=== PATIENT | male | born 1950 | race Caucasian/White ===

== ENCOUNTER → 2016-06-29 | Outpatient (CLI) | payer MEDICARE ==
--- NOTE | 2016-06-29 12:02 | CT ---
EXAMINATION TYPE: CT abdomen pelvis wo con DATE OF EXAM: 06/29/2016 11:11 AM COMPARISON: NONE HISTORY: increased frequency urination, pain and buring with urination and hematuria CT DLP: 370.6 mGycm FINDINGS: LUNG BASES: No evidence for nodule. No evidence for infiltrate. LIVER/GB: The gallbladder is unremarkable. No space-occupying hepatic lesion. PANCREAS: No pancreatic mass identified. No inflammatory process seen. SPLEEN: No evidence for splenomegaly. No intrasplenic lesions seen. ADRENALS: No adrenal nodules identified. No evidence for thickening. KIDNEYS: Parenchymal thinning right kidney. Large calculus upper pole right kidney measures approxima tely 1.3 cm in greatest dimension. Additional smaller calculi within the upper pole of the left kidne y. 2 calculi are seen within the distal right ureter just proximal to the right UVJ. The largest calc ulus measures 7 mm in transverse dimension while the smaller calculus measures approximately 4 mm. No rhonda hydronephrosis identified bilaterally. 4 mm nonobstructing calculi seen within the lower poles of both kidneys. Hypoattenuating lesions right kidney measuring up to 2 cm may reflect cysts. No dis tinct lesion is seen of the left kidney. BOWEL: Appendix has a normal appearance. No evidence of bowel obstruction. No inflammatory process. Lymph nodes: No evidence for adenopathy greater than 1 cm. Abdominal aorta: Atheromatous changes seen. Abdominal aortic aneurysm with aortic stent graft in plac e. No evidence for complicating factor on this noncontrast study. Genital organs: No significant abnormality. Other: Bilateral fat-containing inguinal hernias. IMPRESSION: 1. 2 DISTAL RIGHT URETERAL CALCULI DISCUSSED ABOVE WITHOUT SIGNIFICANT HYDRONEPHROSIS. ADDITIONAL RIGHT-SIDED RENAL CALCULI WITH RENAL PARENCHYMAL THINNING AND PROBABLE RIGHT RENAL CYSTS. 2. ABDOMINAL AORTIC ANEURYSM WITH STENT GRAFT.
== END | disposition home or self-care (01) ==
LOC: RADCTMAIN 10:52
PROVIDERS: ATTEND Family Medicine
DX: N20.2 Calculus of kidney with calculus of ureter (principal); I71.4 Abdominal aortic aneurysm, without rupture; Z95.828 Presence of other vascular implants and grafts
CPT/HCPCS: 74176

== ENCOUNTER → 2016-07-10 | Outpatient (CLI) | payer MEDICARE ==
[2016-07-10 11:58] LABS: Basophils % (A) 0 %; CH 30.5; CHCM 31.8; Eosinophils # (A) 0.1 k/uL (0-0.7); Eosinophils % (A) 2 %; HCT 47.7 % (39.0-53.0); HDW 2.55; HGB 15.1 gm/dL (13.0-17.5); Luc # (Auto) 0.23; Luc % (Auto) 3; Lymphocytes # (A) 1.3 k/uL (1.0-4.8); Lymphocytes % (A) 20 %; MCH 30.6 pg (25.0-35.0); MCHC 31.7 g/dL (31.0-37.0); MCV 96.5 fL (80.0-100.0); Mean Platelet Volume 7.2; Monocytes # (A) 0.4 k/uL (0-1.0); Monocytes % (A) 6 %; Neutrophils # (A) 4.7 k/uL (1.3-7.7); Neutrophils % (A) 69 %; RBC 4.94 m/uL (4.30-5.90); RDW 13.8 % (11.5-15.5); WBC 6.8 k/uL (3.8-10.6); WBC (Perox) 7.82
[2016-07-10 12:12] LABS: Anion Gap 12 mmol/L; Blood Urea Nitrogen 15 mg/dL (9-20); Calcium 8.9 mg/dL (8.4-10.2); Carbon Dioxide 28 mmol/L (22-30); Chloride 103 mmol/L (98-107); Glucose 128 mg/dL (74-99); Non-African American GFR(MDRD) >60 (>60 ml/min/1.73 sqM); Potassium 4.7 mmol/L (3.5-5.1); Sodium 143 mmol/L (137-145)
== END | disposition home or self-care (01) ==
LOC: LABPAT 11:37
PROVIDERS: ATTEND Urology
DX: Z01.812 Encounter for preprocedural laboratory examination (principal); Z01.810 Encounter for preprocedural cardiovascular examination; E78.00 Pure hypercholesterolemia, unspecified; I10 Essential (primary) hypertension; N20.1 Calculus of ureter
CPT/HCPCS: 80048; 85025

== ENCOUNTER → 2016-07-14 | Outpatient (CLI) | payer MEDICARE | END | disposition home or self-care (01) | LOC: LABPAT 14:28 | PROVIDERS: ATTEND Urology | DX: Z01.810 Encounter for preprocedural cardiovascular examination (principal); I10 Essential (primary) hypertension; N20.1 Calculus of ureter | CPT/HCPCS: 93005 ==

== ENCOUNTER 2016-07-15 08:29 | Day surgery (SDC) | payer MEDICARE ==
[2016-07-13 10:26] VITALS: BMI 25.8
[~2016-07-15 08:29] MED LIST: DEXAMETHASONE SOD PHOSPHATE 10 MG/ML 1 ML VIAL IV ONE; HYDROmorphone 1 MG/ML 1 ML SYRINGE IVP PRN; LACTATED RINGERS 1,000 ML IV SCH; LIDOCAINE 1% 20 ML VIAL (10MG/ML) FOR IV START INTRADERMA PRN; ONDANSETRON 4 MG/2 ML VIAL IVP ONE; SCOPOLAMINE 1.5MG/72HR PATCH TRANSDERM ONE; ceFAZolin 2 GM in SODIUM CHLORIDE 0.9% 100 ML IVPB ONE
--- NOTE | 2016-07-15 08:37 | XR ---
EXAMINATION TYPE: XR KUB DATE OF EXAM: 07/15/2016 8:24 AM CLINICAL HISTORY: Preoperative kidney stones. TECHNIQUE: Single supine KUB image of the abdomen is obtained. COMPARISON: CT abdomen and pelvis June 29, 2016. FINDINGS: Common and 13 millimeter calculus upper pole level right kidney redemonstrated. There are a dditional 2-3 calculi measuring under 5 mm scattered throughout the right kidney redemonstrated. Ther e is 5 mm calculus lower pole level left kidney redemonstrated. There are 2 calculi in the distal rig ht ureter right before UVJ redemonstrated, , largest measures 11 mm on long axis. There is rim calcified abdominal aortic aneurysm with metallic aortobiiliac stent graft redemonstrate d. There is overall nonobstructive bowel gas pattern. There is multilevel spurring in the spine. Ther e is moderate joint space loss in both hips. IMPRESSION: Stable bilateral nephrolithiasis including more importantly 2 distal obstructing right ureter calculi .
[2016-07-15] MEDS ORDERED: MIDAZOLAM 2 MG/2 ML VIAL ONE (09:35)
[2016-07-15] MEDS ORDERED: ePHEDrine 50 MG/ML 1 ML AMP ONE (09:35)
[2016-07-15] MEDS ORDERED: SUCCINYLCHOLINE CHLORIDE 100 MG/5 ML SYR IV ONE (09:35)
[2016-07-15] MEDS ORDERED: LIDOCAINE 1% INJ 10MG/ML (20 ML MDV) ONE (09:35)
[2016-07-15] MEDS ORDERED: PROPOFOL 10 MG/ML 20 ML VIAL IV ONE (09:35)
[2016-07-15] MEDS ORDERED: fentaNYL (PF) 50 MCG/ML 2 ML AMP ONE (09:35)
[2016-07-15] MEDS ORDERED: LACTATED RINGERS 1,000 ML IV ONE (10:03)
--- NOTE | 2016-07-15 10:34 | P.OP ---
Date of Procedure: 07/15/16 Preoperative Diagnosis: Right ureteral calculi Postoperative Diagnosis: Same Procedure(s) Performed: Cystoscopy, right ureteroscopy, right laser lithotripsy to large ureteral stones , placement of 626 double-J cath Anesthesia: MO Surgeon: Lopez Rae Estimated Blood Loss (ml): 10 Pathology: other (Stones) Condition: stable Disposition: PACU Indications for Procedure: The patient is a 65-year-old gentleman with 2 large distal right ureteral stones that he is unable to pass a causing obstruction he comes for laser lithotripsy Description of Procedure: Patient brought to the operating suite and given a successful general endotracheal anesthesia. He's placed lithotomy position with a sterile prep and drape. Cystoscopy Foroblique lens and 22-Nepalese sheath identifies normal urethra. The prostate is only partially obstructing. Upon entering the bladder the left ureteral orifice is normal the right is quite edematous. The bladder mucosa is unremarkable. I removed the cystoscope and passed a 7-Nepalese mini ureteroscope into the ureteral orifice and identify large stone in the intramural tunnel. With a 3 and 65 laser probe and 4 W of energy the stone was broken into tiny pieces. I flushes out of the ureter and then there is another stone proximal this. This requires 5 W of energy to fracture. Then of the procedure there is no significant fragments remaining in the ureter. There is a lot of edema however thus an 035 wires passed through the ureteroscope up in the kidney. I removed the ureteroscope and backloaded the cystoscope onto the wire. I then pass over the wire a 6 x 26 double-J catheter that coils in the renal pelvis and the bladder the bladder is drained stone fragments are sent to pathology the patient awake and returned recovery room good condition. He'll be discharged home upon recovery and found the office in one week for stent removal. Blood loss is minimal
[2016-07-15 10:39] VITALS: TEMP 97.4
[2016-07-15 10:47] VITALS: RESP 18
--- NOTE | 2016-07-15 10:56 | FL ---
EXAMINATION TYPE: FL guidance operating room DATE OF EXAM: 07/15/2016 10:44 AM CLINICAL HISTORY: Right ureter calculi. TECHNIQUE: Fluoroscopy. COMPARISON: X-ray from earlier today. FINDINGS: Fluoroscopic guidance was provided during stone retrieval procedure performed by Dr. Rae . A total of 15 seconds of fluoroscopic time was utilized during the procedure and one spot image is acquired. Single image acquired shows partial visualization of right ureter guidewire. IMPRESSION: As Above.
[2016-07-15 11:35] VITALS: BP 125/67; PULSE 68
== END 2016-07-15 12:18 | disposition home or self-care (01) ==
LOC: OR 08:29
PROVIDERS: ATTEND Urology
DX: N20.1 Calculus of ureter (principal); I10 Essential (primary) hypertension; E78.5 Hyperlipidemia, unspecified; I25.119 Atherosclerotic heart disease of native coronary artery with unspecified angina pectoris; F17.200 Nicotine dependence, unspecified, uncomplicated; E78.00 Pure hypercholesterolemia, unspecified; I25.2 Old myocardial infarction; Z87.442 Personal history of urinary calculi; Z79.02 Long term (current) use of antithrombotics/antiplatelets; Z79.891 Long term (current) use of opiate analgesic; Z79.899 Other long term (current) drug therapy; Z79.82 Long term (current) use of aspirin
CPT/HCPCS: 52356; 74000; C2625; C1769; J2250; J1100; J0690; J2405; J2001; J3010; J0330; J2704; 82365

== ENCOUNTER → 2017-09-14 | Outpatient (CLI) | payer MEDICARE ==
[2017-09-14 18:04] LABS: Blood Urea Nitrogen 16 mg/dL (9-20)
--- NOTE | 2017-09-15 03:13 | CT ---
EXAMINATION TYPE: CT chest w con DATE OF EXAM: 09/14/2017 COMPARISON: NONE HISTORY: 56-year-old male Abnormal chest xray. Pneumonia x 3 months. TECHNIQUE: Contiguous axial scanning of the chest after the administration of 100 mL of Isovue 300. Coronal/sagittal reconstructions performed. CT DLP: 567mGycm. Automatic exposure control utilized for a dose reduction. FINDINGS: Median sternotomy wires are present with post-CABG changes. Heart normal size without pericardial effusion. Ascending aorta is ectatic at 3.6 cm. Conventional arch vessel branching anatomy with mild atheroscle rotic calcification. Ectatic upper descending thoracic aorta 3.1 cm. The distal descending thoracic a veronica just above the diaphragmatic hiatus is aneurysmal at 3.9 cm with eccentric mural-based plaque. The upper abdominal aorta at the level of the celiac axis is aneurysmal at 4.1 cm. A stent graft begi ns just below the SMA takeoff and is incompletely visualized. Scattered nonenlarged mediastinal lymph nodes are present. There is mild centrilobular emphysema and mild diffuse bronchial wall thickening. Prominent epicardia l fat pads both on the right and left. There is an indeterminate ovoid pulmonary nodule left mid lung measuring 1.4 x 1.0 cm. There seems to be some internal fat density. No consolidation or pleural effusion. Atrophic right kidney with a calculi measuring up to 1.1 cm an underlying cysts. Bones: Bridging anterior endplate spondylosis mid to lower thoracic spine suggest DISH. IMPRESSION: 1. COPD with mild emphysema. 2. Indeterminate oval 1.4 x 1.0 cm pulmonary nodule left mid lung. There seems to be some internal fa t density raising possibility of a benign pulmonary hamartoma. Malignant lesions can sometimes includ e fat as well. 3, 9, and 24 month follow up exams can be performed. 3. Ectatic aorta, with mild aneurysm distal descending thoracic aorta (3.9 cm) and aneurysm upper abd ominal aorta (4.1 cm). 4. Right-sided nephrolithiasis with atrophic kidney and underlying cysts.
== END | disposition home or self-care (01) ==
LOC: RADCTMAIN 17:21
PROVIDERS: ATTEND Family Medicine
DX: J43.9 Emphysema, unspecified (principal); R91.1 Solitary pulmonary nodule; I71.2 Thoracic aortic aneurysm, without rupture
CPT/HCPCS: 82565; 84520; 71260; 36415; Q9967

== ENCOUNTER 2018-04-21 13:38 | Inpatient (IN) | payer MEDICARE ==
[2018-04-21] MEDS ORDERED: IPRATROPIUM-ALBUTEROL 3 ML NEB INHALATION STA (14:10)
[2018-04-21] MEDS ORDERED: SODIUM CHLORIDE 0.9% 1,000 ML IV STA (14:10)
--- NOTE | 2018-04-21 14:22 | ED ---
General Adult HPI - General Chief complaint: Upper Respiratory Infection Stated complaint: PINA Time Seen by Provider: 04/21/18 13:50 Source: patient, RN notes reviewed Mode of arrival: ambulatory Limitations: no limitations - History of Present Illness Initial comments: 67-year-old male with the past medical history of coronary artery disease, hyperlipidemia, hypertension, MD, abdominal aneurysm presents to the emergency department for a chief complaint of cough 4 days. He states he has had a productive cough consisting of greenish brown sputum. Patient states he has been short of breath and feels like he cannot take a full breath. Patient admits to COPD history. He is a current smoker and states he has smoked a pack per day for the past 50 years. Patient denies a history of heart failure. Denies fevers or chills. Patient denies any chest pain whatsoever. Patient denies history of blood clots or current pain or swelling in the legs. Currently on Plavix. Patient has no other complaints at this time including chest pain, abdominal pain, nausea or vomiting, headache, or visual changes. - Related Data Home Medications Medication Instructions Recorded Confirmed Aspirin EC [Ecotrin Low Dose] 81 mg PO DAILY 03/23/14 04/21/18 Clopidogrel [Plavix] 75 mg PO DAILY 03/23/14 04/21/18 Isosorbide Mononitrate [Imdur] 30 mg PO DAILY 03/23/14 04/21/18 Metoprolol Tartrate [Lopressor] 50 mg PO BID 03/23/14 04/21/18 Simvastatin [Zocor] 40 mg PO DAILY 03/23/14 04/21/18 Allergies Allergy/AdvReac Type Severity Reaction Status Date / Time No Known Allergies Allergy Verified 04/21/18 14:05 Review of Systems ROS Statement: Those systems with pertinent positive or pertinent negative responses have been documented in the HPI. ROS Other: All systems not noted in ROS Statement are negative. Past Medical History Past Medical History: Coronary Artery Disease (CAD), Chest Pain / Angina, Hyperlipidemia, Hypertension, Myocardial Infarction (MD), Vascular Disorder Additional Past Medical History / Comment(s): KIDNEY STONES. STENT PLACED FOR ABD ANEURYSM. Last Myocardial Infarction Date:: 2005? History of Any Multi-Drug Resistant Organisms: None Reported Past Surgical History: Coronary Bypass/CABG, Heart Catheterization, Heart Catheterization With Stent, Orthopedic Surgery Additional Past Surgical History / Comment(s): RT ROTATOR CUFF REPAIR. CABG ( 2005 & 2007) BYPASS X2. STENTS X2 IN PAST, ABD ANEURYSM REPAIR WITH STENT, LT CAROTID ENDARTERECTOMY. lithotripsy. STATES STENT TO LEFT LEG Past Anesthesia/Blood Transfusion Reactions: No Reported Reaction Date of Last Stent Placement:: 10/14/12 Past Psychological History: No Psychological Hx Reported Smoking Status: Current every day smoker Past Alcohol Use History: Rare Past Drug Use History: None Reported - Past Family History Father Family Medical History: Deep Vein Thrombosis (DVT) General Exam Limitations: no limitations General appearance: alert, in no apparent distress Head exam: Present: atraumatic, normocephalic, normal inspection Eye exam: Present: normal appearance, PERRL, EOMI. Absent: scleral icterus, conjunctival injection, periorbital swelling ENT exam: Present: normal exam, mucous membranes moist Neck exam: Present: normal inspection, full ROM. Absent: tenderness, meningismus, lymphadenopathy Respiratory exam: Present: normal lung sounds bilaterally, decreased breath sounds (Diminished breath sounds bilaterally). Absent: respiratory distress, wheezes, rales, rhonchi, stridor Cardiovascular Exam: Present: regular rate, normal rhythm, normal heart sounds. Absent: systolic murmur, diastolic murmur, rubs, gallop, clicks GI/Abdominal exam: Present: soft, normal bowel sounds. Absent: distended, tenderness, guarding, rebound, rigid Neurological exam: Present: alert, oriented X3, CN II-XII intact Psychiatric exam: Present: normal affect, normal mood Course Vital Signs 04/21/18 04/21/18 04/21/18 13:39 14:30 14:40 Temperature 97.7 F Pulse Rate 108 H 81 85 Respiratory 22 16 Rate Blood Pressure 147/85 O2 Sat by Pulse 96 Oximetry EKG Findings - EKG Comments: EKG Findings:: EKG shows a sinus rhythm, ventricular rate 79, [place] interval 142, QR samaritan 88, QTc 451 Medical Decision Making - Medical Decision Making 67-year-old male with the past medical history of coronary artery disease, hyperlipidemia, hypertension, MD, abdominal aneurysm presents to the emergency department for a chief complaint of cough 4 days. He can admits to shortness of breath and difficulty getting a deep breath. Patient has a 91-[id number] smoking history. Currently on Plavix. On exam patient is diminished lung sounds bilaterally. EKG shows a sinus rhythm with PACs, ventricular rate 79. No evidence of ST elevation or depression. CBC and CMP are unremarkable. Troponin 0.046, patient was given aspirin and Heparin. Chest x-ray shows suspected CHF exacerbation as there is persistent cardiomegaly with new tiny left greater than right bilat pleural effusions. D-dimer 3.50, CT of the chest shows no evidence for acute pulmonary embolism however suspect CHF exacerbation as there is cardiomegaly with new small to moderate-sized bilateral pleural effusions. Patient will be admitted for new onset CHF as well as serial troponins and IV heparin. - Lab Data Result diagrams: 04/21/18 14:20 04/21/18 14:20 Lab Results 04/21/18 04/21/18 04/21/18 Range/Units 14:20 14:20 14:20 WBC 8.3 (3.8-10.6) k/uL RBC 4.27 L (4.30-5.90) m/uL Hgb 12.6 L (13.0-17.5) gm/dL Hct 39.4 (39.0-53.0) % MCV 92.4 (80.0-100.0) fL MCH 29.5 (25.0-35.0) pg MCHC 31.9 (31.0-37.0) g/dL RDW 14.4 (11.5-15.5) % Plt Count 151 (150-450) k/uL Neutrophils % 79 % Lymphocytes % 13 % Monocytes % 5 % Eosinophils % 2 % Basophils % 0 % Neutrophils # 6.6 (1.3-7.7) k/uL Lymphocytes # 1.0 (1.0-4.8) k/uL Monocytes # 0.4 (0-1.0) k/uL Eosinophils # 0.1 (0-0.7) k/uL Basophils # 0.0 (0-0.2) k/uL Hypochromasia Slight PT 10.6 (9.0-12.0) sec INR 1.1 (<1.2) APTT 24.2 (22.0-30.0) sec D-Dimer 3.50 H (<0.60) mg/L FEU Sodium 140 (137-145) mmol/L Potassium 4.7 (3.5-5.1) mmol/L Chloride 105 (98-107) mmol/L Carbon Dioxide 26 (22-30) mmol/L Anion Gap 9 mmol/L BUN 15 (9-20) mg/dL Creatinine 0.60 L (0.66-1.25) mg/dL Est GFR (CKD-EPI)AfAm >90 (>60 ml/min/1.73 sqM) Est GFR (CKD-EPI)NonAf >90 (>60 ml/min/1.73 sqM) Glucose 155 H (74-99) mg/dL Plasma Lactic Acid Eduin (0.7-2.0) mmol/L Calcium 8.9 (8.4-10.2) mg/dL Magnesium 1.9 (1.6-2.3) mg/dL Total Bilirubin 0.5 (0.2-1.3) mg/dL AST 17 (17-59) U/L ALT 32 (21-72) U/L Alkaline Phosphatase 84 (38-126) U/L Troponin I (0.000-0.034) ng/mL NT-Pro-B Natriuret Pep pg/mL Total Protein 5.9 L (6.3-8.2) g/dL Albumin 3.5 (3.5-5.0) g/dL 04/21/18 04/21/18 04/21/18 Range/Units 14:20 14:20 14:20 WBC (3.8-10.6) k/uL RBC (4.30-5.90) m/uL Hgb (13.0-17.5) gm/dL Hct (39.0-53.0) % MCV (80.0-100.0) fL MCH (25.0-35.0) pg MCHC (31.0-37.0) g/dL RDW (11.5-15.5) % Plt Count (150-450) k/uL Neutrophils % % Lymphocytes % % Monocytes % % Eosinophils % % Basophils % % Neutrophils # (1.3-7.7) k/uL Lymphocytes # (1.0-4.8) k/uL Monocytes # (0-1.0) k/uL Eosinophils # (0-0.7) k/uL Basophils # (0-0.2) k/uL Hypochromasia PT (9.0-12.0) sec INR (<1.2) APTT (22.0-30.0) sec D-Dimer (<0.60) mg/L FEU Sodium (137-145) mmol/L Potassium (3.5-5.1) mmol/L Chloride (98-107) mmol/L Carbon Dioxide (22-30) mmol/L Anion Gap mmol/L BUN (9-20) mg/dL Creatinine (0.66-1.25) mg/dL Est GFR (CKD-EPI)AfAm (>60 ml/min/1.73 sqM) Est GFR (CKD-EPI)NonAf (>60 ml/min/1.73 sqM) Glucose (74-99) mg/dL Plasma Lactic Acid Eduin 1.7 (0.7-2.0) mmol/L Calcium (8.4-10.2) mg/dL Magnesium (1.6-2.3) mg/dL Total Bilirubin (0.2-1.3) mg/dL AST (17-59) U/L ALT (21-72) U/L Alkaline Phosphatase (38-126) U/L Troponin I 0.046 H* (0.000-0.034) ng/mL NT-Pro-B Natriuret Pep 2150 pg/mL Total Protein (6.3-8.2) g/dL Albumin (3.5-5.0) g/dL Disposition Clinical Impression: New onset of congestive heart failure, Bilateral pleural effusion, Elevated troponin Disposition: ADMITTED IP TO THIS [facility] Condition: Good Is patient prescribed a controlled substance at d/c from ED?: No Referrals: Antonio Diaz Jr, [Primary Care Provider] - 1-2 days Time of Disposition: 17:18
--- NOTE | 2018-04-21 14:53 | XR ---
EXAMINATION TYPE: XR chest 2V DATE OF EXAM: 04/21/2018 COMPARISON: CT chest September 14, 2017 HISTORY: Shortness of breath TECHNIQUE: Frontal and lateral views of the chest are obtained. FINDINGS: There is mild chronic parenchymal changes with slightly more prominent interstitial promin ence and new tiny left greater than right bilateral pleural effusions. Post-CABG changes with mediast inal clips and sternal wires is redemonstrated The cardiac silhouette size is stable and mildly enla rged. The osseous structures are intact. Surgical changes epigastric region are present favored aor tic stent graft new from CT. IMPRESSION: Suspected CHF exacerbation as there is persistent cardiomegaly with new tiny left greate r right pleural effusions and mild interstitial edema background chronic parenchymal change. Correlat e clinically.
[2018-04-21 14:59] LABS: Basophils % (A) 0 %; Eosinophils # (A) 0.1 k/uL (0-0.7); Eosinophils % (A) 2 %; HCT 39.4 % (39.0-53.0); HGB 12.6 gm/dL (13.0-17.5); Hypochromasia Slight; Lymphocytes % (A) 13 %; MCH 29.5 pg (25.0-35.0); MCHC 31.9 g/dL (31.0-37.0); MCV 92.4 fL (80.0-100.0); Mean Platelet Volume 8.6; Monocytes # (A) 0.4 k/uL (0-1.0); Monocytes % (A) 5 %; Neutrophils # (A) 6.6 k/uL (1.3-7.7); Neutrophils % (A) 79 %; Platelet Count 151 k/uL (150-450); RBC 4.27 m/uL (4.30-5.90); RDW 14.4 % (11.5-15.5); WBC 8.3 k/uL (3.8-10.6)
[2018-04-21 15:04] LABS: ALT 32 U/L (21-72); AST 17 U/L (17-59); Albumin 3.5 g/dL (3.5-5.0); Alkaline Phosphatase 84 U/L (38-126); Anion Gap 9 mmol/L; Blood Urea Nitrogen 15 mg/dL (9-20); Calcium 8.9 mg/dL (8.4-10.2); Carbon Dioxide 26 mmol/L (22-30); Chloride 105 mmol/L (98-107); Glucose 155 mg/dL (74-99); Magnesium 1.9 mg/dL (1.6-2.3); Potassium 4.7 mmol/L (3.5-5.1); Sodium 140 mmol/L (137-145); Total Bilirubin 0.5 mg/dL (0.2-1.3); Total Protein 5.9 g/dL (6.3-8.2)
[2018-04-21 15:07] LABS: INR 1.1 (<1.2); Partial Thromboplastin Time 24.2 sec (22.0-30.0); Prothrombin Time 10.6 sec (9.0-12.0)
[2018-04-21 15:13] LABS: D-Dimer 3.5 mg/L FEU (<0.60)
--- NOTE | 2018-04-21 16:09 | CT ---
EXAMINATION TYPE: CT chest angio for PE DATE OF EXAM: 04/21/2018 COMPARISON: CT chest September 14, 2017. HISTORY: cough, SOB CT DLP: 346.7 mGycm. Automated Exposure Control for Dose Reduction was Utilized. CONTRAST: CTA scan of the thorax is performed with IV Contrast, patient injected with 70 mL of Isovue 370, pulm onary embolism protocol. MIP Images are created on CT scanner and reviewed. FINDINGS: LUNGS: Evaluation of lungs suboptimal due to significant respiratory motion artifact degradation. The re are new small to moderate sized bilateral pleural effusions with associated compressive atelectasi s in both bases. There is new 3 to 4 mm subpleural nodule right upper lobe axial image 31. There is s table 9 mm fat density nodule posterior left upper lobe axial image 44. There is no nodule or nodular consolidation measuring 10 x 8 mm superior left lower lobe axial image 45 favoring focal atelectasis adjacent to effusion. Mild biapical pleural/parenchymal scarring remains present. Mild bibasilar jay ear scarring and/or atelectasis just above the diaphragm is redemonstrated. MEDIASTINUM: There is satisfactory enhancement of the pulmonary artery and its branches, there is no CT evidence for pulmonary embolism. There are new prominent but subcentimeter lymph nodes throughou t the mediastinum and bilateral hilar regions. No significant pericardial effusion is seen. Post-CA BG changes with mediastinal clips and sternal wires is redemonstrated. Epicardial pacer wires are red emonstrated. OTHER: There is persistent atrophy and cortical thinning upper pole of the right kidney with scattere d right renal calculi and partial visualization of low dense lesions probable cyst lower pole of the right kidney. There is partial visualization of new aortobiiliac stent graft through abdominal aortic aneurysm. [id number]-os-wlbdix multilevel spurring in the thoracic spine is present. Suspect DISH. Und erlying dextroconvex scoliosis is again seen. IMPRESSION: 1. No CT evidence for acute pulmonary embolism. 2. Suspect CHF exacerbation as there is cardiomegaly with new small to moderate-sized bilateral pleur al effusions, correlate clinically.
[2018-04-21] MEDS ORDERED: NITROGLYCERIN SL TABS 0.4 MG TAB SUBLINGUAL PRN (17:00)
[2018-04-21] MEDS ORDERED: HEPARIN SODIUM,PORCINE 5,000 UNIT/ML 1 ML VIAL IV ONE (17:00)
[2018-04-21] MEDS ORDERED: FUROSEMIDE 10 MG/ML 4 ML VIAL IV STA ×2 (17:17→23:53)
[2018-04-21] MEDS ORDERED: ASPIRIN 325 MG TAB PO STA (19:26)
[2018-04-21] MEDS: METOPROLOL TARTRATE 50 MG TAB PO SCH (21:50)
[2018-04-22] MEDS: ALPRAZolam 0.25 MG TAB PO PRN (02:16)
[2018-04-22 04:25] LABS: Cholesterol 154 mg/dL (<200); HDL Cholesterol 33 mg/dL (40-60); LDL Cholesterol,Calculated 80 mg/dL (0-99); Triglycerides 206 mg/dL (<150)
[2018-04-22] MEDS: ISOSORBIDE MONONITRATE ER 30 MG TAB.ER.24H PO SCH (08:45)
[2018-04-22] MEDS: CLOPIDOGREL 75 MG TAB PO SCH (08:45)
[2018-04-22] MEDS: METOPROLOL TARTRATE 50 MG TAB PO SCH ×2 (08:45→20:03)
[2018-04-22] MEDS ORDERED: ASPIRIN 325 MG TAB PO SCH (09:00)
[2018-04-22] MEDS ORDERED: NON-FORMULARY DRUG (Aspirin Ec 81 MG) PO SCH (09:00)
[2018-04-22] MEDS ORDERED: ATORVASTATIN 20 MG TAB PO SCH (09:00)
[2018-04-22] MEDS: FUROSEMIDE 40 MG TAB PO SCH ×3 (12:32→16:00)
--- NOTE | 2018-04-22 12:44 | P.HPIM ---
History of Present Illness H&P Date: 04/22/18 Chief Complaint: Shortness of breath This is a 67-year-old white male it comes to the emergency room complaining of three-week history of shortness of breath. He indicates that he's been having minimal cough. He denies any chest pains, pressures, nausea or vomiting. He indicates he does have somewhat of a productive cough of brown mucus. He is here today for further evaluation. He denies any other significant abnormalities. He has a history of coronary disease with artery bypass grafting 2, multiple stent placement history, carotid endarterectomy history. His web coordinator is Dr. Ni. He is not seen his web coordinator in quite some time. He smokes approximately a pack a day and has for 30+ years. Review of Systems All systems: negative Past Medical History Past Medical History: Coronary Artery Disease (CAD), Chest Pain / Angina, Hyperlipidemia, Hypertension, Myocardial Infarction ([place]), Vascular Disorder Additional Past Medical History / Comment(s): KIDNEY STONES. STENT PLACED FOR ABD ANEURYSM. Last Myocardial Infarction Date:: 2005? History of Any Multi-Drug Resistant Organisms: None Reported Past Surgical History: Coronary Bypass/CABG, Heart Catheterization, Heart Catheterization With Stent, Orthopedic Surgery Additional Past Surgical History / Comment(s): RT ROTATOR CUFF REPAIR. CABG ( 2005 & 2007) BYPASS X2. STENTS X2 IN PAST, ABD ANEURYSM REPAIR WITH STENT, LT CAROTID ENDARTERECTOMY. lithotripsy. STATES STENT TO LEFT LEG Past Anesthesia/Blood Transfusion Reactions: No Reported Reaction Date of Last Stent Placement:: 10/14/12 Past Psychological History: No Psychological Hx Reported Smoking Status: Current every day smoker Past Alcohol Use History: Rare Additional Past Alcohol Use History / Comment(s): SMOKED SINCE AGE 15, 1PPD Past Drug Use History: None Reported - Past Family History Father Family Medical History: Deep Vein Thrombosis (DVT) Medications and Allergies Home Medications Medication Instructions Recorded Confirmed Type Aspirin EC [Ecotrin Low Dose] 81 mg PO DAILY 03/23/14 04/21/18 History Clopidogrel [Plavix] 75 mg PO DAILY 03/23/14 04/21/18 History Isosorbide Mononitrate [Imdur] 30 mg PO DAILY 03/23/14 04/21/18 History Metoprolol Tartrate [Lopressor] 50 mg PO BID 03/23/14 04/21/18 History Simvastatin [Zocor] 40 mg PO DAILY 03/23/14 04/21/18 History Allergies Allergy/AdvReac Type Severity Reaction Status Date / Time No Known Allergies Allergy Verified 04/21/18 14:05 Physical Exam Vitals: Vital Signs Temp Pulse Pulse Resp BP BP Pulse Ox 04/22/18 08:00 98.2 F 73 20 111/71 94 L 04/22/18 04:00 97.8 F 70 20 103/58 94 L 04/22/18 00:00 97.9 F 73 20 103/56 97 04/21/18 21:52 98.9 F 82 20 104/67 95 04/21/18 18:00 98.0 F 93 18 107/69 95 04/21/18 17:00 107/69 88 L 04/21/18 16:00 107/69 92 L 04/21/18 15:00 85 20 107/69 95 04/21/18 14:40 85 04/21/18 14:35 96 04/21/18 14:30 81 16 04/21/18 13:39 97.7 F 108 H 22 147/85 96 Intake and Output 04/21/18 04/22/18 04/22/18 22:59 06:59 14:59 Other: Voiding Method Toilet Toilet # Voids 4 1 Weight 72.575 kg 72 kg GENERAL: Well-appearing, well-nourished and in no acute distress. HEAD: Atraumatic, normocephalic. EYES: Pupils equal round and reactive to light, extraocular movements intact, sclera anicteric, conjunctiva are normal. ENT:nares patent, oropharynx clear without exudates. Moist mucous membranes. NECK: Normal range of motion, supple without lymphadenopathy or JVD, no thyromegaly LUNGS: Breath sounds coarse to auscultation bilaterally and equal. No wheezes rales or rhonchi. HEART: Regular rate and rhythm without murmurs, rubs or gallops.S1S2 Normal ABDOMEN: Soft, nontender, normoactive bowel sounds. No guarding, no rebound. No masses appreciated. Minimally Distended. EXTREMITIES: Normal range of motion, no pitting or edema. No clubbing or cyanosis. NEUROLOGICAL: Cranial nerves II through XII grossly intact. Normal speech, normal gait. PSYCH: Normal mood, normal affect. SKIN: Warm, Dry, normal turgor, no rashes or lesions noted. Results CBC & Chem 7: 04/21/18 14:20 04/21/18 14:20 Labs: Abnormal Lab Results - Last 24 Hours (Table) 04/21/18 04/21/18 04/21/18 Range/Units 14:20 14:20 14:20 RBC 4.27 L (4.30-5.90) m/uL Hgb 12.6 L (13.0-17.5) gm/dL D-Dimer 3.50 H (<0.60) mg/L FEU Creatinine 0.60 L (0.66-1.25) mg/dL Glucose 155 H (74-99) mg/dL Troponin I (0.000-0.034) ng/mL Total Protein 5.9 L (6.3-8.2) g/dL Triglycerides (<150) mg/dL HDL Cholesterol (40-60) mg/dL 04/21/18 04/21/18 04/22/18 Range/Units 14:20 20:27 03:47 RBC (4.30-5.90) m/uL Hgb (13.0-17.5) gm/dL D-Dimer (<0.60) mg/L FEU Creatinine (0.66-1.25) mg/dL Glucose (74-99) mg/dL Troponin I 0.046 H* 0.063 H* 0.067 H* (0.000-0.034) ng/mL Total Protein (6.3-8.2) g/dL Triglycerides (<150) mg/dL HDL Cholesterol (40-60) mg/dL 04/22/18 Range/Units 03:47 RBC (4.30-5.90) m/uL Hgb (13.0-17.5) gm/dL D-Dimer (<0.60) mg/L FEU Creatinine (0.66-1.25) mg/dL Glucose (74-99) mg/dL Troponin I (0.000-0.034) ng/mL Total Protein (6.3-8.2) g/dL Triglycerides 206 H (<150) mg/dL HDL Cholesterol 33 L (40-60) mg/dL Chest x-ray: report reviewed (Suspected CHF exacerbation tiny pleural effusions) CT scan - chest: report reviewed (No CT evidence of acute pulmonary embolism, suspect CHF exacerbation as there is cardiomegaly with small new to moderate sized bilateral pleural effusions.) Thrombosis Risk Factor Assmnt - DVT/VTE Prophylaxis DVT/VTE Prophylaxis: Pharmacologic Prophylaxis ordered - Choose All That Apply Any of the Below Risk Factors Present?: No Each Factor Represents 1 point: Heart failure (<1month) Other Risk Factors: Yes Each Risk Factor Represents 2 Points: Age 61-74 years Other congenital or acquired thrombophilia - If yes, enter type in comment: No Thrombosis Risk Factor Assessment Total Risk Factor Score: 3 Thrombosis Risk Factor Assessment Level: Moderate Risk Assessment and Plan (1) Coronary heart disease Current Visit: Yes Status: Acute Code(s): I25.10 - ATHSCL HEART DISEASE OF [place] CORONARY ARTERY W/O ANG PCTRS SNOMED Code(s): 56020695 (2) Old myocardial infarction Current Visit: Yes Status: Acute Code(s): I25.2 - OLD MYOCARDIAL INFARCTION SNOMED Code(s): 1047555 (3) H/O two vessel coronary artery bypass graft Current Visit: Yes Status: Acute Code(s): Z95.1 - PRESENCE OF AORTOCORONARY BYPASS GRAFT SNOMED Code(s): 318770894 (4) COPD exacerbation Current Visit: Yes Status: Acute Code(s): J44.1 - CHRONIC OBSTRUCTIVE PULMONARY DISEASE W (ACUTE) EXACERBATION SNOMED Code(s): 745710124 (5) Hypertension Current Visit: Yes Status: Acute Code(s): I10 - ESSENTIAL (PRIMARY) HYPERTENSION SNOMED Code(s): 07753949 (6) Hyperlipemia Current Visit: Yes Status: Acute Code(s): E78.5 - HYPERLIPIDEMIA, UNSPECIFIED SNOMED Code(s): 27118996 (7) Bilateral pleural effusion Current Visit: Yes Status: Acute Code(s): J90 - PLEURAL EFFUSION, NOT ELSEWHERE CLASSIFIED SNOMED Code(s): 845132879 (8) Elevated troponin Current Visit: Yes Status: Acute Code(s): R74.8 - ABNORMAL LEVELS OF OTHER SERUM ENZYMES SNOMED Code(s): 876577099 (9) New onset of congestive heart failure Current Visit: Yes Status: Acute Code(s): I50.9 - HEART FAILURE, UNSPECIFIED SNOMED Code(s): 19622059 (10) Normocytic anemia Current Visit: Yes Status: Acute Code(s): D64.9 - ANEMIA, UNSPECIFIED SNOMED Code(s): 020894980 Plan: We'll consult cardiology. He'll be placed on heparin 5000 units subcutaneous every 8 hours. We'll start him on Solu-Medrol every 6 hours [id number] and updrafts. Will start him on Symbicort 160 twice a day. I'll reevaluate next 24 hours. We'll repeat labs in a.m.
[2018-04-22] MEDS ORDERED: IPRATROPIUM-ALBUTEROL 3 ML NEB INHALATION PRN (12:47)
--- NOTE | 2018-04-22 13:22 | CONS ---
CONSULTATION Mr. Nicholson is a 67-year-old male with a known history of severe peripheral vascular disease, severe coronary artery disease, who presented with symptoms of progressive dyspnea, cough productive of brownish sputum. He has no peripheral edema. No clear PND nor orthopnea. He has occasional chest discomfort but without any increase in the frequency nor intensity. He denies any dizziness, palpitation, or syncope. His cardiac history is remarkable for the fact that he had stenting of the LAD in 1998, coronary artery bypass grafting in 2005. His left ventricular systolic function most recently in 2013 was normal and he had severe peripheral vascular disease with intervention on his lower extremities done by Dr. Malcolm. He was last seen by Dr. Malcolm in 2017. He has a history of abdominal aortic aneurysm repair in the past. Unfortunately the patient continued to smoke on a regular basis. He also has a history of hypertension and hyperlipidemia. He is a nondiabetic. MEDICATION: His medications at home included simvastatin 40 mg daily, metoprolol 50 mg twice a day, isosorbide mononitrate 30 mg daily, Plavix 75 mg daily and aspirin once a day. REVIEW OF SYSTEMS: RESPIRATORY SYSTEM: He has dyspnea on exertion with cough and history of obstructive lung disease. GI SYSTEM: No recent GI bleed. No peptic ulcer disease. SYSTEM: No dysuria or hematuria. NERVOUS SYSTEM: No history of stroke or seizure. PHYSICAL EXAMINATION: This is a 67-year-old male, alert, oriented, mildly dyspneic, appears older than stated age. Blood pressure 103/58 with the heart rate in the 70s. HEAD: Normocephalic. EYES: Sclerae anicteric. NECK: With bruit noted, more on the right side. LUNGS: With decreased air exchange and scattered wheezes. HEART: Regular rate and rhythm, S1, S2. No S3 with systolic ejection murmur 2/6 heard at the base. No diastolic murmur. No rub. ABDOMEN: Soft, nontender. Positive bowel sounds. No organomegaly. EXTREMITIES: No edema with decreased distal pulses. LAB DATA: Lab data revealed cholesterol 154, LDL of 80. BUN and creatinine 15 and 0.6. Troponin 0.046, 0.063 and 0.067. Hemoglobin of 12.6. D-dimer of 3.5. A CT angiogram of the chest showed no evidence of pulmonary embolism with evidence of small to moderate-sized bilateral pleural effusion and CHF. EKG shows a sinus mechanism with normal axis, intervals, and T-wave inversion in lead V5 and V6. His chest x-ray is consistent with CHF. IMPRESSION: 1. Symptoms of progressive dyspnea probably multifactorial with evidence of congestive heart failure with prior preserved systolic function and evidence of exacerbation of chronic obstructive pulmonary disease. 2. History of coronary artery disease with past coronary artery bypass grafting. 3. Mild elevation of troponin, most likely representing a type 2 myocardial infarction. 4. History of severe peripheral vascular disease. 5. History of hypertension. 6. Hyperlipidemia. 7. Chronic tobacco use. RECOMMENDATION: From the cardiac standpoint, I will initiate diuretics orally. I will obtain an echocardiogram with Doppler. We will continue on the present medical regimen. Unfortunately, the patient has been continued to smoke and I believe that he has significant obstructive lung disease. Thank you for this consult. We will follow with you. ELIZABETH / IJN: [id number] /
[2018-04-22] MEDS: methylPREDNISolone SOD SUCCI 125 MG/2 ML VIAL IV SCH ×3 (15:52→23:08)
[2018-04-22] MEDS: HEPARIN SODIUM,PORCINE 5,000 UNIT/ML 1 ML VIAL SQ SCH ×2 (15:52→23:08)
[2018-04-22] MEDS: FAMOTIDINE 20 MG TAB PO SCH (15:52)
[2018-04-22 16:26] VITALS: BMI 24.8
--- NOTE | 2018-04-22 16:41 | ECHOF ---
Referral Reason:chf MEASUREMENTS -------- HEIGHT: 170.2 cm WEIGHT: 71.7 kg BP: 103/58 RVIDd: 3.5 cm (< 3.3) IVSd: 1.2 cm (0.6 - 1.1) LVIDd: 5.8 cm (3.9 - 5.3) LVPWd: 1.3 cm (0.6 - 1.1) IVSs: 1.6 cm LVIDs: 4.8 cm LVPWs: 1.3 cm LA Diam: 5.0 cm (2.7 - 3.8) LAESV Index (A-L): 42.71 ml/m Ao Diam: 3.0 cm (2.0 - 3.7) AV Cusp: 0.7 cm (1.5 - 2.6) LA Diam: 5.3 cm (2.7 - 3.8) MV EXCURSION: 17.332 mm (> 18.000) MV EF SLOPE: 106 mm/s (70 - 150) EPSS: 0.7 cm MV E Kalyan: 0.94 m/s MV DecT: 137 ms MV A Kalyan: 0.46 m/s MV E/A Ratio: 2.06 AV maxP.75 mmHg AV meanP.54 mmHg RAP: 5.00 mmHg RVSP: 52.98 mmHg FINDINGS -------- Sinus rhythm. This was a technically adequate study. The left ventricular size is normal. There is mild concentric left ventricular hypertrophy. Overa ll left ventricular systolic function is mild-moderately impaired with, an EF between 40 - 45 %. Ba benjamin inferior LV wall motion is hypokinetic. Mid inferior LV wall motion is hypokinetic. The right ventricle is mildly enlarged. LA is severely dilated >40 ml/m2 The right atrial size is normal. There is moderate aortic valve sclerosis. There is moderate aortic stenosis present. Peak/mean gr adient across the Aortic Valve is 33.75mmHg / 17.54mmHg. Mild mitral annular calcification present. Mild mitral regurgitation is present. Mild tricuspid regurgitation present. There is moderate pulmonary hypertension. The right ventric ular systolic pressure, as measured by Doppler, is 52.98mmHg. Trace/mild (physiologic) pulmonic regurgitation. The aortic root size is normal. There is no pericardial effusion. CONCLUSIONS -------- 1. Sinus rhythm. 2. This was a technically adequate study. 3. The left ventricular size is normal. 4. There is mild concentric left ventricular hypertrophy. 5. Overall left ventricular systolic function is mild-moderately impaired with, an EF between 40 - 45 %. 6. Basal inferior LV wall motion is hypokinetic. 7. Mid inferior LV wall motion is hypokinetic. 8. The right ventricle is mildly enlarged. 9. LA is severely dilated >40 ml/m2 10. There is moderate aortic valve sclerosis. 11. There is moderate aortic stenosis present. 12. Peak/mean gradient across the Aortic Valve is 33.75mmHg / 17.54mmHg. 13. Mild mitral annular calcification present. 14. Mild mitral regurgitation is present. 15. Mild tricuspid regurgitation present. 16. There is moderate pulmonary hypertension. 17. Trace/mild (physiologic) pulmonic regurgitation. 18. The aortic root size is normal. 19. There is no pericardial effusion. COCOA ROASTER: Eva Wray RDCS
[2018-04-22 21:55] LABS: Glucose,Whole Blood 321 mg/dL (75-99)
[2018-04-22] MEDS: INSULIN ASPART 100 UNIT/ML 1 ML 10 ML VIAL SQ SCH (22:01)
[2018-04-23 02:44] LABS: Hemoglobin A1C 7.6 % (4.0-6.0)
[2018-04-23] MEDS: methylPREDNISolone SOD SUCCI 125 MG/2 ML VIAL IV SCH ×2 (05:47→12:20)
[2018-04-23 06:06] LABS: Basophils % (A) 0 %; Eosinophils % (A) 0 %; HCT 49.7 % (39.0-53.0); HGB 15.2 gm/dL (13.0-17.5); Hypochromasia Slight; Lymphocytes % (A) 12 %; MCH 28.3 pg (25.0-35.0); MCHC 30.6 g/dL (31.0-37.0); MCV 92.6 fL (80.0-100.0); Mean Platelet Volume 7.7; Monocytes # (A) 0.1 k/uL (0-1.0); Monocytes % (A) 1 %; Neutrophils # (A) 6.8 k/uL (1.3-7.7); Neutrophils % (A) 85 %; Platelet Count 207 k/uL (150-450); RBC 5.36 m/uL (4.30-5.90); RDW 14.4 % (11.5-15.5); WBC 7.9 k/uL (3.8-10.6)
[2018-04-23 06:18] LABS: Glucose,Whole Blood 287 mg/dL (75-99)
[2018-04-23 06:20] LABS: Anion Gap 9 mmol/L; Blood Urea Nitrogen 18 mg/dL (9-20); Calcium 9.3 mg/dL (8.4-10.2); Carbon Dioxide 30 mmol/L (22-30); Chloride 99 mmol/L (98-107); Glucose 277 mg/dL (74-99); Magnesium 2.1 mg/dL (1.6-2.3); Sodium 138 mmol/L (137-145)
[2018-04-23] MEDS: INSULIN ASPART 100 UNIT/ML 1 ML 10 ML VIAL SQ SCH ×4 (06:23→20:20)
[2018-04-23] MEDS: FAMOTIDINE 20 MG TAB PO SCH (08:47)
[2018-04-23] MEDS: ATORVASTATIN 40 MG TAB PO SCH (08:47)
[2018-04-23] MEDS: METOPROLOL TARTRATE 50 MG TAB PO SCH ×2 (08:47→20:20)
[2018-04-23] MEDS: ISOSORBIDE MONONITRATE ER 30 MG TAB.ER.24H PO SCH (08:47)
[2018-04-23] MEDS: FUROSEMIDE 40 MG TAB PO SCH ×2 (08:47→16:11)
[2018-04-23] MEDS: HEPARIN SODIUM,PORCINE 5,000 UNIT/ML 1 ML VIAL SQ SCH ×3 (08:47→23:38)
[2018-04-23] MEDS: ASPIRIN 81 MG PO SCH (08:47)
[2018-04-23] MEDS: CLOPIDOGREL 75 MG TAB PO SCH (08:47)
[2018-04-23 11:33] LABS: Glucose,Whole Blood 379 mg/dL (75-99)
--- NOTE | 2018-04-23 11:33 | P.PN ---
Subjective This is a 67-year-old white male it comes to the emergency room complaining of three-week history of shortness of breath. He indicates that he's been having minimal cough. He denies any chest pains, pressures, nausea or vomiting. He indicates he does have somewhat of a productive cough of brown mucus. He is here today for further evaluation. He denies any other significant abnormalities. He has a history of coronary disease with artery bypass grafting 2, multiple stent placement history, carotid endarterectomy history. His quality assurance specialist is Dr. Ni. He is not seen his quality assurance specialist in quite some time. He smokes approximately a pack a day and has for 30+ years. 04/23/2018: Patient was seen by cardiology, Dr. Landry. He was started on oral Lasix. He also felt this is accommodation COPD and CHF. I'd started him on IV soluMedrol yesterday. T he remains on 60 mg IVp every 6 hours. And Lasix 40 mg by mouth twice a day, the patient feels much better. He denies any chest pains, pressures, nausea or vomiting. He reports tolerating his diet. 2-D echo done yesterday showed mild to moderately impaired EF 40-45%. There is evidence of hypokinesis. There is moderate aortic valve sclerosis. Objective - Vital Signs Vital signs: Vital Signs Temp 96.5 F L 04/23/18 08:00 Pulse 79 04/23/18 08:00 Resp 18 04/23/18 08:00 BP 118/61 04/23/18 08:00 Pulse Ox 91 L 04/23/18 08:00 Intake & Output 04/22/18 04/23/18 04/23/18 18:59 06:59 18:59 Intake Total 360 300 240 Balance 360 300 240 Weight 72 kg 67 kg Intake: Oral 360 300 240 Other: Voiding Method Toilet Toilet Toilet # Voids 1 1 - Exam GENERAL: Well-appearing, well-nourished and in no acute distress. NECK: Normal range of motion, supple without lymphadenopathy or JVD, no thyromegaly LUNGS: Breath sounds coarse to auscultation bilaterally and equal. No wheezes rales or rhonchi. Breath sounds are improved from 1 day ago. HEART: Regular rate and rhythm without murmurs, rubs or gallops.S1S2 Normal ABDOMEN: Soft, nontender, normoactive bowel sounds. No guarding, no rebound. No masses appreciated. Minimally Distended. EXTREMITIES: Normal range of motion, no pitting or edema. No clubbing or cyanosis. NEUROLOGICAL: Cranial nerves II through XII grossly intact. Normal speech, normal gait. PSYCH: Normal mood, normal affect. SKIN: Warm, Dry, normal turgor, no rashes or lesions noted. - Labs CBC & Chem 7: 04/23/18 05:39 04/23/18 05:39 Labs: Abnormal Lab Results - Last 24 Hours (Table) 04/22/18 04/22/18 04/23/18 Range/Units 03:47 21:51 05:39 MCHC (31.0-37.0) g/dL Creatinine 0.61 L (0.66-1.25) mg/dL Glucose 277 H (74-99) mg/dL POC Glucose (mg/dL) 321 H (75-99) mg/dL Hemoglobin A1c 7.6 H (4.0-6.0) % 04/23/18 04/23/18 Range/Units 05:39 06:16 MCHC 30.6 L (31.0-37.0) g/dL Creatinine (0.66-1.25) mg/dL Glucose (74-99) mg/dL POC Glucose (mg/dL) 287 H (75-99) mg/dL Hemoglobin A1c (4.0-6.0) % Microbiology - Last 24 Hours (Table) 04/21/18 14:20 Blood Culture - Preliminary Blood No Growth after 24 hours Assessment and Plan (1) Coronary heart disease Current Visit: Yes Status: Acute Code(s): I25.10 - ATHSCL HEART DISEASE OF [place] CORONARY ARTERY W/O ANG PCTRS SNOMED Code(s): 53594632 (2) Old myocardial infarction Current Visit: Yes Status: Acute Code(s): I25.2 - OLD MYOCARDIAL INFARCTION SNOMED Code(s): 9294785 (3) H/O two vessel coronary artery bypass graft Current Visit: Yes Status: Acute Code(s): Z95.1 - PRESENCE OF AORTOCORONARY BYPASS GRAFT SNOMED Code(s): 805402393 (4) COPD exacerbation Current Visit: Yes Status: Acute Code(s): J44.1 - CHRONIC OBSTRUCTIVE PULMONARY DISEASE W (ACUTE) EXACERBATION SNOMED Code(s): 028995593 (5) Hypertension Current Visit: Yes Status: Acute Code(s): I10 - ESSENTIAL (PRIMARY) HYPERTENSION SNOMED Code(s): 54167046 (6) Hyperlipemia Current Visit: Yes Status: Acute Code(s): E78.5 - HYPERLIPIDEMIA, UNSPECIFIED SNOMED Code(s): 32079068 (7) Bilateral pleural effusion Current Visit: Yes Status: Acute Code(s): J90 - PLEURAL EFFUSION, NOT ELSEWHERE CLASSIFIED SNOMED Code(s): 056066634 (8) Elevated troponin Current Visit: Yes Status: Acute Code(s): R74.8 - ABNORMAL LEVELS OF OTHER SERUM ENZYMES SNOMED Code(s): 272627377 (9) New onset of congestive heart failure Current Visit: Yes Status: Acute Code(s): I50.9 - HEART FAILURE, UNSPECIFIED SNOMED Code(s): 63322259 (10) Normocytic anemia Current Visit: Yes Status: Acute Code(s): D64.9 - ANEMIA, UNSPECIFIED SNOMED Code(s): 105837876 (11) Acute systolic (congestive) heart failure Current Visit: Yes Status: Acute Code(s): I50.21 - ACUTE SYSTOLIC ( CONGESTIVE) HEART FAILURE SNOMED Code(s): 226342744 Plan: I reduce his IV Solu-Medrol. We'll start him on Chantix. Will start him on Symbicort 160 twice a day. I'll reevaluate next 24 hours. We'll repeat labs in a.m.
[2018-04-23] MEDS ORDERED: INSULIN ASPART 100 UNIT/ML 1 ML 10 ML VIAL SQ STA (12:03)
[2018-04-23] MEDS: VARENICLINE 0.5 MG TAB PO SCH (12:26)
--- NOTE | 2018-04-23 13:35 | P.PN ---
Subjective Progress Note Date: 04/23/18 This is a 67-year-old gentleman with known history of severe peripheral vascular disease, severe coronary artery disease who presented with progressive dyspnea and cough of productive of brownish sputum. Coronary artery disease history is significant for the fact that he had LAD stenting and 99 and coronary artery bypass grafting surgery in 2005, he also has documented severe peripheral vascular disease in his undergone peripheral procedures. History of abdominal aortic aneurysm repair in the past, hyperlipidemia, hypertension. Patient is being treated for congestive heart failure, he diuresed well through the night last night, his weight today is down 5 kg. Blood cell count 7.9, hemoglobin 15, platelet count 207. Sodium 138, potassium 5.0, BUN 18, creatinine 0.6. Mag 2.1. Echocardiogram with Doppler study was performed which revealed an ejection fraction of 40-45%. Moderate aortic stenosis. Objective - Vital Signs Vital signs: Vital Signs Temp 96.5 F L 04/23/18 08:00 Pulse 79 04/23/18 08:00 Resp 18 04/23/18 08:00 BP 118/61 04/23/18 08:00 Pulse Ox 91 L 04/23/18 08:00 Intake & Output 04/22/18 04/23/18 04/23/18 18:59 06:59 18:59 Intake Total 360 300 240 Balance 360 300 240 Weight 72 kg 67 kg Intake: Oral 360 300 240 Other: Voiding Method Toilet Toilet Toilet # Voids 1 1 - Exam PHYSICAL EXAMINATION: GENERAL: 67-year-old gentleman in no acute distress at the time of my examination HEENT: Head is atraumatic, normocephalic. Pupils equal, round. Sclera anicteric. Conjunctiva are clear. Mucous membranes of the mouth are moist. Neck is supple. There is no elevated jugular venous pressure. No carotid bruit is heard. HEART EXAMINATION: Heart S1 and S2 systolic ejection murmur is heard. CHEST EXAMINATION: Lungs are clear to auscultation and precussion. No chest wall tenderness is noted on palpation or with deep breathing. ABDOMEN: Soft, nontender. Bowel sounds are heard. No organomegaly noted. EXTREMITIES: 2+ peripheral pulses with no evidence of peripheral edema and no calf tenderness noted. NEUROLOGIC patient is awake, alert and oriented 3 . . - Labs CBC & Chem 7: 04/23/18 05:39 04/23/18 05:39 Labs: Abnormal Lab Results - Last 24 Hours (Table) 04/22/18 04/22/18 04/23/18 Range/Units 03:47 21:51 05:39 MCHC (31.0-37.0) g/dL Creatinine 0.61 L (0.66-1.25) mg/dL Glucose 277 H (74-99) mg/dL POC Glucose (mg/dL) 321 H (75-99) mg/dL Hemoglobin A1c 7.6 H (4.0-6.0) % 04/23/18 04/23/18 04/23/18 Range/Units 05:39 06:16 11:13 MCHC 30.6 L (31.0-37.0) g/dL Creatinine (0.66-1.25) mg/dL Glucose (74-99) mg/dL POC Glucose (mg/dL) 287 H 379 H (75-99) mg/dL Hemoglobin A1c (4.0-6.0) % Microbiology - Last 24 Hours (Table) 04/21/18 14:20 Blood Culture - Preliminary Blood No Growth after 24 hours Assessment and Plan Plan: Assessment and plan #1 diastolic congestive heart failure acute on chronic #2 known history of coronary artery disease with prior PCI and CABG #3 mild elevation of troponin, likely representing a type II [place] #4 history of severe peripheral vascular disease #5 hypertension #6 hyperlipidemia #7 chronic tobacco use Plan Echocardiogram with Doppler study was performed which revealed an ejection fraction of 40-45%, moderate aortic stenosis. Patient diuresed well through the night last night. IV Lasix has been discontinued and patient has been started on by mouth Lasix today. Full aspirin has been discontinued and patient has been changed over to a baby aspirin. We will repeat a chest x-ray tomorrow morning, continue to monitor intake and output along with daily weight for another 24 hours. DNP note has been reviewed, I agree with a documented findings and plan of care. Patient was seen and examined.
[2018-04-23 16:06] LABS: Glucose,Whole Blood 233 mg/dL (75-99)
[2018-04-23] MEDS: methylPREDNISolone SOD SUCCI 40 MG/ML 1 ML VIAL IV SCH ×2 (16:11→23:38)
[2018-04-23 20:18] LABS: Glucose,Whole Blood 335 mg/dL (75-99)
[2018-04-23] MEDS: SYMBICORT 160-4.5 MCG INHALER INHALATION SCH (20:25)
[2018-04-24 06:09] LABS: Basophils % (A) 0 %; Eosinophils % (A) 0 %; HCT 47.7 % (39.0-53.0); HGB 14.6 gm/dL (13.0-17.5); Hypochromasia Slight; Lymphocytes # (A) 1.2 k/uL (1.0-4.8); Lymphocytes % (A) 7 %; MCH 28.2 pg (25.0-35.0); MCHC 30.6 g/dL (31.0-37.0); MCV 92.1 fL (80.0-100.0); Mean Platelet Volume 7.7; Monocytes # (A) 0.5 k/uL (0-1.0); Monocytes % (A) 3 %; Neutrophils # (A) 15.8 k/uL (1.3-7.7); Neutrophils % (A) 89 %; Platelet Count 234 k/uL (150-450); RBC 5.17 m/uL (4.30-5.90); RDW 14.4 % (11.5-15.5); WBC 17.7 k/uL (3.8-10.6)
[2018-04-24 06:10] LABS: Glucose,Whole Blood 248 mg/dL (75-99)
[2018-04-24] MEDS: INSULIN ASPART 100 UNIT/ML 1 ML 10 ML VIAL SQ SCH ×4 (06:14→20:03)
[2018-04-24 06:30] LABS: Anion Gap 9 mmol/L; Blood Urea Nitrogen 27 mg/dL (9-20); Calcium 9.2 mg/dL (8.4-10.2); Carbon Dioxide 31 mmol/L (22-30); Chloride 99 mmol/L (98-107); Glucose 258 mg/dL (74-99); Potassium 4.3 mmol/L (3.5-5.1); Sodium 139 mmol/L (137-145)
[2018-04-24] MEDS: SYMBICORT 160-4.5 MCG INHALER INHALATION SCH ×2 (07:32→19:35)
--- NOTE | 2018-04-24 07:39 | XR ---
EXAMINATION TYPE: XR chest 2V DATE OF EXAM: 04/24/2018 COMPARISON: 04/21/2018 HISTORY: Shortness of breath TECHNIQUE: Frontal and lateral views of the chest are obtained. FINDINGS: Scattered senescent parenchymal changes noted. Hyperinflation compatible with COPD. No evidence for infiltrate. No evidence for atelectasis. Heart size is stable. Mediastinal structures are stable and grossly unremarkable. No evidence for hilar prominence. Degenerative changes dorsal spine. IMPRESSION: 1. No evidence for acute pulmonary disease.
[2018-04-24] MEDS: ATORVASTATIN 40 MG TAB PO SCH (09:34)
[2018-04-24] MEDS: HEPARIN SODIUM,PORCINE 5,000 UNIT/ML 1 ML VIAL SQ SCH ×3 (09:34→20:50)
[2018-04-24] MEDS: ISOSORBIDE MONONITRATE ER 30 MG TAB.ER.24H PO SCH (09:34)
[2018-04-24] MEDS: ASPIRIN 81 MG PO SCH (09:35)
[2018-04-24] MEDS: METOPROLOL TARTRATE 50 MG TAB PO SCH ×2 (09:35→20:50)
[2018-04-24] MEDS: FAMOTIDINE 20 MG TAB PO SCH (09:35)
[2018-04-24] MEDS: FUROSEMIDE 40 MG TAB PO SCH ×2 (09:35→16:31)
[2018-04-24] MEDS: methylPREDNISolone SOD SUCCI 40 MG/ML 1 ML VIAL IV SCH ×4 (09:35→23:30)
[2018-04-24] MEDS: CLOPIDOGREL 75 MG TAB PO SCH (09:36)
--- NOTE | 2018-04-24 11:14 | P.PN ---
Subjective This is a 67-year-old white male it comes to the emergency room complaining of three-week history of shortness of breath. He indicates that he's been having minimal cough. He denies any chest pains, pressures, nausea or vomiting. He indicates he does have somewhat of a productive cough of brown mucus. He is here today for further evaluation. He denies any other significant abnormalities. He has a history of coronary disease with artery bypass grafting 2, multiple stent placement history, carotid endarterectomy history. 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 Ni. He is not seen his tapper balance wheel screw hole in quite some time. He smokes approximately a pack a day and has for 30+ years. 04/23/2018: Patient was seen by cardiology, Dr. Landry. He was started on oral Lasix. He also felt this is accommodation COPD and CHF. I'd started him on IV soluMedrol yesterday. T he remains on 60 mg IVp every 6 hours. And Lasix 40 mg by mouth twice a day, the patient feels much better. He denies any chest pains, pressures, nausea or vomiting. He reports tolerating his diet. 2-D echo done yesterday showed mild to moderately impaired EF 40-45%. There is evidence of hypokinesis. There is moderate aortic valve sclerosis. 04/24/2018: Patient continues to feel better. He indicates he had a little trouble sleeping last night. He remains on Lasix 40 mg orally twice a day and IV Solu-Medrol 40 mg every 8 hours. He denies any chest pains, pressures, or shortness of breath this time. Objective - Vital Signs Vital signs: Vital Signs Temp 97.5 F L 04/24/18 04:00 Pulse 74 04/24/18 04:00 Resp 16 04/24/18 04:00 BP 114/67 04/24/18 04:00 Pulse Ox 96 04/24/18 04:00 Intake & Output 04/23/18 04/24/18 04/24/18 18:59 06:59 18:59 Intake Total 720 420 240 Output Total 600 Balance 120 420 240 Weight 68 kg Intake: Oral 720 420 240 Output: Urine 600 Other: Voiding Method Toilet Toilet # Voids 0 3 1 - Exam GENERAL: Well-appearing, well-nourished and in no acute distress. NECK: Normal range of motion, supple without lymphadenopathy or JVD, no thyromegaly LUNGS: Breath sounds coarse to auscultation bilaterally and equal. No wheezes rales or rhonchi. Breath sounds remain improved. HEART: Regular rate and rhythm without murmurs, rubs or gallops.S1S2 Normal ABDOMEN: Soft, nontender, normoactive bowel sounds. No guarding, no rebound. No masses appreciated. Minimally Distended. EXTREMITIES: Normal range of motion, no pitting or edema. No clubbing or cyanosis. NEUROLOGICAL: Cranial nerves II through XII grossly intact. Normal speech, normal gait. PSYCH: Normal mood, normal affect. SKIN: Warm, Dry, normal turgor, no rashes or lesions noted. - Labs CBC & Chem 7: 04/24/18 05:31 04/24/18 05:31 Labs: Abnormal Lab Results - Last 24 Hours (Table) 04/23/18 04/23/18 04/23/18 Range/Units 11:13 16:04 20:16 WBC (3.8-10.6) k/uL MCHC (31.0-37.0) g/dL Neutrophils # (1.3-7.7) k/uL Carbon Dioxide (22-30) mmol/L BUN (9-20) mg/dL Creatinine (0.66-1.25) mg/dL Glucose (74-99) mg/dL POC Glucose (mg/dL) 379 H 233 H 335 H (75-99) mg/dL 04/24/18 04/24/18 04/24/18 Range/Units 05:31 05:31 06:08 WBC 17.7 H (3.8-10.6) k/uL MCHC 30.6 L (31.0-37.0) g/dL Neutrophils # 15.8 H (1.3-7.7) k/uL Carbon Dioxide 31 H (22-30) mmol/L BUN 27 H (9-20) mg/dL Creatinine 0.62 L (0.66-1.25) mg/dL Glucose 258 H (74-99) mg/dL POC Glucose (mg/dL) 248 H (75-99) mg/dL Microbiology - Last 24 Hours (Table) 04/21/18 14:20 Blood Culture - Preliminary Blood No Growth after 48 hours Assessment and Plan (1) Coronary heart disease Current Visit: Yes Status: Acute Code(s): I25.10 - ATHSCL HEART DISEASE OF [place] CORONARY ARTERY W/O ANG PCTRS SNOMED Code(s): 41640952 (2) Old myocardial infarction Current Visit: Yes Status: Acute Code(s): I25.2 - OLD MYOCARDIAL INFARCTION SNOMED Code(s): 1529459 (3) H/O two vessel coronary artery bypass graft Current Visit: Yes Status: Acute Code(s): Z95.1 - PRESENCE OF AORTOCORONARY BYPASS GRAFT SNOMED Code(s): 034765148 (4) COPD exacerbation Current Visit: Yes Status: Acute Code(s): J44.1 - CHRONIC OBSTRUCTIVE PULMONARY DISEASE W (ACUTE) EXACERBATION SNOMED Code(s): 564440825 (5) Hypertension Current Visit: Yes Status: Acute Code(s): I10 - ESSENTIAL (PRIMARY) HYPERTENSION SNOMED Code(s): 79428523 (6) Hyperlipemia Current Visit: Yes Status: Acute Code(s): E78.5 - HYPERLIPIDEMIA, UNSPECIFIED SNOMED Code(s): 06120331 (7) Bilateral pleural effusion Current Visit: Yes Status: Acute Code(s): J90 - PLEURAL EFFUSION, NOT ELSEWHERE CLASSIFIED SNOMED Code(s): 728899657 (8) Elevated troponin Current Visit: Yes Status: Acute Code(s): R74.8 - ABNORMAL LEVELS OF OTHER SERUM ENZYMES SNOMED Code(s): 053334470 (9) New onset of congestive heart failure Current Visit: Yes Status: Acute Code(s): I50.9 - HEART FAILURE, UNSPECIFIED SNOMED Code(s): 59169461 (10) Normocytic anemia Current Visit: Yes Status: Acute Code(s): D64.9 - ANEMIA, UNSPECIFIED SNOMED Code(s): 052643556 (11) Acute systolic (congestive) heart failure Current Visit: Yes Status: Acute Code(s): I50.21 - ACUTE SYSTOLIC ( CONGESTIVE) HEART FAILURE SNOMED Code(s): 919386122 (12) Type 2 myocardial infarction Current Visit: Yes Status: Acute Code(s): I21.A1 - MYOCARDIAL INFARCTION TYPE 2 SNOMED Code(s): 62709479 Plan: I will reduce his IV Solu-Medrol. We'll continue his current medications on that. Wait for further recommends cardiology. I'll reevaluate next 24 hours. We'll repeat labs in a.m. expecting to discharge him in 24 hours.
[2018-04-24 11:38] LABS: Glucose,Whole Blood 218 mg/dL (75-99)
--- NOTE | 2018-04-24 11:42 | PN ---
PROGRESS NOTE Mr. Nicholson is a 67-year-old male with a history of severe peripheral vascular disease, history of coronary artery disease status post coronary artery bypass grafting who presented with symptoms progressive dyspnea. He is feeling much better today. His breathing is stable. He is lying supine without any difficulty. He denies any chest pain. He denies any dizziness or palpitation. He denies any nausea. He continued to be in sinus mechanism. He continues to be on aspirin 81 mg daily, Lipitor 40 mg daily, Plavix 75 mg daily, furosemide 40 mg orally twice a day, isosorbide mononitrate 30 mg daily, methylprednisolone, metoprolol tartrate 50 mg twice a day. PHYSICAL EXAMINATION: Blood pressure 114/60 with a heart in the 70s. Lungs with decreased air exchange. No wheezes or rales. HEART: Regular rhythm S1, S2. No S3 with systolic murmur ejection type heard at the base. No diastolic murmur. ABDOMEN: Soft, nontender. EXTREMITIES: No edema. LAB DATA: Revealed BUN and creatinine 27 and 0.62, potassium 4.3, hemoglobin 14.6. IMPRESSION: 1. Symptoms of congestive heart failure with mildly impaired left ventricular systolic function and moderate aortic stenosis. 2. Severe peripheral vascular disease. 3. Coronary artery disease. 4. Chronic obstructive lung disease and chronic tobacco use. RECOMMENDATION: We will continue present therapy. Follow his renal function. I would expect if he remains stable, he may be able to be discharged home tomorrow. He will follow up as an outpatient with Dr. Malcolm. The importance of smoking cessation was discussed with the patient. MMODL / IJN: [id number] /
[2018-04-24] MEDS: VARENICLINE 0.5 MG TAB PO SCH (12:50)
[2018-04-24 16:55] LABS: Glucose,Whole Blood 576 mg/dL (75-99)
[2018-04-24 16:55] LABS: Glucose,Whole Blood 552 mg/dL (75-99)
[2018-04-24] MEDS ORDERED: INSULIN REGULAR BOLUS (FROM DRIP BAG) IV ONE (16:59)
[2018-04-24] MEDS ORDERED: INSULIN REGULAR 100 UNIT in SODIUM CHLORIDE 0.9% 100 ML IV SCH (17:15)
[2018-04-24 18:27] LABS: Glucose,Whole Blood 507 mg/dL (75-99)
[2018-04-24 19:32] LABS: Glucose,Whole Blood 333 mg/dL (75-99)
[2018-04-24 20:01] LABS: Glucose,Whole Blood 281 mg/dL (75-99)
[2018-04-24 20:36] LABS: Glucose,Whole Blood 170 mg/dL (75-99)
[2018-04-24] MEDS: ALPRAZolam 0.25 MG TAB PO PRN (21:40)
[2018-04-24 22:29] LABS: Glucose,Whole Blood 150 mg/dL (75-99)
[2018-04-25 00:19] LABS: Glucose,Whole Blood 250 mg/dL (75-99)
[2018-04-25 02:17] LABS: Glucose,Whole Blood 232 mg/dL (75-99)
[2018-04-25 04:34] LABS: Glucose,Whole Blood 223 mg/dL (75-99)
[2018-04-25] MEDS: INSULIN ASPART 100 UNIT/ML 1 ML 10 ML VIAL SQ SCH ×3 (05:45→12:32)
[2018-04-25 05:58] LABS: Glucose,Whole Blood 180 mg/dL (75-99)
[2018-04-25 06:40] LABS: Anion Gap 8 mmol/L; Blood Urea Nitrogen 29 mg/dL (9-20); Carbon Dioxide 33 mmol/L (22-30); Chloride 98 mmol/L (98-107); Glucose 207 mg/dL (74-99); Potassium 4.1 mmol/L (3.5-5.1); Sodium 139 mmol/L (137-145)
[2018-04-25 08:32] VITALS: RESP 16
[2018-04-25] MEDS: SYMBICORT 160-4.5 MCG INHALER INHALATION SCH (08:32)
[2018-04-25] MEDS: HEPARIN SODIUM,PORCINE 5,000 UNIT/ML 1 ML VIAL SQ SCH (09:31)
[2018-04-25] MEDS: methylPREDNISolone SOD SUCCI 40 MG/ML 1 ML VIAL IV SCH ×2 (09:32→09:33)
[2018-04-25] MEDS: VARENICLINE 0.5 MG TAB PO SCH (09:33)
[2018-04-25] MEDS: FAMOTIDINE 20 MG TAB PO SCH (09:33)
[2018-04-25] MEDS: ASPIRIN 81 MG PO SCH (09:33)
[2018-04-25] MEDS: ATORVASTATIN 40 MG TAB PO SCH (09:33)
[2018-04-25] MEDS: CLOPIDOGREL 75 MG TAB PO SCH (09:33)
[2018-04-25] MEDS: ISOSORBIDE MONONITRATE ER 30 MG TAB.ER.24H PO SCH (09:33)
[2018-04-25] MEDS: METOPROLOL TARTRATE 50 MG TAB PO SCH (09:33)
[2018-04-25] MEDS: FUROSEMIDE 40 MG TAB PO SCH (09:33)
[2018-04-25] MEDS ORDERED: predniSONE 10 MG TAB PO SCH (09:45)
--- NOTE | 2018-04-25 10:14 | P.PN ---
Subjective Progress Note Date: 04/25/18 This is a 67-year-old gentleman with known history of severe peripheral vascular disease, severe coronary artery disease who presented with progressive dyspnea and cough of productive of brownish sputum. Coronary artery disease history is significant for the fact that he had LAD stenting and 99 and coronary artery bypass grafting surgery in 2005, he also has documented severe peripheral vascular disease in his undergone peripheral procedures. History of abdominal aortic aneurysm repair in the past, hyperlipidemia, hypertension. Patient is being treated for congestive heart failure, he diuresed well through the night last night, his weight today is down 5 kg. Blood cell count 7.9, hemoglobin 15, platelet count 207. Sodium 138, potassium 5.0, BUN 18, creatinine 0.6. Mag 2.1. Echocardiogram with Doppler study was performed which revealed an ejection fraction of 40-45%. Moderate aortic stenosis. 04/25/2018 Patient was seen and examined this morning, breathing is overall stable. Blood pressure 116/58 with a heart rate in the 70s, 98% on room air. Sodium 139, potassium 4.1, BUN 27, creatinine 0.7. Objective - Vital Signs Vital signs: Vital Signs Temp 97.0 F L 04/25/18 08:00 Pulse 74 04/25/18 08:00 Resp 16 04/25/18 08:00 BP 117/58 04/25/18 08:00 Pulse Ox 98 04/25/18 08:00 Intake & Output 04/24/18 04/25/18 04/25/18 18:59 06:59 18:59 Intake Total 720 64.275 240 Output Total 1150 Balance 720 -1085.725 240 Intake: Intake, IV Titration 64.275 Amount Insulin Regular 100 unit 64.275 In Sodium Chloride 0.9% 100 ml @ Titrate IV .Q0M MELONIE Rx#:[id number] Oral 720 240 Output: Urine 1150 Other: Voiding Method Toilet Toilet # Voids 1 - Exam PHYSICAL EXAMINATION: GENERAL: 67-year-old gentleman in no acute distress at the time of my examination HEENT: Head is atraumatic, normocephalic. Pupils equal, round. Sclera anicteric. Conjunctiva are clear. Mucous membranes of the mouth are moist. Neck is supple. There is no elevated jugular venous pressure. No carotid bruit is heard. HEART EXAMINATION: Heart S1 and S2 systolic ejection murmur is heard. CHEST EXAMINATION: Lungs are clear to auscultation and precussion. No chest wall tenderness is noted on palpation or with deep breathing. ABDOMEN: Soft, nontender. Bowel sounds are heard. No organomegaly noted. EXTREMITIES: 2+ peripheral pulses with no evidence of peripheral edema and no calf tenderness noted. NEUROLOGIC patient is awake, alert and oriented 3 . . - Labs CBC & Chem 7: 04/24/18 05:31 04/25/18 05:44 Labs: Abnormal Lab Results - Last 24 Hours (Table) 04/24/18 04/24/18 04/24/18 Range/Units 11:34 16:40 16:42 Carbon Dioxide (22-30) mmol/L BUN (9-20) mg/dL Glucose (74-99) mg/dL POC Glucose (mg/dL) 218 H 552 H 576 H (75-99) mg/dL 04/24/18 04/24/18 04/24/18 Range/Units 18:26 19:30 19:59 Carbon Dioxide (22-30) mmol/L BUN (9-20) mg/dL Glucose (74-99) mg/dL POC Glucose (mg/dL) 507 H 333 H 281 H (75-99) mg/dL 04/24/18 04/24/18 04/25/18 Range/Units 20:31 22:27 00:17 Carbon Dioxide (22-30) mmol/L BUN (9-20) mg/dL Glucose (74-99) mg/dL POC Glucose (mg/dL) 170 H 150 H 250 H (75-99) mg/dL 04/25/18 04/25/18 04/25/18 Range/Units 02:15 04:32 05:44 Carbon Dioxide 33 H (22-30) mmol/L BUN 29 H (9-20) mg/dL Glucose 207 H (74-99) mg/dL POC Glucose (mg/dL) 232 H 223 H (75-99) mg/dL 04/25/18 Range/Units 05:57 Carbon Dioxide (22-30) mmol/L BUN (9-20) mg/dL Glucose (74-99) mg/dL POC Glucose (mg/dL) 180 H (75-99) mg/dL Microbiology - Last 24 Hours (Table) 04/21/18 14:20 Blood Culture - Preliminary Blood No Growth after 72 hours Assessment and Plan Plan: Assessment and plan #1 diastolic congestive heart failure acute on chronic #2 known history of coronary artery disease with prior PCI and CABG #3 mild elevation of troponin, likely representing a type II [place] #4 history of severe peripheral vascular disease #5 hypertension #6 hyperlipidemia #7 chronic tobacco use Plan Echocardiogram with Doppler study was performed which revealed an ejection fraction of 40-45%, moderate aortic stenosis. From cardiology's perspective, patient may be able to be discharged home once cleared by primary. We'll make him a follow-up appointment to see Dr. Ni in the office post discharge. DNP note has been reviewed, I agree with a documented findings and plan of care. Patient was seen and examined.
[2018-04-25] MEDS ORDERED: metFORMIN 500 MG TAB PO SCH (11:00)
--- NOTE | 2018-04-25 11:31 | P.DS ---
Providers Date of admission: 04/22/18 20:06 Expected date of discharge: 04/25/18 Attending physician: Antonio Diaz Consults: 04/21/18 17:08 Consult Physician Urgent Consulting Provider: Mor Malcolm Consult Reason/Comments: New-onset CHF, bilateral pleural effusions, elevated troponin Do you want consulting provider notified?: Yes Primary care physician: [facility] Course: This is a 67-year-old white male it comes to the emergency room complaining of three-week history of shortness of breath. He indicates that he's been having minimal cough. He denies any chest pains, pressures, nausea or vomiting. He indicates he does have somewhat of a productive cough of brown mucus. He is here today for further evaluation. He denies any other significant abnormalities. He has a history of coronary disease with artery bypass grafting 2, multiple stent placement history, carotid endarterectomy history. 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 He is not seen his airport sales agent in quite some time. He smokes approximately a pack a day and has for 30+ years. 04/23/2018: Patient was seen by cardiology, Dr. Landry. He was started on oral Lasix. He also felt this is accommodation COPD and CHF. I'd started him on IV soluMedrol yesterday. T he remains on 60 mg IVp every 6 hours. And Lasix 40 mg by mouth twice a day, the patient feels much better. He denies any chest pains, pressures, nausea or vomiting. He reports tolerating his diet. 2-D echo done yesterday showed mild to moderately impaired EF 40-45%. There is evidence of hypokinesis. There is moderate aortic valve sclerosis. 04/24/2018: Patient continues to feel better. He indicates he had a little trouble sleeping last night. He remains on Lasix 40 mg orally twice a day and IV Solu-Medrol 40 mg every 8 hours. He denies any chest pains, pressures, or shortness of breath this time. 04/25/2018: Patient was placed on insulin drip last night due to elevated BS. Blood sugar have since improved. Hemoglobin A1C is 7.6%. Patient will be started on metformin 500mg PO BID. Patient will meet with tobacco prevention health educator before discharge. He remains on PO lasix. IV steroids have been transitioned to oral. He is stable for discharge home today. DISCHARGE DIAGNOSIS: (1) Coronary heart disease Current Visit: Yes Status: Acute Code(s): I25.10 - ATHSCL HEART DISEASE OF [place] CORONARY ARTERY W/O ANG PCTRS SNOMED Code(s): 21444103 (2) Old myocardial infarction Current Visit: Yes Status: Acute Code(s): I25.2 - OLD MYOCARDIAL INFARCTION SNOMED Code(s): 3135183 (3) H/O two vessel coronary artery bypass graft Current Visit: Yes Status: Acute Code(s): Z95.1 - PRESENCE OF AORTOCORONARY BYPASS GRAFT SNOMED Code(s): 809292127 (4) COPD exacerbation Current Visit: Yes Status: Acute Code(s): J44.1 - CHRONIC OBSTRUCTIVE PULMONARY DISEASE W (ACUTE) EXACERBATION SNOMED Code(s): 767383351 (5) Hypertension Current Visit: Yes Status: Acute Code(s): I10 - ESSENTIAL (PRIMARY) HYPERTENSION SNOMED Code(s): 93202164 (6) Hyperlipemia Current Visit: Yes Status: Acute Code(s): E78.5 - HYPERLIPIDEMIA, UNSPECIFIED SNOMED Code(s): 17982749 (7) Bilateral pleural effusion Current Visit: Yes Status: Acute Code(s): J90 - PLEURAL EFFUSION, NOT ELSEWHERE CLASSIFIED SNOMED Code(s): 217810450 (8) Elevated troponin Current Visit: Yes Status: Acute Code(s): R74.8 - ABNORMAL LEVELS OF OTHER SERUM ENZYMES SNOMED Code(s): 724280362 (9) New onset of congestive heart failure Current Visit: Yes Status: Acute Code(s): I50.9 - HEART FAILURE, UNSPECIFIED SNOMED Code(s): 35513135 (10) Normocytic anemia Current Visit: Yes Status: Acute Code(s): D64.9 - ANEMIA, UNSPECIFIED SNOMED Code(s): 105979042 (11) Acute systolic (congestive) heart failure Current Visit: Yes Status: Acute Code(s): I50.21 - ACUTE SYSTOLIC ( CONGESTIVE) HEART FAILURE SNOMED Code(s): 814594072 (12) Type 2 myocardial infarction Current Visit: Yes Status: Acute Code(s): I21.A1 - MYOCARDIAL INFARCTION TYPE 2 SNOMED Code(s): 31335471 13. diabetes mellitus, type II, new diagnosis, hemoglobin A1C 7.6% 14. Steroid induced hyperglycemia, improving Nurse practitioner note has been reviewed by physician. Signing provider agrees with the documented findings, assessment, and plan of care. Patient Condition at Discharge: Good Plan - Discharge Summary Discharge Rx Participant: No New Discharge Prescriptions: New Budesonide-Formot 160-4.5 Mcg [Symbicort 160-4.5 Mcg Inhaler] 2 puff INHALATION RT-BID #1 inhaler Furosemide [Lasix] 40 mg PO 0900,1700 #60 tab predniSONE See Taper PO DIRECTED #18 tab Varenicline [Chantix Starter Pack] 0.5 mg PO PC-BRKFST #30 tab metFORMIN HCL 500 mg PO BID #60 tablet Continue Simvastatin [Zocor] 40 mg PO DAILY Isosorbide Mononitrate [Imdur] 30 mg PO DAILY Aspirin EC [Ecotrin Low Dose] 81 mg PO DAILY Metoprolol Tartrate [Lopressor] 50 mg PO BID Clopidogrel [Plavix] 75 mg PO DAILY Discharge Medication List Aspirin EC [Ecotrin Low Dose] 81 mg PO DAILY 03/23/14 [History] Clopidogrel [Plavix] 75 mg PO DAILY 03/23/14 [History] Isosorbide Mononitrate [Imdur] 30 mg PO DAILY 03/23/14 [History] Metoprolol Tartrate [Lopressor] 50 mg PO BID 03/23/14 [History] Simvastatin [Zocor] 40 mg PO DAILY 03/23/14 [History] Budesonide-Formot 160-4.5 Mcg [Symbicort 160-4.5 Mcg Inhaler] 2 puff INHALATION RT-BID #1 inhaler 04/25/18 [Rx] Furosemide [Lasix] 40 mg PO 0900,1700 #60 tab 04/25/18 [Rx] Varenicline [Chantix Starter Pack] 0.5 mg PO PC-BRKFST #30 tab 04/25/18 [Rx] metFORMIN HCL 500 mg PO BID #60 tablet 04/25/18 [Rx] predniSONE See Taper PO DIRECTED #18 tab 04/25/18 [Rx] Follow up Appointment(s)/Referral(s): [facility] [Provider Group] - 1 Week Antonio Diaz Jr, DO [Primary Care Provider] - 04/28/18 11:30 am () Patient Instructions/Handouts: Heart Failure (DC) Activity/Diet/Wound Care/Special Instructions: PATIENT MAY BE DISCHARGED AFTER HE MEETS WITH LIFE SCIENCES MANAGER Discharge Disposition: HOME SELF-CARE
[2018-04-25 11:45] LABS: Glucose,Whole Blood 360 mg/dL (75-99)
[2018-04-25] MEDS ORDERED: INSULIN ASPART 100 UNIT/ML 1 ML 10 ML VIAL SQ SCH (12:30)
[2018-04-25 12:54] VITALS: BP 138/73; PULSE 65; TEMP 97.1
--- NOTE | 2018-04-27 15:44 | CDI ---
Documentation Clarification Form Date: 04/27/2018 3:26:50 PM From: DEVANTE Mcdermott; Phone: If you have a question, please contact Diane Frazier, Art Glass Designer at [phone] [facility] 8[facility] 5[facility]. Admit Date: 04/22/2018 8:06:00 PM Patient Name: Pratik Nicholson Visit Number: [id number] Discharge Date: 04/25/2018 ATTENTION: The Clinical Documentation Specialists (CDI) and [facility] Coding Staff appreciate your assistance in clarifying documentation. Please respond to the clarification below the line at the bottom and electronically sign. The CDI & [facility] Coding staff will review the response and follow-up if needed. Please note: Queries are made part of the Legal Health Record. If you have any questions, please contact the author of this message via ITS. Dr. Tabares, Documentation in record states new onset congestive heart failure, along with systolic dysfunction. Progress note 04/15, states acute/on chronic diastolic heart failure. History/Risk Factors:. CAD, COPD, old VA, HTN. Clinical Indicators: Shortness of breath, cough. BNP: 2150 Echocardiogram Results: 40-45% with left ventricular systolic function mild- moderately impaired. Chest X Ray: Pleural effusion. Treatment: Lasix 40 mg bid, IV Solu-Medrol In your professional opinion, can you please clarify the acuity and type of CHF if known? Diastolic Heart Failure: Acute Chronic Acute on Chronic Systolic & Diastolic Heart Failure: Acute Chronic Acute on Chronic Systolic & Diastolic Heart Failure Unable to Determine Other, please specify Acute on Chronic Systolic Heart Failure: MTDD
== END 2018-04-25 14:12 | disposition home or self-care (01) | DRG 281 ==
LOC: EC 13:38 → 3SCARD 18:05 → OBSVTOIN 04-22 20:06
PROVIDERS: ADMIT Family Medicine; ATTEND Family Medicine
DX: I11.0 Hypertensive heart disease with heart failure (principal); I21.A1 Myocardial infarction type 2; J44.1 Chronic obstructive pulmonary disease with (acute) exacerbation; D64.9 Anemia, unspecified; E11.51 Type 2 diabetes mellitus with diabetic peripheral angiopathy without gangrene; E11.65 Type 2 diabetes mellitus with hyperglycemia; I50.23 Acute on chronic systolic (congestive) heart failure; E78.5 Hyperlipidemia, unspecified; I25.119 Atherosclerotic heart disease of native coronary artery with unspecified angina pectoris; F17.210 Nicotine dependence, cigarettes, uncomplicated; I25.2 Old myocardial infarction; I35.0 Nonrheumatic aortic (valve) stenosis; T38.0X5A Adverse effect of glucocorticoids and synthetic analogues, initial encounter; Z79.02 Long term (current) use of antithrombotics/antiplatelets; Z79.82 Long term (current) use of aspirin; Z79.84 Long term (current) use of oral hypoglycemic drugs; Z79.899 Other long term (current) drug therapy; Z86.79 Personal history of other diseases of the circulatory system; Z87.442 Personal history of urinary calculi; Z95.1 Presence of aortocoronary bypass graft; Z95.5 Presence of coronary angioplasty implant and graft; Z82.49 Family history of ischemic heart disease and other diseases of the circulatory system
CPT/HCPCS: 36415; 71046; 71275; 80048; 80053; 80061; 83036; 83605; 83735; 83880; 84443; 84484; 85025; 85379; 85610; 85730; 87040; 93005; 93306; 94640; 96361; 96374; 96375; 99285

== ENCOUNTER 2018-05-25 12:54 | Emergency (ER) | payer MEDICARE ==
[2018-05-25] MEDS ORDERED: IPRATROPIUM-ALBUTEROL 3 ML NEB INHALATION STA (15:02)
[2018-05-25] MEDS ORDERED: methylPREDNISolone SOD SUCCI 125 MG/2 ML VIAL IV STA (15:02)
[2018-05-25 15:24] LABS: Basophils % (A) 1 %; Eosinophils # (A) 0.1 k/uL (0-0.7); Eosinophils % (A) 2 %; HCT 40.6 % (39.0-53.0); HGB 12.6 gm/dL (13.0-17.5); Hypochromasia Slight; Lymphocytes # (A) 1.2 k/uL (1.0-4.8); Lymphocytes % (A) 19 %; MCH 28.4 pg (25.0-35.0); MCHC 30.9 g/dL (31.0-37.0); MCV 91.7 fL (80.0-100.0); Mean Platelet Volume 9.1; Monocytes # (A) 0.4 k/uL (0-1.0); Monocytes % (A) 6 %; Neutrophils # (A) 4.5 k/uL (1.3-7.7); Neutrophils % (A) 71 %; Platelet Count 160 k/uL (150-450); RBC 4.43 m/uL (4.30-5.90); RDW 15.2 % (11.5-15.5); WBC 6.3 k/uL (3.8-10.6)
--- NOTE | 2018-05-25 15:30 | ED ---
SOB HPI - General Chief Complaint: Shortness of Breath Stated Complaint: PINA, swollen feet Time Seen by Provider: 05/25/18 14:31 Source: patient, RN notes reviewed Mode of arrival: ambulatory Limitations: no limitations - History of Present Illness Initial Comments: 67-year-old male presents emergency Department chief complaint of shortness breath. Patient states she's noticed some shortness with the last 3-4 days. Patient states has productive cough times and he did developed some orthopnea. Patient states she was recently admitted for CHF which was new for him. Patient denies any fever or chills. He does have a history of COPD recently stop smoking. Patient denies any nausea vomiting diarrhea constipation. He did wake up with some foot swelling which he's never had before. Patient denies any headache or dizziness. - Related Data Home Medications Medication Instructions Recorded Confirmed Clopidogrel [Plavix] 75 mg PO DIRECTED 03/23/14 05/25/18 Isosorbide Mononitrate [Imdur] 30 mg PO DIRECTED 03/23/14 05/25/18 Metoprolol Succinate (ER) [Toprol 50 mg PO DIRECTED 05/25/18 05/25/18 Xl] Previous Rx's Medication Instructions Recorded predniSONE 50 mg PO DAILY #5 tab 05/25/18 Allergies Allergy/AdvReac Type Severity Reaction Status Date / Time No Known Allergies Allergy Verified 05/25/18 14:50 Review of Systems ROS Statement: Those systems with pertinent positive or pertinent negative responses have been documented in the HPI. ROS Other: All systems not noted in ROS Statement are negative. Past Medical History Past Medical History: Coronary Artery Disease (CAD), Chest Pain / Angina, Hyperlipidemia, Hypertension, Myocardial Infarction (CT), Vascular Disorder Additional Past Medical History / Comment(s): KIDNEY STONES. STENT PLACED FOR ABD ANEURYSM. Last Myocardial Infarction Date:: 2005? History of Any Multi-Drug Resistant Organisms: None Reported Past Surgical History: Coronary Bypass/CABG, Heart Catheterization, Heart Catheterization With Stent, Orthopedic Surgery Additional Past Surgical History / Comment(s): RT ROTATOR CUFF REPAIR. CABG ( 2005 & 2007) BYPASS X2. STENTS X2 IN PAST, ABD ANEURYSM REPAIR WITH STENT, LT CAROTID ENDARTERECTOMY. lithotripsy. STATES STENT TO LEFT LEG Past Anesthesia/Blood Transfusion Reactions: No Reported Reaction Date of Last Stent Placement:: 10/14/12 Past Psychological History: No Psychological Hx Reported Smoking Status: Current every day smoker Past Alcohol Use History: Rare Past Drug Use History: None Reported - Past Family History Father Family Medical History: Deep Vein Thrombosis (DVT) General Exam Limitations: no limitations General appearance: alert, in no apparent distress Head exam: Present: atraumatic, normocephalic, normal inspection Eye exam: Present: normal appearance, PERRL, EOMI. Absent: scleral icterus, conjunctival injection, periorbital swelling ENT exam: Present: normal exam, mucous membranes moist Neck exam: Present: normal inspection. Absent: tenderness, meningismus, lymphadenopathy Respiratory exam: Present: wheezes, decreased breath sounds. Absent: normal lung sounds bilaterally, respiratory distress, rales, rhonchi, stridor Cardiovascular Exam: Present: regular rate, normal rhythm, normal heart sounds. Absent: systolic murmur, diastolic murmur, rubs, gallop, clicks Skin exam: Present: warm, dry, intact, normal color. Absent: rash Course Vital Signs 05/25/18 05/25/18 05/25/18 13:34 14:46 15:30 Temperature 97.4 F L Pulse Rate 82 67 80 Respiratory 18 20 Rate Blood Pressure 102/70 101/64 O2 Sat by Pulse 97 94 L Oximetry 05/25/18 05/25/18 15:46 15:52 Temperature Pulse Rate 78 80 Respiratory 20 Rate Blood Pressure 105/59 O2 Sat by Pulse 98 Oximetry Medical Decision Making - Medical Decision Making 67-year-old male presented for shortness breath. Patient has makes CHF, COPD. Patient does have small pleural effusion there is improved after DuoNeb treatment. Patient states he has 8 some increased salt intake. Patient was given offered admission to the hospital versus outpatient. Patient chose to be discharged. Patient will be given IV Lasix, prednisone he will increase his Lasix at home and follow-up with his PCP. Discussed with Dr. Danielle - Lab Data Result diagrams: 05/25/18 14:45 05/25/18 14:45 Lab Results 05/25/18 05/25/18 05/25/18 Range/Units 14:45 14:45 14:45 WBC 6.3 (3.8-10.6) k/uL RBC 4.43 (4.30-5.90) m/uL Hgb 12.6 L (13.0-17.5) gm/dL Hct 40.6 (39.0-53.0) % MCV 91.7 (80.0-100.0) fL MCH 28.4 (25.0-35.0) pg MCHC 30.9 L (31.0-37.0) g/dL RDW 15.2 (11.5-15.5) % Plt Count 160 (150-450) k/uL Neutrophils % 71 % Lymphocytes % 19 % Monocytes % 6 % Eosinophils % 2 % Basophils % 1 % Neutrophils # 4.5 (1.3-7.7) k/uL Lymphocytes # 1.2 (1.0-4.8) k/uL Monocytes # 0.4 (0-1.0) k/uL Eosinophils # 0.1 (0-0.7) k/uL Basophils # 0.0 (0-0.2) k/uL Hypochromasia Slight PT 10.9 (9.0-12.0) sec INR 1.0 (<1.2) APTT 24.8 (22.0-30.0) sec Sodium (137-145) mmol/L Potassium (3.5-5.1) mmol/L Chloride (98-107) mmol/L Carbon Dioxide (22-30) mmol/L Anion Gap mmol/L BUN (9-20) mg/dL Creatinine (0.66-1.25) mg/dL Est GFR (CKD-EPI)AfAm (>60 ml/min/1.73 sqM) Est GFR (CKD-EPI)NonAf (>60 ml/min/1.73 sqM) Glucose (74-99) mg/dL Calcium (8.4-10.2) mg/dL Magnesium (1.6-2.3) mg/dL Total Bilirubin (0.2-1.3) mg/dL AST (17-59) U/L ALT (21-72) U/L Alkaline Phosphatase (38-126) U/L Total Creatine Kinase 29 L (55-170) U/L CK-MB (CK-2) 0.8 (0.0-2.4) ng/mL CK-MB (CK-2) Rel Index 2.8 Troponin I 0.037 H* (0.000-0.034) ng/mL NT-Pro-B Natriuret Pep pg/mL Total Protein (6.3-8.2) g/dL Albumin (3.5-5.0) g/dL 05/25/18 05/25/18 Range/Units 14:45 14:45 WBC (3.8-10.6) k/uL RBC (4.30-5.90) m/uL Hgb (13.0-17.5) gm/dL Hct (39.0-53.0) % MCV (80.0-100.0) fL MCH (25.0-35.0) pg MCHC (31.0-37.0) g/dL RDW (11.5-15.5) % Plt Count (150-450) k/uL Neutrophils % % Lymphocytes % % Monocytes % % Eosinophils % % Basophils % % Neutrophils # (1.3-7.7) k/uL Lymphocytes # (1.0-4.8) k/uL Monocytes # (0-1.0) k/uL Eosinophils # (0-0.7) k/uL Basophils # (0-0.2) k/uL Hypochromasia PT (9.0-12.0) sec INR (<1.2) APTT (22.0-30.0) sec Sodium 141 (137-145) mmol/L Potassium 4.4 (3.5-5.1) mmol/L Chloride 98 (98-107) mmol/L Carbon Dioxide 33 H (22-30) mmol/L Anion Gap 10 mmol/L BUN 11 (9-20) mg/dL Creatinine 0.55 L (0.66-1.25) mg/dL Est GFR (CKD-EPI)AfAm >90 (>60 ml/min/1.73 sqM) Est GFR (CKD-EPI)NonAf >90 (>60 ml/min/1.73 sqM) Glucose 314 H (74-99) mg/dL Calcium 8.6 (8.4-10.2) mg/dL Magnesium 1.9 (1.6-2.3) mg/dL Total Bilirubin 0.6 (0.2-1.3) mg/dL AST 19 (17-59) U/L ALT 34 (21-72) U/L Alkaline Phosphatase 129 H (38-126) U/L Total Creatine Kinase (55-170) U/L CK-MB (CK-2) (0.0-2.4) ng/mL CK-MB (CK-2) Rel Index Troponin I (0.000-0.034) ng/mL NT-Pro-B Natriuret Pep 2420 pg/mL Total Protein 5.8 L (6.3-8.2) g/dL Albumin 3.2 L (3.5-5.0) g/dL Disposition Clinical Impression: COPD exacerbation, CHF (congestive heart failure) Disposition: HOME SELF-CARE Condition: Stable Instructions: Low-Sodium Diet (ED), Heart Failure (DC) Additional Instructions: Please return to the Emergency Department if symptoms worsen or any other concerns. Prescriptions: predniSONE 50 mg PO DAILY #5 tab Is patient prescribed a controlled substance at d/c from ED?: No Referrals: Antonio Diaz Jr, [Primary Care Provider] - 1-2 days Time of Disposition: 16:51
--- NOTE | 2018-05-25 15:32 | XR ---
EXAMINATION TYPE: XR chest 2V DATE OF EXAM: 05/25/2018 COMPARISON: Chest x-ray April 24, 2018. CT chest April 21, 2018. HISTORY: Difficulty in breathing. TECHNIQUE: Frontal and lateral views of the chest are obtained. FINDINGS: Post-CABG changes with mediastinal clips and sternal wires is present. Cardiomegaly is red emonstrated. There are small bilateral pleural effusions slightly more prominent in size with bluntin g of posterior lateral costophrenic angles now identified. There is associated patchy bibasilar atele ctasis and/or infiltrate. Abdominal aortic stent graft is partially imaged on this study. IMPRESSION: Cardiomegaly with small bilateral pleural effusions slightly more prominent from prior s tudies. Correlate for CHF exacerbation.
[2018-05-25 15:33] LABS: ALT 34 U/L (21-72); AST 19 U/L (17-59); Albumin 3.2 g/dL (3.5-5.0); Alkaline Phosphatase 129 U/L (38-126); Anion Gap 10 mmol/L; Blood Urea Nitrogen 11 mg/dL (9-20); Calcium 8.6 mg/dL (8.4-10.2); Carbon Dioxide 33 mmol/L (22-30); Chloride 98 mmol/L (98-107); Glucose 314 mg/dL (74-99); Magnesium 1.9 mg/dL (1.6-2.3); Potassium 4.4 mmol/L (3.5-5.1); Sodium 141 mmol/L (137-145); Total Bilirubin 0.6 mg/dL (0.2-1.3); Total Protein 5.8 g/dL (6.3-8.2)
[2018-05-25 15:38] LABS: Partial Thromboplastin Time 24.8 sec (22.0-30.0); Prothrombin Time 10.9 sec (9.0-12.0)
[2018-05-25 15:59] LABS: Creatine Kinase MB 0.8 ng/mL (0.0-2.4)
[2018-05-25 16:07] LABS: Troponin I 0.037 ng/mL (0.000-0.034)
[2018-05-25] MEDS ORDERED: FUROSEMIDE 10 MG/ML 4 ML VIAL IV STA (16:46)
[2018-05-25 17:02] VITALS: BP 107/61; PULSE 85; RESP 18; TEMP 98.4
== END 2018-05-25 17:05 | disposition home or self-care (01) ==
LOC: EC 12:54
DX: J44.1 Chronic obstructive pulmonary disease with (acute) exacerbation (principal); I50.9 Heart failure, unspecified; J90 Pleural effusion, not elsewhere classified; I11.0 Hypertensive heart disease with heart failure; I25.119 Atherosclerotic heart disease of native coronary artery with unspecified angina pectoris; I25.2 Old myocardial infarction; Z87.891 Personal history of nicotine dependence; Z79.02 Long term (current) use of antithrombotics/antiplatelets; Z79.899 Other long term (current) drug therapy; Z86.79 Personal history of other diseases of the circulatory system; Z95.1 Presence of aortocoronary bypass graft; Z95.5 Presence of coronary angioplasty implant and graft; Z87.442 Personal history of urinary calculi; Z98.890 Other specified postprocedural states
CPT/HCPCS: 36415; 94640; 93005; 83880; 80053; 82550; 82553; 83735; 84484; 85025; 85610; 85730; 87040; 71046; 99285; 96374; 96375; J1940; J2930

== ENCOUNTER 2018-06-28 07:40 | Day surgery (SDC) | payer MEDICARE ==
[~2018-06-28 07:40] MED LIST changes: +ALPRAZolam 0.25 MG TAB PO PRN; +ASPIRIN 325 MG TAB PO STA; -DEXAMETHASONE SOD PHOSPHATE 10 MG/ML 1 ML VIAL IV ONE; -HYDROmorphone 1 MG/ML 1 ML SYRINGE IVP PRN; -LACTATED RINGERS 1,000 ML IV SCH; -LIDOCAINE 1% 20 ML VIAL (10MG/ML) FOR IV START INTRADERMA PRN; -ONDANSETRON 4 MG/2 ML VIAL IVP ONE; -SCOPOLAMINE 1.5MG/72HR PATCH TRANSDERM ONE; -ceFAZolin 2 GM in SODIUM CHLORIDE 0.9% 100 ML IVPB ONE
[2018-06-28] MEDS ORDERED: SODIUM CHLORIDE 0.9% 1,000 ML IV ONE (08:07)
[2018-06-28 08:08] LABS: Glucose,Whole Blood 192 mg/dL (75-99)
[2018-06-28] MEDS ORDERED: MIDAZOLAM 2 MG/2 ML VIAL IV ONE (09:43)
[2018-06-28] MEDS ORDERED: LIDOCAINE 1% INJ 10MG/ML (20 ML MDV) SQ ONE (09:48)
[2018-06-28] MEDS ORDERED: BIVALIRUDIN BOLUS 250 MG/50 ML IV ONE (10:23)
[2018-06-28] MEDS ORDERED: BIVALIRUDIN 250 MG in SODIUM CHLORIDE 0.9% 50 ML IV ONE (10:24)
[2018-06-28] MEDS ORDERED: CLOPIDOGREL 75 MG TAB PO ONE (10:29)
[2018-06-28] MEDS: NITROGLYCERIN 1000MCG/10ML SYRINGE INTRACORON ONE ×2 (10:34→10:40)
[2018-06-28] MEDS ORDERED: ATROPINE SULFATE 0.1 MG/ML 10ML SYRINGE IV PRN (10:52)
[2018-06-28] MEDS ORDERED: RX INFO: IV CONTRAST WAS GIVEN 1 EACH MISC MISCELLANE PRN (10:52)
[2018-06-28] MEDS ORDERED: MAG HYDROX/AL HYDROX/SIMETH 30 ML CUP PO PRN (10:52)
[2018-06-28] MEDS ORDERED: NITROGLYCERIN SL TABS 0.4 MG TAB SUBLINGUAL PRN (10:52)
[2018-06-28] MEDS ORDERED: ZOLPIDEM 5 MG TAB PO PRN (10:52)
[2018-06-28] MEDS ORDERED: IOPAMIDOL-370 125ML BTL INJ ONE (10:57)
[2018-06-28] MEDS ORDERED: IOPAMIDOL-370 100ML BTL INJ ONE (10:58)
[2018-06-28] MEDS ORDERED: SODIUM CHLORIDE 0.9% 1,000 ML IV SCH (11:00)
--- NOTE | 2018-06-28 11:18 | LTR ---
June 28, 2018 Re: Pratik Nicholson Dear Dr. Diaz: Mr. Pratik Nicholson underwent successful stenting of the left circumflex with good angiographic results and without any complication. I want to thank you for allowing me to participate in his care and please do not hesitate to call if you have any question or concern. Sincerely, MD ELIZABETH Escalante / JOSEPHN: [id number] /
--- NOTE | 2018-06-28 11:30 | CC ---
CARDIAC CATHETERIZATION REPORT CARDIAC CATHETERIZATION AND PERCUTANEOUS CORONARY INTERVENTION DATE OF SERVICE: 06/28/2018 PERFORMING PHYSICIAN: Mor Malcolm MD, Business Continuity Manager. PROCEDURE PERFORMED: 1. Selective left and right coronary angiogram. 2. Left internal mammary artery angiogram. 3. SVG to RCA angiogram. 4. Aortic root angiogram. 5. Left heart catheterization. 6. Successful stenting of the first obtuse marginal branch of left circumflex using 3.25 x 18 mm Xience KEEGAN with good angiographic results and reduction of stenosis from 90% to 0%. INDICATION: This is a pleasant 67-year-old gentleman with known history of coronary artery disease and prior coronary artery bypass grafting with GARCIA to LAD as well as SVG to RCA as well as prior LAD stenting, who was experiencing symptoms of chest discomfort concerning for angina. A heart catheterization was advised. APPROACH: Right common femoral artery. COMPLICATION: None. LEVEL OF SEDATION: Moderate with sedation length of 58 minutes. 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 The right common femoral artery was cannulated using micropuncture technique, the micropuncture wire passed easily, then I placed a 6-Vietnamese sheath in the right common femoral artery. After that, I did selective right and left coronary angiogram using JL4 and JR4 catheters. I did after left internal mammary artery angiogram using the JR4 catheter. I engaged what I thought the stump to be SVG using the JR4 catheter. Then I did confirm the closure of the SVG to the RCA using an aortic root angiogram using a 6- Vietnamese pigtail catheter. Left heart catheterization was performed using 6-Vietnamese pigtail catheter. After that, I did intervene on the left circumflex. Please see a separate paragraph for that. LEFT CORONARY ANGIOGRAM: 1. The left main has mild disease only. It bifurcates into the circumflex and left anterior descending artery. 2. The left circumflex is a moderate caliber vessel. It is a nondominant vessel. The proximal left circumflex appeared to have intermediate disease only and gives rise into a large first OM branch which has severe disease in the proximal portion appeared to be in the range of 90%. The circumflex continued after that as a small- caliber vessel in the AV groove. 3. The LAD: The LAD is occluded 100% right from the left main. It seems to be in- stent occlusion. The LAD is protected by patent GARCIA. 4. The right coronary artery is 100% occluded by the ostium as well. CORONARY BYPASS ANGIOGRAM: 1. The GARCIA to LAD is patent. 2. The SVG to RCA is occluded. AORTIC ROOT ANGIOGRAM: 1. The aortic root angiogram was performed in the UKRAINIAN injection and using a power injection. The aortic root appeared to be mildly dilated. I could not opacify the SVG to RCA. 2. Left heart catheterization: The LVEDP was 20 mmHg with mild gradient across the aortic valve. 3. PCI of the left circumflex. Anticoagulation was initiated using Angiomax. Subsequently I did engage the left main using JL and JL4 guide. A run-through wire was used to wire the OM 1. After that I did PTCA ballooning using 3.0 x 12 mm balloon before I deployed 3.025 x 8 mm Xience drug-eluting stent where the stent was positioned under fluoroscopy guidance and deployed under 14 atmospheres for 20 seconds. The following angiogram showed good angiographic results and the procedure was completed without any complication. CONCLUSION: 1. Severe triple-vessel coronary artery disease. 2. Patent GARCIA to LAD. 3. Severe disease involving the first obtuse marginal branch critical disease involving the first obtuse marginal branch of left circumflex. 4. Chronic total occlusion of the RCA. 5. Successful stenting of the OM1 using 3.25 x 18 mm Xience drug-eluting stent with an excellent angiographic results. POSTPROCEDURE MANAGEMENT: 1. Dual anti-platelet therapy. 2. Risk factors modifications by smoking cessation. 3. Follow up with the patient. MMODL / IJN: [id number] /
[2018-06-28] MEDS ORDERED: HYDROmorphone 1 MG/ML 1 ML SYRINGE IVP PRN (12:41)
[2018-06-28 12:49] LABS: Glucose,Whole Blood 200 mg/dL (75-99)
[2018-06-28] MEDS: HYDROmorphone 0.5 MG/0.5 ML SYRINGE IVP PRN ×2 (12:57→14:42)
[2018-06-28] MEDS: INSULIN ASPART 100 UNIT/ML 1 ML 10 ML VIAL SQ SCH ×3 (12:59→21:19)
[2018-06-28 16:41] LABS: Glucose,Whole Blood 293 mg/dL (75-99)
[2018-06-28] MEDS: predniSONE 10 MG TAB PO SCH (17:08)
[2018-06-28] MEDS: FUROSEMIDE 40 MG TAB PO SCH (17:08)
[2018-06-28] MEDS ORDERED: INSULIN ASPART 100 UNIT/ML 1 ML 10 ML VIAL SQ SCH (17:30)
[2018-06-28 21:18] LABS: Glucose,Whole Blood 166 mg/dL (75-99)
[2018-06-29 05:45] LABS: Glucose,Whole Blood 177 mg/dL (75-99)
[2018-06-29 06:11] LABS: Anisocytosis Slight; Basophils % (A) 1 %; Eosinophils # (A) 0.1 k/uL (0-0.7); Eosinophils % (A) 2 %; HGB 13.1 gm/dL (13.0-17.5); Lymphocytes # (A) 1.6 k/uL (1.0-4.8); Lymphocytes % (A) 22 %; MCH 28.5 pg (25.0-35.0); MCHC 31.1 g/dL (31.0-37.0); MCV 91.8 fL (80.0-100.0); Monocytes # (A) 0.4 k/uL (0-1.0); Monocytes % (A) 6 %; Neutrophils # (A) 4.8 k/uL (1.3-7.7); Neutrophils % (A) 67 %; Platelet Count 139 k/uL (150-450); RBC 4.58 m/uL (4.30-5.90); WBC 7.1 k/uL (3.8-10.6)
[2018-06-29 06:32] LABS: Anion Gap 5 mmol/L; Blood Urea Nitrogen 13 mg/dL (9-20); Calcium 8.9 mg/dL (8.4-10.2); Carbon Dioxide 28 mmol/L (22-30); Chloride 105 mmol/L (98-107); Glucose 160 mg/dL (74-99); Potassium 4.4 mmol/L (3.5-5.1); Sodium 138 mmol/L (137-145)
[2018-06-29] MEDS: INSULIN ASPART 100 UNIT/ML 1 ML 10 ML VIAL SQ SCH (06:39)
[2018-06-29] MEDS: predniSONE 10 MG TAB PO SCH (08:59)
[2018-06-29] MEDS: FUROSEMIDE 40 MG TAB PO SCH (08:59)
[2018-06-29] MEDS ORDERED: BUPRENORPHINE HCL SL SCH (09:00)
[2018-06-29] MEDS ORDERED: ATORVASTATIN 20 MG TAB PO SCH (09:00)
[2018-06-29] MEDS ORDERED: CLOPIDOGREL 75 MG TAB PO SCH (09:00)
[2018-06-29] MEDS ORDERED: LISINOPRIL 2.5 MG TAB PO SCH (09:00)
[2018-06-29] MEDS ORDERED: NALOXONE HCL SL SCH (09:00)
[2018-06-29 09:26] VITALS: BP 118/65; PULSE 84; RESP 16; TEMP 98.1
[2018-06-29 09:28] VITALS: BMI 24.3
[2018-06-29] MEDS ORDERED: METOPROLOL SUCCINATE (ER) 25 MG TAB.ER.24H PO SCH (09:30)
[2018-06-29] MEDS ORDERED: ASPIRIN 81 MG PO SCH (09:30)
--- NOTE | 2018-06-29 13:59 | P.PN ---
Subjective Progress Note Date: 06/29/18 This is a 67-year-old gentleman with known history of coronary artery disease and prior bypass surgery, who was experiencing chest pain as an outpatient concerning for angina, for this reason he was advised to come to the hospital and undergo cardiac catheterization, subsequently patient underwent angioplasty and stenting of the obtuse marginal branch. Examined this morning, denied any chest pain or difficulty in breathing. Hemodynamically stable. EKG shows normal sinus rhythm with no changes from post-PCI. I pressure 118/60 with a heart rate in the 80s, 96% on room air. Blood cell count 7.1, hemoglobin 13, platelet count 139. Sodium 138, potassium 4.4, BUN 13 and creatinine 0.4. Objective - Vital Signs Vital signs: Vital Signs Temp 98.1 F 06/29/18 08:00 Pulse 84 06/29/18 08:00 Resp 16 06/29/18 08:00 BP 118/65 06/29/18 08:00 Pulse Ox 96 06/29/18 08:00 Intake & Output 06/28/18 06/29/18 06/29/18 18:59 06:59 18:59 Intake Total 655.97 Balance 655.97 Weight 68.4 kg 68.4 kg Intake: IV 175.97 Oral 480 Other: Voiding Method Urinal Toilet Urinal # Voids 1 - Exam PHYSICAL EXAMINATION: GENERAL: 67-year-old gentleman in no acute distress at the time of my examination HEENT: Head is atraumatic, normocephalic. Pupils equal, round. Sclera anicteric. Conjunctiva are clear. Mucous membranes of the mouth are moist. Neck is supple. There is no elevated jugular venous pressure. No carotid bruit is heard. HEART EXAMINATION: Heart S1, S2 normal. No murmur or gallop heard. CHEST EXAMINATION: Lungs are clear to auscultation and precussion. No chest wall tenderness is noted on palpation or with deep breathing. ABDOMEN: Soft, nontender. Bowel sounds are heard. No organomegaly noted. EXTREMITIES: 2+ peripheral pulses with no evidence of peripheral edema and no calf tenderness noted. Right groin soft, no evidence of any hematoma. NEUROLOGIC patient is awake, alert and oriented X3. . - Labs CBC & Chem 7: 06/29/18 05:46 06/29/18 05:46 Labs: Abnormal Lab Results - Last 24 Hours (Table) 06/28/18 06/28/18 06/29/18 Range/Units 16:39 21:07 05:36 RDW (11.5-15.5) % Plt Count (150-450) k/uL Creatinine (0.66-1.25) mg/dL Glucose (74-99) mg/dL POC Glucose (mg/dL) 293 H 166 H 177 H (75-99) mg/dL 06/29/18 06/29/18 Range/Units 05:46 05:46 RDW 16.0 H (11.5-15.5) % Plt Count 139 L (150-450) k/uL Creatinine 0.49 L (0.66-1.25) mg/dL Glucose 160 H (74-99) mg/dL POC Glucose (mg/dL) (75-99) mg/dL Assessment and Plan Plan: Assessment and plan #1 status post angioplasty and stenting of the obtuse marginal branch #2 known history of coronary artery disease with prior bypass surgery #3 hypertension #4 hyperlipidemia #5 nicotine dependence Plan Patient will be discharged home today. We will make him a follow-up appointment to see Dr. Ni in the office in one week. The patient will be discharged home on aspirin 81 mg daily, Lipitor 20 mg daily, Plavix 75 mg daily , Lasix 40 mg one tablet by mouth twice a day, Zestril 2-1/2 mg daily, Toprol- XL 25 mg daily, prednisone as at home, sublingual nitroglycerin as needed for chest pain. DNP note has been reviewed, I agree with a documented findings and plan of care. Patient was seen and examined.
[2018-06-29 14:36] LABS: Hemoglobin A1C 10.5 % (4.0-6.0)
== END 2018-06-29 10:04 | disposition home or self-care (01) ==
LOC: CATHCVL 07:40 → 3SCARD 11:57 → CATHCVL 06-29 10:04
PROVIDERS: ATTEND Internal Medicine Interventional Cardiology
DX: I25.110 Atherosclerotic heart disease of native coronary artery with unstable angina pectoris (principal); I25.710 Atherosclerosis of autologous vein coronary artery bypass graft(s) with unstable angina pectoris; I10 Essential (primary) hypertension; I70.213 Atherosclerosis of native arteries of extremities with intermittent claudication, bilateral legs; I42.9 Cardiomyopathy, unspecified; F17.210 Nicotine dependence, cigarettes, uncomplicated; E78.5 Hyperlipidemia, unspecified; I65.23 Occlusion and stenosis of bilateral carotid arteries; I25.82 Chronic total occlusion of coronary artery; Z95.5 Presence of coronary angioplasty implant and graft; Z95.1 Presence of aortocoronary bypass graft; Z79.82 Long term (current) use of aspirin; Z79.899 Other long term (current) drug therapy; Z79.02 Long term (current) use of antithrombotics/antiplatelets
CPT/HCPCS: 93459; 93567; 80048; 85025; 83036; C9600; C1887; C1769 ×4; C1725; C1894; C1874; J2250; J2001; J1170 ×2; J0583; J7512; Q9967 ×2

== ENCOUNTER 2018-09-02 06:19 | Inpatient (IN) | payer MEDICARE ==
[2018-09-02] MEDS ORDERED: SODIUM CHLORIDE 0.9% 1,000 ML in EMPTY BAG 1 BAG IV ONE (06:35)
[2018-09-02 07:04] LABS: Glucose,Whole Blood 297 mg/dL (75-99)
[2018-09-02] MEDS ORDERED: INSULIN ASPART (NovoLOG) 100 UNIT/ML VIAL SQ ONE (07:05)
[2018-09-02 07:10] LABS: Basophils # (A) 0.1 k/uL (0-0.2); Basophils % (A) 1 %; Eosinophils # (A) 0.2 k/uL (0-0.7); Eosinophils % (A) 2 %; HCT 44.6 % (39.0-53.0); HGB 14.4 gm/dL (13.0-17.5); Hypochromasia Slight; Lymphocytes # (A) 2.2 k/uL (1.0-4.8); Lymphocytes % (A) 28 %; MCH 29.4 pg (25.0-35.0); MCHC 32.3 g/dL (31.0-37.0); MCV 90.9 fL (80.0-100.0); Mean Platelet Volume 9.4; Monocytes # (A) 0.6 k/uL (0-1.0); Monocytes % (A) 7 %; Neutrophils # (A) 4.8 k/uL (1.3-7.7); Neutrophils % (A) 60 %; Platelet Count 203 k/uL (150-450); RBC 4.91 m/uL (4.30-5.90); RDW 15.2 % (11.5-15.5); WBC 7.9 k/uL (3.8-10.6)
[2018-09-02 07:25] LABS: Anion Gap 10 mmol/L; Blood Urea Nitrogen 19 mg/dL (9-20); Calcium 9.3 mg/dL (8.4-10.2); Carbon Dioxide 25 mmol/L (22-30); Chloride 102 mmol/L (98-107); Glucose 326 mg/dL (74-99); Potassium 4.5 mmol/L (3.5-5.1); Sodium 137 mmol/L (137-145)
[2018-09-02] MEDS ORDERED: LIDOCAINE 1% INJ 10MG/ML (20 ML MDV) SQ ONE (07:44)
[2018-09-02] MEDS ORDERED: fentaNYL (PF) 50 MCG/ML 2 ML AMP IVP ONE (07:44)
[2018-09-02] MEDS ORDERED: MIDAZOLAM 2 MG/2 ML VIAL IVP ONE (07:44)
[2018-09-02] MEDS ORDERED: IOPAMIDOL-250 100ML BTL INTRAARTER ONE (07:58)
[2018-09-02] MEDS ORDERED: IOPAMIDOL-250 50ML BTL INTRAARTER ONE (07:58)
[2018-09-02] MEDS ORDERED: SODIUM CHLORIDE 0.9% 1,000 ML IV SCH (08:15)
--- NOTE | 2018-09-02 08:27 | LTR ---
September 02, 2018 Re: Pratik Nicholson Dear Dr. Diaz: Mr. Pratik Nicholson was experiencing bilateral lower extremity intermittent claudication and I did perform an angiogram on him which revealed occluded bilateral SFA. He will be scheduled to undergo a FLOOR GRINDER of the left and right SFA. I want to thank you for allowing me to participate in his care and please do not hesitate to call if you have any question or concern. Sincerely, MD ELIZABETH Escalante / ZBIGNIEW: [id number] /
--- NOTE | 2018-09-02 08:28 | IR ---
Fluoroscopy HISTORY: Pain in leg, peripheral vascular occlusive disease 1.3 minutes fluoroscopy time supplied to the referring clinician. 152 intraoperative C-arm images do cument the procedure. See dictated report from cardiology.
[2018-09-02 08:35] LABS: Glucose,Whole Blood 198 mg/dL (75-99)
--- NOTE | 2018-09-02 08:40 | AN ---
ANGIOGRAPHY REPORT DATE OF SERVICE: September 02, 2018 PERFORMING PHYSICIAN: Mor Malcolm MD, senior lead project manager. PROCEDURE PERFORMED: 1. Abdominal aortogram. 2. Bilateral lower extremities runoff. INDICATION: This is a 67-year-old gentleman with history of coronary artery disease and prior coronary artery bypass grafting as well as coronary artery stenting as well as history of peripheral arterial disease and known severe femoral-popliteal disease where he underwent angioplasty in the past as well as history of and status post stent graft was experiencing severe bilateral lower extremity intermittent claudication. He was advised to undergo an abdominal aortogram and bilateral lower extremities runoff. APPROACH: Right common femoral artery. COMPLICATION: None. LEVEL OF SEDATION: Moderate with sedation length of 16 minutes. PROCEDURE DESCRIPTION: After obtaining an informed consent, the patient was brought to the cardiac laborer fryer farm. The right common femoral artery was cannulated using micropuncture technique. Under ultrasound guidance, the micropuncture wire passed easily then I placed a 5-[place] sheath in the right common femoral artery. After that, I did an abdominal aortogram and bilateral lower extremities runoff using 5- [place] pigtail catheter which was initially placed at the level of the renal arteries then it was pulled into above the bifurcation of the aorta to right and left common iliac arteries. The procedure was completed without any complication. SELECTIVE PERIPHERAL ANGIOGRAM: 1. The abdominal aorta appeared to have mild disease only and it does have stent graft below the renal artery. 2. Common iliac arteries: The right and left common iliac arteries apparently stented with the of the stent graft and they appeared to be patent. 3. Internal iliac arteries: The right and left internal iliac arteries are patent. 4. External iliac arteries: The right and left external iliac arteries appear to have mild disease only. 5. Common femoral arteries: The right and left common femoral arteries appear to have mild disease only. 6. Profunda: Both profunda are patent. 7. SFA: Both SFA are occluded on the long segment extending from the mid SFA. The right SFA reconstitutes by the anterior tibial and the left SFA reconstitutes by the mid popliteal. 8. Below the knee: There is one vessel runoff below the knee with anterior tibial only. CONCLUSION: Occluded bilateral SFA. POSTPROCEDURE MANAGEMENT: The patient will be scheduled to undergo a DIRT BIKE RACER of the left then right SFA to be performed in ipsilateral antegrade technique in view of the history of stent graft in the aorta, where we cannot go up and over. MMODL / IJN: [id number] /
[2018-09-02] MEDS ORDERED: ONDANSETRON 4 MG/2 ML VIAL IVP PRN (09:00)
[2018-09-02] MEDS ORDERED: RX INFO: IV CONTRAST WAS GIVEN 1 EACH MISC MISCELLANE PRN (14:32)
[2018-09-02] MEDS ORDERED: NITROGLYCERIN SL TABS 0.4 MG TAB SUBLINGUAL PRN (14:35)
--- NOTE | 2018-09-02 14:39 | CT ---
EXAMINATION TYPE: CT abdomen pelvis wo con DATE OF EXAM: 09/02/2018 COMPARISON: 06/29/2016 INDICATION: Abd pain DLP: 682 mGycm, Automated exposure control for dose reduction was used. CONTRAST: 0 mL of Isovue 300. Patient hours status post aortic runoff and contrast remains on board from the prior study. Study performed without Oral Contrast TECHNIQUE: Axial images were obtained from above the diaphragm to the pubic rami in the axial plane a t 5 mm thick sections. Reconstructed images are reviewed on the computer in the coronal plane. FINDINGS: Limited CT sections are obtained the lung bases. The lung bases are clear. CT ABDOMEN: Liver: Biliary air is present. This is unclear whether this is iatrogenic or possibly venous air. Cor relate with the patient's symptoms. Spleen: Normal Pancreas: Atrophic Adrenal glands: The adrenal glands are normal. Gallbladder: Secondary excretion of contrast into the biliary system is evident. Kidneys: No masses are evident. No hydronephrosis is present. No cysts are present. There is a hyp odensity within the posterior lateral right kidney representing cyst measuring 1.4 cm. Cyst at the in ferior medial pole right kidney would measure 1.6 cm. Peripelvic cysts or prominent renal sinus fat i s present. No hydronephrosis is evident. Aorta: Vascular calcification is within the aorta. Aortic stent is present. There is a abdominal aor tic aneurysm measuring 5.5 cm. No extravasation and concentration of contrast suggest endovascular le ak is evident. Inferior vena cava: Normal. CT PELVIS: Loops of bowel within the abdomen and pelvis are normal. There are loops of bowel which are incom pletely distended or lack oral contrast limiting their evaluation. Appendix: Normal as visualized. The appendix is air-filled Urinary bladder: Urinary bladder is contrast-filled Genitourinary structures: Prostate is prominent and contains calcification. Osseous structures: No suspicious lytic or sclerotic lesions. Report was called case discussed with the referring public area attendant. 09/02/2018 1420 hours. No venous deirdre pheral vascular procedures were performed. Loops of bowel appear unremarkable the patient. Close insp ection there does appear to be air within the mesenteric veins. Example image series 3 image 28. Some additional venous gas is suspected in the mesenteric veins adjacent to the ascending colon, series 3 image 49. Minimal free air, while considered less likely, is not excluded. Follow-up call was made, surgery is been consulted. IMPRESSIONS: 1. Mesenteric venous air with extensive air through the portal venous system. This has a high associ ation with bowel ischemia. Clinical workup and evaluation is recommended. 2. Stable aortic stent and abdominal aortic aneurysm. 3. Renal cysts A Red level critical message alert has been initiated for Mor Malcolm MD via the [employer] on 09/02/2018 2:14 PM. This message alert has been sent to Mor Malcolm MD via [employer] preferences provided by the clinician for the receipt of Radiology Critical Findings. Message ID [id number].
[2018-09-02] MEDS ORDERED: predniSONE 10 MG TAB PO SCH (14:45)
[2018-09-02] MEDS: ONDANSETRON 4 MG/2 ML VIAL IVP PRN ×2 (15:17→19:51)
[2018-09-02] MEDS: INSULIN ASPART (NovoLOG) 100 UNIT/ML VIAL SQ SCH ×4 (15:35→20:41)
[2018-09-02] MEDS: SODIUM CHLORIDE 0.9% 1,000 ML IV SCH (15:37)
[2018-09-02 15:59] VITALS: BMI 25.0
--- NOTE | 2018-09-02 16:02 | P.GSCN ---
History of Present Illness Consult date: 09/02/18 Reason for Consult: Air in the abdomen Requesting physician: Mor Malcolm History of present illness: CHIEF COMPLAINT: Abdominal pain HISTORY OF PRESENT ILLNESS: 67-year-old male who underwent abdominal aortogram today with Dr. Ni. Postoperatively the patient began having abdominal pain. CAT scan abdomen and pelvis was ordered and general surgery was consulted for further evaluation. Patient was examined in the extended stay [facility] with Dr. Christine. Patient currently complains of abdominal bloating. He reports minimal abdominal tenderness. Denies nausea or vomiting. PAST MEDICAL HISTORY: See list. PAST SURGICAL HISTORY: See list. SOCIAL HISTORY: No illicit drug use. REVIEW OF SYSTEMS: CONSTITUTIONAL: Denies fever or chills. HEENT: Denies blurred vision, vision changes, or eye pain. Denies hemoptysis CARDIOVASCULAR: Denies chest pain or pressure. RESPIRATORY: No shortness of breath. GASTROINTESTINAL: Refer to HPI for pertinent findings HEMATOLOGIC: Denies bleeding disorders. GENITOURINARY: Denies any blood in urine. SKIN: Denies pruitis. Denies rash. PHYSICAL EXAM: VITAL SIGNS: Reviewed. GENERAL: Well-developed in no acute distress. HEENT: No sclera icterus. Extraocular movements grossly intact. Moist buccal mucosa. Head is atraumatic, normocephalic. ABDOMEN: Soft. Mildly distended. Bloated. NEUROLOGIC: Alert and oriented. Cranial nerves II through XII grossly intact. IMAGING: CT abdomen and pelvis: Mesenteric venous air with extensive air through portal venous system. This has a high association with bowel ischemia. Stable aortic stent and abdominal aortic aneurysm. ASSESSMENT: 1. Abdominal pain 2. Mesenteric venous air, may be secondary to bowel ischemia PLAN: Patient examined in [facility] by Dr. Christine. We will continue to monitor patient. No immediate surgical intervention. IV dilaudid. Clear liquid diet. Zofran PRN. Repeat labs in AM. Further recommendations pending patient course. Nurse practitioner note has been reviewed by physician. Signing provider agrees with the documented findings, assessment, and plan of care. Past Medical History Past Medical History: Coronary Artery Disease (CAD), Chest Pain / Angina, COPD, Diabetes Mellitus, Hyperlipidemia, Hypertension, Myocardial Infarction (CT), Osteoarthritis (OA), Vascular Disorder Additional Past Medical History / Comment(s): KIDNEY STONES. STENT PLACED FOR ABD ANEURYSM. Last Myocardial Infarction Date:: 2005? History of Any Multi-Drug Resistant Organisms: None Reported Past Surgical History: Coronary Bypass/CABG, Heart Catheterization, Heart Catheterization With Stent, Orthopedic Surgery Additional Past Surgical History / Comment(s): RT ROTATOR CUFF REPAIR. CABG (2005 & 2007) BYPASS X2. STENTS X2 IN PAST, ABD ANEURYSM REPAIR WITH STENT, LT CAROTID ENDARTERECTOMY. lithotripsy. STATES STENT TO LEFT LEG, Cardiac cath 2018. Past Anesthesia/Blood Transfusion Reactions: No Reported Reaction Date of Last Stent Placement:: 10/14/12 Smoking Status: Current every day smoker - Past Family History Father Family Medical History: Deep Vein Thrombosis (DVT), Myocardial Infarction (CT) Medications and Allergies Home Medications Medication Instructions Recorded Confirmed Type Furosemide [Lasix] 40 mg PO BID 06/27/18 08/29/18 History Lisinopril [Zestril] 2.5 mg PO DAILY 06/27/18 09/02/18 History Simvastatin 40 mg PO DAILY 06/27/18 09/02/18 History predniSONE 10 mg PO DIRECTED 06/27/18 08/29/18 History Aspirin 81 mg PO DAILY #30 chew 06/29/18 09/02/18 Rx Clopidogrel [Plavix] 75 mg PO DAILY #30 tab 06/29/18 09/02/18 Rx Metoprolol Succinate (ER) [Toprol 25 mg PO DAILY #30 tab.er.24h 06/29/18 09/02/18 Rx XL] Nitroglycerin Sl Tabs [Nitrostat] 0.4 mg SUBLINGUAL Q5M PRN #25 tab 06/29/18 08/29/18 Rx Allergies Allergy/AdvReac Type Severity Reaction Status Date / Time No Known Allergies Allergy Verified 08/29/18 09:20 Surgical - Exam Vital Signs Temp Pulse Resp BP Pulse Ox 98.2 F 93 16 113/66 97 09/02/18 07:16 09/02/18 07:16 09/02/18 07:16 09/02/18 07:16 09/02/18 07:16 Results - Labs 09/02/18 06:53 09/02/18 06:53 Abnormal Lab Results - Last 24 Hours (Table) 09/02/18 09/02/18 09/02/18 Range/Units 06:53 07:01 08:30 Creatinine 0.50 L (0.66-1.25) mg/dL Glucose 326 H (74-99) mg/dL POC Glucose (mg/dL) 297 H 198 H (75-99) mg/dL Diabetes panel 09/02/18 Range/Units 06:53 Sodium 137 (137-145) mmol/L Potassium 4.5 (3.5-5.1) mmol/L Chloride 102 (98-107) mmol/L Carbon Dioxide 25 (22-30) mmol/L BUN 19 (9-20) mg/dL Creatinine 0.50 L (0.66-1.25) mg/dL Glucose 326 H (74-99) mg/dL Calcium 9.3 (8.4-10.2) mg/dL Calcium panel 09/02/18 Range/Units 06:53 Calcium 9.3 (8.4-10.2) mg/dL Pituitary panel 09/02/18 Range/Units 06:53 Sodium 137 (137-145) mmol/L Potassium 4.5 (3.5-5.1) mmol/L Chloride 102 (98-107) mmol/L Carbon Dioxide 25 (22-30) mmol/L BUN 19 (9-20) mg/dL Creatinine 0.50 L (0.66-1.25) mg/dL Glucose 326 H (74-99) mg/dL Calcium 9.3 (8.4-10.2) mg/dL Adrenal panel 09/02/18 Range/Units 06:53 Sodium 137 (137-145) mmol/L Potassium 4.5 (3.5-5.1) mmol/L Chloride 102 (98-107) mmol/L Carbon Dioxide 25 (22-30) mmol/L BUN 19 (9-20) mg/dL Creatinine 0.50 L (0.66-1.25) mg/dL Glucose 326 H (74-99) mg/dL Calcium 9.3 (8.4-10.2) mg/dL
[2018-09-02] MEDS: FUROSEMIDE 40 MG TAB PO SCH (16:04)
[2018-09-02] MEDS: HYDROmorphone 0.5 MG/0.5 ML SYRINGE IVP PRN ×2 (16:04→19:43)
[2018-09-02 16:34] LABS: Glucose,Whole Blood 323 mg/dL (75-99)
[2018-09-02] MEDS: DEXTROSE 5%-LACTATED RINGERS 1,000 ML IV SCH (18:20)
--- NOTE | 2018-09-02 18:39 | P.CONS ---
History of Present Illness - Reason for Consult Consult date: 09/02/18 Medical management - Chief Complaint Peripheral vascular disease, abdominal discomfort - History of Present Illness This patient is a 67-year-old male well-known to my practice who underwent abdominal aortic exam today with Dr. Malcolm. Postoperatively patient began developing abdominal pain and computed tomography scan abdomen and pelvis was ordered Computed tomography scan results suggested mesenteric venous air with extensive air throughout the portal venous system highly associated with ischemic bowel stable aortic stent with and abdominal aortic aneurysm Anticipation with general surgery Dr. Sourav Doss consulted patient being held overnight. Patient being reevaluated in the morning by surgery with repeat labs recommendations will be made at that time Review of Systems Constitutional: Reports as per HPI Ears, nose, mouth and throat: Reports as per HPI Cardiovascular: Reports as per HPI Respiratory: Reports as per HPI Gastrointestinal: Reports abdominal pain Genitourinary: Reports as per HPI, Reports decreased libido Musculoskeletal: Reports as per HPI, Reports leg numbness/tingling (Claudication bilateral lower extremes) Integumentary: Reports as per HPI Hematologic/Lymphatic: Reports as per HPI Past Medical History Past Medical History: Coronary Artery Disease (CAD), Chest Pain / Angina, COPD, Diabetes Mellitus, Hyperlipidemia, Hypertension, Myocardial Infarction (PR), Osteoarthritis (OA), Vascular Disorder Additional Past Medical History / Comment(s): KIDNEY STONES. STENT PLACED FOR ABD ANEURYSM. Last Myocardial Infarction Date:: 2005? History of Any Multi-Drug Resistant Organisms: None Reported Past Surgical History: Coronary Bypass/CABG, Heart Catheterization, Heart C atheterization With Stent, Orthopedic Surgery Additional Past Surgical History / Comment(s): RT ROTATOR CUFF REPAIR. CABG (2005 & 2007) BYPASS X2. STENTS X2 IN PAST, ABD ANEURYSM REPAIR WITH STENT, LT CAROTID ENDARTERECTOMY. lithotripsy. STATES STENT TO LEFT LEG, Cardiac cath 2018. Past Anesthesia/Blood Transfusion Reactions: No Reported Reaction Date of Last Stent Placement:: 10/14/12 Smoking Status: Current every day smoker - Past Family History Father Family Medical History: Deep Vein Thrombosis (DVT), Myocardial Infarction (PR) Medications and Allergies Home Medications Medication Instructions Recorded Confirmed Type Furosemide [Lasix] 40 mg PO BID 06/27/18 08/29/18 History Lisinopril [Zestril] 2.5 mg PO DAILY 06/27/18 09/02/18 History Simvastatin 40 mg PO DAILY 06/27/18 09/02/18 History predniSONE 10 mg PO DIRECTED 06/27/18 08/29/18 History Aspirin 81 mg PO DAILY #30 chew 06/29/18 09/02/18 Rx Clopidogrel [Plavix] 75 mg PO DAILY #30 tab 06/29/18 09/02/18 Rx Metoprolol Succinate (ER) [Toprol 25 mg PO DAILY #30 tab.er.24h 06/29/18 09/02/18 Rx XL] Nitroglycerin Sl Tabs [Nitrostat] 0.4 mg SUBLINGUAL Q5M PRN #25 tab 06/29/18 08/29/18 Rx Allergies Allergy/AdvReac Type Severity Reaction Status Date / Time No Known Allergies Allergy Verified 08/29/18 09:20 Physical Exam Osteopathic Statement: *. No significant issues noted on an osteopathic structural exam other than those noted in the History and Physical/Consult. Vitals: Vital Signs Temp Pulse Pulse Resp BP BP Pulse Ox 09/02/18 16:00 67 62 18 09/02/18 15:34 97.8 F 67 18 154/89 98 09/02/18 14:47 62 16 123/62 93 L 09/02/18 12:45 63 16 129/54 92 L 09/02/18 09:54 56 L 16 130/65 94 L 09/02/18 09:24 60 16 142/73 95 09/02/18 08:54 56 L 16 150/87 95 09/02/18 08:35 71 16 145/74 94 L 09/02/18 08:20 70 16 122/68 93 L 09/02/18 08:10 72 16 127/65 94 L 09/02/18 07:16 98.2 F 93 16 113/66 97 Intake and Output 09/02/18 09/02/18 09/02/18 06:59 14:59 22:59 Intake Total 50 800 472 Balance 50 800 472 Intake: IV 50 800 Sodium Chloride 0.9% 1, 600 000 ml @ 100 mls/hr IV . Q10H [facility] Rx#:[id number] Oral 472 Other: Voiding Method Toilet # Bowel Movements 1 General: [Patient awake, alert and oriented times 3. Patient in no acute distress.] HEENT: [PERRL. EOMI. No pharyngeal erythema or exudate.] Neck: [No adenopathy.] Cardiac: [Heart regular in rate and rhythm. No S3. No S4. No clicks, rubs. No murmur.] Lungs: [Clear to auscultation bilaterally.] Abdomen: [No mass. No organomegaly. Bowel sounds presnt and normoactive in all 4 quadrants.] Extremes: [No edema no cyanosis no claudication normal pulses] : [] Musculoskeletal: [No joint erythema, edema or tenderness.] Skin: [No rash.] Neurologic: [No lateralizing deficits. CN II - XII grossly intact.] Lymphatic: [No adenopathy.] Results CBC & Chem 7: 09/02/18 06:53 09/02/18 06:53 Labs: Abnormal Lab Results - Last 24 Hours (Table) 09/02/18 09/02/18 09/02/18 Range/Units 06:53 07:01 08:30 Creatinine 0.50 L (0.66-1.25) mg/dL Glucose 326 H (74-99) mg/dL POC Glucose (mg/dL) 297 H 198 H (75-99) mg/dL 09/02/18 Range/Units 16:32 Creatinine (0.66-1.25) mg/dL Glucose (74-99) mg/dL POC Glucose (mg/dL) 323 H (75-99) mg/dL Assessment and Plan (1) Ischemic bowel disease Current Visit: Yes Status: Acute Code(s): K55.9 - VASCULAR DISORDER OF INTESTINE, UNSPECIFIED SNOMED Code(s): 47234315 (2) Acute systolic (congestive) heart failure Current Visit: No Status: Acute Code(s): I50.21 - ACUTE SYSTOLIC (CONGESTIVE) HEART FAILURE SNOMED Code(s): 600749929 (3) Bilateral pleural effusion Current Visit: No Status: Acute Code(s): J90 - PLEURAL EFFUSION, NOT ELSEWHERE CLASSIFIED SNOMED Code(s): 096827536 (4) H/O two vessel coronary artery bypass graft Current Visit: No Status: Acute Code(s): Z95.1 - PRESENCE OF AORTOCORONARY BYPASS GRAFT SNOMED Code(s): 827488412 Plan: #1 status post aortogram #[address] abdomen and pelvis suggesting ischemic bowel disease #3 mesenteric venous air may be secondary to ischemic bowel #4 repeat labs in the morning,'s history of peripheral vascular disease with stable aortic stent and abdominal aortic aneurysm Time with Patient: Greater than 30
[2018-09-02 20:03] LABS: Glucose,Whole Blood 296 mg/dL (75-99)
[2018-09-03] MEDS: DEXTROSE 5%-LACTATED RINGERS 1,000 ML IV SCH ×3 (04:26→21:56)
[2018-09-03] MEDS: SODIUM CHLORIDE 0.9% 1,000 ML IV SCH ×2 (04:27→19:40)
[2018-09-03] MEDS: HYDROmorphone 0.5 MG/0.5 ML SYRINGE IVP PRN ×4 (05:20→19:43)
[2018-09-03 06:18] LABS: Anisocytosis Slight; Basophils % (A) 0 %; Eosinophils # (A) 0.1 k/uL (0-0.7); Eosinophils % (A) 0 %; HCT 43.5 % (39.0-53.0); HGB 14.4 gm/dL (13.0-17.5); Lymphocytes # (A) 1.4 k/uL (1.0-4.8); Lymphocytes % (A) 8 %; MCH 29.4 pg (25.0-35.0); MCHC 33.2 g/dL (31.0-37.0); MCV 88.6 fL (80.0-100.0); Mean Platelet Volume 10.2; Monocytes # (A) 0.9 k/uL (0-1.0); Monocytes % (A) 5 %; Neutrophils # (A) 13.8 k/uL (1.3-7.7); Neutrophils % (A) 85 %; Platelet Count 197 k/uL (150-450); RBC 4.91 m/uL (4.30-5.90); RDW 16.1 % (11.5-15.5); WBC 16.3 k/uL (3.8-10.6)
[2018-09-03 06:29] LABS: Anion Gap 8 mmol/L; Blood Urea Nitrogen 10 mg/dL (9-20); Calcium 8.7 mg/dL (8.4-10.2); Carbon Dioxide 30 mmol/L (22-30); Chloride 99 mmol/L (98-107); Glucose 195 mg/dL (74-99); Potassium 3.8 mmol/L (3.5-5.1); Sodium 137 mmol/L (137-145)
[2018-09-03 06:48] LABS: Glucose,Whole Blood 194 mg/dL (75-99)
[2018-09-03] MEDS: INSULIN ASPART (NovoLOG) 100 UNIT/ML VIAL SQ SCH ×4 (08:38→21:58)
[2018-09-03] MEDS: ATORVASTATIN 20 MG TAB PO SCH (08:38)
[2018-09-03] MEDS: FUROSEMIDE 40 MG TAB PO SCH ×2 (08:39→15:04)
[2018-09-03] MEDS: CLOPIDOGREL 75 MG TAB PO SCH (08:39)
[2018-09-03] MEDS: ASPIRIN 81 MG PO SCH (08:39)
[2018-09-03] MEDS: METOPROLOL SUCCINATE (ER) 25 MG TAB.ER.24H PO SCH (09:24)
--- NOTE | 2018-09-03 09:24 | P.PN ---
Subjective Progress Note Date: 09/03/18 Principal diagnosis: Critical limb ischemia This is a pleasant 67-year-old gentleman who I follow in the office as an outpatient with known history of coronary artery disease and prior coronary artery bypass grafting as well as a stenting, peripheral arterial disease and prior bilateral SFA angioplasty and stenting, history of AAA and status post stent graft, hypertension, dyslipidemia, diabetes, and history of smoking, was experiencing lately bilateral lower extremities discomfort concerning for critical limb ischemia. Because of that he was scheduled to undergo an abdom inal aortogram and bilateral lower extremities runoff from right groin approach. He was admitted to the hospital yesterday and underwent an abdominal aortogram and bilateral lower extremities runoff without any complication from right groin approach. The study revealed patent stent to graft in the aorta with patent bilateral iliac limbs and severe fem-pop disease with occluded SFA bilaterally with long area of occlusion extends from the proximal portion and reconstitutes below the knee. After the procedure was the patient was transferred to the extended stay unit. He was experiencing some abdominal discomfort. On examination the abdomen was slightly tender and because of that I ordered a computed tomography scan of the abdomen which revealed evidence of air in the portal vein concerning for mesenteric ischemia. Subsequently a consulted a general surgeon who recommended keeping the patient for observation and if the abdominal discomfort did not get worse no further workup. If the abdominal discomfort gets worse he will schedule the patient to undergo a CT with contrast for the abdomen. On follow-up with him today, 09/03/2018, he stated that the abdominal discomfort is slightly better. He put it on a scale of 5-6/10. The abdomen examination is tender but not as bad as yesterday. The plan is to keep the patient for additional 24 hour for monitoring. No indication of any chest pain or chest discomfort or shortness of breath at this point. Objective - Vital Signs Vital signs: Vital Signs Temp 98.5 F 09/03/18 08:00 Pulse 83 09/03/18 08:00 Resp 16 09/03/18 08:00 BP 114/56 09/03/18 08:00 Pulse Ox 94 L 09/03/18 08:00 Intake & Output 09/02/18 09/03/18 09/03/18 18:59 06:59 18:59 Intake Total 1272 Output Total 1350 Balance 1272 -1350 Intake: IV 800 Sodium Chloride 0.9% 1, 600 000 ml @ 100 mls/hr IV . Q10H [facility] Rx#:[id number] Oral 472 Output: Urine 1350 Other: Voiding Method Toilet Toilet # Bowel Movements 1 - Constitutional General appearance: Present: no acute distress - Respiratory Respiratory: bilateral: CTA - Cardiovascular Rhythm: regular Heart sounds: normal: S1, S2 Abnormal Heart Sounds: Present: systolic murmur - Labs CBC & Chem 7: 09/03/18 05:41 09/03/18 05:41 Labs: Abnormal Lab Results - Last 24 Hours (Table) 09/02/18 09/02/18 09/03/18 Range/Units 16:32 20:01 05:41 WBC 16.3 H (3.8-10.6) k/uL RDW 16.1 H (11.5-15.5) % Neutrophils # 13.8 H (1.3-7.7) k/uL Creatinine (0.66-1.25) mg/dL Glucose (74-99) mg/dL POC Glucose (mg/dL) 323 H 296 H (75-99) mg/dL 09/03/18 09/03/18 Range/Units 05:41 06:46 WBC (3.8-10.6) k/uL RDW (11.5-15.5) % Neutrophils # (1.3-7.7) k/uL Creatinine 0.41 L (0.66-1.25) mg/dL Glucose 195 H (74-99) mg/dL POC Glucose (mg/dL) 194 H (75-99) mg/dL Assessment and Plan Assessment: Assessment #1 critical limb ischemia bilaterally #2 severe occlusive peripheral arterial disease as described above #3 possible mesenteric ischemia, iatrogenic versus non-iatrogenic #4 multiple comorbid conditions including diabetes, hypertension, and dyslipidemia #5 severe chronic artery disease and status post revascularization in the term of CABG as well as a stenting #6 significant history of smoking Plan #1 continue the current medical regimen #2 the patient has been followed by a general surgeon #3 keep the patient for additional 24 for observation #4 follow-up with the patient
[2018-09-03] MEDS: LISINOPRIL 2.5 MG TAB PO SCH (09:25)
--- NOTE | 2018-09-03 09:33 | P.PN ---
Progress Note - Text Progress Note Date: 09/03/18 The patient is resting in bed. He still has complaints of mild diffuse epigastric abdominal pain. His white count is 16,000. On exam his vital signs are stable. His abdomen is distended with mild diffuse tenderness throughout. There is no rebound or guarding. Leukocytosis. Possible ischemic bowel. Patient will continue to be observed. He will placed on IV antibiotics.
[2018-09-03] MEDS: PIPERACILLIN-TAZOBACTAM 3.375 GM in SODIUM CHLORIDE 0.9% 100 ML IVPB SCH ×2 (10:13→15:04)
[2018-09-03] MEDS: ONDANSETRON 4 MG/2 ML VIAL IVP PRN (11:42)
[2018-09-03 11:43] LABS: Glucose,Whole Blood 184 mg/dL (75-99)
[2018-09-03] MEDS ORDERED: ACETAMINOPHEN TAB 325 MG TAB PO PRN (11:52)
--- NOTE | 2018-09-03 12:35 | P.PN ---
Subjective Progress Note Date: 09/03/18 Principal diagnosis: Significant peripheral vascular disease Abdominal pain, concern for mesenteric ischemia Abdominal discomfort somewhat improved today Abdominal evaluation continues to be tender, not is prevalent as yesterday no chest pain or shortness of breath will continue to monitor for the next 24 hours Objective - Vital Signs Vital signs: Vital Signs Temp 99.1 F 09/03/18 12:00 Pulse 82 09/03/18 12:00 Resp 16 09/03/18 12:00 BP 102/54 09/03/18 12:00 Pulse Ox 96 09/03/18 12:00 Intake & Output 09/02/18 09/03/18 09/03/18 18:59 06:59 18:59 Intake Total 1272 Output Total 1350 Balance 1272 -1350 Intake: IV 800 Sodium Chloride 0.9% 1, 600 000 ml @ 100 mls/hr IV . Q10H [facility] Rx#:[id number] Oral 472 Output: Urine 1350 Other: Voiding Method Toilet Toilet Toilet # Bowel Movements 1 - Exam General: [Patient awake, alert and oriented times 3. Patient in no acute d istress.] HEENT: [PERRL. EOMI. No pharyngeal erythema or exudate.] Neck: [No adenopathy.] Cardiac: [Heart regular in rate and rhythm. No S3. No S4. No clicks, rubs. No murmur.] Lungs: [Clear to auscultation bilaterally.] Abdomen: [No mass. No organomegaly. Bowel sounds presnt and normoactive in all 4 quadrants. Diffuse mild to moderate abdominal pain Extremes: [No edema no cyanosis no claudication normal pulses] : [] Musculoskeletal: [No joint erythema, edema or tenderness.] Skin: [No rash.] Neurologic: [No lateralizing deficits. CN II - XII grossly intact.] Lymphatic: [No adenopathy.] - Labs CBC & Chem 7: 09/03/18 05:41 09/03/18 05:41 Labs: Abnormal Lab Results - Last 24 Hours (Table) 09/02/18 09/02/18 09/03/18 Range/Units 16:32 20:01 05:41 WBC 16.3 H (3.8-10.6) k/uL RDW 16.1 H (11.5-15.5) % Neutrophils # 13.8 H (1.3-7.7) k/uL Creatinine (0.66-1.25) mg/dL Glucose (74-99) mg/dL POC Glucose (mg/dL) 323 H 296 H (75-99) mg/dL 09/03/18 09/03/18 09/03/18 Range/Units 05:41 06:46 11:42 WBC (3.8-10.6) k/uL RDW (11.5-15.5) % Neutrophils # (1.3-7.7) k/uL Creatinine 0.41 L (0.66-1.25) mg/dL Glucose 195 H (74-99) mg/dL POC Glucose (mg/dL) 194 H 184 H (75-99) mg/dL Assessment and Plan (1) Ischemic bowel disease Current Visit: Yes Status: Acute Code(s): K55.9 - VASCULAR DISORDER OF INTESTINE, UNSPECIFIED SNOMED Code(s): 97499102 (2) Acute systolic (congestive) heart failure Current Visit: No Status: Acute Code(s): I50.21 - ACUTE SYSTOLIC (CONGESTIVE) HEART FAILURE SNOMED Code(s): 280205672 (3) Bilateral pleural effusion Current Visit: No Status: Acute Code(s): J90 - PLEURAL EFFUSION, NOT ELSEWHERE CLASSIFIED SNOMED Code(s): 967807084 (4) H/O two vessel coronary artery bypass graft Current Visit: No Status: Acute Code(s): Z95.1 - PRESENCE OF AORTOCORONARY BYPASS GRAFT SNOMED Code(s): 363805166 Plan: #1 status post aortogram #[address] abdomen and pelvis suggesting ischemic bowel disease #3 mesenteric venous air may be secondary to ischemic bowel #4 repeat labs in the morning,'s history of peripheral vascular disease with stable aortic stent and abdominal aortic aneurysm
[2018-09-03 16:28] LABS: Glucose,Whole Blood 200 mg/dL (75-99)
[2018-09-03 21:02] LABS: Glucose,Whole Blood 156 mg/dL (75-99)
[2018-09-04] MEDS: PIPERACILLIN-TAZOBACTAM 3.375 GM in SODIUM CHLORIDE 0.9% 100 ML IVPB SCH ×2 (00:27→08:10)
[2018-09-04] MEDS: SODIUM CHLORIDE 0.9% 1,000 ML IV SCH (06:32)
[2018-09-04 06:41] LABS: Glucose,Whole Blood 200 mg/dL (75-99)
[2018-09-04] MEDS: INSULIN ASPART (NovoLOG) 100 UNIT/ML VIAL SQ SCH ×2 (08:16→12:09)
[2018-09-04] MEDS: ATORVASTATIN 20 MG TAB PO SCH (08:25)
[2018-09-04] MEDS: CLOPIDOGREL 75 MG TAB PO SCH (08:25)
[2018-09-04] MEDS: HYDROmorphone 0.5 MG/0.5 ML SYRINGE IVP PRN (08:25)
[2018-09-04] MEDS: FUROSEMIDE 40 MG TAB PO SCH (08:25)
[2018-09-04] MEDS: LISINOPRIL 2.5 MG TAB PO SCH (10:43)
[2018-09-04] MEDS: METOPROLOL SUCCINATE (ER) 25 MG TAB.ER.24H PO SCH (10:43)
[2018-09-04] MEDS: ASPIRIN 81 MG PO SCH (10:43)
--- NOTE | 2018-09-04 10:45 | P.PN ---
Progress Note - Text Progress Note Date: 09/04/18 The patient feels better today. He states his abdominal pain is quite diminished. He's been tolerating liquid diet. On exam is lesser stable. His abdomen soft. There is a very mild epigastric tenderness. Patient's white blood cell count is still pending was morning. If it history obesity has improved he'll be discharged home.
[2018-09-04 10:49] LABS: Anisocytosis Slight; HCT 42.8 % (39.0-53.0); HGB 14.3 gm/dL (13.0-17.5); MCH 29.6 pg (25.0-35.0); MCHC 33.5 g/dL (31.0-37.0); MCV 88.2 fL (80.0-100.0); Mean Platelet Volume 10.4; Platelet Count 200 k/uL (150-450); RBC 4.85 m/uL (4.30-5.90); RDW 16.4 % (11.5-15.5); WBC 15.8 k/uL (3.8-10.6)
--- NOTE | 2018-09-04 11:10 | P.DS ---
Providers Date of admission: 09/03/18 13:31 Attending physician: Mor Malcolm Consults: 09/02/18 14:37 Consult Physician Stat Consulting Provider: Jose Christine Consult Reason/Comments: Air in the Abd Do you want consulting provider notified?: Yes 09/02/18 15:43 Consult Physician Stat Consulting Provider: Antonio Diaz Jr Consult Reason/Comments: medical management Do you want consulting provider notified?: Yes Primary care physician: [facility] Course: This is a pleasant 67-year-old gentleman with a history of coronary artery disease and prior coronary artery bypass grafting as well as coronary artery stenting, severe peripheral arterial disease and prior angioplasty and stenting as well as, history of abdominal aortic aneurysm and status post stent graft, diabetes, hypertension, dyslipidemia, and history of smoking, was admitted to the hospital 2 days ago to undergo an abdominal aortogram and bilateral lower extremities runoff. He was experiencing bilateral lower extremities intermittent claudication seems to be severe enough and interfering with his daily activities. As a matter of fact for the last several months, he has been experiencing critical limb ischemia with a resting pain. Because of that he was brought to the hospital a few days ago to undergo an abdominal aortogram and bilateral lower extremities runoff which was performed from right groin approach. The study revealed severe peripheral arterial disease with evidence off chronic total occlusion of the SFA bilaterally with a long area of occlusion extends from the groin all the way to the knees. Postprocedure, the patient was transferred to extended care unit for observation and discharge home later on. Postprocedure, at to the extended care unit, he was experiencing abdominal discomfort. On examination he did have slight tenderness in the abdomen. Because of that I did perform a computed tomography scan of the abdomen and pelvis which revealed finding consistent with possible ischemic bowel. Subsequently we consulted general surgery to see him and the plan was to monitor the patient over the next 24-48 hours. The patient felt better the following day and today he felt even more improvement in the abdominal discomfort. He did tolerate the liquid diet very well. His WBC came down very nicely. Overall he is feeling better. He is going to be discharged home after he was seen by the general surgeon and he will follow-up with him in a week. Plan - Discharge Summary Discharge Rx Participant: Yes New Discharge Prescriptions: Continue Lisinopril [Zestril] 2.5 mg PO DAILY Simvastatin 40 mg PO DAILY Furosemide [Lasix] 40 mg PO BID Clopidogrel [Plavix] 75 mg PO DAILY #30 tab Nitroglycerin Sl Tabs [Nitrostat] 0.4 mg SUBLINGUAL Q5M PRN #25 tab PRN Reason: Chest Pain Aspirin 81 mg PO DAILY #30 chew Metoprolol Succinate (ER) [Toprol XL] 25 mg PO DAILY #30 tab.er.24h Discontinued metFORMIN HCL 500 mg PO BID Discharge Medication List Furosemide [Lasix] 40 mg PO BID 06/27/18 [History] Lisinopril [Zestril] 2.5 mg PO DAILY 06/27/18 [History] Simvastatin 40 mg PO DAILY 06/27/18 [History] Aspirin 81 mg PO DAILY #30 chew 06/29/18 [Rx] Clopidogrel [Plavix] 75 mg PO DAILY #30 tab 06/29/18 [Rx] Metoprolol Succinate (ER) [Toprol XL] 25 mg PO DAILY #30 tab.er.24h 06/29/18 [Rx] Nitroglycerin Sl Tabs [Nitrostat] 0.4 mg SUBLINGUAL Q5M PRN #25 tab 06/29/18 [Rx] Follow up Appointment(s)/Referral(s): Mor Malcolm MD [STAFF PHYSICIAN] - 09/06/18 3:45 pm (follow up appointment on september 06 at 3:45PM) Jose Christine MD [STAFF PHYSICIAN] - 1 Week Patient Instructions/Handouts: Angiography (DC) Activity/Diet/Wound Care/Special Instructions: no driving for two days. no METFORMIN FOR 48 HOURS. no bathtubs, pools hottubs for three days. ok to shower tomorrow, remove any dressing prior to shower. no need to reapply signs of infection....drainage from site, fever, rash, swelling contact dr immediately. heavy bleeding from site apply pressure and call 911.
[2018-09-04 11:43] LABS: Glucose,Whole Blood 321 mg/dL (75-99)
[2018-09-04 12:05] VITALS: BP 131/80; PULSE 89; RESP 16; TEMP 98.6
--- NOTE | 2018-09-06 10:31 | CDI ---
Documentation Clarification Form Date: 09/06/17 From: Liv Hair Phone: If you have a question regarding this query, please contact Diane Frazier at [phone] between 8am and 5pm. Admit Date: 09/03/2018 1:31:00 PM Patient Name: Pratik Nicholson Visit Number: [id number] Discharge Date: 09/04/2018 1:34:00 PM ATTENTION: The Clinical Documentation Specialists (CDI) and [facility] Coding Staff appreciate your assistance in clarifying documentation. Please respond to the clarification below the line at the bottom and electronically sign. The CDI & [facility] Coding staff will review the response and follow-up if needed. Please note: Queries are made part of the Legal Health Record. If you have any questions, please contact the author of this message via ITS. Dr. Mor Malcolm The patient presented with possible critical limb ischemia and had abdominal aortogram with bilateral lower extremities runoff. After the procedure the patient was experiencing some abdominal discomfort. History/Risk Factors: Patient has a history of occlusion of bilateral SFA. There is also history of CAD, hyperlipidemia and hypertension. Clinical Indicators: Abdominal discomfort, elevated WBC. Lab findings: WBC 16.3, neutrophils 13.8 Radiology findings: CT scan of the abdomen revealed evidence of air in the portal vein concerning for mesenteric ischemia. Vital Signs: T. 99.0, P. 94, R. 16, BP 148/80 Treatment: IV Zosyn. Consults: Mesenteric venous air may be secondary to ischemic bowel. In your professional opinion, can you please clarify the acuity of the ischemic bowel? Acute Chronic Other, please specify Unable to determine MTDD
== END 2018-09-04 13:34 | disposition home or self-care (01) | DRG 395 ==
LOC: CATHCVL 06:19 → 1SOBS 15:28 → CATHCVL 09-03 13:31
PROVIDERS: ADMIT Internal Medicine Interventional Cardiology; ATTEND Internal Medicine Interventional Cardiology
PROC: B41D1ZZ Fluoroscopy of Aorta and Bilateral Lower Extremity Arteries using Low Osmolar Contrast (ICD-10-PCS; principal; 2018-09-03)
DX: K55.9 Vascular disorder of intestine, unspecified (principal); E11.51 Type 2 diabetes mellitus with diabetic peripheral angiopathy without gangrene; I70.213 Atherosclerosis of native arteries of extremities with intermittent claudication, bilateral legs; I11.0 Hypertensive heart disease with heart failure; J44.9 Chronic obstructive pulmonary disease, unspecified; D72.829 Elevated white blood cell count, unspecified; E78.5 Hyperlipidemia, unspecified; F17.210 Nicotine dependence, cigarettes, uncomplicated; I25.10 Atherosclerotic heart disease of native coronary artery without angina pectoris; I25.2 Old myocardial infarction; I99.8 Other disorder of circulatory system; M19.90 Unspecified osteoarthritis, unspecified site; I35.0 Nonrheumatic aortic (valve) stenosis; E66.3 Overweight; Z68.24 Body mass index [BMI] 24.0-24.9, adult; Z79.02 Long term (current) use of antithrombotics/antiplatelets; Z79.82 Long term (current) use of aspirin; Z79.899 Other long term (current) drug therapy; Z79.52 Long term (current) use of systemic steroids; Z87.442 Personal history of urinary calculi; Z95.1 Presence of aortocoronary bypass graft; Z95.5 Presence of coronary angioplasty implant and graft; Z82.49 Family history of ischemic heart disease and other diseases of the circulatory system
CPT/HCPCS: 36200; 74176; 75625; 75716; 76937; 80048; 85025; 85027

== ENCOUNTER → 2018-10-13 | Outpatient (CLI) | payer MEDICARE ==
[2018-10-13 14:49] LABS: HCT 45.5 % (39.0-53.0); HGB 14.1 gm/dL (13.0-17.5); Hypochromasia Slight; MCH 28.5 pg (25.0-35.0); MCV 92.1 fL (80.0-100.0); Mean Platelet Volume 7.7; Platelet Count 175 k/uL (150-450); RBC 4.94 m/uL (4.30-5.90); RDW 14.1 % (11.5-15.5); WBC 6.5 k/uL (3.8-10.6)
[2018-10-13 14:58] LABS: Anion Gap 5 mmol/L; Blood Urea Nitrogen 16 mg/dL (9-20); Carbon Dioxide 30 mmol/L (22-30); Chloride 103 mmol/L (98-107); Potassium 4.8 mmol/L (3.5-5.1); Sodium 138 mmol/L (137-145)
== END | disposition home or self-care (01) ==
LOC: LABPAT 14:09
PROVIDERS: ATTEND Internal Medicine Interventional Cardiology
DX: Z01.812 Encounter for preprocedural laboratory examination (principal)
CPT/HCPCS: 80051; 82565; 84520; 85027

== ENCOUNTER 2018-11-01 13:26 | Observation (INO) | payer MEDICARE ==
[2018-11-01] MEDS ORDERED: IPRATROPIUM-ALBUTEROL 3 ML NEB INHALATION STA (13:55)
--- NOTE | 2018-11-01 14:10 | ED ---
General Adult HPI - General Chief complaint: Shortness of Breath Stated complaint: Dyspnea Time Seen by Provider: 11/01/18 13:46 Source: patient, RN notes reviewed Mode of arrival: wheelchair Limitations: no limitations - History of Present Illness Initial comments: Patient is a pleasant [age]-year-old male presenting to the emergency department with difficulty in breathing. Onset of symptoms was around 3 days ago. Patient does have cough occasional green sputum. Patient states his legs have been somewhat swollen. No calf pain. Patient states breathing is better when sitting up in a chair rather than lying down. Patient denies any fever. P atient does have history of similar previous symptoms associated with CHF. Patient also admits to COPD history. - Related Data Home Medications Medication Instructions Recorded Confirmed Furosemide [Lasix] 40 mg PO BID 06/27/18 11/01/18 Lisinopril [Zestril] 2.5 mg PO DAILY 06/27/18 11/01/18 Simvastatin 40 mg PO DAILY 06/27/18 11/01/18 metFORMIN HCL [Glucophage] 500 mg PO QAM 10/17/18 11/01/18 Previous Rx's Medication Instructions Recorded Aspirin 81 mg PO DAILY #30 chew 06/29/18 Clopidogrel [Plavix] 75 mg PO DAILY #30 tab 06/29/18 Metoprolol Succinate (ER) [Toprol 25 mg PO DAILY #30 tab.er.24h 06/29/18 XL] Nitroglycerin Sl Tabs [Nitrostat] 0.4 mg SUBLINGUAL Q5M PRN #25 tab 06/29/18 Allergies Allergy/AdvReac Type Severity Reaction Status Date / Time No Known Allergies Allergy Verified 11/01/18 13:47 Review of Systems ROS Statement: Those systems with pertinent positive or pertinent negative responses have been documented in the HPI. ROS Other: All systems not noted in ROS Statement are negative. Constitutional: Denies: fever Eyes: Denies: eye pain ENT: Denies: ear pain Respiratory: Reports: cough, dyspnea Cardiovascular: Reports: edema. Denies: chest pain Endocrine: Reports: fatigue Gastrointestinal: Denies: abdominal pain Genitourinary: Denies: dysuria Musculoskeletal: Denies: back pain Skin: Denies: rash Neurological: Denies: weakness Past Medical History Past Medical History: Coronary Artery Disease (CAD), Chest Pain / Angina, COPD, Diabetes Mellitus, Hyperlipidemia, Hypertension, Myocardial Infarction ([place]), Osteoarthritis (OA), Vascular Disorder Additional Past Medical History / Comment(s): KIDNEY STONES. STENT PLACED FOR ABD ANEURYSM. Last Myocardial Infarction Date:: 2005? History of Any Multi-Drug Resistant Organisms: None Reported Past Surgical History: Coronary Bypass/CABG, Heart Catheterization, Heart Catheterization With Stent, Orthopedic Surgery Additional Past Surgical History / Comment(s): RT ROTATOR CUFF REPAIR. CABG (2005 & 2007) BYPASS X2. STENTS X2 IN PAST, ABD ANEURYSM REPAIR WITH STENT, LT CAROTID ENDARTERECTOMY. lithotripsy. STATES STENT TO LEFT LEG, Cardiac cath 2018. Past Anesthesia/Blood Transfusion Reactions: No Reported Reaction Date of Last Stent Placement:: 10/14/12 Past Psychological History: No Psychological Hx Reported Smoking Status: Current every day smoker Past Alcohol Use History: None Reported Past Drug Use History: None Reported - Past Family History Father Family Medical History: Deep Vein Thrombosis (DVT), Myocardial Infarction ([place]) General Exam Limitations: no limitations General appearance: alert, in no apparent distress Head exam: Present: atraumatic, normocephalic Eye exam: Present: normal appearance, PERRL ENT exam: Present: normal oropharynx Neck exam: Present: normal inspection Respiratory exam: Present: wheezes, decreased breath sounds Cardiovascular Exam: Present: regular rate, normal rhythm GI/Abdominal exam: Present: soft. Absent: tenderness Extremities exam: Present: normal inspection, other (Significant pedal edema is not appreciated.). Absent: pedal edema, calf tenderness Back exam: Present: normal inspection Neurological exam: Present: alert Psychiatric exam: Present: normal affect, normal mood Skin exam: Present: normal color Course Vital Signs 11/01/18 11/01/18 11/01/18 13:29 14:14 14:23 Temperature 98.5 F Pulse Rate 89 80 68 Respiratory 22 Rate Blood Pressure 111/67 O2 Sat by Pulse 96 Oximetry EKG Findings - EKG Comments: EKG Findings:: Normal sinus rhythm at 80. VA 134. QRS 84. QT 404. QTC 465. Normal axis. Normal QRS. No acute ST change. Medical Decision Making - Medical Decision Making Patient reevaluated and resting comfortably in bed. Only mild improvement following advise her treatment. Patient requesting IV steroids. Patient updated on results and plan. Case was discussed in detail with Dr. Tabares, covering for Dr. Andino, who will admit. - Lab Data Result diagrams: 11/01/18 14:14 11/01/18 14:14 Lab Results 11/01/18 11/01/18 11/01/18 Range/Units 14:14 14:14 14:14 WBC 7.6 (3.8-10.6) k/uL RBC 5.09 (4.30-5.90) m/uL Hgb 14.1 (13.0-17.5) gm/dL Hct 45.9 (39.0-53.0) % MCV 90.3 (80.0-100.0) fL MCH 27.6 (25.0-35.0) pg MCHC 30.6 L (31.0-37.0) g/dL RDW 14.5 (11.5-15.5) % Plt Count 264 (150-450) k/uL Neutrophils % 73 % Lymphocytes % 18 % Monocytes % 6 % Eosinophils % 2 % Basophils % 1 % Neutrophils # 5.6 (1.3-7.7) k/uL Lymphocytes # 1.4 (1.0-4.8) k/uL Monocytes # 0.4 (0-1.0) k/uL Eosinophils # 0.1 (0-0.7) k/uL Basophils # 0.0 (0-0.2) k/uL Hypochromasia Slight PT (9.0-12.0) sec INR (<1.2) APTT (22.0-30.0) sec Sodium 143 (137-145) mmol/L Potassium 4.9 (3.5-5.1) mmol/L Chloride 103 (98-107) mmol/L Carbon Dioxide 31 H (22-30) mmol/L Anion Gap 9 mmol/L BUN 12 (9-20) mg/dL Creatinine 0.57 L (0.66-1.25) mg/dL Est GFR (CKD-EPI)AfAm >90 (>60 ml/min/1.73 sqM) Est GFR (CKD-EPI)NonAf >90 (>60 ml/min/1.73 sqM) Glucose 273 H (74-99) mg/dL Calcium 9.1 (8.4-10.2) mg/dL Total Bilirubin 0.3 (0.2-1.3) mg/dL AST 13 L (17-59) U/L ALT 14 L (21-72) U/L Alkaline Phosphatase 80 (38-126) U/L Troponin I (0.000-0.034) ng/mL NT-Pro-B Natriuret Pep 1480 pg/mL Total Protein 6.4 (6.3-8.2) g/dL Albumin 3.9 (3.5-5.0) g/dL 11/01/18 11/01/18 Range/Units 14:14 14:14 WBC (3.8-10.6) k/uL RBC (4.30-5.90) m/uL Hgb (13.0-17.5) gm/dL Hct (39.0-53.0) % MCV (80.0-100.0) fL MCH (25.0-35.0) pg MCHC (31.0-37.0) g/dL RDW (11.5-15.5) % Plt Count (150-450) k/uL Neutrophils % % Lymphocytes % % Monocytes % % Eosinophils % % Basophils % % Neutrophils # (1.3-7.7) k/uL Lymphocytes # (1.0-4.8) k/uL Monocytes # (0-1.0) k/uL Eosinophils # (0-0.7) k/uL Basophils # (0-0.2) k/uL Hypochromasia PT 10.1 (9.0-12.0) sec INR 0.9 (<1.2) APTT 25.8 (22.0-30.0) sec Sodium (137-145) mmol/L Potassium (3.5-5.1) mmol/L Chloride (98-107) mmol/L Carbon Dioxide (22-30) mmol/L Anion Gap mmol/L BUN (9-20) mg/dL Creatinine (0.66-1.25) mg/dL Est GFR (CKD-EPI)AfAm (>60 ml/min/1.73 sqM) Est GFR (CKD-EPI)NonAf (>60 ml/min/1.73 sqM) Glucose (74-99) mg/dL Calcium (8.4-10.2) mg/dL Total Bilirubin (0.2-1.3) mg/dL AST (17-59) U/L ALT (21-72) U/L Alkaline Phosphatase (38-126) U/L Troponin I <0.012 (0.000-0.034) ng/mL NT-Pro-B Natriuret Pep pg/mL Total Protein (6.3-8.2) g/dL Albumin (3.5-5.0) g/dL - Radiology Data Radiology results: image reviewed (Chest x-ray shows no acute process) Disposition Clinical Impression: Acute exacerbation of chronic obstructive airways disease Disposition: ADMITTED IP TO THIS HOSP Is patient prescribed a controlled substance at d/c from ED?: No Referrals: Antonio Diaz Jr, [Primary Care Provider] - 1-2 days Decision Time: 15:50
[2018-11-01 14:31] LABS: Basophils % (A) 1 %; Eosinophils # (A) 0.1 k/uL (0-0.7); Eosinophils % (A) 2 %; HCT 45.9 % (39.0-53.0); HGB 14.1 gm/dL (13.0-17.5); Hypochromasia Slight; Lymphocytes # (A) 1.4 k/uL (1.0-4.8); Lymphocytes % (A) 18 %; MCH 27.6 pg (25.0-35.0); MCHC 30.6 g/dL (31.0-37.0); MCV 90.3 fL (80.0-100.0); Mean Platelet Volume 7.9; Monocytes # (A) 0.4 k/uL (0-1.0); Monocytes % (A) 6 %; Neutrophils # (A) 5.6 k/uL (1.3-7.7); Neutrophils % (A) 73 %; Platelet Count 264 k/uL (150-450); RBC 5.09 m/uL (4.30-5.90); RDW 14.5 % (11.5-15.5); WBC 7.6 k/uL (3.8-10.6)
[2018-11-01 14:40] LABS: INR 0.9 (<1.2); Partial Thromboplastin Time 25.8 sec (22.0-30.0); Prothrombin Time 10.1 sec (9.0-12.0)
[2018-11-01 14:45] LABS: ALT 14 U/L (21-72); AST 13 U/L (17-59); African American GFR (CKD) >90 (>60 ml/min/1.73 sqM); Albumin 3.9 g/dL (3.5-5.0); Alkaline Phosphatase 80 U/L (38-126); Anion Gap 9 mmol/L; Blood Urea Nitrogen 12 mg/dL (9-20); Calcium 9.1 mg/dL (8.4-10.2); Carbon Dioxide 31 mmol/L (22-30); Chloride 103 mmol/L (98-107); Glucose 273 mg/dL (74-99); Potassium 4.9 mmol/L (3.5-5.1); Sodium 143 mmol/L (137-145); Total Bilirubin 0.3 mg/dL (0.2-1.3); Total Protein 6.4 g/dL (6.3-8.2)
--- NOTE | 2018-11-01 14:50 | XR ---
EXAMINATION TYPE: XR chest 2V DATE OF EXAM: 11/01/2018 COMPARISON: Prior chest x-ray 05/25/2018 HISTORY: Difficulty breathing, shortness of breath TECHNIQUE: Frontal and lateral views of the chest are obtained. FINDINGS: Patient is post median sternotomy. Heart is borderline enlarged, size may be accentuated b y rotation. Stable blunting of the left costophrenic angle is noted. There is improvement in aeration at the right lung base. No evident pneumothorax. Surgical clips present in the left neck. No evident airspace disease. Prominent lung volumes are compatible with underlying COPD. Epicardial pacing lead s noted. There are coronary calcifications, possibly stent. IMPRESSION: No acute cardiopulmonary process. Suspect chronic pleural reaction on the left.
[2018-11-01] MEDS ORDERED: IPRATROPIUM-ALBUTEROL 3 ML NEB INHALATION PRN (15:57)
[2018-11-01 17:21] LABS: Glucose,Whole Blood 208 mg/dL (75-99)
[2018-11-01] MEDS: INSULIN ASPART (NovoLOG) 100 UNIT/ML VIAL SQ SCH ×2 (18:14→20:57)
[2018-11-01] MEDS: methylPREDNISolone SOD SUCCI 125 MG/2 ML VIAL IV SCH ×2 (18:15→23:30)
[2018-11-01] MEDS ORDERED: NITROGLYCERIN SL TABS 0.4 MG TAB SUBLINGUAL PRN (18:29)
[2018-11-01] MEDS: IPRATROPIUM-ALBUTEROL 3 ML NEB INHALATION SCH ×2 (19:20)
[2018-11-01 19:41] LABS: Glucose,Whole Blood 264 mg/dL (75-99)
[2018-11-01] MEDS: NICOTINE 21MG/24HR PATCH TRANSDERM SCH (20:49)
[2018-11-01] MEDS: FUROSEMIDE 40 MG TAB PO SCH (20:57)
[2018-11-01] MEDS: guaiFENesin 600 MG TABLET.ER PO SCH (20:57)
[2018-11-02] MEDS: methylPREDNISolone SOD SUCCI 125 MG/2 ML VIAL IV SCH ×4 (05:52→23:05)
[2018-11-02 07:20] LABS: Glucose,Whole Blood 384 mg/dL (75-99)
[2018-11-02] MEDS: LISINOPRIL 2.5 MG TAB PO SCH (08:06)
[2018-11-02] MEDS: ATORVASTATIN 20 MG TAB PO SCH (08:06)
[2018-11-02] MEDS: FUROSEMIDE 40 MG TAB PO SCH ×2 (08:06→17:31)
[2018-11-02] MEDS: INSULIN ASPART (NovoLOG) 100 UNIT/ML VIAL SQ SCH ×4 (08:06→21:57)
[2018-11-02] MEDS: METOPROLOL SUCCINATE (ER) 25 MG TAB.ER.24H PO SCH (08:06)
[2018-11-02] MEDS: ASPIRIN 81 MG PO SCH (08:06)
[2018-11-02] MEDS: metFORMIN 500 MG TAB PO SCH (08:06)
[2018-11-02] MEDS: guaiFENesin 600 MG TABLET.ER PO SCH ×2 (08:06→21:57)
[2018-11-02] MEDS: CLOPIDOGREL 75 MG TAB PO SCH (08:06)
[2018-11-02] MEDS: NICOTINE 21MG/24HR PATCH TRANSDERM SCH (08:06)
[2018-11-02] MEDS: IPRATROPIUM-ALBUTEROL 3 ML NEB INHALATION SCH ×4 (08:21→19:59)
[2018-11-02] MEDS ORDERED: INSULIN DETEMIR (LEVEMIR) 100 UNIT/ML SYR SQ SCH (09:00)
[2018-11-02 11:11] LABS: Glucose,Whole Blood 386 mg/dL (75-99)
--- NOTE | 2018-11-02 11:51 | CONS ---
CONSULTATION PULMONARY/CRITICAL CARE CONSULTATION DATE OF CONSULTATION: 11/02/2018 This is a 67-year-old male who presents to the emergency department with complaints of difficulty breathing. The symptoms began about 3 days prior to presentation. He does have cough and wheezing. He is producing yellow green phlegm. No fever or chills. No chest pain or chest discomfort. He also notes that his legs have been somewhat swollen. The patient is feeling better today. I asked him what he was told in the emergency room and he was told that he had fluid on the lungs. The patient apparently does have a history of chronic congestive heart failure. He also has been smoking for 52 years. He started at age of 15. He continues to smoke currently. His primary care physician is Dr. Antonio Diaz. I asked him whether or not he saw a manager mobility, but apparently he never has although he thinks maybe he did see one on prior admission. He was not sure. He could not remember the name. Again currently he is doing much better. Feeling much less short of breath. He is still coughing. Wheezing. Producing some phlegm. No fever, chills, chest pain, chest discomfort, nausea, vomiting, diarrhea, or any genitourinary complaints. HOME MEDICATIONS: His home medications include Lasix, Zestril, simvastatin, and metformin. He is also taking aspirin, Plavix, metoprolol, and sublingual nitroglycerin. He is not taking any breathing medications. ALLERGIES: Allergies are denied. PAST MEDICAL HISTORY: His past medical history is apparently positive for CAD, angina, COPD, diabetes mellitus, hyperlipidemia, hypertension, myocardial infarction, DJD, and history of abdominal aneurysm. Apparently, he has had a stent placed for that. In addition, he has a history of kidney stones. SURGICAL HISTORY: Surgical history includes bypass grafting, heart catheterization, stent placement, right rotator cuff repair, left carotid endarterectomy, lithotripsy, stents to the left leg and cardiac catheterization as recently as May 2018. SMOKING HISTORY: Smoking history is positive for ongoing tobacco use. He has been smoking for 52 years. He has no intention of stopping it appears. He denies any alcohol or illicit drug use. FAMILY HISTORY: Family history is positive for DVT and myocardial infarction. REVIEW OF SYSTEMS: CONSTITUTIONAL: Negative. NEUROLOGIC: Negative. HEENT: Negative. CARDIOVASCULAR: Negative. PULMONARY: Shortness of breath, chest tightness, wheezing, cough, chest congestion and yellow-green phlegm production. GI: Negative. : Negative. RHEUMATOLOGIC: Negative. IMMUNOLOGIC: Negative. ENDOCRINOLOGIC: Negative. DERMATOLOGIC: Negative. PHYSICAL EXAMINATION: VITAL SIGNS: Current vital signs are reviewed. Temperature 97.8, heart rate 84, respiratory rate 18, blood pressure 122/70, mean 987, room-air saturation 96%. GENERAL: He appears in no acute distress. He does not have any conversational dyspnea, audible wheezing or use of accessory muscles. HEENT: Examination is grossly unremarkable. Mucous membranes are moist. No nasal O2 noted. NECK: Supple. Full range of motion. No adenopathy, thyromegaly or neck vein distention. CARDIOVASCULAR: Examination reveals regular rhythm and rate. There is a soft systolic murmur. S1, S2 normal. No S3, S4. LUNGS: Reveal diffuse inspiratory and expiratory rhonchi and wheezes. Breath sounds are diminished. There is prolongation. The patient wheezes and coughs on forced maneuver. ABDOMEN: Soft. Bowel sounds are heard. There are no masses or tenderness. EXTREMITIES: Are intact. No cyanosis, clubbing, or edema. SKIN: Without rash. NEUROLOGIC: Examination is nonfocal. LABS: Labs are reviewed. Nothing from today as yet. From yesterday, white count was 7.6, hemoglobin 14.1, hematocrit 45.9, platelet count 264,000. PT 10.1, INR 0.9, PTT 25.8. Sodium 143, potassium 4.9, chloride 103, CO2 of 31. Creatinine 0.57, BUN 12. The N- terminal proBNP was 1480. Troponin was less than 0.012. X-RAY: Chest x-ray shows changes of COPD and a small left-sided pleural effusion. MEDICATIONS: Medications are reviewed. At this time on Augmentin 875 twice a day, Symbicort 160/4.5 two puffs twice a day, albuterol and Atrovent updrafts q.i.d. and p.r.n. and Solu- Medrol 40 mg q.6 hours. ASSESSMENT: 1. Shortness of breath, likely multifactorial, mostly related to underlying chronic obstructive pulmonary disease exacerbation, but there may be a small component of fluid overload. The lung issues certainly dominate in this situation. 2. History of coronary artery disease with previous bypass grafting and percutaneous coronary intervention. 3. History of angina pectoris. 4. Diabetes mellitus. 5. Hyperlipidemia. 6. History of hypertension. 7. Myocardial infarction by history. 8. Degenerative joint disease. 9. History of a stent placement for abdominal aortic aneurysm. 10.History of kidney stones, status post lithotripsy. 11.Multiple orthopedic procedures. PLAN: His medications have been adjusted accordingly. He does not need any additional medications. I suspect discharge by tomorrow. The patient does feel better. We did add Augmentin 875 twice a day. We also added Symbicort 160/4.5 two puffs twice a day. He will need pulmonary followup post discharge. That would be do full PFTs and assess and further stage COPD. Should be discharged home on a short course of antibiotics but also he should be discharged home on DuoNeb updrafts 4 times a day p.r.n., a combination inhaler such as Advair, Dulera, Breo or Symbicort which has a long-acting beta agonist and inhaled corticosteroid as well as a short course of corticosteroids, typically 40 mg a day for 4 days, 30 mg a day for 4 days, 20 mg a day for 4 days, 10 mg a day for 4 days then stop. Additional recommendations and suggestions forthcoming. Prognosis is guarded. He is counseled about the importance of smoking cessation. Hopefully we will be able to get him to stop smoking once and for all. MMODL / IJN: [id number] /
[2018-11-02] MEDS: AMOXIC-POT CLAV 875-125MG 1 EACH TAB PO SCH ×2 (12:25→21:57)
[2018-11-02 17:13] LABS: Glucose,Whole Blood 332 mg/dL (75-99)
[2018-11-02] MEDS ORDERED: HYDROcodone/APAP 5-325MG 1 EACH TAB PO PRN (17:21)
[2018-11-02] MEDS: HYDROcodone/APAP 5-325MG 1 EACH TAB PO PRN ×2 (17:31→23:05)
[2018-11-02] MEDS: SYMBICORT 160-4.5 MCG INHALER INHALATION SCH (19:59)
[2018-11-02 20:53] LABS: Glucose,Whole Blood 254 mg/dL (75-99)
[2018-11-03 04:39] VITALS: BP 115/70; RESP 18; TEMP 97.6
[2018-11-03 05:05] LABS: Hemoglobin A1C 9.2 % (4.0-6.0)
[2018-11-03] MEDS: HYDROcodone/APAP 5-325MG 1 EACH TAB PO PRN (05:44)
[2018-11-03] MEDS: methylPREDNISolone SOD SUCCI 125 MG/2 ML VIAL IV SCH (05:45)
[2018-11-03 07:00] LABS: Glucose,Whole Blood 314 mg/dL (75-99)
[2018-11-03] MEDS: IPRATROPIUM-ALBUTEROL 3 ML NEB INHALATION SCH ×2 (07:16→10:54)
[2018-11-03] MEDS: SYMBICORT 160-4.5 MCG INHALER INHALATION SCH (07:16)
[2018-11-03] MEDS: INSULIN ASPART (NovoLOG) 100 UNIT/ML VIAL SQ SCH ×2 (08:03→12:54)
[2018-11-03] MEDS: CLOPIDOGREL 75 MG TAB PO SCH (08:45)
[2018-11-03] MEDS: METOPROLOL SUCCINATE (ER) 25 MG TAB.ER.24H PO SCH (08:45)
[2018-11-03] MEDS: ATORVASTATIN 20 MG TAB PO SCH (08:46)
[2018-11-03] MEDS: NICOTINE 21MG/24HR PATCH TRANSDERM SCH (08:46)
[2018-11-03] MEDS: metFORMIN 500 MG TAB PO SCH (08:46)
[2018-11-03] MEDS: guaiFENesin 600 MG TABLET.ER PO SCH (08:46)
[2018-11-03] MEDS: FUROSEMIDE 40 MG TAB PO SCH (08:46)
[2018-11-03] MEDS: LISINOPRIL 2.5 MG TAB PO SCH (08:46)
[2018-11-03] MEDS: ASPIRIN 81 MG PO SCH (08:46)
[2018-11-03] MEDS: AMOXIC-POT CLAV 875-125MG 1 EACH TAB PO SCH (08:48)
--- NOTE | 2018-11-03 08:57 | P.HPIM ---
History of Present Illness H&P Date: 11/02/18 Chief Complaint: Worsening shortness of breath This is a 67-year-old gentleman with history of CAD, COPD, diabetes mellitus, hypertension, nicotine dependence and multiple other medical issues presented to the ER with worsening shortness of breath. Patient reports he has had a upper respiratory infection for a week with sinus drainage, with worsening shortness of breath. Reports productive cough with yellow sputum. Denies any fever or chills .Denies chest pain, palpitations. Blood sugars uncontrolled, hemoglobin A1c 9.2. Afebrile, normal WBC. Chest x-ray reporting none acute; COPD changes, small left pleural effusion..EKG reporting normal sinus rhythm with nonspecific ST and T wave abnormality .troponin negative times 1.maintaining O2 sats of 96% on room air , RR 22.Nebulized bronchodilators, IV steroids initiated. Pulmonary consulted. Review of Systems ROS Statement: Those systems with pertinent positive or pertinent negative responses have been documented in the HPI. ROS Other: All systems not noted in ROS Statement are negative. Past Medical History Past Medical History: Coronary Artery Disease (CAD), Chest Pain / Angina, COPD, Diabetes Mellitus, Hyperlipidemia, Hypertension, Myocardial Infarction ([place]), Osteoarthritis ([place]), Vascular Disorder Additional Past Medical History / Comment(s): KIDNEY STONES. STENT PLACED FOR ABD ANEURYSM. Last Myocardial Infarction Date:: 2005? History of Any Multi-Drug Resistant Organisms: None Reported Past Surgical History: Coronary Bypass/CABG, Heart Catheterization, Heart Catheterization With Stent, Orthopedic Surgery Additional Past Surgical History / Comment(s): RT ROTATOR CUFF REPAIR. CABG (2005 & 2007) BYPASS X2. STENTS X2 IN PAST, ABD ANEURYSM REPAIR WITH STENT, LT CAROTID ENDARTERECTOMY. lithotripsy. STATES STENT TO LEFT LEG, Cardiac cath 2018. Past Anesthesia/Blood Transfusion Reactions: No Reported Reaction Date of Last Stent Placement:: 2018 Past Psychological History: No Psychological Hx Reported Smoking Status: Current every day smoker Past Alcohol Use History: None Reported Additional Past Alcohol Use History / Comment(s): Current pack a day smoker Past Drug Use History: None Reported - Past Family History Father Family Medical History: Deep Vein Thrombosis ([place]), Myocardial Infarction ([place]) Medications and Allergies Home Medications Medication Instructions Recorded Confirmed Type Furosemide [Lasix] 40 mg PO BID 06/27/18 11/01/18 History Lisinopril [Zestril] 2.5 mg PO DAILY 06/27/18 11/01/18 History Simvastatin 40 mg PO DAILY 06/27/18 11/01/18 History Aspirin 81 mg PO DAILY #30 chew 06/29/18 11/01/18 Rx Clopidogrel [Plavix] 75 mg PO DAILY #30 tab 06/29/18 11/01/18 Rx Metoprolol Succinate (ER) [Toprol 25 mg PO DAILY #30 tab.er.24h 06/29/1809/16 Rx XL] Nitroglycerin Sl Tabs [Nitrostat] 0.4 mg SUBLINGUAL Q5M PRN #25 tab 06/29/1809/16 Rx metFORMIN HCL [Glucophage] 500 mg PO QAM 10/17/18 11/01/18 History Allergies Allergy/AdvReac Type Severity Reaction Status Date / Time No Known Allergies Allergy Verified 11/01/18 13:47 Physical Exam Vitals: Vital Signs Temp Pulse Pulse Resp BP Pulse Ox 11/02/18 16:00 86 18 11/02/18 15:44 76 11/02/18 15:33 72 11/02/18 11:33 80 11/02/18 11:20 80 11/02/18 11:10 97.7 F 88 17 106/54 93 L 11/02/18 08:32 88 11/02/18 08:21 84 11/02/18 08:00 88 18 11/02/18 03:50 97.8 F 105 H 18 122/70 96 11/01/18 23:55 78 18 11/01/18 19:41 97.9 F 78 18 118/73 94 L 11/01/18 19:27 75 11/01/18 19:20 72 11/01/18 17:36 98 F 73 20 108/70 97 Intake and Output 11/02/18 11/02/18 11/02/18 06:59 14:59 22:59 Intake Total 1200 Balance 1200 Intake: Oral 1200 Other: Voiding Method Toilet Toilet Toilet # Voids 2 5 5 # Bowel Movements 0 0 PHYSICAL EXAM: VITAL SIGNS: As above GENERAL: Sitting up in bed, no acute distress HEENT: Conjunctivae normal. eyes normal. Oral mucosa moist NECK: No JVD. No thyroid enlargement. No LNs CARDIOVASCULAR: S1, S2 regular. Systolic murmur, no rubs or gallops RESPIRATION: Breath sounds diminished in the bases. Scattered rhonchi, no crackles. Positive expiratory wheezing.No bronchial breathing. ABDOMEN: Soft, nontender . No guarding. no masses palpable. Bowel sounds heard. LEGS: No edema. no swelling PSYCHIATRY: Alert and oriented ?-3, mood and affect normal. NERVOUS SYSTEM: Cranial N 2-12 grossly normal. Moves all 4 limbs. No focal deficits. Strength and sensation grossly intact.. Skin: no lesions, no rash Joints: No active swelling. No inflammation. Lymphatic system. No LN neck axilla or groin. Results CBC & Chem 7: 11/01/18 14:14 11/01/18 14:14 Labs: Abnormal Lab Results - Last 24 Hours (Table) 11/01/18 11/01/18 11/02/18 Range/Units 17:19 19:40 07:16 POC Glucose (mg/dL) 208 H 264 H 384 H (75-99) mg/dL 11/02/18 Range/Units 11:10 POC Glucose (mg/dL) 386 H (75-99) mg/dL Thrombosis Risk Factor Assmnt - Choose All That Apply Any of the Below Risk Factors Present?: Yes Each Factor Represents 1 point: Abnormal pulmonary function (COPD), Acute [place] Each Risk Factor Represents 2 Points: Age 61-74 years Other congenital or acquired thrombophilia - If yes, enter type in comment: No Thrombosis Risk Factor Assessment Total Risk Factor Score: 4 Thrombosis Risk Factor Assessment Level: Moderate Risk Assessment and Plan Assessment: -Acute COPD exacerbation with possibly mild fluid overload -Diabetes mellitus, uncontrolled-hyperglycemia, hemoglobin A1c 9.2., In addition to steroid induced -CAD, history of [place], CABG -Hypertension -Hyperlipidemia -Degenerative joint disease -History of abdominal aortic aneurysm, stent placement -History of kidney stones -Ongoing nicotine dependence, 1 pack per day Plan: Continue current medication regime ,monitoring and symptomatic treatment. Maintain nebulized bronchodilators, IV steroids, antibiotics. Long-acting beta agonist added to med regime. Steroid tapering. Levemir added to med regime. Close monitoring of Accu-Cheks. Discussed tighter blood sugar control with kathryn ent including risks of hyperglycemia. Recommend outpatient diabetic education classes. Dietary consulted. Patient stating he needs to be discharged by tomorrow. Pulmonary consulted with recommendations pending. Home meds have been reviewed and resumed. GI and DVT prophylaxis in place. Smoking cessation addressed. Further recommendations to follow. The impression and plan of care has been dictated as directed. : I performed a history and examination of this patient, discussed the same with the dictator. I agree with the dictator's note ,documented as a scribe. Any additional findings or plans will be noted. Time taken: 35 minutes
[2018-11-03] MEDS ORDERED: INSULIN DETEMIR (LEVEMIR) 100 UNIT/ML SYR SQ SCH (09:00)
[2018-11-03] MEDS ORDERED: predniSONE 20 MG TAB PO SCH (09:00)
--- NOTE | 2018-11-03 10:53 | PN ---
PROGRESS NOTE DATE OF SERVICE: 11/03/2018 This is a 67-year-old male who typically sees Dr. Antonio Diaz. He was admitted with a diagnosis of COPD exacerbation. The patient has never seen a lung doctor. He has been smoking for 52 years. The patient is feeling much better today. We hit him with the normal things including bronchodilators, oxygen, steroids both systemically and inhaled and antibiotics. He had a restful night last night. His breathing is much improved. He still is a bit short of breath, but he is coughing without phlegm production. Again, he feels much improved. The patient will need follow up with one of us post discharge for staging of his COPD. I suspect he has pretty severe disease. In addition, we thought that some of the shortness of breath may be related to underlying mild fluid overload. Certainly, in my opinion, his pulmonary condition dominated. PHYSICAL EXAMINATION: VITAL SIGNS: Current vital signs are reviewed. His temperature is 97.6, heart rate 76, respiratory rate 18, blood pressure 115/70, mean 85, room air saturation 98%. GENERAL: He appears in no acute distress. Lying flat in bed. No conversational dyspnea, audible wheezing or use of accessory muscles. HEENT: Examination is grossly unremarkable. NECK: Supple. Full range of motion. No adenopathy, thyromegaly or neck vein distention. CARDIOVASCULAR: Examination reveals regular rhythm and rate. S1, S2 normal. A soft systolic murmur is noted. LUNGS: Reveal a few scattered rhonchi and wheezes. Breath sounds are much improved. No crackles. Breath sounds are diminished bilaterally though. There is mild prolongation on forced maneuver. ABDOMEN: Soft. Bowel sounds are heard. EXTREMITIES: Are intact. No cyanosis, clubbing, or edema. SKIN: Without rash. NEUROLOGIC: Examination is brief but nonfocal. LABS: Labs are reviewed. There is nothing back from today or ordered from today. Microbiology is negative or pending. MEDICATIONS: Medications are reviewed. As mentioned, he is on Augmentin, Symbicort, albuterol/Atrovent updrafts and oral prednisone. ASSESSMENT: 1. Chronic obstructive pulmonary disease exacerbation complicated by purulent tracheobronchitis without rhonda pneumonia. 2. Probable mild fluid overload. 3. Ongoing tobacco use with nicotine addiction, having smoked 52+ years. 4. History of coronary artery disease with previous bypass grafting and PCI. 5. History of angina pectoris. 6. Diabetes mellitus. 7. Hyperlipidemia. 8. Benign essential hypertension. 9. History of myocardial infarction. 10.Degenerative joint disease. 11.Status post abdominal aortic aneurysm stent. 12.History of kidney stones, status post lithotripsy. 13.Multiple orthopedic procedures. PLAN: From my perspective, if it is okay with the primary service, the patient could be discharged home today. I would send him home on a short course of oral antibiotics, currently he is on Augmentin. In addition, he should be sent home on Symbicort 160/4.5, two puffs twice a day and either Combivent or updrafts with albuterol and Atrovent 3 to 4 times a day. Finally, the patient should go home on a prednisone burst and taper 40 mg for 4 days, 30 mg for 4 days, 20 mg for 4 days, 10 mg for 4 days and stop. Finally, the patient should see one of us in the office for PFTs so that we can better stage his COPD. No additional recommendations are made. Prognosis is guarded. MMODL / IJN: [id number] /
--- NOTE | 2018-11-03 11:16 | P.DS ---
Providers Date of admission: 11/01/18 15:57 Expected date of discharge: 11/03/18 Attending physician: Vinny Tabares Consults: 11/01/18 15:57 Consult Physician Routine Consulting Provider: Rajiv Sepulveda Consult Reason/Comments: dyspnea Do you want consulting provider notified?: Yes Primary care physician: [facility] Course: Final Diagnoses: -Acute COPD exacerbation with possibly mild fluid overload -Diabetes mellitus, uncontrolled-hyperglycemia, hemoglobin A1c 9.2., In addition to steroid induced -CAD, history of IN, CABG -Hypertension -Hyperlipidemia -Degenerative joint disease -History of abdominal aortic aneurysm, stent placement -History of kidney stones -Ongoing nicotine dependence, 1 pack per day Hospital course:This is a 67-year-old gentleman with history of CAD, COPD, diabetes mellitus, hypertension, nicotine dependence and multiple other medical issues presented to the ER with worsening shortness of breath. Patient reports he has had a upper respiratory infection for a week with sinus drainage, with worsening shortness of breath. Reports productive cough with yellow sputum. Denies any fever or chills .Denies chest pain, palpitations. Blood sugars uncontrolled, hemoglobin A1c 9.2. Afebrile, normal WBC. Chest x-ray reporting none acute; COPD changes, small left pleural effusion..EKG reporting normal sinus rhythm with nonspecific ST and T wave abnormality .troponin negative times 1.maintaining O2 sats of 96% on room air , RR 22.Nebulized bronchodilators, IV steroids initiated. Pulmonary consulted. Maintained on nebulized bronchodilators, IV steroids, antibiotics,Symbicort. Levemir added to med regime. Discussed tighter blood sugar control with patient including risks of hyperglycemia. Recommend outpatient diabetic education classes. Smoking cessation addressed. Evaluated by pulmonary.Patient is being discharged home in a stable condition with guarded prognosis pending pulmonary clearance. EXAM: GENERAL: Alert and oriented 3, no acute distress CARDIOVASCULAR: S1, S2 regular. Systolic murmur, no rubs or gallops RESPIRATION: Breath sounds diminished in the bases. ABDOMEN: Soft, nontender . No guarding. no masses palpable. Bowel sounds heard. NERVOUS SYSTEM: No focal deficits. The impression and plan of care has been dictated as directed. : I performed a history and examination of this patient, discussed the same with the dictator. I agree with the dictator's note ,documented as a scribe. Any additional findings or plans will be noted. Time taken: 35 minutes Patient Condition at Discharge: Stable Plan - Discharge Summary Discharge Rx Participant: No New Discharge Prescriptions: New Amoxic-Pot Clav 875-125Mg [Augmentin 875-125] 1 each PO Q12HR #10 tab Nicotine 21Mg/24Hr Patch [Habitrol] 1 patch TRANSDERM DAILY #30 patch Insulin Glargine [Lantus] 20 unit SQ HS #1 vial guaiFENesin [Mucinex] 1,200 mg PO Q12HR tablet.er predniSONE 10 mg PO DIRECTED #30 tab Budesonide-Formot 160-4.5 Mcg [Symbicort 160-4.5 Mcg Inhaler] 2 puff INHALATION RT-BID #1 inh Albuterol Sulfate [Proair Hfa] 2 puff INHALATION Q6HR PRN #1 inhaler PRN Reason: Shortness Of Breath Omeprazole [PriLOSEC] 20 mg PO AC-BID #60 cap Continue Clopidogrel [Plavix] 75 mg PO DAILY #30 tab No Action Lisinopril [Zestril] 2.5 mg PO DAILY Simvastatin 40 mg PO DAILY Furosemide [Lasix] 40 mg PO BID Nitroglycerin Sl Tabs [Nitrostat] 0.4 mg SUBLINGUAL Q5M PRN #25 tab PRN Reason: Chest Pain Aspirin 81 mg PO DAILY #30 chew Metoprolol Succinate (ER) [Toprol XL] 25 mg PO DAILY #30 tab.er.24h metFORMIN HCL [Glucophage] 500 mg PO QAM Discharge Medication List Furosemide [Lasix] 40 mg PO BID 06/27/18 [History] Lisinopril [Zestril] 2.5 mg PO DAILY 06/27/18 [History] Simvastatin 40 mg PO DAILY 06/27/18 [History] Aspirin 81 mg PO DAILY #30 chew 06/29/18 [Rx] Clopidogrel [Plavix] 75 mg PO DAILY #30 tab 06/29/18 [Rx] Metoprolol Succinate (ER) [Toprol XL] 25 mg PO DAILY #30 tab.er.24h 06/29/18 [Rx] Nitroglycerin Sl Tabs [Nitrostat] 0.4 mg SUBLINGUAL Q5M PRN #25 tab 06/29/18 [Rx] metFORMIN HCL [Glucophage] 500 mg PO QAM 05/20/19 [History] Albuterol Sulfate [Proair Hfa] 2 puff INHALATION Q6HR PRN #1 inhaler 11/03/18 [Rx] Amoxic-Pot Clav 875-125Mg [Augmentin 875-125] 1 each PO Q12HR #10 tab 11/03/18 [Rx] Budesonide-Formot 160-4.5 Mcg [Symbicort 160-4.5 Mcg Inhaler] 2 puff INHALATION RT-BID #1 inh 11/03/18 [Rx] Insulin Glargine [Lantus] 20 unit SQ HS #1 vial 11/03/18 [Rx] Nicotine 21Mg/24Hr Patch [Habitrol] 1 patch TRANSDERM DAILY #30 patch 11/03/18 [Rx] Omeprazole [PriLOSEC] 20 mg PO AC-BID #60 cap 11/03/18 [Rx] guaiFENesin [Mucinex] 1,200 mg PO Q12HR tablet.er 11/03/18 [Rx] predniSONE 10 mg PO DIRECTED #30 tab 11/03/18 [Rx] Follow up Appointment(s)/Referral(s): Antonio Diaz Jr, DO [Primary Care Provider] - 3 Days Rajiv Sepulveda DO [Doctor of Osteopathic Medicine] - 2 Weeks Ambulatory/Diagnostic Orders: Complete Blood Count w/diff [LAB.AMB] Time Frame: 3 Days, Location: None Selected Activity/Diet/Wound Care/Special Instructions: Outpatient diabetic education classes Diet: Consistent carb Accu-Cheks before meals and at bedtime, maintain log intake to follow-up visit with PCP for further recommendations Case management to arrange for diabetic supplies Activity: Limited till follow-up No smoking
[2018-11-03 11:27] VITALS: PULSE 95
[2018-11-03 12:59] VITALS: BMI 23.5
== END 2018-11-03 13:05 | disposition home or self-care (01) ==
LOC: EC 13:26 → 3NMEDONC 15:57
PROVIDERS: ADMIT Family Medicine; ATTEND Family Medicine
DX: J44.1 Chronic obstructive pulmonary disease with (acute) exacerbation (principal); J44.0 Chronic obstructive pulmonary disease with (acute) lower respiratory infection; J20.9 Acute bronchitis, unspecified; E11.65 Type 2 diabetes mellitus with hyperglycemia; I25.10 Atherosclerotic heart disease of native coronary artery without angina pectoris; Z95.1 Presence of aortocoronary bypass graft; I25.2 Old myocardial infarction; I10 Essential (primary) hypertension; F17.210 Nicotine dependence, cigarettes, uncomplicated; E78.5 Hyperlipidemia, unspecified; Z71.6 Tobacco abuse counseling; Z87.442 Personal history of urinary calculi; Z82.49 Family history of ischemic heart disease and other diseases of the circulatory system; I11.0 Hypertensive heart disease with heart failure; I50.9 Heart failure, unspecified; M19.90 Unspecified osteoarthritis, unspecified site; T38.0X5A Adverse effect of glucocorticoids and synthetic analogues, initial encounter; Z79.02 Long term (current) use of antithrombotics/antiplatelets; Z79.52 Long term (current) use of systemic steroids; Z79.82 Long term (current) use of aspirin; Z79.84 Long term (current) use of oral hypoglycemic drugs; Z79.899 Other long term (current) drug therapy; Z86.79 Personal history of other diseases of the circulatory system; Z95.5 Presence of coronary angioplasty implant and graft
CPT/HCPCS: 96376 ×2; 96374; 99285; 36415; 94640 ×6; 94760 ×2; 93005; 83880; 80053; 84484; 85025; 85610; 85730; 83036; 71046; G0378 ×3; S4990 ×2; J2930 ×3; J7512

== ENCOUNTER 2018-11-30 11:52 | Day surgery (SDC) | payer MEDICARE ==
[2018-11-30] MEDS ORDERED: METOPROLOL SUCCINATE (ER) 50 MG TAB.ER.24H PO STA (12:08)
[2018-11-30] MEDS ORDERED: CLOPIDOGREL 75 MG TAB ONE (12:10)
[2018-11-30] MEDS ORDERED: ALPRAZolam 0.25 MG TAB ONE (12:12)
[2018-11-30] MEDS ORDERED: SODIUM CHLORIDE 0.9% 1,000 ML IV ONE (12:39)
[2018-11-30 12:58] LABS: Glucose,Whole Blood 146 mg/dL (75-99)
[2018-11-30] MEDS ORDERED: SODIUM CHLORIDE 0.9% 500 ML 500 ML with niCARdipine 6.25 MG, NITROGLYCERIN-D5W PMX 0.05... IV ONE ×4 (15:00)
[2018-11-30] MEDS ORDERED: fentaNYL (PF) 50 MCG/ML 2 ML AMP IV ONE (15:22)
[2018-11-30] MEDS: MIDAZOLAM (PF) 2 MG/2 ML VIAL IV ONE ×2 (15:22→15:34)
[2018-11-30] MEDS: fentaNYL (PF) 50 MCG/ML 2 ML AMP IV ONE ×2 (15:22→17:46)
[2018-11-30] MEDS ORDERED: LIDOCAINE 1% INJ 10MG/ML (20 ML MDV) SQ ONE (15:33)
[2018-11-30] MEDS ORDERED: HYDROmorphone 1 MG/ML 1 ML SYRINGE IVP ONE ×3 (15:46→18:33)
[2018-11-30] MEDS: HEPARIN SODIUM 1,000 UN/ML (10ML VL) IV ONE ×2 (15:51→16:34)
[2018-11-30] MEDS ORDERED: HEPARIN SODIUM 1,000 UN/ML (10ML VL) IV ONE (17:19)
[2018-11-30] MEDS: niCARdipine Syringe (1,000 mcg/10 mL) INTRAARTER ONE ×2 (17:56→18:26)
[2018-11-30] MEDS: NITROGLYCERIN 1000MCG/10ML SYRINGE INTRAARTER ONE ×2 (17:56→18:26)
[2018-11-30] MEDS ORDERED: IOPAMIDOL-250 100ML BTL INTRAARTER ONE ×2 (18:27)
[2018-11-30] MEDS ORDERED: NITROGLYCERIN SL TABS 0.4 MG TAB SUBLINGUAL PRN (18:42)
[2018-11-30] MEDS ORDERED: ALBUTEROL NEBULIZED 2.5 MG/3 ML INHALATION PRN (18:42)
[2018-11-30] MEDS ORDERED: SODIUM CHLORIDE 0.9% 1,000 ML IV SCH (18:45)
[2018-11-30] MEDS ORDERED: CLOPIDOGREL 75 MG TAB PO ONE (18:47)
--- NOTE | 2018-11-30 19:57 | IR ---
EXAMINATION TYPE: IR bell captain femoral popliteal DATE OF EXAM: 11/30/2018 COMPARISON: NONE HISTORY: Fluoroscopy time. Fluoroscopy was provided to the referring clinician. 67.7 minutes of fluoroscopy provided.
[2018-11-30 20:10] LABS: Anisocytosis Slight; Basophils % (A) 0 %; Eosinophils # (A) 0.1 k/uL (0-0.7); Eosinophils % (A) 1 %; HCT 43.9 % (39.0-53.0); HGB 13.3 gm/dL (13.0-17.5); Hypochromasia Slight; Lymphocytes # (A) 1.9 k/uL (1.0-4.8); Lymphocytes % (A) 18 %; MCH 27.5 pg (25.0-35.0); MCHC 30.2 g/dL (31.0-37.0); Mean Platelet Volume 8.1; Monocytes # (A) 0.4 k/uL (0-1.0); Monocytes % (A) 4 %; Neutrophils # (A) 7.6 k/uL (1.3-7.7); Neutrophils % (A) 74 %; Platelet Count 174 k/uL (150-450); RBC 4.82 m/uL (4.30-5.90); RDW 16.2 % (11.5-15.5); WBC 10.3 k/uL (3.8-10.6)
[2018-11-30 20:37] LABS: African American GFR (CKD) >90 (>60 ml/min/1.73 sqM); Anion Gap 6 mmol/L; Blood Urea Nitrogen 12 mg/dL (9-20); Calcium 8.5 mg/dL (8.4-10.2); Carbon Dioxide 30 mmol/L (22-30); Chloride 104 mmol/L (98-107); Glucose 164 mg/dL (74-99); Potassium 4.1 mmol/L (3.5-5.1); Sodium 140 mmol/L (137-145)
[2018-11-30 20:44] VITALS: BMI 23.5
[2018-11-30] MEDS: FUROSEMIDE 40 MG TAB PO SCH (20:51)
--- NOTE | 2018-11-30 21:44 | PCN ---
PROCEDURE NOTE DATE OF SERVICE: 11/30/2018 PERFORMING PHYSICIAN: Mor Malcoml MD, district supervisor. PROCEDURES PERFORMED: 1. Selective left anterior tibial, popliteal, and SFA angiogram. 2. Successful crossing chronic total occlusion of the left SFA as well as left popliteal. 3. Atherectomy of the left SFA using the orbital atherectomy device from [employer]. 4. Successful stenting of the left popliteal and left SFA using 3 Zilver PTX drug- coated stents with excellent angiographic results and reduction of stenosis from 100% to 0%. 5. Successful stenting of the proximal left anterior tibial artery using 5 x 18 mm Zilver PTX drug-coated stent with excellent angiographic results. INDICATION: This is a 68-year-old gentleman with history of coronary artery disease and prior coronary vascularization, peripheral arterial disease and peripheral revascularization, diabetes, hypertension, dyslipidemia, and significant history of smoking. He was experiencing bilateral lower extremity intermittent claudication. He underwent a peripheral angiogram recently and that revealed severe fem-pop disease bilaterally and he was brought today to undergo PALLIATIVE MEDICINE PHYSICIAN of the left SFA. APPROACH: Left common femoral artery in antegrade technique. COMPLICATIONS: None. LEVEL OF SEDATION: Moderate, with sedation length of 185 minutes. PROCEDURE DESCRIPTION: After obtaining informed consent, the patient was brought to the cardiac cath lab radiological technologist. The left groin was prepped and draped in the usual sterile fashion. Local analgesia was achieved by injecting 2% lidocaine subcutaneously. I did access the left common femoral artery in antegrade fashion and using micropuncture technique, the micropuncture wire was directed to the proximal left SFA. Then I placed a micropuncture sheath over the wire. Then I did exchange my micropuncture sheath for a 55 cm 6-Togolese Raabe sheath using an 0.035 wire. I positioned the long sheath in the proximal left SFA. After that, anticoagulation was initiated using heparin. The patient was given weight- based heparin. Subsequently I did cross the chronic total occlusion of the left SFA and left popliteal using an 0.018 gold tip wire with 0.018 CXI catheter. The catheter was advanced all the way to the left anterior tibial artery, where I did selective left anterior tibial artery angiogram to prove that I was in the true lumen. After that I did balloon angioplasty for the left SFA and left popliteal using 4 mm balloon. After that I did atherectomy of the proximal left SFA using the orbital atherectomy device from [employer]. After that I did balloon angioplasty again of the left SFA and left popliteal, this time using 5 x 200 mm balloon. The following angiogram showed extensive area of dissection involving the whole left SFA and left popliteal. At that point I decided to stent the left popliteal and left SFA. In the left popliteal, I placed a 6 x 140 mm Zilver PTX drug-coated stent, where the stent was positioned under fluoroscopic guidance and deployed under fluoroscopic guidance as well. In the mid left SFA, I placed another Zilver PTX drug-coated stent, where the stent again was positioned and deployed under fluoroscopic guidance. After that I post- dilated the 3 stents using 6 x 200 mm balloon. The final angiogram showed great angiographic results in the left popliteal and left SFA, but there was dissection involving the left anterior tibial artery. The dissection was flow-limiting. I decided to stent that segment which was flow-limiting. I did wire the left anterior tibial artery at this point using 0.[address] wire. Then I deployed a 5 x mm Zilver PTX where the stent was positioned under fluoroscopic guidance and deployed under fluoroscopic guidance. I post-dilated the stent using 4 mm . Final angiogram showed great angiographic results and the procedure was completed without any complication. After that I did exchange my 55 cm 6-Togolese sheath for an 11 cm 6-Togolese sheath over an 0.035 stiff Glidewire. The procedure at that point was completed without any complication. POST-PROCEDURE MANAGEMENT: 1. Groin care. 2. Risk factor modifications. 3. Discharge in the morning. 4. Follow up with the patient. MMODL / IJN: [id number] /
[2018-12-01 06:49] LABS: Basophils % (A) 0 %; Eosinophils # (A) 0.1 k/uL (0-0.7); Eosinophils % (A) 1 %; HCT 43.2 % (39.0-53.0); HGB 13.9 gm/dL (13.0-17.5); Lymphocytes # (A) 1.8 k/uL (1.0-4.8); Lymphocytes % (A) 18 %; MCH 28.4 pg (25.0-35.0); MCHC 32.1 g/dL (31.0-37.0); MCV 88.2 fL (80.0-100.0); Mean Platelet Volume 7.5; Monocytes # (A) 0.7 k/uL (0-1.0); Monocytes % (A) 7 %; Neutrophils # (A) 7.4 k/uL (1.3-7.7); Neutrophils % (A) 73 %; Platelet Count 173 k/uL (150-450); RDW 15.9 % (11.5-15.5); WBC 10.1 k/uL (3.8-10.6)
[2018-12-01 07:01] LABS: African American GFR (CKD) >90 (>60 ml/min/1.73 sqM); Anion Gap 7 mmol/L; Blood Urea Nitrogen 10 mg/dL (9-20); Calcium 8.9 mg/dL (8.4-10.2); Carbon Dioxide 30 mmol/L (22-30); Chloride 100 mmol/L (98-107); Glucose 142 mg/dL (74-99); Potassium 4.1 mmol/L (3.5-5.1); Sodium 137 mmol/L (137-145)
[2018-12-01] MEDS ORDERED: PANTOPRAZOLE 40 MG TABLET PO SCH (07:30)
[2018-12-01] MEDS ORDERED: CLOPIDOGREL 75 MG TAB PO SCH (09:00)
[2018-12-01] MEDS ORDERED: ATORVASTATIN 20 MG TAB PO SCH (09:00)
[2018-12-01] MEDS ORDERED: METOPROLOL SUCCINATE (ER) 25 MG TAB.ER.24H PO SCH (09:00)
[2018-12-01] MEDS ORDERED: ASPIRIN 81 MG PO SCH (09:00)
[2018-12-01] MEDS: FUROSEMIDE 40 MG TAB PO SCH (09:36)
--- NOTE | 2018-12-01 09:43 | DS ---
DISCHARGE SUMMARY DATE OF ADMISSION: November 30, 2018 DATE OF DISCHARGE: December 01, 2018 BRIEF HISTORY: This is a 68-year-old gentleman with known coronary artery disease and prior coronary revascularization, peripheral arterial disease and prior peripheral revascularization, as well as diabetes, and history of smoking, was admitted to the hospital yesterday and underwent successful recanalizing, chronic total occlusion of the left SFA as well as left popliteal along with successful stenting of the left SFA and left popliteal and successful stenting of the left anterior tibial artery. The procedure was performed from the left groin in antegrade fashion. On follow up with him today, he is doing good. The left foot is very warm. He was experiencing resting numbness and evidence of critical limb ischemia, which has resolved. The left groin is soft with mild tenderness. He is going to be discharged home on dual anti-platelet therapy and I will follow up with the patient next week in the office. ELIZABETH / ZBIGNIEW: [id number] /
[2018-12-01 11:04] VITALS: BP 124/70; PULSE 103; RESP 18; TEMP 98.7
== END 2018-12-01 11:25 | disposition home or self-care (01) ==
LOC: CATHCVL 11:52 → 3SCARD 18:42 → CATHCVL 12-01 11:25
PROVIDERS: ATTEND Internal Medicine Interventional Cardiology
DX: E11.51 Type 2 diabetes mellitus with diabetic peripheral angiopathy without gangrene (principal); I70.213 Atherosclerosis of native arteries of extremities with intermittent claudication, bilateral legs; Z95.820 Peripheral vascular angioplasty status with implants and grafts; I25.10 Atherosclerotic heart disease of native coronary artery without angina pectoris; Z95.1 Presence of aortocoronary bypass graft; I11.0 Hypertensive heart disease with heart failure; I50.9 Heart failure, unspecified; I77.9 Disorder of arteries and arterioles, unspecified; E78.5 Hyperlipidemia, unspecified; M25.50 Pain in unspecified joint; Z86.79 Personal history of other diseases of the circulatory system; Z95.828 Presence of other vascular implants and grafts; F17.210 Nicotine dependence, cigarettes, uncomplicated; Z79.02 Long term (current) use of antithrombotics/antiplatelets; Z79.82 Long term (current) use of aspirin; Z79.84 Long term (current) use of oral hypoglycemic drugs; Z79.891 Long term (current) use of opiate analgesic; Z79.899 Other long term (current) drug therapy
CPT/HCPCS: 37227; 37230; 85347; 80048 ×2; 85025 ×2; C1894 ×3; C1769 ×8; C1714; C1725 ×4; C1887; C1874 ×2; J2001; J3010; J1644; J1170; Q9966; J2250

== ENCOUNTER 2018-12-21 07:00 | Day surgery (SDC) | payer MEDICARE ==
[~2018-12-21 07:00] MED LIST changes: -ALPRAZolam 0.25 MG TAB PO PRN; +ASPIRIN 325 MG TAB ONE; -ASPIRIN 325 MG TAB PO STA; +SODIUM CHLORIDE 0.9% 1,000 ML in EMPTY BAG 1 BAG IV ONE
[2018-12-21 07:33] LABS: Anisocytosis Slight; Basophils % (A) 1 %; Eosinophils # (A) 0.2 k/uL (0-0.7); Eosinophils % (A) 3 %; Hypochromasia Slight; Lymphocytes # (A) 1.3 k/uL (1.0-4.8); Lymphocytes % (A) 19 %; MCH 27.3 pg (25.0-35.0); MCHC 30.5 g/dL (31.0-37.0); MCV 89.7 fL (80.0-100.0); Mean Platelet Volume 7.4; Monocytes # (A) 0.6 k/uL (0-1.0); Monocytes % (A) 8 %; Neutrophils # (A) 4.4 k/uL (1.3-7.7); Neutrophils % (A) 66 %; Platelet Count 222 k/uL (150-450); RBC 3.79 m/uL (4.30-5.90); RDW 16.7 % (11.5-15.5); WBC 6.6 k/uL (3.8-10.6)
[2018-12-21] MEDS ORDERED: MIDAZOLAM PF (FBP) 2 MG/2 ML VIAL IVP ONE (07:50)
[2018-12-21 07:53] LABS: Calcium 8.2 mg/dL (8.4-10.2); Potassium 3.8 mmol/L (3.5-5.1)
[2018-12-21 07:54] LABS: HGB 10.4 gm/dL (13.0-17.5)
[2018-12-21] MEDS ORDERED: SODIUM CHLORIDE 0.9% 500 ML 500 ML with niCARdipine 6.25 MG, NITROGLYCERIN-D5W PMX 0.05... IV STA ×4 (07:54)
[2018-12-21] MEDS ORDERED: LIDOCAINE 1% INJ 10MG/ML (20 ML MDV) SQ ONE ×2 (08:09→08:15)
[2018-12-21] MEDS ORDERED: HEPARIN SODIUM 1,000 UN/ML (10ML VL) IV ONE (08:20)
[2018-12-21] MEDS ORDERED: HYDROmorphone 1 MG/ML 1 ML SYRINGE IVP ONE ×2 (09:51→10:28)
[2018-12-21] MEDS ORDERED: SODIUM CHLORIDE 0.9% 500 ML 500 ML with niCARdipine 6.25 MG, NITROGLYCERIN-D5W PMX 0.05... IV ONE ×4 (10:00)
[2018-12-21] MEDS ORDERED: HYDROmorphone 1 MG/ML 1 ML SYRINGE ONE (10:26)
[2018-12-21] MEDS ORDERED: NITROGLYCERIN 1000MCG/10ML SYRINGE INTRAARTER ONE (10:56)
[2018-12-21] MEDS ORDERED: CLOPIDOGREL 75 MG TAB PO ONE (11:11)
[2018-12-21] MEDS ORDERED: NITROGLYCERIN SL TABS 0.4 MG TAB SUBLINGUAL PRN (11:13)
[2018-12-21] MEDS ORDERED: SODIUM CHLORIDE 0.9% 1,000 ML IV SCH (11:15)
--- NOTE | 2018-12-21 11:46 | LTR ---
December 21, 2018 Re: Pratik Nicholson Dear Dr. Diaz: Mr. Pratik Nicholson underwent successful balloon angioplasty of the right femoral artery with good angiographic results and without any complication. I want to thank you for allowing me to participate in his care and please do not hesitate to call if you have any questions or concerns. Sincerely, MD ELIZABETH Escalante / ZBIGNIEW: [id number] /
--- NOTE | 2018-12-21 12:16 | AN ---
ANGIOGRAPHY REPORT PERCUTANEOUS PERIPHERAL INTERVENTION: DATE OF SERVICE: December 21, 2018. PERFORMING PHYSICIAN: Mor Malcolm MD, drill grinder. PROCEDURE PERFORMED: 1. Selective right anterior tibial/popliteal/and SFA angiogram. 2. Successful crossing chronic total occlusion of the right anterior tibial, popliteal, and SFA. 3. Atherectomy of the right anterior tibial, popliteal, and SFA using the orbital atherectomy device from [facility]. 4. Successful balloon angioplasty of the right anterior tibial artery using 4.0 x 60 mm IN.PACT drug coated balloon with an excellent angiographic result and reduction of stenosis from 100% to 0%. 5. Successful stenting of the right popliteal using Zilver PTX drug-coated stent with excellent angiographic results and reduction of stenosis from 100% to 0%. 6. Successful stenting of the right SFA using 3 EverFlex balloon expandable stent with excellent angiographic results. INDICATION: This is a 68-year-old gentleman with history of peripheral arterial disease and prior bilateral SFA angioplasty as well as history of AAA and status post aortic stent graft, as well as history of coronary artery disease and prior coronary revascularization, was experiencing symptoms of bilateral lower extremities intermittent claudication. He underwent a peripheral angiogram recently and that revealed occluded bilateral SFA. He was brought today to undergo a POULTRY GRADER of the right SFA. He underwent POULTRY GRADER of the left SFA not too long time ago. APPROACH: Anterior tibial artery on the right side in retrograde ipsilateral technique. COMPLICATION: None. LEVEL OF SEDATION: Moderate with sedation length of 173 minutes. PROCEDURE DESCRIPTION: After obtaining an informed consent, the patient was brought to the cardiac director labor standards. I decided to approach the case in ipsilateral retrograde technique from anterior tibial approach. The patient does have good size anterior tibial artery. At that point, I did access the right anterior tibial artery using micropuncture technique under ultrasound guidance, and initially I placed a 4-Green[place]ic sheath in the right anterior tibial artery. At that point, anticoagulation was initiated using heparin, where the patient was given 6000 units of heparin IV with continuous cocktail infusion which include heparin, nitroglycerin, and verapamil throughout the procedure with the infusion going through the sheath. At that point, I was able to cross the chronic total occlusion of the right anterior tibial, popliteal, and SFA on the right side using initially a 0.018 gold tip Glidewire and then I did finally able to cross the proximal cap using a 0.035 stiff Glidewire. I did inject contrast in the right common femoral artery through a 0.035 catheter to prove that I was in the true lumen. At that point I did place a 0.014 ViperWire in the abdominal aorta, preparing for rotational atherectomy, which was performed using the orbital atherectomy device from [facility] where I did atherectomy of the right anterior tibial, popliteal, and SFA. Before the atherectomy was performed, I did intravascular ultrasound, IVUS, which showed that in the proximal and distal COLON THERAPIST, I was in the subintimal space, but in the mid I was in the true lumen. After that I did balloon angioplasty of the right anterior tibial, popliteal and SFA, using 5.0 x 120 mm chocolate balloon. The chocolate balloon was inflated under its nominal pressure multiple times in these segments. The following angiogram showed that there was extensive dissection involving the proximal, mid and distal right SFA. The right popliteal also in the proximal portion has a dissection. The right anterior tibial artery did not look that bad but looks tight. Because of that, I decided to cover that with a stents. In the right SFA, I placed 3 EverFlex drug coated stents. In the very proximal portion, I placed a 7 x 80 mm EverFlex balloon self-expandable stent where the stent was positioned under fluoroscopy guidance and deployed under fluoroscopy guidance as well. In the mid and distal right SFA, I placed 2 more stents. The first one was 7 x 150 and the second one was 7 x 120 mm. Before postdilatation, I placed in the right popliteal Zilver PTX drug-coated stent, which was 6 x 140. I postdilated the 4 stents using 6 mm balloon by 200 mm balloon. The following angiogram showed excellent angiographic results. For the right anterior tibial artery, I did drug coated balloon which was 4 x 60 mm. The balloon was inflated under 6 atmospheres for 3 minutes. The following angiogram showed great angiographic results and the procedure was completed without any complication. POSTPROCEDURE MANAGEMENT: 1. Dual antiplatelet therapy. 2. Risk factors modifications. 3. Follow up with the patient. MMFERNY / JOSEPHN: [id number] /
--- NOTE | 2018-12-21 12:43 | IR ---
Fluoroscopy HISTORY: Pain in right leg 58.4 minutes fluoroscopy time supplied to the referring clinician. 811 intraoperative C-arm images d ocument the procedure. See dictated report from cardiology.
[2018-12-21] MEDS ORDERED: IBUPROFEN 800 MG TAB PO STA (12:44)
[2018-12-21 15:22] VITALS: RESP 18; BMI 24.3
[2018-12-21] MEDS: HYDROmorphone 1 MG/ML 1 ML SYRINGE IVP PRN ×2 (16:36→21:31)
[2018-12-21] MEDS: FUROSEMIDE 40 MG TAB PO SCH (17:09)
[2018-12-22] MEDS ORDERED: ACETAMINOPHEN TAB 325 MG TAB PO PRN (00:05)
[2018-12-22] MEDS: HYDROmorphone 1 MG/ML 1 ML SYRINGE IVP PRN ×2 (02:45→08:30)
[2018-12-22 07:09] LABS: African American GFR (CKD) >90 (>60 ml/min/1.73 sqM); Non-African American GFR(CKD) >90 (>60 ml/min/1.73 sqM)
[2018-12-22] MEDS: FUROSEMIDE 40 MG TAB PO SCH (08:30)
[2018-12-22] MEDS ORDERED: CLOPIDOGREL 75 MG TAB PO SCH (09:00)
[2018-12-22] MEDS ORDERED: ASPIRIN 81 MG PO SCH (09:00)
[2018-12-22] MEDS ORDERED: ATORVASTATIN 20 MG TAB PO SCH (09:00)
[2018-12-22] MEDS ORDERED: METOPROLOL SUCCINATE (ER) 25 MG TAB.ER.24H PO SCH (09:00)
[2018-12-22 09:55] VITALS: BP 122/69; PULSE 96; TEMP 99.4
--- NOTE | 2018-12-22 10:46 | DS ---
DISCHARGE SUMMARY ADMISSION DATE: December 21, 2018. DISCHARGE DATE: December 22, 2018 BRIEF HISTORY: This is a pleasant 68-year-old gentleman who was admitted to the hospital yesterday and underwent successful atherectomy and balloon angioplasty of the right superficial femoral artery with good angiographic results and without any complication. On followup with him today, he is doing good. He is asymptomatic. He does have good pulse in the right dorsalis pedis artery. The patient is going to be discharged home on dual antiplatelet therapy and statin and I will follow up with the patient in a week in the office. MMODL / IJN: [id number] /
== END 2018-12-22 09:57 | disposition home or self-care (01) ==
LOC: CATHCVL 07:00 → 3SCARD 11:02 → CATHCVL 12-22 09:57
PROVIDERS: ATTEND Internal Medicine Interventional Cardiology
DX: I70.213 Atherosclerosis of native arteries of extremities with intermittent claudication, bilateral legs (principal); I70.92 Chronic total occlusion of artery of the extremities; Z95.820 Peripheral vascular angioplasty status with implants and grafts; I25.10 Atherosclerotic heart disease of native coronary artery without angina pectoris; Z95.1 Presence of aortocoronary bypass graft; Z86.79 Personal history of other diseases of the circulatory system; Z95.828 Presence of other vascular implants and grafts; I11.0 Hypertensive heart disease with heart failure; I50.9 Heart failure, unspecified; E78.5 Hyperlipidemia, unspecified; I77.9 Disorder of arteries and arterioles, unspecified; F17.210 Nicotine dependence, cigarettes, uncomplicated; Z79.82 Long term (current) use of aspirin; Z79.891 Long term (current) use of opiate analgesic; Z79.899 Other long term (current) drug therapy; Z79.02 Long term (current) use of antithrombotics/antiplatelets; Z79.84 Long term (current) use of oral hypoglycemic drugs
CPT/HCPCS: 37229; 37252; 92978; 37227; 85347; 80048; 82565; 85025; C1894 ×3; C1769 ×7; C1725 ×2; C1887; C1876 ×3; C1753; C2623; C1874; J1644 ×2; J2001; J1170 ×2; J2250

== ENCOUNTER 2019-02-03 13:56 | Inpatient (IN) | payer MEDICARE ==
--- NOTE | 2019-02-03 14:25 | ED ---
General Adult HPI - General Chief complaint: Shortness of Breath Stated complaint: PINA Time Seen by Provider: 02/03/19 14:00 Source: patient, RN notes reviewed Mode of arrival: ambulatory Limitations: no limitations - History of Present Illness Initial comments: This is a 68-year-old male who resents emergency Department with a past medical history significant for COPD and congestive heart failure. Patient states he thinks he is having an exacerbation of his congestive heart failure because he is having shortness of breath over the last 4 days which is getting progressively worse and it is getting progressively worse with exertion. Patient also states he has increased edema to both of his legs. Patient denies any chest pain or palpitations. She denies any recent fever chills or cough. Patient denies abdominal pain patient denies nausea vomiting or diarrhea. Patient denies headache patient denies numbness weakness. Patient denies light headedness dizziness or near syncopal episode. - Related Data Home Medications Medication Instructions Recorded Confirmed Furosemide [Lasix] 40 mg PO BID 06/27/18 02/03/19 Simvastatin 40 mg PO DAILY 06/27/18 02/03/19 Previous Rx's Medication Instructions Recorded Aspirin 81 mg PO DAILY #30 chew 06/29/18 Clopidogrel [Plavix] 75 mg PO DAILY #30 tab 06/29/18 Nitroglycerin Sl Tabs [Nitrostat] 0.4 mg SUBLINGUAL Q5M PRN #25 tab 06/29/18 Allergies Allergy/AdvReac Type Severity Reaction Status Date / Time No Known Allergies Allergy Verified 02/03/19 14:34 Review of Systems ROS Statement: Those systems with pertinent positive or pertinent negative responses have been documented in the HPI. ROS Other: All systems not noted in ROS Statement are negative. Past Medical History Past Medical History: Coronary Artery Disease (CAD), Chest Pain / Angina, COPD, Diabetes Mellitus, Hyperlipidemia, Hypertension, Myocardial Infarction ([place]), Osteoarthritis ([place]), Vascular Disorder Additional Past Medical History / Comment(s): steroids October 2018,KIDNEY STONES. hx aneurysm abdominal Last Myocardial Infarction Date:: 2005? History of Any Multi-Drug Resistant Organisms: None Reported Past Surgical History: Coronary Bypass/CABG, Heart Catheterization, Heart Catheterization With Stent, Orthopedic Surgery Additional Past Surgical History / Comment(s): RT ROTATOR CUFF REPAIR. CABG (2005 & 2007) BYPASS X2. STENTS X2 IN PAST, ABD ANEURYSM REPAIR WITH STENT, LT CAROTID ENDARTERECTOMY. lithotripsy. STATES STENT TO LEFT LEG, Cardiac cath 2018. stents to right SFA november 2018 Past Anesthesia/Blood Transfusion Reactions: No Reported Reaction Date of Last Stent Placement:: 2018 Past Psychological History: No Psychological Hx Reported Smoking Status: Current every day smoker Past Alcohol Use History: None Reported Past Drug Use History: None Reported - Past Family History Father Family Medical History: Deep Vein Thrombosis (DVT), Myocardial Infarction ([place]) General Exam - General Exam Comments Initial Comments: GENERAL: Patient is well-developed and well-nourished. Patient is nontoxic and well- hydrated and is in mild distress. ENT: Neck is soft and supple. No significant lymphadenopathy is noted. Oropharynx is clear. Moist mucous membranes. Neck has full range of motion without eliciting any pain. EYES: The sclera were anicteric and conjunctiva were pink and moist. Extraocular movements were intact and pupils were equal round and reactive to light. Eyelids were unremarkable. PULMONARY: Patient has diminished breath sounds in the bases CARDIOVASCULAR: There is a regular rate and rhythm without any murmurs gallops or rubs. ABDOMEN: Soft and nontender with normal bowel sounds. SKIN: Skin is clear with no lesions or rashes and otherwise unremarkable. NEUROLOGIC: Patient is alert and oriented x3. Cranial nerves II through XII are grossly intact. Motor and sensory are also intact. Normal speech, volume and content. Symmetrical smile. MUSCULOSKELETAL: Normal extremities with adequate strength and full range of motion. 2+ bilateral edema LYMPHATICS: No significant lymphadenopathy is noted PSYCHIATRIC: Normal psychiatric evaluation. Limitations: no limitations Course Vital Signs 02/03/19 02/03/19 14:01 15:56 Temperature 97.2 F L Pulse Rate 82 72 Respiratory 18 18 Rate Blood Pressure 96/64 108/63 O2 Sat by Pulse 97 99 Oximetry Medical Decision Making - Medical Decision Making EKG shows normal sinus rhythm at 75 bpm WV interval is 134 QRSs 90 QT interval 442 QTC is 493. Patient's EKG shows no ST segment elevation or depression. Chest x-ray shows pulmonary edema. I gave the patient Lasix in the emergency department I only gave one today because of his tentative blood pressure. I spoke with Dr. Perez he agreed to admit the patient admitted the patient I wrote admitting orders. I continued Lasix on the floor I held the Nitropaste secondary to the patient's low blood pressure. I consult to cardiology. - Lab Data Result diagrams: 02/03/19 14:30 02/03/19 14:30 Lab Results 02/03/19 02/03/19 02/03/19 Range/Units 14:30 14:30 14:30 WBC 5.5 (3.8-10.6) k/uL RBC 4.34 (4.30-5.90) m/uL Hgb 11.7 L (13.0-17.5) gm/dL Hct 38.6 L (39.0-53.0) % MCV 89.1 (80.0-100.0) fL MCH 26.9 (25.0-35.0) pg MCHC 30.2 L (31.0-37.0) g/dL RDW 16.2 H (11.5-15.5) % Plt Count 164 (150-450) k/uL Neutrophils % 68 % Lymphocytes % 20 % Monocytes % 7 % Eosinophils % 2 % Basophils % 1 % Neutrophils # 3.7 (1.3-7.7) k/uL Lymphocytes # 1.1 (1.0-4.8) k/uL Monocytes # 0.4 (0-1.0) k/uL Eosinophils # 0.1 (0-0.7) k/uL Basophils # 0.1 (0-0.2) k/uL Hypochromasia Marked Anisocytosis Slight PT (9.0-12.0) sec INR (<1.2) APTT (22.0-30.0) sec Sodium 140 (137-145) mmol/L Potassium 4.2 (3.5-5.1) mmol/L Chloride 100 (98-107) mmol/L Carbon Dioxide 33 H (22-30) mmol/L Anion Gap 7 mmol/L BUN 16 (9-20) mg/dL Creatinine 0.58 L (0.66-1.25) mg/dL Est GFR (CKD-EPI)AfAm >90 (>60 ml/min/1.73 sqM) Est GFR (CKD-EPI)NonAf >90 (>60 ml/min/1.73 sqM) Glucose 227 H (74-99) mg/dL Calcium 8.7 (8.4-10.2) mg/dL Magnesium 1.9 (1.6-2.3) mg/dL Total Bilirubin 0.4 (0.2-1.3) mg/dL AST 19 (17-59) U/L ALT 23 (21-72) U/L Alkaline Phosphatase 104 (38-126) U/L Troponin I (0.000-0.034) ng/mL NT-Pro-B Natriuret Pep 4100 pg/mL Total Protein 5.6 L (6.3-8.2) g/dL Albumin 3.4 L (3.5-5.0) g/dL 02/03/19 02/03/19 Range/Units 14:30 14:30 WBC (3.8-10.6) k/uL RBC (4.30-5.90) m/uL Hgb (13.0-17.5) gm/dL Hct (39.0-53.0) % MCV (80.0-100.0) fL MCH (25.0-35.0) pg MCHC (31.0-37.0) g/dL RDW (11.5-15.5) % Plt Count (150-450) k/uL Neutrophils % % Lymphocytes % % Monocytes % % Eosinophils % % Basophils % % Neutrophils # (1.3-7.7) k/uL Lymphocytes # (1.0-4.8) k/uL Monocytes # (0-1.0) k/uL Eosinophils # (0-0.7) k/uL Basophils # (0-0.2) k/uL Hypochromasia Anisocytosis PT 11.5 (9.0-12.0) sec INR 1.1 (<1.2) APTT 24.4 (22.0-30.0) sec Sodium (137-145) mmol/L Potassium (3.5-5.1) mmol/L Chloride (98-107) mmol/L Carbon Dioxide (22-30) mmol/L Anion Gap mmol/L BUN (9-20) mg/dL Creatinine (0.66-1.25) mg/dL Est GFR (CKD-EPI)AfAm (>60 ml/min/1.73 sqM) Est GFR (CKD-EPI)NonAf (>60 ml/min/1.73 sqM) Glucose (74-99) mg/dL Calcium (8.4-10.2) mg/dL Magnesium (1.6-2.3) mg/dL Total Bilirubin (0.2-1.3) mg/dL AST (17-59) U/L ALT (21-72) U/L Alkaline Phosphatase (38-126) U/L Troponin I 0.021 (0.000-0.034) ng/mL NT-Pro-B Natriuret Pep pg/mL Total Protein (6.3-8.2) g/dL Albumin (3.5-5.0) g/dL Critical Care Time Critical Care Time: Yes Total Critical Care Time: 35 Disposition Clinical Impression: Acute pulmonary edema Disposition: ADMITTED IP TO THIS HOSP Referrals: None,Stated [Primary Care Provider] - 1-2 days Time of Disposition: 16:01
[2019-02-03 14:53] LABS: Anisocytosis Slight; Basophils # (A) 0.1 k/uL (0-0.2); Basophils % (A) 1 %; Eosinophils # (A) 0.1 k/uL (0-0.7); Eosinophils % (A) 2 %; HCT 38.6 % (39.0-53.0); HGB 11.7 gm/dL (13.0-17.5); Hypochromasia Marked; Lymphocytes # (A) 1.1 k/uL (1.0-4.8); Lymphocytes % (A) 20 %; MCH 26.9 pg (25.0-35.0); MCHC 30.2 g/dL (31.0-37.0); MCV 89.1 fL (80.0-100.0); Mean Platelet Volume 8.3; Monocytes # (A) 0.4 k/uL (0-1.0); Monocytes % (A) 7 %; Neutrophils # (A) 3.7 k/uL (1.3-7.7); Neutrophils % (A) 68 %; Platelet Count 164 k/uL (150-450); RBC 4.34 m/uL (4.30-5.90); RDW 16.2 % (11.5-15.5); WBC 5.5 k/uL (3.8-10.6)
[2019-02-03 15:00] LABS: ALT 23 U/L (21-72); AST 19 U/L (17-59); African American GFR (CKD) >90 (>60 ml/min/1.73 sqM); Albumin 3.4 g/dL (3.5-5.0); Alkaline Phosphatase 104 U/L (38-126); Anion Gap 7 mmol/L; Blood Urea Nitrogen 16 mg/dL (9-20); Calcium 8.7 mg/dL (8.4-10.2); Carbon Dioxide 33 mmol/L (22-30); Chloride 100 mmol/L (98-107); Glucose 227 mg/dL (74-99); INR 1.1 (<1.2); Magnesium 1.9 mg/dL (1.6-2.3); Potassium 4.2 mmol/L (3.5-5.1); Sodium 140 mmol/L (137-145); Total Bilirubin 0.4 mg/dL (0.2-1.3); Total Protein 5.6 g/dL (6.3-8.2)
[2019-02-03 15:01] LABS: Partial Thromboplastin Time 24.4 sec (22.0-30.0); Prothrombin Time 11.5 sec (9.0-12.0)
--- NOTE | 2019-02-03 15:29 | XR ---
EXAMINATION TYPE: XR chest 2V DATE OF EXAM: 02/03/2019 COMPARISON: 11/01/2018 HISTORY: Difficulty breathing TECHNIQUE: Frontal and lateral views of the chest are obtained. FINDINGS: There is an enlarged cardiac mediastinal silhouette with post CABG changes. Nodular densit y is seen near the right lateral lung base, not present on the prior of 11/01/2018. This could represen t overlying nipple shadow. Trace bilateral pleural effusions are noted with mild pulmonary vascular p rominence. There is diffuse osseous demineralization and degenerative changes of the shoulders and th oracic spine. Abdominal aortic stent is partially visualized. Flattening of the diaphragms is indicat toña of underlying COPD. IMPRESSION: Mild pulmonary vascular congestion and cardiomegaly with trace pleural effusions. Consid er congestive heart failure. Nodular density at the right lung base is also new from the prior and co uld represent a nipple shadow. Nonemergent follow-up with nipple markers is recommended. If this pers ists CT thorax would be recommended.
[2019-02-03] MEDS ORDERED: FUROSEMIDE 10 MG/ML 2 ML VIAL IV STA (15:58)
[2019-02-03] MEDS ORDERED: IPRATROPIUM-ALBUTEROL 3 ML NEB INHALATION PRN (16:04)
[2019-02-03] MEDS ORDERED: FUROSEMIDE 10 MG/ML 4 ML VIAL IV SCH (16:15)
[2019-02-03 20:10] LABS: Glucose,Whole Blood 179 mg/dL (75-99)
[2019-02-03] MEDS ORDERED: NITROGLYCERIN SL TABS 0.4 MG TAB SUBLINGUAL PRN (20:31)
[2019-02-03] MEDS ORDERED: HYDROcodone/APAP 5-325MG 1 EACH TAB PO PRN (20:33)
[2019-02-03] MEDS ORDERED: TEMAZEPAM 15 MG CAP PO PRN (20:33)
[2019-02-03] MEDS ORDERED: HYDROmorphone 0.5 MG/0.5 ML SYRINGE IVP PRN (20:43)
[2019-02-03] MEDS: INSULIN ASPART (NovoLOG) 100 UNIT/ML VIAL SQ SCH (23:17)
[2019-02-03] MEDS: FUROSEMIDE 10 MG/ML 4 ML VIAL IV SCH (23:22)
[2019-02-03] MEDS: methylPREDNISolone SOD SUCCI 125 MG/2 ML VIAL IV SCH (23:22)
[2019-02-03] MEDS: HEPARIN SODIUM,PORCINE 5,000 UNIT/ML 1 ML VIAL SQ SCH (23:22)
[2019-02-04] MEDS ORDERED: FUROSEMIDE 10 MG/ML 4 ML VIAL IV SCH
[2019-02-04 00:34] LABS: Appearance,Urine Clear (Clear); Bilirubin,Urine Negative (Negative); Blood,Urine Negative (Negative); Color,Urine Light Yellow; Glucose,Urine (UA) Negative (Negative); Ketones,Urine Negative (Negative); Leukocyte Esterase,Urine Negative (Negative); Nitrite,Urine Negative (Negative); PH, Urine 7.5 (5.0-8.0); Protein,Urine Negative (Negative); Specific Gravity,Urine 1.007 (1.001-1.035); Urobilinogen,Urine <2.0 mg/dL (<2.0)
--- NOTE | 2019-02-04 01:57 | HP ---
HISTORY AND PHYSICAL CHIEF COMPLAINT: Chest pain. HISTORY OF PRESENT ILLNESS: This 68-year-old gentleman with a past medical history of CAD, history of COPD, diabetes type 2, hypertension, hyperlipidemia, myocardial infarction, history of vascular disorder, CAD, CABG, stent, being followed by no primary physician in the outpatient setting complaining of shortness of breath increasing intensity for the last several days. The patient also had increase in leg swelling also. The patient also had history of CHF as well. Because of increasing and persistent shortness of breath, the patient came to [facility] and was admitted to the hospital for further evaluation and treatment. Chest x-ray showed cardiomegaly, pulmonary vascular congestion and trace pleural effusion and the patient admitted for further evaluation and treatment. There is no history of fever, rigors or chills. No history of headache, loss of consciousness or seizures. PAST MEDICAL HISTORY: CAD, COPD, diabetes, hypertension, hyperlipidemia, myocardial infarction, DJD, history of CAD, CABG and stent. MEDICATIONS: Home medications: 1. Simvastatin 40 mg. 2. Nitroglycerin 0.4 sublingual p.r.n. 3. Lasix 40 mg p.o. b.i.d. 4. Plavix 75 mg. 5. Aspirin 81 mg p.o. daily. ALLERGIES: None. FAMILY HISTORY: History of DVT, history of myocardial infarction in the family. SOCIAL HISTORY: History of smoking, continued ongoing. No history of alcohol intake. REVIEW OF SYSTEMS: ENT diminished hearing. Diminished vision. CARDIOVASCULAR as mentioned earlier. RESPIRATORY: As mentioned earlier. GI no nausea or vomiting. GENITOURINARY: No dysuria or hematuria. NERVOUS SYSTEM: No numbness or weakness. ALLERGY/IMMUNOLOGY: No asthma or hayfever. MUSCULOSKELETAL as mentioned earlier. HEMATOLOGY/ONCOLOGY: No history of anemia. ENDOCRINE: No history of diabetes or hypothyroidism. CONSTITUTIONAL: As mentioned earlier. DERMATOLOGY: Negative. RHEUMATOLOGY: Negative. PSYCHIATRY: As mentioned earlier. PHYSICAL EXAMINATION: Alert and oriented x 3. Pulse 74. Blood pressure 108/55, respiration 18, temperature 98.2, pulse ox 97% on 2 L. HEENT: Conjunctivae normal. Oral mucosa moist. NECK is jugular venous distention at the root of the neck. No bruit. CARDIOVASCULAR SYSTEM: S1, S2 muffled. No S3, no S4. RESPIRATORY: Breath sounds diminished in the bases. Scattered rhonchi and crackles. ABDOMEN: Soft, obese, abdominal wall edema present. LEGS: Bilateral leg edema. Significant. Pulses diminished bilaterally. NERVOUS SYSTEM: Higher functions as mentioned. Moves all 4 limbs. No focal motor or sensory deficits. LYMPHATICS: No lymph nodes palpable in the neck, axillae or groin. SKIN: No ulcers. No rashes. No bleeding. JOINTS: No active arthropathy. LABS: At this time shows WBC 5.2, hemoglobin 11.74, and sodium 140, potassium 4.2, creatinine 0.58, glucose 222, albumin is 3.4. ASSESSMENT: 1. Shortness of breath possibly multifactorial with congestive heart failure acute exacerbation as well as chronic obstructive pulmonary disease exacerbation. 2. Diabetes mellitus type 2. 3. Anemia, normocytic anemia of chronic disease. 4. History of coronary artery disease/ coronary artery bypass grafting stent. 5. History of diabetes. 6. Hypertension. 7. History of myocardial infarction. 8. History of degenerative joint disease. 9. History of peripheral vascular disease. 10.History of nephrolithiasis. 11.History of abdominal aortic aneurysm. 12.History of nicotine dependence, continued ongoing. RECOMMENDATIONS AND DISCUSSION: This 68 -year-old gentleman with multiple complex medical issues, we will monitor the patient closely, continue the current management and treatment. Recommend IV diuretics 40 IV q.8 and also cardiology, Pulmonary consultations. I would also recommend bronchodilators and continue the rest of the home medication. Monitor blood sugars closely. The prognosis guarded because of the multiple complex medical conditions. Further recommendations to follow. The patient follow up with primary physician closely in the outpatient patient. Please has seen Dr. Diaz previously apparently. MMMAEGANL / IJN: [id number] /
[2019-02-04] MEDS: methylPREDNISolone SOD SUCCI 125 MG/2 ML VIAL IV SCH ×2 (05:52→08:14)
[2019-02-04 06:08] LABS: Glucose,Whole Blood 258 mg/dL (75-99)
[2019-02-04] MEDS: INSULIN ASPART (NovoLOG) 100 UNIT/ML VIAL SQ SCH ×4 (06:41→20:32)
[2019-02-04] MEDS: PANTOPRAZOLE 40 MG TABLET PO SCH (06:41)
[2019-02-04 07:08] LABS: African American GFR (CKD) >90 (>60 ml/min/1.73 sqM); Anion Gap 8 mmol/L; Blood Urea Nitrogen 19 mg/dL (9-20); Calcium 8.4 mg/dL (8.4-10.2); Carbon Dioxide 33 mmol/L (22-30); Chloride 98 mmol/L (98-107); Glucose 253 mg/dL (74-99); Potassium 4.8 mmol/L (3.5-5.1); Sodium 139 mmol/L (137-145)
[2019-02-04 07:49] LABS: Anisocytosis Slight; Basophils % (A) 0 %; Eosinophils # (A) 0.1 k/uL (0-0.7); Eosinophils % (A) 1 %; HCT 38.5 % (39.0-53.0); HGB 11.9 gm/dL (13.0-17.5); Hypochromasia Marked; Lymphocytes # (A) 0.6 k/uL (1.0-4.8); Lymphocytes % (A) 10 %; MCH 28.1 pg (25.0-35.0); MCHC 30.9 g/dL (31.0-37.0); Mean Platelet Volume 9.1; Monocytes # (A) 0.1 k/uL (0-1.0); Monocytes % (A) 2 %; Neutrophils # (A) 5.5 k/uL (1.3-7.7); Neutrophils % (A) 87 %; Platelet Count 195 k/uL (150-450); RBC 4.23 m/uL (4.30-5.90); RDW 16.7 % (11.5-15.5); WBC 6.3 k/uL (3.8-10.6)
[2019-02-04] MEDS: FUROSEMIDE 10 MG/ML 4 ML VIAL IV SCH ×3 (08:15→23:11)
[2019-02-04] MEDS: ASPIRIN 81 MG PO SCH (08:15)
[2019-02-04] MEDS: HEPARIN SODIUM,PORCINE 5,000 UNIT/ML 1 ML VIAL SQ SCH ×2 (08:15→20:31)
[2019-02-04] MEDS: CLOPIDOGREL 75 MG TAB PO SCH (08:15)
[2019-02-04] MEDS: ATORVASTATIN 20 MG TAB PO SCH (08:15)
[2019-02-04] MEDS: IPRATROPIUM-ALBUTEROL 3 ML NEB INHALATION SCH ×3 (08:46→19:38)
[2019-02-04] MEDS: SYMBICORT 160-4.5 MCG INHALER INHALATION SCH ×2 (08:46→19:38)
--- NOTE | 2019-02-04 08:47 | P.CRDCN ---
History of Present Illness Consult date: 02/04/19 Requesting physician: Mae Perez Consult reason: congestive heart failure Chief complaint: Shortness of breath History of present illness: This is a 68-year-old gentleman who follows regularly with Dr. Ni in the office. He has a known history of coronary artery disease with prior bypass surgery, in May 2018 he underwent a cardiac catheterization which revealed severe triple-vessel coronary artery disease with a patent GARCIA to the LAD, critical disease involving the OM 1 and a chronic total occlusion of the RCA, at that point he underwent successful stenting of the OM with good angiographic results. Patient also has significant history of PAD and PVD with multiple other procedures, AAA with prior stent graft, hypertension, hyperlipidemia, carotid disease, he has smoked for several years but states that he recently quit smoking. He presents to the hospital on this occasion with symptoms of shortness of breath of approximately one week duration. He also noticed lower extremity swelling. Blood pressure this morning 96/50 with a heart rate in the 70s, 94% on 2 L of oxygen. White blood cell count 6.3, hemoglobin 11.9, platelet count 195. Sodium 139, potassium 4.8, BUN 19 and creatinine 0.6. Troponin 0.021 with a BNP level 4100. Patient was initiated on IV Lasix, diuresing well overall. At the time of my examination this morning, patient still feels mildly short of breath, he states he feels tired, swelling in his legs is significantly improved from admission here. Past Medical History Past Medical History: Coronary Artery Disease (CAD), Chest Pain / Angina, COPD, Diabetes Mellitus, Hyperlipidemia, Hypertension, Myocardial Infarction ([place]), Osteoarthritis (OA), Vascular Disorder Additional Past Medical History / Comment(s): steroids October 2018,KIDNEY STONES. hx aneurysm abdominal Last Myocardial Infarction Date:: 2005? History of Any Multi-Drug Resistant Organisms: None Reported Past Surgical History: Coronary Bypass/CABG, Heart Catheterization, Heart Catheterization With Stent, Orthopedic Surgery Additional Past Surgical History / Comment(s): RT ROTATOR CUFF REPAIR. CABG (2 & 2007) BYPASS X2. STENTS X2 IN PAST, ABD ANEURYSM REPAIR WITH STENT, LT CAROTID ENDARTERECTOMY. lithotripsy. STATES STENT TO LEFT LEG, Cardiac cath 2018. stents to right SFA november 2018 Past Anesthesia/Blood Transfusion Reactions: No Reported Reaction Date of Last Stent Placement:: 2018 Past Psychological History: No Psychological Hx Reported Smoking Status: Current every day smoker Past Alcohol Use History: None Reported Additional Past Alcohol Use History / Comment(s): Current pack a day smoker Past Drug Use History: None Reported - Past Family History Father Family Medical History: Deep Vein Thrombosis (DVT), Myocardial Infarction ([place]) Medications and Allergies Home Medications Medication Instructions Recorded Confirmed Type Furosemide [Lasix] 40 mg PO BID 06/27/18 02/03/19 History Simvastatin 40 mg PO DAILY 06/27/18 02/03/19 History Aspirin 81 mg PO DAILY #30 chew 06/29/18 02/03/19 Rx Clopidogrel [Plavix] 75 mg PO DAILY #30 tab 06/29/18 02/03/19 Rx Nitroglycerin Sl Tabs [Nitrostat] 0.4 mg SUBLINGUAL Q5M PRN #25 tab 06/29/18 02/03/19 Rx Allergies Allergy/AdvReac Type Severity Reaction Status Date / Time No Known Allergies Allergy Verified 02/03/19 16:51 Physical Exam Vitals: Vital Signs Temp Pulse Pulse Resp BP BP Pulse Ox 02/04/19 08:11 97.7 F 77 16 96/58 94 L 02/04/19 04:05 98.2 F 78 18 92/53 98 02/04/19 04:00 77 19 02/03/19 23:51 83 19 02/03/19 20:00 80 19 02/03/19 19:55 97.9 F 80 19 88/51 96 02/03/19 19:49 72 02/03/19 19:39 61 94 L 02/03/19 18:58 74 18 109/55 97 02/03/19 16:51 98.2 F 72 18 141/84 99 02/03/19 16:45 20 02/03/19 16:32 77 18 110/70 02/03/19 15:56 72 18 108/63 99 02/03/19 14:01 97.2 F L 82 18 96/64 97 Intake and Output 02/03/19 02/04/19 02/04/19 22:59 06:59 14:59 Intake Total 240 Output Total 750 400 Balance -750 -400 240 Intake: Oral 240 Output: Urine 750 400 Other: Voiding Method Toilet Toilet Toilet Urinal # Voids 2 Weight 74.843 kg 67.4 kg PHYSICAL EXAMINATION: GENERAL: 68-year-old gentleman in no acute distress at the time of my examination HEENT: Head is atraumatic, normocephalic. Pupils equal, round. Sclera anicteric. Conjunctiva are clear. Mucous membranes of the mouth are moist. Neck is supple. There is no elevated jugular venous pressure. Bilateral carotid bruit is heard. HEART EXAMINATION: Heart S1 S2 1 systolic ejection murmur is heard. CHEST EXAMINATION: Jugular decreased air exchange with diminished air entry to the bases bilaterally ABDOMEN: Soft, nontender. Bowel sounds are heard. No organomegaly noted. EXTREMITIES: 2+ peripheral pulses with trace to 1+ evidence of peripheral edema and no calf tenderness noted. NEUROLOGIC patient is awake, alert and oriented 3 . . Results 02/04/19 06:25 02/04/19 06:25 Cardiac Enzymes 02/03/19 02/03/19 Range/Units 14:30 14:30 AST 19 (17-59) U/L Troponin I 0.021 (0.000-0.034) ng/mL Coagulation 02/03/19 Range/Units 14:30 PT 11.5 (9.0-12.0) sec APTT 24.4 (22.0-30.0) sec CBC 02/03/19 02/04/19 Range/Units 14:30 06:25 WBC 5.5 6.3 (3.8-10.6) k/uL RBC 4.34 4.23 L (4.30-5.90) m/uL Hgb 11.7 L 11.9 L (13.0-17.5) gm/dL Hct 38.6 L 38.5 L (39.0-53.0) % Plt Count 164 195 (150-450) k/uL Comprehensive Metabolic Panel 02/03/19 02/04/19 Range/Units 14:30 06:25 Sodium 140 139 (137-145) mmol/L Potassium 4.2 4.8 (3.5-5.1) mmol/L Chloride 100 98 (98-107) mmol/L Carbon Dioxide 33 H 33 H (22-30) mmol/L BUN 16 19 (9-20) mg/dL Creatinine 0.58 L 0.69 (0.66-1.25) mg/dL Glucose 227 H 253 H (74-99) mg/dL Calcium 8.7 8.4 (8.4-10.2) mg/dL AST 19 (17-59) U/L ALT 23 (21-72) U/L Alkaline Phosphatase 104 (38-126) U/L Total Protein 5.6 L (6.3-8.2) g/dL Albumin 3.4 L (3.5-5.0) g/dL Current Medications Generic Name Dose Route Start Last Admin Trade Name Freq PRN Reason Stop Dose Admin Hydrocodone Bitart/Acetaminophen 1 each 02/03/19 20:33 Mena 5-325 PO Q6HR PRN Pain Albuterol/Ipratropium 3 ml 02/03/19 16:04 02/03/19 19:39 Duoneb 0.5 Mg-3 Mg/3 Ml Soln INHALATION 3 ml RT-QID PRN Administration Shortness Of Breath Or Wheezing Albuterol/Ipratropium 3 ml 02/04/19 08:00 Duoneb 0.5 Mg-3 Mg/3 Ml Soln INHALATION RT-TID [facility] Aspirin 81 mg 02/04/19 09:00 02/04/19 08:15 Aspirin PO 81 mg DAILY MELONIE Administration Atorvastatin Calcium 20 mg 02/04/19 09:00 02/04/19 08:15 Lipitor PO 20 mg DAILY MELONIE Administration Budesonide/Formoterol Fumarate 2 puff 02/04/19 08:00 Symbicort 160-4.5 Mcg Inhaler INHALATION RT-BID [facility] Clopidogrel Bisulfate 75 mg 02/04/19 09:00 02/04/19 08:15 Plavix PO 75 mg DAILY MELONIE Administration Furosemide 40 mg 02/04/19 00:00 02/04/19 08:15 Lasix IV 40 mg Q8HR MELONIE Administration Heparin Sodium (Porcine) 5,000 unit 02/03/19 21:00 02/04/19 08:15 Heparin SQ 5,000 unit Q12HR MELONIE Administration Hydromorphone HCl 0.5 mg 02/03/19 20:43 Dilaudid IVP Q6HR PRN Severe Pain Insulin Aspart 0 unit 02/03/19 21:00 02/04/19 06:41 Novolog SQ 4 unit ACHS MELONIE Administration Protocol Methylprednisolone Sodium Succinate 60 mg 02/03/19 21:00 02/04/19 08:14 Solu-Medrol IV 60 mg Q6H MELONIE Administration Nitroglycerin 0.4 mg 02/03/19 20:31 Nitrostat SUBLINGUAL Q5M PRN Chest Pain Pantoprazole Sodium 40 mg 02/04/19 07:30 02/04/19 06:41 Protonix PO 40 mg [id number] MELONIE Administration Temazepam 15 mg 02/03/19 20:33 Restoril PO HS PRN Insomnia Intake and Output 02/03/19 02/04/19 02/04/19 22:59 06:59 14:59 Intake Total 240 Output Total 750 400 Balance -750 -400 240 Intake: Oral 240 Output: Urine 750 400 Other: Voiding Method Toilet Toilet Toilet Urinal # Voids 2 Weight 74.843 kg 67.4 kg 02/04/19 06:25 02/04/19 06:25 EKG Interpretations (text) EKG shows normal sinus rhythm with anterior ST-T wave changes Assessment and Plan Plan: Assessment and plan #1 systolic congestive heart failure acute on chronic #2 known history of coronary artery disease with prior bypass surgery 2 in 2005, patient underwent stenting of the proximal LAD in 1998 prior to that, in May of this year patient underwent successful stenting of the OM1, #3history of PAD and PVD with multiple procedures, history of AAA with stent graft #4 hypertension #5 hyperlipidemia #6 COPD #7 nicotine dependence, although patient states over the past couple of weeks that he has quit smoking Plan We will obtain an echocardiogram with Doppler study. Continue current dose of IV Lasix, continue to monitor the patient's intake and output along with daily weights and daily lytes BUN and creatinine. If the blood pressure tolerates, we will initiate low-dose of beta prasad and MARTHA inhibitor, as well as Aldactone. Further recommendations to follow. DNP note has been reviewed, I agree with a documented findings and plan of care. Patient was seen and examined.
[2019-02-04 11:57] LABS: Glucose,Whole Blood 439 mg/dL (75-99)
--- NOTE | 2019-02-04 12:39 | ECHOF ---
Referral Reason:chf MEASUREMENTS -------- HEIGHT: 170.2 cm WEIGHT: 68.0 kg BP: IVSd: 1.1 cm (0.6 - 1.1) LVIDd: 5.0 cm (3.9 - 5.3) LVPWd: 1.5 cm (0.6 - 1.1) EDV(Teich): 118 ml IVSs: 1.5 cm LVIDs: 4.4 cm LVPWs: 1.4 cm %IVS Thck: 31 % ESV(Teich): 88 ml EF(Teich): 25 % %FS: 12 % SV(Teich): 30 ml LVOT Diam: 2.0 cm LA Diam: 5.2 cm (2.7 - 3.8) RVIDd: 3.3 cm (< 3.3) LALs A4C: 5.6 cm LAAs A4C: 25.6 cm LAESV A-L A4C: 100 ml LAESV MOD A4C: 95 ml LALs A2C: 5.5 cm LAAs A2C: 25.5 cm LAESV A-L A2C: 100 ml LAESV MOD A2C: 91 ml LAESV(A-L): 101 ml LAESV Index (A-L): 56.16 ml/m Ao Diam: 3.2 cm (2.0 - 3.7) LA Diam: 4.9 cm (2.7 - 3.8) AV Cusp: 0.8 cm (1.5 - 2.6) EPSS: 0.8 cm MV E Kalyan: 0.89 m/s MV DecT: 93 ms MV Dec [place]: 9.7 m/s MV A Kalyan: 0.44 m/s MV E/A Ratio: 2.01 MV PHT: 27 ms LVOT Vmax: 0.71 m/s LVOT maxP.03 mmHg LVOT Vmax: 0.75 m/s LVOT Vmean: 0.47 m/s LVOT maxP.23 mmHg LVOT meanP.05 mmHg LVOT Env.Ti: 304 ms LVOT VTI: 14.3 cm AV Vmax: 3.63 m/s AV maxP.62 mmHg JACINTO Vmax, Pt: 0.6 cm JACINTO Vmax: 0.6 cm AV Vmax: 3.32 m/s AV Vmean: 2.38 m/s AV maxP.18 mmHg AV meanP.59 mmHg AV Env.Ti: 288 ms AV VTI: 71.4 cm JACINTO Vmax: 0.7 cm JACINTO (VTI): 0.6 cm JACINTO Vmax, Pt: 0.7 cm TR Vmax: 3.36 m/s TR maxP.21 mmHg RAP: 5.00 mmHg RVSP: 50.21 mmHg MV EF SLOPE: 104.68 mm/s (70 - 150) MV EXCURSION: 20.30 mm (> 18.000) FINDINGS -------- Undetermined rhythm. This was a techncally difficult study with suboptimal views, , Lumason utilized for enhancement of im ages. The left ventricular size is normal. Left ventricular wall thickness is normal. Overall left vent ricular systolic function is moderately impaired with, an EF between 35 - 40 %. The LV end diastoli c pressure is elevated 16.82. Inferior Hypokinesis Posterior Hypokinesis. The right ventricle is normal in size. The left atrium is moderately dilated. LA is moderately dilated 34-39 ml/m2 The right atrial size is normal. 5.0mg OF Lumason UTLIZED: 2 OR MORE WALL SEGMENTS NOT VISUALIZED. There is [id number] aortic stenosis present. Peak/mean gradient across the Aortic Valve is 44.18mmHg / 24.59mmHg. Mild mitral annular calcification present. Moderate mitral regurgitation is present. Mild tricuspid regurgitation present. The right ventricular systolic pressure, as measured by Doppl er, is 50.21mmHg. There is no pulmonic regurgitation present. The aortic root size is normal. There is no pericardial effusion. CONCLUSIONS -------- 1. Undetermined rhythm. 2. This was a techncally difficult study with suboptimal views, , Lumason utilized for enhancement of images. 3. The left ventricular size is normal. 4. Left ventricular wall thickness is normal. 5. Overall left ventricular systolic function is moderately impaired with, an EF between 35 - 40 %. 6. The LV end diastolic pressure is elevated 16.82. 7. Inferior Hypokinesis 8. Posterior Hypokinesis. 9. The right ventricle is normal in size. 10. The left atrium is moderately dilated. 11. LA is moderately dilated 34-39 ml/m2 12. The right atrial size is normal. 13. 5.0mg OF Lumason UTLIZED: 2 OR MORE WALL SEGMENTS NOT VISUALIZED. 14. There is slthekpg-[id number] aortic stenosis present. 15. Peak/mean gradient across the Aortic Valve is 44.18mmHg / 24.59mmHg. 16. Mild mitral annular calcification present. 17. Moderate mitral regurgitation is present. 18. Mild tricuspid regurgitation present. 19. The right ventricular systolic pressure, as measured by Doppler, is 50.21mmHg. 20. There is no pulmonic regurgitation present. 21. The aortic root size is normal. 22. There is no pericardial effusion. JUNIOR SALES ASSISTANT: Eva Wray RDCS
--- NOTE | 2019-02-04 13:51 | P.CNPUL ---
History of Present Illness Consult date: 02/04/19 Reason for consult: dyspnea Chief complaint: Shortness of breath History of present illness: 68-year-old male patient presented to the hospital because of worsening shortness of breath. He is known to have coronary artery disease. He is undergone bypass surgery. His last cardiac catheterization from May 2018 showed patent GARCIA to LAD, stenosis in the OM1 and total occlusion of the RCA and the patient underwent stenting of the OM1. The patient also has peripheral vascular disease, abdominal aortic and resume with previous endovascular stent grafting, hypertension, hyperlipidemia, recovered artery disease and COPD. Is a chronic smoker. He came in with worsening shortness of breath. Exertional dyspnea. Increased lower extremity edema. His BNP level was elevated. Cardiac enzymes were negative. Chest x-ray was consistent with CHF. He was started in IV Lasix. 40 mg of IV Lasix every 8 hours. Clinically feeling much better. No angina. No palpitation. No chest pain. No home oxygen. Does not utilize any form of respiratory medications or inhalers on outpatient basis. Clinically improving. No other significant events for now. Review of Systems Constitutional: Reports fatigue, Reports weight gain Eyes: denies as per HPI, denies blurred vision, denies bulging eye, denies decreased vision, denies diplopia, denies discharge, denies dry eye, denies irritation, denies itching, denies pain, denies photophobia, denies loss of peripheral vision, denies loss of vision, denies tunnel vision/blind spots Ears: deny: decreased hearing, ear discharge, earache, tinnitus Ears, nose, mouth and throat: Denies headache, Denies sore throat Breasts: absent: as per HPI, gynecomastia Cardiovascular: Reports decreased exercise tolerance, Reports dyspnea on exertion, Reports shortness of breath Respiratory: Reports dyspnea Gastrointestinal: Reports as per HPI Genitourinary: Reports as per HPI Musculoskeletal: Reports as per HPI Musculoskeletal: bilateral: ankle swelling, absent: ankle pain, ankle stiffness Integumentary: Reports as per HPI, Reports darkening of skin, Denies pruritus, Denies rash Neurological: Reports as per HPI Psychiatric: Reports as per HPI Endocrine: Reports as per HPI Hematologic/Lymphatic: Reports as per HPI Allergic/Immunologic: Reports as per HPI Past Medical History Past Medical History: Coronary Artery Disease (CAD), Chest Pain / Angina, COPD, Diabetes Mellitus, Hyperlipidemia, Hypertension, Myocardial Infarction (SD), Osteoarthritis (OA), Vascular Disorder Additional Past Medical History / Comment(s): steroids October 2018,KIDNEY STONES. hx aneurysm abdominal Last Myocardial Infarction Date:: 2005? History of Any Multi-Drug Resistant Organisms: None Reported Past Surgical History: Coronary Bypass/CABG, Heart Catheterization, Heart Catheterization With Stent, Orthopedic Surgery Additional Past Surgical History / Comment(s): RT ROTATOR CUFF REPAIR. CABG (2005 & 2007) BYPASS X2. STENTS X2 IN PAST, ABD ANEURYSM REPAIR WITH STENT, LT CAROTID ENDARTERECTOMY. lithotripsy. STATES STENT TO LEFT LEG, Cardiac cath 2018. stents to right SFA november 2018 Past Anesthesia/Blood Transfusion Reactions: No Reported Reaction Date of Last Stent Placement:: 2018 Past Psychological History: No Psychological Hx Reported Smoking Status: Current every day smoker Past Alcohol Use History: None Reported Additional Past Alcohol Use History / Comment(s): Current pack a day smoker Past Drug Use History: None Reported - Past Family History Father Family Medical History: Deep Vein Thrombosis (DVT), Myocardial Infarction (SD) Medications and Allergies Home Medications Medication Instructions Recorded Confirmed Type Furosemide [Lasix] 40 mg PO BID 06/27/18 02/03/19 History Simvastatin 40 mg PO DAILY 06/27/18 02/03/19 History Aspirin 81 mg PO DAILY #30 chew 06/29/18 02/03/19 Rx Clopidogrel [Plavix] 75 mg PO DAILY #30 tab 06/29/18 02/03/19 Rx Nitroglycerin Sl Tabs [Nitrostat] 0.4 mg SUBLINGUAL Q5M PRN #25 tab 06/29/18 02/03/19 Rx Allergies Allergy/AdvReac Type Severity Reaction Status Date / Time No Known Allergies Allergy Verified 02/03/19 16:51 Physical Exam Vitals: Vital Signs Temp Pulse Pulse Resp BP BP Pulse Ox 02/04/19 12:53 76 02/04/19 12:44 74 02/04/19 11:15 98.3 F 82 20 103/56 92 L 02/04/19 09:00 78 02/04/19 08:49 74 87 L 02/04/19 08:11 97.7 F 77 16 96/58 94 L 02/04/19 04:05 98.2 F 78 18 92/53 98 02/04/19 04:00 77 19 02/03/19 23:51 83 19 02/03/19 20:00 80 19 02/03/19 19:55 97.9 F 80 19 88/51 96 02/03/19 19:49 72 02/03/19 19:39 61 94 L 02/03/19 18:58 74 18 109/55 97 02/03/19 16:51 98.2 F 72 18 141/84 99 02/03/19 16:45 20 02/03/19 16:32 77 18 110/70 02/03/19 15:56 72 18 108/63 99 02/03/19 14:01 97.2 F L 82 18 96/64 97 Intake and Output 02/03/19 02/04/19 02/04/19 22:59 06:59 14:59 Intake Total 360 Output Total 750 400 425 Balance -750 -400 -65 Intake: Oral 360 Output: Urine 750 400 425 Other: Voiding Method Toilet Toilet Toilet Urinal # Voids 2 1 Weight 74.843 kg 67.4 kg The patient appeared well nourished and normally developed. Vital signs as documented. Head exam is unremarkable. No scleral icterus or corneal arcus noted. Neck is without jugular venous distension, thyromegaly, or carotid bruits. Carotid upstrokes are brisk bilaterally. Lungs are are diminished bilaterally along with some few crackles at lung bases.. Cardiac exam reveals the PMI to be normally sized and situated. Rhythm is regular. First and second heart sounds normal. There is a harsh systolic ejection murmur radiating to the neck typical of an aortic stenosis type of murmur grade 4/6., rubs or gallops. Abdominal exam reveals normal bowel sounds, no masses, no organomegaly and no aortic enlargement. Extremities are nonedematous and both femoral and pedal pulses are normal.Examination of the skin revealed no evidence of significant rashes, suspicious appearing nevi or other concerning lesions. Neurologically the patient is awake and alert and there is no focal neurological deficits. Results - Laboratory Findings CBC and BMP: 02/04/19 06:25 02/04/19 06:25 PT/INR, D-dimer PT 11.5 sec (9.0-12.0) 02/03/19 14:30 INR 1.1 (<1.2) 09/06/19 14:30 Abnormal lab findings: Abnormal Labs 02/03/19 02/03/19 02/03/19 14:30 14:30 20:08 RBC Hgb 11.7 L Hct 38.6 L MCHC 30.2 L RDW 16.2 H Lymphocytes # Carbon Dioxide 33 H Creatinine 0.58 L Glucose 227 H POC Glucose (mg/dL) 179 H Total Protein 5.6 L Albumin 3.4 L 02/04/19 02/04/19 02/04/19 06:06 06:25 06:25 RBC 4.23 L Hgb 11.9 L Hct 38.5 L MCHC 30.9 L RDW 16.7 H Lymphocytes # 0.6 L Carbon Dioxide 33 H Creatinine Glucose 253 H POC Glucose (mg/dL) 258 H Total Protein Albumin 02/04/19 11:35 RBC Hgb Hct MCHC RDW Lymphocytes # Carbon Dioxide Creatinine Glucose POC Glucose (mg/dL) 439 H Total Protein Albumin - Diagnostic Findings Chest x-ray: image reviewed Assessment and Plan Plan: 1 acute exacerbation of chronic systolic heart failure. The patient has come in with exertional dyspnea, orthopnea, elevated BNP and pulmonary vascular nazanin estion and the patient responded nicely to diuretics. ProBNP level was elevated at time of admission. Doubt any significant COPD exacerbation at this point in time 2 systolic heart failure with an ejection fraction of 35-40% 3 moderate to severe aortic stenosis 4 moderate mitral regurgitation 5 COPD 6 peripheral vascular disease 7 coronary artery disease with previous coronary artery bypass surgery and previous stenting of OM1 and the patient has a patent GARCIA to LAD and total occlusion of the RCA. 8 hours ago aneurysm with a previous endovascular stent grafting 9 Carotid artery diseasewith previous left carotid endarterectomy 10 nephrolithiasis with previous lithotripsy 11 diabetes mellitus 12 hypertension 3 hyperlipidemia 14 osteoarthritis Plan Agree on the current treatment. This continued IV Solu-Medrol. Clinically improving with diuresis. Optimize CHF. Echo was noted. We'll continue to follow.
[2019-02-04 15:10] VITALS: BMI 21.3
[2019-02-04] MEDS ORDERED: methylPREDNISolone SOD SUCCI 40 MG/ML 1 ML VIAL IV SCH (16:00)
[2019-02-04 16:57] LABS: Glucose,Whole Blood 372 mg/dL (75-99)
[2019-02-04] MEDS ORDERED: INSULIN REGULAR BOLUS (FROM DRIP BAG) IV ONE (18:42)
[2019-02-04 18:43] LABS: Glucose,Whole Blood 364 mg/dL (75-99)
[2019-02-04] MEDS ORDERED: INSULIN REGULAR 100 UNIT in SODIUM CHLORIDE 0.9% 100 ML IV SCH (18:45)
[2019-02-04 19:44] LABS: Glucose,Whole Blood 318 mg/dL (75-99)
[2019-02-04 21:16] LABS: Glucose,Whole Blood 219 mg/dL (75-99)
--- NOTE | 2019-02-04 21:40 | PN ---
PROGRESS NOTE DATE OF SERVICE: 02/04/2019. This 68-year-old gentleman who was admitted with chest pain, shortness of breath, also had CHF acute exacerbation and also had possible chronic obstructive pulmonary disease acute exacerbation also. The patient being closely monitored at this time. Cardiology and pulmonology following the patient closely. A 2D echo with Doppler showed ejection fraction 35% to 40 percent with hypokinesis of the smith also. The patient also had moderate mitral regurgitation. PAST MEDICAL HISTORY: Reviewed. REVIEW OF SYSTEMS: CARDIOVASCULAR SYSTEM: No angina or palpitations. RESPIRATIONS: As mentioned earlier. GI: As mentioned earlier. : No dysuria. CENTRAL NERVOUS SYSTEM: No numbness or weakness. CURRENT MEDICATIONS: Reviewed and include: 1. Tower 5 mg q.6h p.r.n. 2. DuoNeb q.i.d. and p.r.n. 3. Aspirin 81 mg. 4. Lipitor 20 mg. 5. Symbicort 160/4.5 two puffs b.i.d. 6. Plavix 75 mg. 7. Lasix 40 mg IV daily. 8. Heparin 5000 subcu b.i.d. 9. Dilaudid 0.5 q.6 hours. 10.NovoLog. 11.Nitrostat. 12.Protonix 40 mg. 13.Restoril 15 mg q.h.s. p.r.n. PHYSICAL EXAM: Patient is alert and oriented times three. Pulse 86, blood pressure 109/62, respiration 18, temperature 97.8, pulse ox 98% on 2 L. HEENT: Conjunctivae normal. NECK: No JVD. CARDIOVASCULAR: S1, S2. RESPIRATIONS: Breath sounds diminished in the bases. Bilateral scattered rhonchi and crackles. Expiratory wheezing also present. ABDOMEN: Soft, nontender. No mass palpable. LEGS No edema. No swelling. NERVOUS SYSTEM: Higher functions as mentioned earlier. Moves all four limbs. No focal deficits. LYMPHATICS: No lymph nodes palpable in the neck, axillae or groin. SKIN: No ulcer. No rash. No bleeding. JOINTS: No active deforming arthropathy. LABS: WBC 6.2, hemoglobin 11.9, glucose 439 and 372. ASSESSMENT: 1. Shortness of breath, multifactorial with congestive heart failure acute exacerbation with acute on chronic systolic dysfunction, ejection fraction 35-40 percent, as well as chronic obstructive pulmonary disease acute exacerbation with acute purulent tracheobronchitis. 2. Diabetes type 2, uncontrolled with hyperglycemia. 3. Anemia, normocytic anemia of chronic disease. 4. History of coronary artery disease, coronary artery bypass grafting stent. 5. History of diabetes type 2. 6. Hypertension. 7. History of myocardial infarction. 8. History of degenerative joint disease. 9. History of peripheral vascular disease. 10.History of nephrolithiasis. 11.History of abdominal aortic aneurysm. 12.History of nicotine dependence, continued ongoing. RECOMMENDATIONS AND DISCUSSION: Recommend to continue current medications, monitoring, symptomatic treatment. Otherwise, at this time, I recommend to continue the combination of diuretics and as well as bronchodilators. Patient improved significantly. Closely follow with multiple consultants. I would also recommend insulin drip at this time because of the significantly elevated blood sugars. Further recommendations to follow. MMMAEGANL / JOSEPHN: [id number] /
[2019-02-04 23:07] LABS: Glucose,Whole Blood 124 mg/dL (75-99)
[2019-02-05 06:25] LABS: Glucose,Whole Blood 204 mg/dL (75-99)
[2019-02-05 06:31] LABS: African American GFR (CKD) >90 (>60 ml/min/1.73 sqM); Anion Gap 5 mmol/L; Blood Urea Nitrogen 25 mg/dL (9-20); Calcium 8.5 mg/dL (8.4-10.2); Carbon Dioxide 36 mmol/L (22-30); Chloride 97 mmol/L (98-107); Glucose 158 mg/dL (74-99); Potassium 4.1 mmol/L (3.5-5.1); Sodium 138 mmol/L (137-145)
[2019-02-05] MEDS: INSULIN ASPART (NovoLOG) 100 UNIT/ML VIAL SQ SCH ×4 (06:46→21:01)
[2019-02-05] MEDS: PANTOPRAZOLE 40 MG TABLET PO SCH (06:46)
[2019-02-05] MEDS: IPRATROPIUM-ALBUTEROL 3 ML NEB INHALATION SCH ×3 (08:29→20:29)
[2019-02-05] MEDS: SYMBICORT 160-4.5 MCG INHALER INHALATION SCH ×2 (08:30→20:32)
[2019-02-05] MEDS: HEPARIN SODIUM,PORCINE 5,000 UNIT/ML 1 ML VIAL SQ SCH ×2 (08:57→21:01)
[2019-02-05] MEDS: ATORVASTATIN 20 MG TAB PO SCH (08:57)
[2019-02-05] MEDS: ASPIRIN 81 MG PO SCH (08:57)
[2019-02-05] MEDS: CLOPIDOGREL 75 MG TAB PO SCH (08:57)
[2019-02-05] MEDS: FUROSEMIDE 10 MG/ML 4 ML VIAL IV SCH ×3 (08:57→21:00)
[2019-02-05 10:32] LABS: Anisocytosis Slight; Basophils # (A) 0.1 k/uL (0-0.2); Basophils % (A) 1 %; Eosinophils # (A) 0.1 k/uL (0-0.7); Eosinophils % (A) 1 %; HCT 38.1 % (39.0-53.0); HGB 11.7 gm/dL (13.0-17.5); Hypochromasia Marked; Lymphocytes # (A) 1.2 k/uL (1.0-4.8); Lymphocytes % (A) 12 %; MCH 27.9 pg (25.0-35.0); MCHC 30.7 g/dL (31.0-37.0); MCV 90.8 fL (80.0-100.0); Mean Platelet Volume 9.5; Monocytes # (A) 0.5 k/uL (0-1.0); Monocytes % (A) 5 %; Neutrophils # (A) 7.9 k/uL (1.3-7.7); Neutrophils % (A) 80 %; Platelet Count 205 k/uL (150-450); RDW 17.4 % (11.5-15.5); WBC 9.9 k/uL (3.8-10.6)
[2019-02-05 11:53] LABS: Glucose,Whole Blood 240 mg/dL (75-99)
--- NOTE | 2019-02-05 12:44 | P.PN ---
Subjective Progress Note Date: 02/05/19 68-year-old male patient presented to the hospital because of worsening shortness of breath. He is known to have coronary artery disease. He is undergone bypass surgery. His last cardiac catheterization from May 2018 showed patent GARCIA to LAD, stenosis in the OM1 and total occlusion of the RCA and the patient underwent stenting of the OM1. The patient also has peripheral vascular disease, abdominal aortic and resume with previous endovascular stent grafting, hypertension, hyperlipidemia, recovered artery disease and COPD. Is a chronic smoker. He came in with worsening shortness of breath. Exertional dyspnea. Increased lower extremity edema. His BNP level was elevated. Cardiac enzymes were negative. Chest x-ray was consistent with CHF. He was started in IV Lasix. 40 mg of IV Lasix every 8 hours. Clinically feeling much better. No angina. No palpitation. No chest pain. No home oxygen. Does not utilize any form of respiratory medications or inhalers on outpatient basis. Clinically improving. No other significant events for now. On 02/05/2019 the patient is feeling better and the patient is less short of breath. No significant cough or sputum production. No chest tightness. No wheezing. Lower extremity edema is improving. No altered mentation. Echo of the heart was noted and the patient has moderate to severe aortic stenosis in addition to mitral regurgitation. The function is also mild in the past. The electrolytes all within normal limits. The BUN is 25 with a creatinine of 0.7. The patient remains on IV Lasix 40 mg every 8 hours. Adequate urine output. Objective - Vital Signs Vital signs: Vital Signs Temp 97.9 F 02/05/19 10:55 Pulse 86 02/05/19 10:55 Resp 18 02/05/19 10:55 BP 99/65 02/05/19 10:55 Pulse Ox 98 02/05/19 10:55 Intake & Output 02/04/19 02/05/19 02/05/19 18:59 06:59 18:59 Intake Total 800 487.6 230 Output Total 1075 300 300 Balance -275 187.6 -70 Weight 67.4 kg 66.5 kg Intake: Intake, IV Titration 7.6 Amount Insulin Regular 100 unit 7.6 In Sodium Chloride 0.9% 100 ml @ Titrate IV .Q0M [facility] Rx#:[id number] Oral 800 480 230 Output: Urine 1075 300 300 Other: Voiding Method Toilet Toilet Toilet Urinal Urinal Urinal # Voids 1 4 1 - Exam The patient appeared well nourished and normally developed. Vital signs as documented. Head exam is unremarkable. No scleral icterus or corneal arcus noted. Neck is without jugular venous distension, thyromegaly, or carotid bruits. Carotid upstrokes are brisk bilaterally. Lungs are are diminished bilaterally along with some few crackles at lung bases.. Cardiac exam reveals the PMI to be normally sized and situated. Rhythm is regular. First and second heart sounds normal. There is a harsh systolic ejection murmur radiating to the neck typical of an aortic stenosis type of murmur grade 4/6., rubs or gallops. Abdominal exam reveals normal bowel sounds, no masses, no organomegaly and no aortic enlargement. Extremities are nonedematous and both femoral and pedal p ulses are normal.Examination of the skin revealed no evidence of significant rashes, suspicious appearing nevi or other concerning lesions. Neurologically the patient is awake and alert and there is no focal neurological deficits. - Labs CBC & Chem 7: 02/05/19 05:59 02/05/19 05:59 Labs: Abnormal Lab Results - Last 24 Hours (Table) 02/04/19 02/04/19 02/04/19 Range/Units 16:36 18:40 19:43 RBC (4.30-5.90) m/uL Hgb (13.0-17.5) gm/dL Hct (39.0-53.0) % MCHC (31.0-37.0) g/dL RDW (11.5-15.5) % Neutrophils # (1.3-7.7) k/uL Chloride (98-107) mmol/L Carbon Dioxide (22-30) mmol/L BUN (9-20) mg/dL Glucose (74-99) mg/dL POC Glucose (mg/dL) 372 H 364 H 318 H (75-99) mg/dL 02/04/19 02/04/19 02/05/19 Range/Units 21:14 23:05 05:59 RBC 4.20 L (4.30-5.90) m/uL Hgb 11.7 L (13.0-17.5) gm/dL Hct 38.1 L (39.0-53.0) % MCHC 30.7 L (31.0-37.0) g/dL RDW 17.4 H (11.5-15.5) % Neutrophils # 7.9 H (1.3-7.7) k/uL Chloride (98-107) mmol/L Carbon Dioxide (22-30) mmol/L BUN (9-20) mg/dL Glucose (74-99) mg/dL POC Glucose (mg/dL) 219 H 124 H (75-99) mg/dL 02/05/19 02/05/19 02/05/19 Range/Units 05:59 06:24 11:50 RBC (4.30-5.90) m/uL Hgb (13.0-17.5) gm/dL Hct (39.0-53.0) % MCHC (31.0-37.0) g/dL RDW (11.5-15.5) % Neutrophils # (1.3-7.7) k/uL Chloride 97 L (98-107) mmol/L Carbon Dioxide 36 H (22-30) mmol/L BUN 25 H (9-20) mg/dL Glucose 158 H (74-99) mg/dL POC Glucose (mg/dL) 204 H 240 H (75-99) mg/dL Assessment and Plan Plan: 1 acute exacerbation of chronic systolic heart failure. The patient has come in with exertional dyspnea, orthopnea, elevated BNP and pulmonary vascular congestion and the patient responded nicely to diuretics. ProBNP level was elevated at time of admission. Doubt any significant COPD exacerbation at this point in time 2 systolic heart failure with an ejection fraction of 35-40% 3 moderate to severe aortic stenosis 4 moderate mitral regurgitation 5 COPD 6 peripheral vascular disease 7 coronary artery disease with previous coronary artery bypass surgery and previous stenting of OM1 and the patient has a patent GARCIA to LAD and total occlusion of the RCA. 8 hours ago aneurysm with a previous endovascular stent grafting 9 Carotid artery diseasewith previous left carotid endarterectomy 10 nephrolithiasis with previous lithotripsy 11 diabetes mellitus 12 hypertension 3 hyperlipidemia 14 osteoarthritis Plan Agree on the current treatment. The IV Solu Medrol has been discontinued. Continue diuretics for another 24 hours. Clinically improving. Cardiology is on the case. We'll continue to follow.
--- NOTE | 2019-02-05 13:08 | P.PN ---
Subjective Progress Note Date: 02/05/19 This is a 68-year-old gentleman who follows regularly with Dr. Ni in the office. He has a known history of coronary artery disease with prior bypass surgery, in May 2018 he underwent a cardiac catheterization which revealed severe triple-vessel coronary artery disease with a patent GARCIA to the LAD, critical disease involving the OM 1 and a chronic total occlusion of the RCA, at that point he underwent successful stenting of the OM with good angiographic results. Patient also has significant history of PAD and PVD with multiple other procedures, AAA with prior stent graft, hypertension, hyperlipidemia, carotid disease, he has smoked for several years but states that he recently quit smoking. He presents to the hospital on this occasion with symptoms of shortness of breath of approximately one week duration. He also noticed lower extremity swelling. Blood pressure this morning 96/50 with a heart rate in the 70s, 94% on 2 L of oxygen. White blood cell count 6.3, hemoglobin 11.9, platelet count 195. Sodium 139, potassium 4.8, BUN 19 and creatinine 0.6. Troponin 0.021 with a BNP level 4100. Patient was initiated on IV Lasix, diuresing well overall. At the time of my examination this morning, patient still feels mildly short of breath, he states he feels tired, swelling in his legs is significantly improved from admission here. 02/04/2019 Patient was seen and examined this morning, overall he is feeling significantly better but continues to have he did have a run of nonsustained ventricular tachycardia noted on the monitor. White blood cell count 9.9, hemoglobin 11.7, platelet count 205. Sodium 138, potassium 4.1, BUN 25 and creatinine 0.7. Magnesium level is 1.9. We will continue current dose of IV Lasix, obtain a repeat chest x-ray in the morning. Objective - Vital Signs Vital signs: Vital Signs Temp 97.9 F 02/05/19 10:55 Pulse 86 02/05/19 10:55 Resp 18 02/05/19 10:55 BP 99/65 02/05/19 10:55 Pulse Ox 98 02/05/19 10:55 Intake & Output 02/04/19 02/05/19 02/05/19 18:59 06:59 18:59 Intake Total 800 487.6 230 Output Total 1075 300 300 Balance -275 187.6 -70 Weight 67.4 kg 66.5 kg Intake: Intake, IV Titration 7.6 Amount Insulin Regular 100 unit 7.6 In Sodium Chloride 0.9% 100 ml @ Titrate IV .Q0M [facility] Rx#:[id number] Oral 800 480 230 Output: Urine 1075 300 300 Other: Voiding Method Toilet Toilet Toilet Urinal Urinal Urinal # Voids 1 4 1 - Exam PHYSICAL EXAMINATION: GENERAL: 68-year-old gentleman in no acute distress at the time of my examination HEENT: Head is atraumatic, normocephalic. Pupils equal, round. Sclera anicteric. Conjunctiva are clear. Mucous membranes of the mouth are moist. Neck is supple. There is no elevated jugular venous pressure. Bilateral carotid bruit is heard. HEART EXAMINATION: Heart S1 S2 1 systolic ejection murmur is heard. CHEST EXAMINATION: lungs reveal improvement in air exchange with scattered fine wheezing throughout ABDOMEN: Soft, nontender. Bowel sounds are heard. No organomegaly noted. EXTREMITIES: 2+ peripheral pulses with trace to 1+ evidence of peripheral edema and no calf tenderness noted. NEUROLOGIC patient is awake, alert and oriented - Labs CBC & Chem 7: 02/05/19 05:59 02/05/19 05:59 Labs: Abnormal Lab Results - Last 24 Hours (Table) 02/04/19 02/04/19 02/04/19 Range/Units 16:36 18:40 19:43 RBC (4.30-5.90) m/uL Hgb (13.0-17.5) gm/dL Hct (39.0-53.0) % MCHC (31.0-37.0) g/dL RDW (11.5-15.5) % Neutrophils # (1.3-7.7) k/uL Chloride (98-107) mmol/L Carbon Dioxide (22-30) mmol/L BUN (9-20) mg/dL Glucose (74-99) mg/dL POC Glucose (mg/dL) 372 H 364 H 318 H (75-99) mg/dL 02/04/19 02/04/19 02/05/19 Range/Units 21:14 23:05 05:59 RBC 4.20 L (4.30-5.90) m/uL Hgb 11.7 L (13.0-17.5) gm/dL Hct 38.1 L (39.0-53.0) % MCHC 30.7 L (31.0-37.0) g/dL RDW 17.4 H (11.5-15.5) % Neutrophils # 7.9 H (1.3-7.7) k/uL Chloride (98-107) mmol/L Carbon Dioxide (22-30) mmol/L BUN (9-20) mg/dL Glucose (74-99) mg/dL POC Glucose (mg/dL) 219 H 124 H (75-99) mg/dL 02/05/19 02/05/19 02/05/19 Range/Units 05:59 06:24 11:50 RBC (4.30-5.90) m/uL Hgb (13.0-17.5) gm/dL Hct (39.0-53.0) % MCHC (31.0-37.0) g/dL RDW (11.5-15.5) % Neutrophils # (1.3-7.7) k/uL Chloride 97 L (98-107) mmol/L Carbon Dioxide 36 H (22-30) mmol/L BUN 25 H (9-20) mg/dL Glucose 158 H (74-99) mg/dL POC Glucose (mg/dL) 204 H 240 H (75-99) mg/dL Assessment and Plan Plan: Assessment and plan #1 systolic congestive heart failure acute on chronic #2 known history of coronary artery disease with prior bypass surgery 2 in 2005, patient underwent stenting of the proximal LAD in 1998 prior to that, in May of this year patient underwent successful stenting of the OM1, #3history of PAD and PVD with multiple procedures, history of AAA with stent graft #4 hypertension #5 hyperlipidemia #6 COPD #7 nicotine dependence, although patient states over the past couple of weeks that he has quit smoking Plan Echocardiogram with Doppler study revealed an ejection fraction of 35-40% with evidence of inferior posterior hypokinesia, moderate mitral regurgitation. We will continue with current dose of IV Lasix, repeat chest x-ray in the morning. DNP note has been reviewed, I agree with a documented findings and plan of care. Patient was seen and examined.
[2019-02-05 16:37] LABS: Glucose,Whole Blood 138 mg/dL (75-99)
--- NOTE | 2019-02-05 18:28 | XR ---
EXAMINATION TYPE: XR chest 1V portable DATE OF EXAM: 02/05/2019 COMPARISON: 02/03/2019 HISTORY: Heart failure TECHNIQUE: Single frontal view of the chest is obtained. FINDINGS: Heart is enlarged. There is mild pulmonary congestion. There is blunting of costophrenic a ngles. There are sternal wires. There are chest leads. IMPRESSION: Mild heart failure with increased pleural fluid compared to last exam.
--- NOTE | 2019-02-05 19:59 | PN ---
PROGRESS NOTE DATE OF SERVICE: 02/05/2019 This 68-year-old gentleman who was admitted with shortness of breath, possibly multifactorial, CHF acute exacerbation as well as COPD, is improving significantly. No chest pain. No palpitations. No fever. EXAM: Alert and oriented x3. Pulse 79, blood pressure 101/69, respiration 18, temperature 98.2, pulse ox 100 percent on 2 L. HEENT: Conjunctivae normal. Oral mucosa moist. NECK: No jugular venous distention. No lymph node enlargement. CARDIOVASCULAR: S1, S2. RESPIRATORY: Diminished breath sounds at the bases. Bilateral scattered rhonchi, no crackles. ABDOMEN: Soft, nontender. LEGS: No swelling. NERVOUS SYSTEM: No focal deficits. LAB STUDIES: WBC 9.2, hemoglobin 11.7, sodium 130, potassium 4.1. ASSESSMENT: 1. Shortness of breath, multifactorial with congestive heart failure acute exacerbation with acute on chronic systolic dysfunction, ejection fraction 35-40 percent, as well as chronic obstructive pulmonary disease acute exacerbation with acute purulent tracheobronchitis. 2. Diabetes mellitus type 2, uncontrolled with hyperglycemia. 3. Anemia, normocytic anemia of chronic disease. 4. History of coronary artery disease, coronary artery bypass graft, stent. 5. History of diabetes mellitus type 2. 6. Hypertension. 7. History of myocardial infarction. 8. History of degenerative joint disease. 9. History of peripheral vascular disease. 10.History of nephrolithiasis. 11.History of abdominal aortic aneurysm. 12.History of nicotine dependence, continued, ongoing. RECOMMENDATIONS AND DISCUSSION: Recommend to continue current medications, continue symptomatic treatment. Otherwise, I recommend continue with diuretics which we will change it to p.o. diuretics and I would also recommend repeat chest x-ray. Continue to monitor. Further recommendations to follow. See orders for further details. MMODL / IJN: [id number] /
[2019-02-05 21:00] LABS: Glucose,Whole Blood 127 mg/dL (75-99)
[2019-02-06 06:31] LABS: Anisocytosis Slight; Basophils % (A) 0 %; Eosinophils # (A) 0.2 k/uL (0-0.7); Eosinophils % (A) 2 %; HGB 11.9 gm/dL (13.0-17.5); Hypochromasia Marked; Lymphocytes # (A) 1.7 k/uL (1.0-4.8); Lymphocytes % (A) 19 %; MCH 27.4 pg (25.0-35.0); MCHC 30.6 g/dL (31.0-37.0); MCV 89.4 fL (80.0-100.0); Mean Platelet Volume 8.2; Monocytes # (A) 0.5 k/uL (0-1.0); Monocytes % (A) 5 %; Neutrophils # (A) 6.6 k/uL (1.3-7.7); Neutrophils % (A) 72 %; Platelet Count 221 k/uL (150-450); RBC 4.36 m/uL (4.30-5.90); RDW 16.2 % (11.5-15.5); WBC 9.1 k/uL (3.8-10.6)
[2019-02-06 06:41] LABS: Glucose,Whole Blood 215 mg/dL (75-99)
[2019-02-06] MEDS: INSULIN ASPART (NovoLOG) 100 UNIT/ML VIAL SQ SCH ×4 (06:56→20:56)
[2019-02-06] MEDS: PANTOPRAZOLE 40 MG TABLET PO SCH (06:56)
[2019-02-06 07:11] LABS: African American GFR (CKD) >90 (>60 ml/min/1.73 sqM); Anion Gap 7 mmol/L; Blood Urea Nitrogen 25 mg/dL (9-20); Calcium 8.6 mg/dL (8.4-10.2); Carbon Dioxide 39 mmol/L (22-30); Chloride 94 mmol/L (98-107); Glucose 178 mg/dL (74-99); Potassium 4.3 mmol/L (3.5-5.1); Sodium 140 mmol/L (137-145)
--- NOTE | 2019-02-06 07:47 | XR ---
EXAMINATION TYPE: XR chest 2V DATE OF EXAM: 02/06/2019 COMPARISON: Chest x-ray from yesterday and older studies. HISTORY: History of COPD, [place], coronary artery disease and CHF with shortness of breath TECHNIQUE: Frontal and lateral views of the chest are obtained. FINDINGS: Overlying sternal wires and mediastinal clips from CABG procedure are redemonstrated. Ther e is stable mild cardiomegaly. There are stable small bilateral pleural effusions right slightly larg er than left with associated bibasilar atelectasis and/or infiltrate. Upper lungs remain clear withou t pneumothorax. Multilevel spurring of thoracic spine. Stent graft in the abdominal aorta is noted. IMPRESSION: Findings consistent with CHF exacerbation redemonstrated as there is cardiomegaly with sm all bilateral pleural effusions and associated bibasilar atelectasis and/or infiltrate. No significan t change from one day earlier.
[2019-02-06] MEDS: FUROSEMIDE 10 MG/ML 4 ML VIAL IV SCH ×3 (09:09→23:23)
[2019-02-06] MEDS: ATORVASTATIN 20 MG TAB PO SCH (09:10)
[2019-02-06] MEDS: HEPARIN SODIUM,PORCINE 5,000 UNIT/ML 1 ML VIAL SQ SCH ×2 (09:10→20:57)
[2019-02-06] MEDS: CLOPIDOGREL 75 MG TAB PO SCH (09:10)
[2019-02-06] MEDS: ASPIRIN 81 MG PO SCH (09:10)
[2019-02-06] MEDS: SYMBICORT 160-4.5 MCG INHALER INHALATION SCH ×2 (10:34→19:21)
[2019-02-06] MEDS: IPRATROPIUM-ALBUTEROL 3 ML NEB INHALATION SCH ×3 (10:36→19:21)
[2019-02-06 11:45] LABS: Glucose,Whole Blood 177 mg/dL (75-99)
[2019-02-06 12:53] LABS: Hemoglobin A1C 7.5 % (4.0-6.0)
--- NOTE | 2019-02-06 13:52 | P.PN ---
Subjective Progress Note Date: 02/06/19 This is a 68-year-old gentleman who follows regularly with Dr. Ni in the office. He has a known history of coronary artery disease with prior bypass surgery, in May 2018 he underwent a cardiac catheterization which revealed severe triple-vessel coronary artery disease with a patent GARCIA to the LAD, critical disease involving the OM 1 and a chronic total occlusion of the RCA, at that point he underwent successful stenting of the OM with good angiographic results. Patient also has significant history of PAD and PVD with multiple other procedures, AAA with prior stent graft, hypertension, hyperlipidemia, carotid disease, he has smoked for several years but states that he recently quit smoking. He presents to the hospital on this occasion with symptoms of shortness of breath of approximately one week duration. He also noticed lower extremity swelling. Blood pressure this morning 96/50 with a heart rate in the 70s, 94% on 2 L of oxygen. White blood cell count 6.3, hemoglobin 11.9, platelet count 195. Sodium 139, potassium 4.8, BUN 19 and creatinine 0.6. Troponin 0.021 with a BNP level 4100. Patient was initiated on IV Lasix, diuresing well overall. At the time of my examination this morning, patient still feels mildly short of breath, he states he feels tired, swelling in his legs is significantly improved from admission here. 02/04/2019 Patient was seen and examined this morning, overall he is feeling significantly better but continues to have he did have a run of nonsustained ventricular tachycardia noted on the monitor. White blood cell count 9.9, hemoglobin 11.7, platelet count 205. Sodium 138, potassium 4.1, BUN 25 and creatinine 0.7. Magnesium level is 1.9. We will continue current dose of IV Lasix, obtain a repeat chest x-ray in the morning. 02/06/2019 was seen and examined this morning, he feels well, breathing is stable. Blood pressure 100/60 with a heart rate in the 80s. Blood cell count 9.1, hemoglobin 11.9, platelet count 221. Echocardiogram with Doppler study revealed an ejection fraction of 35-40%, moderate to severe aortic stenosis and moderate mitral regurgitation. Patient has been advised to undergo a TONO to assess the aortic valve. The risks and the benefits of the procedure were discussed with the patient in detail and he is willing to proceed. Objective - Vital Signs Vital signs: Vital Signs Temp 98.1 F 02/06/19 08:00 Pulse 87 02/06/19 12:00 Resp 20 02/06/19 12:00 BP 101/62 02/06/19 12:00 Pulse Ox 94 L 02/06/19 12:00 Intake & Output 02/05/19 02/06/19 02/06/19 18:59 06:59 18:59 Intake Total 812 180 712 Output Total 1300 1100 Balance -488 -920 712 Intake: Oral 812 180 712 Output: Urine 1300 1100 Other: Voiding Method Toilet Toilet Urinal Urinal # Voids 1 1 - Exam PHYSICAL EXAMINATION: GENERAL: 68-year-old gentleman in no acute distress at the time of my examination HEENT: Head is atraumatic, normocephalic. Pupils equal, round. Sclera anicteric. Conjunctiva are clear. Mucous membranes of the mouth are moist. Neck is supple. There is no elevated jugular venous pressure. Bilateral carotid bruit is heard. HEART EXAMINATION: Heart S1 S2 1 systolic ejection murmur is heard. CHEST EXAMINATION: lungs reveal improvement in air exchange with scattered fine wheezing throughout ABDOMEN: Soft, nontender. Bowel sounds are heard. No organomegaly noted. EXTREMITIES: 2+ peripheral pulses with trace to 1+ evidence of peripheral edema and no calf tenderness noted. NEUROLOGIC patient is awake, alert and oriented - Labs CBC & Chem 7: 02/06/19 05:48 02/06/19 05:48 Labs: Abnormal Lab Results - Last 24 Hours (Table) 02/05/19 02/05/19 02/05/19 Range/Units 05:59 16:31 20:58 Hgb (13.0-17.5) gm/dL MCHC (31.0-37.0) g/dL RDW (11.5-15.5) % Chloride (98-107) mmol/L Carbon Dioxide (22-30) mmol/L BUN (9-20) mg/dL Glucose (74-99) mg/dL POC Glucose (mg/dL) 138 H 127 H (75-99) mg/dL Hemoglobin A1c 7.5 H (4.0-6.0) % 02/06/19 02/06/19 02/06/19 Range/Units 05:48 05:48 06:39 Hgb 11.9 L (13.0-17.5) gm/dL MCHC 30.6 L (31.0-37.0) g/dL RDW 16.2 H (11.5-15.5) % Chloride 94 L (98-107) mmol/L Carbon Dioxide 39 H (22-30) mmol/L BUN 25 H (9-20) mg/dL Glucose 178 H (74-99) mg/dL POC Glucose (mg/dL) 215 H (75-99) mg/dL Hemoglobin A1c (4.0-6.0) % 02/06/19 Range/Units 11:44 Hgb (13.0-17.5) gm/dL MCHC (31.0-37.0) g/dL RDW (11.5-15.5) % Chloride (98-107) mmol/L Carbon Dioxide (22-30) mmol/L BUN (9-20) mg/dL Glucose (74-99) mg/dL POC Glucose (mg/dL) 177 H (75-99) mg/dL Hemoglobin A1c (4.0-6.0) % Assessment and Plan Plan: Assessment and plan #1 systolic congestive heart failure acute on chronic #2 known history of coronary artery disease with prior bypass surgery 2 in 2005, patient underwent stenting of the proximal LAD in 1998 prior to that, in May of this year patient underwent successful stenting of the OM1, #3history of PAD and PVD with multiple procedures, history of AAA with stent gra ft #4 hypertension #5 hyperlipidemia #6 COPD #7 nicotine dependence, although patient states over the past couple of weeks that he has quit smoking Plan Echocardiogram with Doppler study revealed an ejection fraction of 35-40% with evidence of inferior posterior hypokinesia, moderate mitral regurgitation, moderate to severe aortic stenosis. Patient will be scheduled tomorrow to undergo transesophageal echocardiographic study by Dr. Ni. DNP note has been reviewed, I agree with a documented findings and plan of care. Patient was seen and examined.
--- NOTE | 2019-02-06 14:25 | P.PN ---
Subjective Progress Note Date: 02/06/19 Principal diagnosis: Acute exacerbation of chronic systolic heart failure 68-year-old male patient presented to the hospital because of worsening shortness of breath. He is known to have coronary artery disease. He is undergone bypass surgery. His last cardiac catheterization from May 2018 showed patent GARCIA to LAD, stenosis in the OM1 and total occlusion of the RCA and the patient underwent stenting of the OM1. The patient also has peripheral vascular disease, abdominal aortic and resume with previous endovascular stent grafting, hypertension, hyperlipidemia, recovered artery disease and COPD. Is a chronic smoker. He came in with worsening shortness of breath. Exertional dyspnea. Increased lower extremity edema. His BNP level was elevated. Cardiac enzymes were negative. Chest x-ray was consistent with CHF. He was started in IV Lasix. 40 mg of IV Lasix every 8 hours. Clinically feeling much better. No angina. No palpitation. No chest pain. No home oxygen. Does not utilize any form of respiratory medications or inhalers on outpatient basis. Clinically improving. No other significant events for now. On 02/05/2019 the patient is feeling better and the patient is less short of breath. No significant cough or sputum production. No chest tightness. No wheezing. Lower extremity edema is improving. No altered mentation. Echo of the heart was noted and the patient has moderate to severe aortic stenosis in addition to mitral regurgitation. The function is also mild in the past. The electrolytes all within normal limits. The BUN is 25 with a creatinine of 0.7. The patient remains on IV Lasix 40 mg every 8 hours. Adequate urine output. On 02/06/2019 patient seen in follow-up on selective care unit. He is awake and alert, without any specific complaints, no shortness of breath, no cough, no congestion, no chest tightness. Sounds are clear, diminished at the bases, no rhonchi, no wheezing, no rales. Patient is on room air. Lower extremity edema has improved, room air pulse ox is 94%, patient is afebrile. Remains on IV Lasix, patient is in -1408 mL fluid balance over the last 24 hours. Objective - Vital Signs Vital signs: Vital Signs Temp 98.1 F 02/06/19 08:00 Pulse 87 02/06/19 12:00 Resp 20 02/06/19 12:00 BP 101/62 02/06/19 12:00 Pulse Ox 94 L 02/06/19 12:00 Intake & Output 02/05/19 02/06/19 02/06/19 18:59 06:59 18:59 Intake Total 812 180 712 Output Total 1300 1100 Balance -488 -920 712 Intake: Oral 812 180 712 Output: Urine 1300 1100 Other: Voiding Method Toilet Toilet Urinal Urinal # Voids 1 1 - Exam GENERAL EXAM: Alert, pleasant, 68-year-old white male on room air comfortable in no apparent distress. HEAD: Normocephalic/atraumatic. EYES: Normal reaction of pupils, equal size. Conjunctiva pink, sclera white. NOSE: Clear with pink turbinates. THROAT: No erythema or exudates. NECK: No masses, no JVD, no thyroid enlargement, no adenopathy. CHEST: No chest wall deformity. Symmetrical expansion. LUNGS: Equal air entry with no crackles, wheeze, rhonchi or dullness. CVS: Regular rate and rhythm, normal S1 and S2, no gallops, no murmurs, no rubs ABDOMEN: Soft, nontender. No hepatosplenomegaly, normal bowel sounds, no guarding or rigidity. EXTREMITIES: No clubbing, no edema, no cyanosis, 2+ pulses and upper and lower extremities. MUSCULOSKELETAL: Muscle strength and tone normal. SPINE: No scoliosis or deformity SKIN: No rashes CENTRAL NERVOUS SYSTEM: Alert and oriented -3. No focal deficits, tone is normal in all 4 extremities. PSYCHIATRIC: Alert and oriented -3. Appropriate affect. Intact judgment and insight. - Labs CBC & Chem 7: 02/06/19 05:48 02/06/19 05:48 Labs: Abnormal Lab Results - Last 24 Hours (Table) 02/05/19 02/05/19 02/05/19 Range/Units 05:59 16:31 20:58 Hgb (13.0-17.5) gm/dL MCHC (31.0-37.0) g/dL RDW (11.5-15.5) % Chloride (98-107) mmol/L Carbon Dioxide (22-30) mmol/L BUN (9-20) mg/dL Glucose (74-99) mg/dL POC Glucose (mg/dL) 138 H 127 H (75-99) mg/dL Hemoglobin A1c 7.5 H (4.0-6.0) % 02/06/19 02/06/19 02/06/19 Range/Units 05:48 05:48 06:39 Hgb 11.9 L (13.0-17.5) gm/dL MCHC 30.6 L (31.0-37.0) g/dL RDW 16.2 H (11.5-15.5) % Chloride 94 L (98-107) mmol/L Carbon Dioxide 39 H (22-30) mmol/L BUN 25 H (9-20) mg/dL Glucose 178 H (74-99) mg/dL POC Glucose (mg/dL) 215 H (75-99) mg/dL Hemoglobin A1c (4.0-6.0) % 02/06/19 Range/Units 11:44 Hgb (13.0-17.5) gm/dL MCHC (31.0-37.0) g/dL RDW (11.5-15.5) % Chloride (98-107) mmol/L Carbon Dioxide (22-30) mmol/L BUN (9-20) mg/dL Glucose (74-99) mg/dL POC Glucose (mg/dL) 177 H (75-99) mg/dL Hemoglobin A1c (4.0-6.0) % Assessment and Plan Plan: Assessment: 1 acute exacerbation of chronic systolic heart failure. The patient has come in with exertional dyspnea, orthopnea, elevated BNP and pulmonary vascular congestion and the patient responded nicely to diuretics. ProBNP level was elevated at time of admission. Doubt any significant COPD exacerbation at this point in time 2 systolic heart failure with an ejection fraction of 35-40% 3 moderate to severe aortic stenosis 4 moderate mitral regurgitation 5 COPD 6 peripheral vascular disease 7 coronary artery disease with previous coronary artery bypass surgery and p revious stenting of OM1 and the patient has a patent GARCIA to LAD and total occlusion of the RCA. 8 hours ago aneurysm with a previous endovascular stent grafting 9 Carotid artery diseasewith previous left carotid endarterectomy 10 nephrolithiasis with previous lithotripsy 11 diabetes mellitus 12 hypertension 3 hyperlipidemia 14 osteoarthritis Plan: Patient is breathing easier, no acute events overnight, no dyspnea, no complaints of chest pain, lower extremity edema is improving, echocardiogram results have been noted. Patient is on room air, vital signs are stable, patient's COPD is stable, from pulmonary perspective patient can be considered for discharge once cleared by cardiology. I performed a history & physical examination of the patient and discussed their management with my nurse practitioner, Vicenta Lamb. I reviewed the nurse practitioner's note and agree with the documented findings and plan of care. Lung sounds are positive for diminished breath sounds at the bases. The findings and the impression was discussed with the patient. I attest to the documentation by the nurse practitioner. Time with Patient: Less than 30
[2019-02-06 16:41] LABS: Glucose,Whole Blood 347 mg/dL (75-99)
--- NOTE | 2019-02-06 18:09 | PN ---
PROGRESS NOTE DATE OF SERVICE: 02/06/2019. This 68-year-old gentleman was admitted with shortness of breath, multifactorial, with CHF, acute exacerbation. The patient at this time The most recent chest x-ray was reviewed, which showed CHF exacerbation. The patient is being closely monitored. Symptomatically patient is much better, though. The patient also had inferior wall hypokinesis, moderate mitral regurgitation and moderate to severe aortic stenosis. Past medical history reviewed. REVIEW OF SYSTEMS: CARDIOVASCULAR SYSTEM: No angina, palpitations. RESPIRATORY SYSTEM: As mentioned earlier. GI: No nausea, vomiting. : No dysuria or retention. NERVOUS SYSTEM: No numbness, weakness. CURRENT MEDICATIONS: Reviewed. They include: 1. [place] 5 mg q.6 p.r.n. 2. DuoNeb q.i.d. and p.r.n. 3. Aspirin 81 mg daily. 4. Lipitor 20 mg daily. 5. Symbicort 160/4.5 two puffs b.i.d. 6. Plavix 75 mg p.o. daily. 7. Lasix 40 mg IV q.8. 8. Heparin 5000 units subcutaneously b.i.d. 9. Dilaudid 0.5 mg q.6 p.r.n. 10.NovoLog scale. 11.Nitrostat 0.4 sublingually p.r.n. 12.Protonix 40 mg with breakfast. 13.Restoril 15 mg at bedtime p.r.n. PHYSICAL EXAMINATION: Patient is alert, oriented x3. Pulse 87, blood pressure 101/62, respiration 20, temperature normal, pulse ox 94% on room air. HEENT: Conjunctivae normal. Oral mucosa moist. NECK: No jugular venous distention. No carotid bruit. No lymph node enlargement. CARDIOVASCULAR SYSTEM: S1, S2 muffled. RESPIRATORY SYSTEM: Breath sounds diminished at the bases. Bilateral scattered rhonchi and crackles. ABDOMEN: Soft, non-tender. LEGS: No edema. No swelling. NERVOUS SYSTEM: No focal deficit. LABS: WBC 9.1, hemoglobin 11.9, and glucose 215. ASSESSMENT: 1. Shortness of breath, multifactorial, with congestive heart failure, acute exacerbation, with acute on chronic systolic dysfunction, ejection fraction 35% to 40%, as well as chronic obstructive pulmonary disease, acute exacerbation, with acute purulent tracheobronchitis. 2. Moderate to severe aortic stenosis as well as moderate mitral regurgitation on the two-dimensional echocardiogram as well as inferior wall hypokinesis. 3. Diabetes mellitus, type 2, uncontrolled, with hyperglycemia. 4. Anemia, normocytic; anemia of chronic disease. 5. History of coronary artery disease, coronary artery bypass grafting, stent. 6. History of diabetes mellitus, type 2. 7. Hypertension. 8. History of myocardial infarction. 9. History of degenerative joint disease. 10.History of peripheral vascular disease. 11.History of nephrolithiasis. 12.History of abdominal aortic aneurysm. 13.History of nicotine dependence, continued and ongoing. RECOMMENDATIONS AND DISCUSSION: I recommend to continue current medications, continue with the monitoring, symptomatic treatment. Continue with the diuretics. Otherwise, I would closely follow with Cardiology and Nephrology. Guarded prognosis because of multiple complex medical issues. Further recommendations to follow. TONO per Dr. Malcolm is being recommended. MMODL / IJN: [id number] / [id number]
[2019-02-06 20:25] LABS: Glucose,Whole Blood 207 mg/dL (75-99)
[2019-02-07 06:34] LABS: Glucose,Whole Blood 163 mg/dL (75-99)
[2019-02-07 06:42] LABS: African American GFR (CKD) >90 (>60 ml/min/1.73 sqM); Anion Gap 10 mmol/L; Blood Urea Nitrogen 25 mg/dL (9-20); Calcium 8.8 mg/dL (8.4-10.2); Carbon Dioxide 36 mmol/L (22-30); Chloride 93 mmol/L (98-107); Glucose 154 mg/dL (74-99); Potassium 4.3 mmol/L (3.5-5.1); Sodium 139 mmol/L (137-145)
[2019-02-07] MEDS: INSULIN ASPART (NovoLOG) 100 UNIT/ML VIAL SQ SCH ×4 (06:51→20:21)
[2019-02-07] MEDS: PANTOPRAZOLE 40 MG TABLET PO SCH ×2 (06:51→12:28)
[2019-02-07] MEDS: IPRATROPIUM-ALBUTEROL 3 ML NEB INHALATION SCH ×3 (08:03→20:03)
[2019-02-07] MEDS: SYMBICORT 160-4.5 MCG INHALER INHALATION SCH ×2 (08:03→20:01)
[2019-02-07] MEDS ORDERED: fentaNYL (PF) 50 MCG/ML 2 ML AMP ONE (09:00)
[2019-02-07] MEDS: MIDAZOLAM (PF) 2 MG/2 ML VIAL IV ONE ×4 (09:35→09:54)
[2019-02-07] MEDS ORDERED: SODIUM CHLORIDE 0.9% 500 ML 500 ML IV ONE (09:35)
[2019-02-07] MEDS: fentaNYL (PF) 50 MCG/ML 2 ML AMP IV ONE ×2 (09:38→09:44)
--- NOTE | 2019-02-07 11:32 | ECHOT ---
TRANSESOPHAGEAL ECHOCARDIOGRAM DATE OF SERVICE: 02/07/2019 PERFORMING PHYSICIAN: Mor Malcolm MD, Travel Specialist. PROCEDURE PERFORMED: A transesophageal echocardiogram. INDICATION: This is a 68-year-old gentleman who was admitted to the hospital with heart failure and he was found to have aortic stenosis. There was a concern about severe aortic stenosis. Because of that, a transesophageal echocardiogram was advised. COMPLICATION: None. LEVEL OF SEDATION: Moderate with sedation length of 15 minutes. PROCEDURE DESCRIPTION: After obtaining an informed consent, the patient was brought to cardiac computer lab aide. A pulse oximetry and heart rate monitors were attached the patient. Subsequently, a bite guard was placed after the lidocaine was sprayed to his throat. Subsequently, with the patient was turned into left lateral position. After conscious sedation was performed, I did advance the transesophageal echocardiogram probe all the way to the mid esophageal. We did a 2D echocardiogram images, color Doppler images, as well as pulse and continuous-wave Doppler images. The procedure was completed without any complication. FINDINGS: The left ventricle appeared to be dilated. The left ventricular systolic function appeared to be impaired with EF around 35%-40%. The right ventricle appeared to be mildly dilated. The left atrium appeared to be dilated. The left atrial appendage appeared to be free from any thrombus. The interatrial septum appeared to be intact. The aortic valve is thickened and calcified, but seems to be trileaflet valve with evidence of moderate aortic stenosis with a mean gradient of 22 and peak of 44 mmHg. The mitral valve seems to be also thickened and calcified with moderate MR. There was mild tricuspid regurgitation and mild pulmonic insufficiency seen. CONCLUSION: 1. Impaired LV function with ejection fraction around 40% with global hypokinesia. 2. Dilated right ventricle with normal function. 3. Severe biatrial enlargement. 4. Intact interatrial septum without any evidence of shunt. 5. Normal left atrial appendage without any evidence of thrombus. 6. Trileaflet aortic valve with evidence of moderate aortic stenosis with a peak gradient of 44 and mean of 22 mmHg. Please note that aortic stenosis severity might be underestimated due to the impaired left ventricular function. 7. Thickened mitral valve leaflets with evidence of moderate mitral regurgitation. 8. Normal tricuspid valve and pulmonic valve. 9. No evidence of pericardial effusion. MMODL / IJN: [id number] /
[2019-02-07 11:51] LABS: Glucose,Whole Blood 191 mg/dL (75-99)
[2019-02-07] MEDS: HEPARIN SODIUM,PORCINE 5,000 UNIT/ML 1 ML VIAL SQ SCH ×2 (12:25→20:20)
[2019-02-07] MEDS: FUROSEMIDE 10 MG/ML 4 ML VIAL IV SCH (12:26)
[2019-02-07] MEDS: ATORVASTATIN 20 MG TAB PO SCH (12:28)
[2019-02-07] MEDS: ASPIRIN 81 MG PO SCH (12:28)
[2019-02-07] MEDS: CLOPIDOGREL 75 MG TAB PO SCH (12:28)
--- NOTE | 2019-02-07 15:04 | PN ---
PROGRESS NOTE DATE OF SERVICE: 02/07/2019 This is a 68-year-old gentleman who was admitted with CHF acute exacerbation, also had severe biatrial enlargement with moderate aortic stenosis which could be underestimated because of impaired LV function and thickened mitral valve with evidence of moderate mitral regurgitation by the TONO done by Cardiology. No chest pain. No palpitations. No fever at this time. PHYSICAL EXAM: Alert and oriented x3, pulse is 84, blood pressure 97/52, respiration 16, temperature 98 degrees, pulse ox 98% on room air. HEENT: Conjunctivae normal. NECK: No jugular venous distension. CARDIOVASCULAR SYSTEM: S1, S2, muffed. PULMONARY: Breath sounds diminished at the bases. A few scattered rhonchi, no crackles. ABDOMEN: Soft, nontender. LEGS: No edema, no swelling.. LABS: Accu-Cheks 163, 191. ASSESSMENT: 1. Congestive heart failure acute exacerbation with ejection fraction 35%-40% with acute on chronic systolic dysfunction. 2. Number moderate aortic stenosis with moderate mitral regurgitation the 2D echo in the TONO with inferior hypokinesis. 3. Number possible chronic obstructive pulmonary disease acute exacerbation with acute purulent tracheobronchitis. 4. Diabetes type 2, uncontrolled with hyperglycemia. 5. Anemia, normocytic anemia of chronic disease. 6. History of. 7. History of diabetes type 2. 8. Hypertension history of myocardial infarction. 9. History of degenerative joint disease. 10.History of peripheral vascular disease. 11.History of nephrolithiasis. 12.History of abdominal aortic aneurysm. 13.History of nicotine dependence, continued ongoing. RECOMMENDATIONS AND DISCUSSION: I recommend to continue current medications, management and symptomatic treatment. Otherwise, at this time I recommend continue with continue with current medications. Continue symptomatic treatment. Otherwise, I would recommend continue with diuretics cautiously with change in the diuretics to p.o. diuretics and then continue to monitor further recommendation: Present complication office most recent chest x-ray done yesterday showed some improvement. Further recommendations to follow. MMODL / IJN: [id number] /
[2019-02-07] MEDS: FUROSEMIDE 40 MG TAB PO SCH (16:14)
[2019-02-07 17:18] LABS: Glucose,Whole Blood 327 mg/dL (75-99)
[2019-02-07 20:20] LABS: Glucose,Whole Blood 166 mg/dL (75-99)
[2019-02-08 05:31] LABS: Anisocytosis Slight; Basophils # (A) 0.1 k/uL (0-0.2); Basophils % (A) 1 %; Eosinophils # (A) 0.2 k/uL (0-0.7); Eosinophils % (A) 2 %; HCT 42.5 % (39.0-53.0); HGB 12.9 gm/dL (13.0-17.5); Hypochromasia Marked; Lymphocytes # (A) 1.8 k/uL (1.0-4.8); Lymphocytes % (A) 21 %; MCH 27.1 pg (25.0-35.0); MCHC 30.3 g/dL (31.0-37.0); MCV 89.4 fL (80.0-100.0); Mean Platelet Volume 7.8; Monocytes # (A) 0.5 k/uL (0-1.0); Monocytes % (A) 5 %; Neutrophils % (A) 69 %; Platelet Count 243 k/uL (150-450); RBC 4.75 m/uL (4.30-5.90); RDW 16.2 % (11.5-15.5); WBC 8.7 k/uL (3.8-10.6)
[2019-02-08 05:41] LABS: African American GFR (CKD) >90 (>60 ml/min/1.73 sqM); Anion Gap 6 mmol/L; Blood Urea Nitrogen 26 mg/dL (9-20); Calcium 8.8 mg/dL (8.4-10.2); Carbon Dioxide 34 mmol/L (22-30); Chloride 97 mmol/L (98-107); Glucose 168 mg/dL (74-99); Potassium 4.2 mmol/L (3.5-5.1); Sodium 137 mmol/L (137-145)
[2019-02-08 05:54] LABS: Glucose,Whole Blood 193 mg/dL (75-99)
[2019-02-08] MEDS: INSULIN ASPART (NovoLOG) 100 UNIT/ML VIAL SQ SCH ×3 (06:13→14:13)
[2019-02-08] MEDS: ASPIRIN 81 MG PO SCH (07:37)
[2019-02-08] MEDS: FUROSEMIDE 40 MG TAB PO SCH ×2 (07:37→14:13)
[2019-02-08] MEDS: HEPARIN SODIUM,PORCINE 5,000 UNIT/ML 1 ML VIAL SQ SCH (07:37)
[2019-02-08] MEDS: CLOPIDOGREL 75 MG TAB PO SCH (07:37)
[2019-02-08] MEDS: ATORVASTATIN 20 MG TAB PO SCH (07:37)
[2019-02-08] MEDS: IPRATROPIUM-ALBUTEROL 3 ML NEB INHALATION SCH ×2 (09:06→13:07)
[2019-02-08] MEDS: SYMBICORT 160-4.5 MCG INHALER INHALATION SCH (09:06)
[2019-02-08 11:51] LABS: Glucose,Whole Blood 227 mg/dL (75-99)
[2019-02-08 12:14] VITALS: BP 108/72; PULSE 89; RESP 16; TEMP 98
--- NOTE | 2019-02-08 12:49 | DS ---
DISCHARGE SUMMARY DATE OF SERVICE: 02/08/2019. FINAL DIAGNOSES: 1. Congestive heart failure acute exacerbation with acute on chronic systolic dysfunction, ejection fraction 35% to 40%. 2. Moderate aortic stenosis with moderate mitral regurgitation with 2D echo on the TONO with inferior hypokinesis. 3. Possible chronic obstructive pulmonary disease acute exacerbation with acute purulent tracheobronchitis. 4. Diabetes mellitus type 2, uncontrolled with hyperglycemia. 5. Anemia, normocytic anemia of chronic disease. 6. History of diabetes mellitus type 2. 7. History of myocardial infarction. 8. Hypertension. 9. History of degenerative joint disease. 10.History of peripheral vascular disease. 11.History of nephrolithiasis. 12.History of abdominal aortic aneurysm. 13.History of nicotine dependence, continued ongoing. DISCHARGE DISPOSITION: The patient will be discharged in stable condition with guarded prognosis. Total time taken 35 minutes. Patient will be discharged after Cardiology clearance. HISTORY OF PRESENT ILLNESS: This 68-year-old gentleman with a past medical history of multiple medical problems admitted with CHF acute exacerbation. Patient treated with Lasix. Patient improved significantly. Further evaluation revealed moderate aortic stenosis as well as mitral regurgitation. TONO was done, but however, exact severity could not be assessed because of the poor LV function. The patient was recommended close outpatient followup and possibly intervention regarding the aortic stenosis if it is severe. On exam, vitals are stable. CARDIOVASCULAR: S1, S2, muffled. Ejection systolic murmurs. RESPIRATORY: A few scattered rhonchi. ABDOMEN: Soft. NERVOUS SYSTEM: No focal deficits. DISCHARGE ADVICE: 1. Diet is cardiac. 2. Activity limited until followup. 3. Follow up with Dr. Yao in 2 to 3 days. 4. Follow up with Dr. Malcolm as recommended. Medications are: 1. Lasix 40 mg p.o. b.i.d. 2. Aspirin 81 mg p.o. daily. 3. Lipitor 20 mg p.o. daily. 4. Nitrostat 0.4 sublingual p.r.n. 5. Plavix 75 mg p.o. daily. 6. ProAir 1 to 2 puffs q.6. 7. Symbicort 160/4.5 two puffs b.i.d. MMODL / IJN: [id number] /
--- NOTE | 2019-02-08 19:49 | PN ---
PROGRESS NOTE This patient was admitted with congestive cardiac failure, underwent transesophageal echocardiogram yesterday. Patient was found to be in moderate degree of aortic stenosis. Aortic valve area could not be measured. The patient also has a moderate degree of mitral regurgitation. He is feeling well. Denies any shortness of breath, orthopnea or PND. Heart rate is 89 per minute. Blood pressure is 108/72 mmHg. Patient's murmurs are unchanged. The patient is not exactly sure whether he wants to undergo any kind of intervention or procedure. The patient is going to be at high risk for any kind of procedure because of his diffuse peripheral vascular disease. The patient is going to be followed up by Dr. Malcolm in the office. He may need further evaluation with a dobutamine echocardiogram to assess the severity of the aortic stenosis. MMODL / IJN: [id number] /
== END 2019-02-08 15:00 | disposition home or self-care (01) | DRG 292 ==
LOC: EC 13:56 → 3SCARD 16:02 → INTOOBSV 16:02 → 3SCARD 18:16 → OBSVTOIN 02-04 15:44
PROVIDERS: ADMIT Hospitalist; ATTEND Hospitalist
PROC: B246ZZ4 Ultrasonography of Right and Left Heart, Transesophageal (ICD-10-PCS; principal; 2019-02-07 10:30)
DX: I11.0 Hypertensive heart disease with heart failure (principal); I47.2 Ventricular tachycardia; J44.1 Chronic obstructive pulmonary disease with (acute) exacerbation; I50.23 Acute on chronic systolic (congestive) heart failure; E11.51 Type 2 diabetes mellitus with diabetic peripheral angiopathy without gangrene; I25.82 Chronic total occlusion of coronary artery; E11.65 Type 2 diabetes mellitus with hyperglycemia; D63.8 Anemia in other chronic diseases classified elsewhere; E78.5 Hyperlipidemia, unspecified; F17.210 Nicotine dependence, cigarettes, uncomplicated; I08.0 Rheumatic disorders of both mitral and aortic valves; I25.10 Atherosclerotic heart disease of native coronary artery without angina pectoris; I25.2 Old myocardial infarction; M19.90 Unspecified osteoarthritis, unspecified site; N20.0 Calculus of kidney; J20.9 Acute bronchitis, unspecified; Z79.02 Long term (current) use of antithrombotics/antiplatelets; Z79.82 Long term (current) use of aspirin; Z79.899 Other long term (current) drug therapy; Z95.1 Presence of aortocoronary bypass graft; Z95.5 Presence of coronary angioplasty implant and graft; Z87.442 Personal history of urinary calculi; Z86.79 Personal history of other diseases of the circulatory system; Z82.49 Family history of ischemic heart disease and other diseases of the circulatory system
CPT/HCPCS: 36415; 71045; 71046; 80048; 80053; 81003; 83036; 83735; 83880; 84484; 85025; 85610; 85730; 93005; 93306; 93312; 93320; 93325; 94640; 94760; 96374; 99291

== ENCOUNTER 2019-10-05 09:21 | Inpatient (IN) | payer MEDICARE ==
[2019-10-05] MEDS ORDERED: SODIUM CHLORIDE 0.9% 1,000 ML IV STA (09:54)
[2019-10-05] MEDS ORDERED: ALBUTEROL HFA INHALER INHALATION STA (09:54)
[2019-10-05] MEDS ORDERED: methylPREDNISolone SOD SUCCI 125 MG/2 ML VIAL IV STA (09:54)
--- NOTE | 2019-10-05 10:01 | ED ---
SOB HPI - General Source: patient, RN notes reviewed, old records reviewed Mode of arrival: wheelchair Limitations: no limitations <Kim Mcqueen - Last Filed: 10/05/19 12:14> <Camron Somers - Last Filed: 10/05/19 12:27> - General Chief Complaint: Shortness of Breath Stated Complaint: SOB Time Seen by Provider: 10/05/19 09:31 - History of Present Illness Initial Comments: Patient is a 68-year-old male with history of CAD, CHF and COPD. He is a current smoker but quit over the past 3 days. He complains of worsening shortness of breath, initially productive cough for the past week. Patient states that he has had no fevers. He denies any history of exposed to positive COVID contacts. Patient denies any localized chest pain at this time. He reports is more difficult for him to breathe. Patient states that he has had no other complaints. (Kim Mcqueen) - Related Data Home Medications Medication Instructions Recorded Confirmed Furosemide [Lasix] 40 mg PO BID 06/27/18 02/03/19 Previous Rx's Medication Instructions Recorded Aspirin 81 mg PO DAILY #30 chew 06/29/18 Clopidogrel [Plavix] 75 mg PO DAILY #30 tab 06/29/18 Nitroglycerin Sl Tabs [Nitrostat] 0.4 mg SUBLINGUAL Q5M PRN #25 tab 06/29/18 Albuterol Sulfate [Proair Hfa] 1 - 2 puff INHALATION Q6HR PRN 30 02/08/19 Days #1 inhaler Atorvastatin [Lipitor] 20 mg PO DAILY 30 Days #30 tab 02/08/19 Budesonide-Formot 160-4.5 Mcg 2 puff INHALATION RT-BID 30 Days 02/08/19 [Symbicort 160-4.5 Mcg Inhaler] #1 puff Allergies Allergy/AdvReac Type Severity Reaction Status Date / Time No Known Allergies Allergy Verified 10/05/19 09:27 Review of Systems ROS Other: All systems not noted in ROS Statement are negative. <Kim Mcqueen - Last Filed: 10/05/19 12:14> ROS Other: All systems not noted in ROS Statement are negative. <Camron Somers - Last Filed: 10/05/19 12:27> ROS Statement: Those systems with pertinent positive or pertinent negative responses have been documented in the HPI. Past Medical History Past Medical History: Coronary Artery Disease (CAD), Chest Pain / Angina, COPD, Diabetes Mellitus, Hyperlipidemia, Hypertension, Myocardial Infarction ([place]), Osteoarthritis (OA), Vascular Disorder Additional Past Medical History / Comment(s): steroids October 2018,KIDNEY STONES. hx aneurysm abdominal Last Myocardial Infarction Date:: 2005? History of Any Multi-Drug Resistant Organisms: None Reported Past Surgical History: Coronary Bypass/CABG, Heart Catheterization, Heart Catheterization With Stent, Orthopedic Surgery Additional Past Surgical History / Comment(s): RT ROTATOR CUFF REPAIR. CABG (2005 & 2007) BYPASS X2. STENTS X2 IN PAST, ABD ANEURYSM REPAIR WITH STENT, LT CAROTID ENDARTERECTOMY. lithotripsy. STATES STENT TO LEFT LEG, Cardiac cath 2018. stents to right SFA november 2018 Past Anesthesia/Blood Transfusion Reactions: No Reported Reaction Date of Last Stent Placement:: 2018 Past Psychological History: No Psychological Hx Reported Smoking Status: Current every day smoker Past Alcohol Use History: None Reported Past Drug Use History: None Reported - Past Family History Father Family Medical History: Deep Vein Thrombosis (DVT), Myocardial Infarction ([place]) <Kim Mcqueen - Last Filed: 10/05/19 12:14> General Exam Limitations: no limitations General appearance: alert, in no apparent distress Head exam: Present: atraumatic, normocephalic, normal inspection Eye exam: Present: normal appearance, PERRL, EOMI. Absent: scleral icterus, conjunctival injection, periorbital swelling ENT exam: Present: normal exam, mucous membranes moist Neck exam: Present: normal inspection. Absent: tenderness, meningismus, lymphadenopathy Respiratory exam: Present: wheezes (upper lung long ), decreased breath sounds (Patient has diminished lung sounds over the right lower lung base.). Absent: normal lung sounds bilaterally, respiratory distress, rales, rhonchi, stridor Cardiovascular Exam: Present: regular rate, normal rhythm, normal heart sounds. Absent: systolic murmur, diastolic murmur, rubs, gallop, clicks GI/Abdominal exam: Present: soft, normal bowel sounds. Absent: distended, tenderness, guarding, rebound, rigid Extremities exam: Present: normal inspection, full ROM, normal capillary refill. Absent: tenderness, pedal edema, joint swelling, calf tenderness Back exam: Present: normal inspection Neurological exam: Present: alert, oriented X3, CN II-XII intact Psychiatric exam: Present: normal affect, normal mood Skin exam: Present: warm, dry, intact, normal color. Absent: rash <Kim Mcqueen - Last Filed: 10/05/19 12:14> - General Exam Comments Initial Comments: His is a 68-year-old male. Patient appears in mild for labored breathing. (Kim Mcqueen) Course Vital Signs 10/05/19 10/05/19 10/05/19 09:24 10:00 10:30 Temperature 97.6 F Pulse Rate 102 H 89 86 Respiratory 20 24 22 Rate Blood Pressure 112/79 112/76 97/71 O2 Sat by Pulse 98 Oximetry 10/05/19 10/05/19 11:00 11:30 Temperature Pulse Rate 90 93 Respiratory 19 23 Rate Blood Pressure 101/78 114/81 O2 Sat by Pulse Oximetry Medical Decision Making - Lab Data Result diagrams: 10/05/19 09:45 10/05/19 09:45 - Radiology Data Radiology results: report reviewed <AledavidKim - Last Filed: 10/05/19 12:14> - Lab Data Result diagrams: 10/05/19 09:45 10/05/19 09:45 <Camron Somers - Last Filed: 10/05/19 12:27> - Medical Decision Making Patient 68-year-old male with history of CHF, CAD, and COPD. He presents today with complaints of worsening difficulty breathing over the past week somewhat of a cough. Patient has no fever at this time. Covid testing is negative. Patient was lab work was reviewed. Evidence of an elevated troponin of 0.112, and elevated d-dimer of 4.1. Patient had a CT chest angio which is negative for PE. There is evidence of bilateral pleural effusion. BNP is mildly elevated to 2,800. At this time Patient will be admitted to the hospital, for CHF and likely COPD exacerbation as well. He was given solumedrol and albuterol treatment. At this time Patient was also started on low intensity heparin for elevated troponin area and he will be admitted this time with consult to cardiology. (Kim Mcqueen) Patient was reevaluated and reexamined by myself, Dr. Somers. I do agree with PA findings. This includes diagnostic interpretation and treatment plan. Case was discussed in detail with Dr. West, who will admit covering for hospital call. Patient states he has no [facility] care physician at this time. (Camron Somers) - Lab Data Lab Results 10/05/19 10/05/19 10/05/19 Range/Units 09:45 09:45 09:45 WBC 9.0 (3.8-10.6) k/uL RBC 4.89 (4.30-5.90) m/uL Hgb 13.7 (13.0-17.5) gm/dL Hct 44.5 (39.0-53.0) % MCV 91.0 (80.0-100.0) fL MCH 28.0 (25.0-35.0) pg MCHC 30.7 L (31.0-37.0) g/dL RDW 15.8 H (11.5-15.5) % Plt Count 182 (150-450) k/uL Neutrophils % 72 % Lymphocytes % 17 % Monocytes % 6 % Eosinophils % 2 % Basophils % 1 % Neutrophils # 6.4 (1.3-7.7) k/uL Lymphocytes # 1.5 (1.0-4.8) k/uL Monocytes # 0.6 (0-1.0) k/uL Eosinophils # 0.2 (0-0.7) k/uL Basophils # 0.1 (0-0.2) k/uL Hypochromasia Slight PT 10.4 (9.0-12.0) sec INR 1.0 (<1.2) APTT 24.3 (22.0-30.0) sec D-Dimer 4.13 H (<0.60) mg/L FEU Sodium 135 L (137-145) mmol/L Potassium 4.5 (3.5-5.1) mmol/L Chloride 95 L (98-107) mmol/L Carbon Dioxide 30 (22-30) mmol/L Anion Gap 10 mmol/L BUN 23 H (9-20) mg/dL Creatinine 0.66 (0.66-1.25) mg/dL Est GFR (CKD-EPI)AfAm >90 (>60 ml/min/1.73 sqM) Est GFR (CKD-EPI)NonAf >90 (>60 ml/min/1.73 sqM) Glucose 171 H (74-99) mg/dL Plasma Lactic Acid Eduin (0.7-2.0) mmol/L Calcium 8.9 (8.4-10.2) mg/dL Magnesium 2.0 (1.6-2.3) mg/dL Total Bilirubin 0.7 (0.2-1.3) mg/dL AST 17 (17-59) U/L ALT 13 (4-49) U/L Alkaline Phosphatase 115 (38-126) U/L Lactate Dehydrogenase 473 (313-618) U/L Troponin I (0.000-0.034) ng/mL C-Reactive Protein 49.7 H (<10.0) mg/L NT-Pro-B Natriuret Pep pg/mL Total Protein 7.0 (6.3-8.2) g/dL Albumin 4.0 (3.5-5.0) g/dL Coronavirus (PCR) (Not Detectd) 10/05/19 10/05/19 10/05/19 Range/Units 09:45 09:45 09:45 WBC (3.8-10.6) k/uL RBC (4.30-5.90) m/uL Hgb (13.0-17.5) gm/dL Hct (39.0-53.0) % MCV (80.0-100.0) fL MCH (25.0-35.0) pg MCHC (31.0-37.0) g/dL RDW (11.5-15.5) % Plt Count (150-450) k/uL Neutrophils % % Lymphocytes % % Monocytes % % Eosinophils % % Basophils % % Neutrophils # (1.3-7.7) k/uL Lymphocytes # (1.0-4.8) k/uL Monocytes # (0-1.0) k/uL Eosinophils # (0-0.7) k/uL Basophils # (0-0.2) k/uL Hypochromasia PT (9.0-12.0) sec INR (<1.2) APTT (22.0-30.0) sec D-Dimer (<0.60) mg/L FEU Sodium (137-145) mmol/L Potassium (3.5-5.1) mmol/L Chloride (98-107) mmol/L Carbon Dioxide (22-30) mmol/L Anion Gap mmol/L BUN (9-20) mg/dL Creatinine (0.66-1.25) mg/dL Est GFR (CKD-EPI)AfAm (>60 ml/min/1.73 sqM) Est GFR (CKD-EPI)NonAf (>60 ml/min/1.73 sqM) Glucose (74-99) mg/dL Plasma Lactic Acid Eduin 2.0 (0.7-2.0) mmol/L Calcium (8.4-10.2) mg/dL Magnesium (1.6-2.3) mg/dL Total Bilirubin (0.2-1.3) mg/dL AST (17-59) U/L ALT (4-49) U/L Alkaline Phosphatase (38-126) U/L Lactate Dehydrogenase (313-618) U/L Troponin I 0.112 H* (0.000-0.034) ng/mL C-Reactive Protein (<10.0) mg/L NT-Pro-B Natriuret Pep 2870 pg/mL Total Protein (6.3-8.2) g/dL Albumin (3.5-5.0) g/dL Coronavirus (PCR) (Not Detectd) 10/05/19 Range/Units 10:15 WBC (3.8-10.6) k/uL RBC (4.30-5.90) m/uL Hgb (13.0-17.5) gm/dL Hct (39.0-53.0) % MCV (80.0-100.0) fL MCH (25.0-35.0) pg MCHC (31.0-37.0) g/dL RDW (11.5-15.5) % Plt Count (150-450) k/uL Neutrophils % % Lymphocytes % % Monocytes % % Eosinophils % % Basophils % % Neutrophils # (1.3-7.7) k/uL Lymphocytes # (1.0-4.8) k/uL Monocytes # (0-1.0) k/uL Eosinophils # (0-0.7) k/uL Basophils # (0-0.2) k/uL Hypochromasia PT (9.0-12.0) sec INR (<1.2) APTT (22.0-30.0) sec D-Dimer (<0.60) mg/L FEU Sodium (137-145) mmol/L Potassium (3.5-5.1) mmol/L Chloride (98-107) mmol/L Carbon Dioxide (22-30) mmol/L Anion Gap mmol/L BUN (9-20) mg/dL Creatinine (0.66-1.25) mg/dL Est GFR (CKD-EPI)AfAm (>60 ml/min/1.73 sqM) Est GFR (CKD-EPI)NonAf (>60 ml/min/1.73 sqM) Glucose (74-99) mg/dL Plasma Lactic Acid Eduin (0.7-2.0) mmol/L Calcium (8.4-10.2) mg/dL Magnesium (1.6-2.3) mg/dL Total Bilirubin (0.2-1.3) mg/dL AST (17-59) U/L ALT (4-49) U/L Alkaline Phosphatase (38-126) U/L Lactate Dehydrogenase (313-618) U/L Troponin I (0.000-0.034) ng/mL C-Reactive Protein (<10.0) mg/L NT-Pro-B Natriuret Pep pg/mL Total Protein (6.3-8.2) g/dL Albumin (3.5-5.0) g/dL Coronavirus (PCR) Not Detected (Not Detectd) 10/05/19 10:28 EKG performed at 1020 and shows normal sinus rhythm nonspecific ST abnormality. Abnormal EKG. Ventricular rate of 84 bpm. Was 134 ms. QS duration is 94 ms. QT QTc is 366/402 ms. (Kim Mcqueen) - Radiology Data CXR consistent with congestive heart failure. Correlate clinically. No evidence for pulmonary some of this time. Small moderate bilateral pleural effusions with basilar compressive atelectasis or infiltrates. (Kim Mcqueen) Disposition Is patient prescribed a controlled substance at d/c from ED?: No Time of Disposition: 12:17 <Kim Mcqueen - Last Filed: 10/05/19 12:14> <Camron Somers - Last Filed: 10/05/19 12:27> Clinical Impression: CHF (congestive heart failure), COPD (chronic obstructive pulmonary disease), Elevated troponin Disposition: ADMITTED IP TO THIS HOSP Condition: Good Referrals: None,Stated [Primary Care Provider] - 1-2 days
[2019-10-05 10:16] LABS: Basophils # (A) 0.1 k/uL (0-0.2); Basophils % (A) 1 %; Eosinophils # (A) 0.2 k/uL (0-0.7); Eosinophils % (A) 2 %; HCT 44.5 % (39.0-53.0); HGB 13.7 gm/dL (13.0-17.5); Hypochromasia Slight; Lymphocytes # (A) 1.5 k/uL (1.0-4.8); Lymphocytes % (A) 17 %; MCHC 30.7 g/dL (31.0-37.0); Mean Platelet Volume 9.1; Monocytes # (A) 0.6 k/uL (0-1.0); Monocytes % (A) 6 %; Neutrophils # (A) 6.4 k/uL (1.3-7.7); Neutrophils % (A) 72 %; Platelet Count 182 k/uL (150-450); RBC 4.89 m/uL (4.30-5.90); RDW 15.8 % (11.5-15.5)
[2019-10-05 10:28] LABS: ALT 13 U/L (4-49); AST 17 U/L (17-59); African American GFR (CKD) >90 (>60 ml/min/1.73 sqM); Alkaline Phosphatase 115 U/L (38-126); Anion Gap 10 mmol/L; Blood Urea Nitrogen 23 mg/dL (9-20); Calcium 8.9 mg/dL (8.4-10.2); Carbon Dioxide 30 mmol/L (22-30); Chloride 95 mmol/L (98-107); Glucose 171 mg/dL (74-99); LDH 473 U/L (313-618); Non-African American GFR(CKD) >90 (>60 ml/min/1.73 sqM); Potassium 4.5 mmol/L (3.5-5.1); Sodium 135 mmol/L (137-145); Total Bilirubin 0.7 mg/dL (0.2-1.3)
[2019-10-05 10:36] LABS: Partial Thromboplastin Time 24.3 sec (22.0-30.0); Prothrombin Time 10.4 sec (9.0-12.0)
[2019-10-05 10:50] LABS: D-Dimer 4.13 mg/L FEU (<0.60)
--- NOTE | 2019-10-05 11:00 | XR ---
EXAMINATION TYPE: XR chest 1V portable DATE OF EXAM: 10/05/2019 HISTORY: Shortness of breath. COMPARISON: 02/06/2019 TECHNIQUE: Single view of the chest is submitted. FINDINGS: Demonstrated are scattered senescent parenchymal change. Bilateral pleural effusions small in size with basilar atelectasis or infiltrates. Cardiomegaly with pulmonary venous congestion. Hilar and mediastinal structures are within normal limits. Degenerative changes are seen of the dorsal spine. IMPRESSION: 1. Findings suggest congestive failure. Correlate clinically.
[2019-10-05] MEDS ORDERED: ASPIRIN 81 MG PO STA (11:06)
[2019-10-05 11:13] LABS: C Reactive Protein 49.7 mg/L (<10.0)
--- NOTE | 2019-10-05 11:56 | CT ---
EXAMINATION TYPE: CT chest angio for PE DATE OF EXAM: 10/05/2019 COMPARISON: HISTORY: Positive d-dimer CT DLP: 342.8 mGycm CONTRAST: CT chest with contrast and 3D reconstruction with MIP imaging is performed without and with IV Contra st, patient injected with 100 ml mL of Isovue 370. Contrast-enhanced CT of the chest was performed through the course of the pulmonary arteries with jocelin g and mediastinal window settings submitted. 3D reconstruction with MIP imaging was also performed. PULMONARY ARTERIES: The pulmonary arteries and their major tributaries are patent. I do not see james dence for sizable filling defect to suggest pulmonary embolic process. LUNGS: The lungs are clear and free of infiltrate. Small moderate bilateral pleural effusions with ba silar compressive atelectasis or infiltrates. MEDIASTINUM: There is evidence of cardiomegaly without overt failure. Thoracic aorta is ectatic and a theromatous. No evidence for mediastinal mass. No mediastinal lymph nodes greater than 1cm. HILAR STRUCTURES: No evidence for mass. No hilar lymph nodes greater than 1 cm. UPPER ABDOMEN: No significant abnormality is seen. IMPRESSION: 1. No evidence for Pulmonary embolism at this time. 2.Small moderate bilateral pleural effusions with basilar compressive atelectasis or infiltrates.
[2019-10-05] MEDS ORDERED: HEPARIN SODIUM,PORCINE 5,000 UNIT/ML 1 ML VIAL IV PRN (12:06)
[2019-10-05] MEDS ORDERED: HEPARIN SODIUM,PORCINE 5,000 UNIT/ML 1 ML VIAL IV ONE (12:06)
[2019-10-05] MEDS ORDERED: HEPARIN SOD,PORK IN 0.45% NACL 25,000 UNIT in 0.45% NACL 1 250ML.BAG IV SCH (12:15)
[2019-10-05] MEDS ORDERED: NITROGLYCERIN SL TABS 0.4 MG TAB SUBLINGUAL PRN (12:20)
[2019-10-05] MEDS ORDERED: SODIUM CHLORIDE 0.9% 250 ML IV ONE (12:45)
[2019-10-05] MEDS: SODIUM CHLORIDE 0.9% 250 ML IV SCH ×2 (15:24→15:26)
[2019-10-05] MEDS: FUROSEMIDE 10 MG/ML 4 ML VIAL IV SCH ×2 (15:35→20:18)
[2019-10-05] MEDS: NITROGLYCERIN OINT 1 INCH/GM PACKET TOPICAL SCH ×3 (15:35→21:20)
[2019-10-05 17:18] LABS: Ferritin 186.1 ng/mL (22.0-322.0)
--- NOTE | 2019-10-05 17:29 | P.HPIM ---
History of Present Illness H&P Date: 10/05/19 Chief Complaint: Shortness of breath 68-year-old male with PMH of diabetes, CHF, PAD, COPD presents the ED for shortness of breath. Patient reports worsening shortness of breath over the past week. Breathing is worsened with exertion. He also complains of a wet cough, unable to bring up sputum. A short reports severe orthopnea and states that he sleeps in a chair. He also reports some lower extremity edema. Patient reports smoking one half pack of cigarettes daily for a number of years. He denies any changes in diet or salt intake. He denies any headache, nausea or vomiting, fever or chills, chest pain, palpitations, changes in urination or bowel habits. No changes in appetite or weight. He denies any dizziness, numbness/weakness/tingling of the extremities. In the ED, his vital signs were stable with pulse of 102. CBC showed no leukocytosis or anemia. INR was negative. D-dimer was elevated at 4.13. CMP showed sodium 135, chloride 95, BUN 23, glucose 171. Lactic acid was negative. Troponin was 0.112, EKG showing normal sinus rhythm with T-wave abnormalities. CRP was 49.7. BNP was 2870. Coronavirus testing was negative. Chest x-ray showed findings of congestive heart failure. CTA chest was negative for PE but showed small moderate bilateral pleural effusion with atelectasis or infiltrates. Patient is admitted for anticipated greater than 48 hours admission for shortness of breath, probable CHF exacerbation, troponin elevation, possible pneumonia COVID. Review of Systems Pertinent positives and negatives as discussed in HPI, a complete review of systems was performed and all other systems are negative. Past Medical History Past Medical History: Coronary Artery Disease (CAD), Chest Pain / Angina, COPD, Diabetes Mellitus, Hyperlipidemia, Hypertension, Myocardial Infarction ([place]), Osteoarthritis (OA), Vascular Disorder Additional Past Medical History / Comment(s): steroids October 2018,KIDNEY STONES. hx aneurysm abdominal Last Myocardial Infarction Date:: 2005? History of Any Multi-Drug Resistant Organisms: None Reported Past Surgical History: Coronary Bypass/CABG, Heart Catheterization, Heart Catheterization With Stent, Orthopedic Surgery Additional Past Surgical History / Comment(s): RT ROTATOR CUFF REPAIR. CABG (2005 & 2007) BYPASS X2. STENTS X2 IN PAST, ABD ANEURYSM REPAIR WITH STENT, LT CAROTID ENDARTERECTOMY. lithotripsy. STATES STENT TO LEFT LEG, Cardiac cath 2018. stents to right SFA november 2018 Past Anesthesia/Blood Transfusion Reactions: No Reported Reaction Date of Last Stent Placement:: 2018 Past Psychological History: No Psychological Hx Reported Smoking Status: Current every day smoker Past Alcohol Use History: None Reported Additional Past Alcohol Use History / Comment(s): Current pack a day smoker Past Drug Use History: None Reported - Past Family History Father Family Medical History: Deep Vein Thrombosis (DVT), Myocardial Infarction ([place]) Medications and Allergies Home Medications Medication Instructions Recorded Confirmed Type Furosemide [Lasix] 40 mg PO BID 06/27/18 10/05/19 History Clopidogrel [Plavix] 75 mg PO DAILY #30 tab 06/29/18 10/05/19 Rx Nitroglycerin Sl Tabs [Nitrostat] 0.4 mg SUBLINGUAL Q5M PRN #25 tab 06/29/18 10/05/19 Rx Metoprolol Succinate (ER) [Toprol 12.5 mg PO DAILY 10/05/19 10/05/19 History Xl] Simvastatin [Zocor] 40 mg PO DAILY 10/05/19 10/05/19 History Spironolactone 12.5 mg PO DAILY 10/05/19 10/05/19 History Allergies Allergy/AdvReac Type Severity Reaction Status Date / Time No Known Allergies Allergy Verified 10/05/19 12:54 Physical Exam Vitals: Vital Signs Temp Pulse Pulse Resp BP BP Pulse Ox 10/05/19 16:00 97.8 F 89 16 85/54 93 L 10/05/19 13:30 91/59 10/05/19 12:39 97.7 F 79 92 16 84/60 94/55 94 L 10/05/19 11:30 93 23 114/81 10/05/19 11:00 90 19 101/78 10/05/19 10:30 86 22 97/71 10/05/19 10:00 89 24 112/76 10/05/19 09:24 97.6 F 102 H 20 112/79 98 Intake and Output 10/05/19 10/05/19 10/05/19 06:59 14:59 22:59 Intake Total 222 Balance 222 Intake: Oral 222 Other: Weight 67.132 kg General: [non toxic], [no distress on 2 L NC], [appears at stated age] Derm: [warm], [dry] Head: [atraumatic], [normocephalic], [symmetric] Eyes: [EOMI], [no lid lag], [anicteric sclera] Mouth: [no lip lesion], [mucus membranes moist] Cardiovascular: [S1S2 reg], [no murmur] Lungs: [Decreased breath sounds bilateral], [no rhonchi, no rales] , [no accessory muscle use] Abdominal: [soft], [ nontender to palpation], [no guarding], [no appreciable organomegaly] Ext: [no gross muscle atrophy], [1+ pitting lower extremity edema], [no contractures] Neuro: [ CN II-XI grossly intact], [no focal neuro deficits] Psych: [Alert], [oriented], [appropriate affect] Results CBC & Chem 7: 10/05/19 09:45 10/05/19 09:45 Labs: Abnormal Lab Results - Last 24 Hours (Table) 10/05/19 10/05/19 10/05/19 Range/Units 09:45 09:45 09:45 MCHC 30.7 L (31.0-37.0) g/dL RDW 15.8 H (11.5-15.5) % D-Dimer 4.13 H (<0.60) mg/L FEU Sodium 135 L (137-145) mmol/L Chloride 95 L (98-107) mmol/L BUN 23 H (9-20) mg/dL Glucose 171 H (74-99) mg/dL Troponin I (0.000-0.034) ng/mL C-Reactive Protein 49.7 H (<10.0) mg/L 10/05/19 10/05/19 Range/Units 09:45 16:01 MCHC (31.0-37.0) g/dL RDW (11.5-15.5) % D-Dimer (<0.60) mg/L FEU Sodium (137-145) mmol/L Chloride (98-107) mmol/L BUN (9-20) mg/dL Glucose (74-99) mg/dL Troponin I 0.112 H* 0.097 H* (0.000-0.034) ng/mL C-Reactive Protein (<10.0) mg/L Thrombosis Risk Factor Assmnt - Choose All That Apply Each Risk Factor Represents 2 Points: Age 61-74 years Thrombosis Risk Factor Assessment Total Risk Factor Score: 2 Thrombosis Risk Factor Assessment Level: Low Risk Assessment and Plan Assessment: Shortness of breath, likely related to systolic CHF exacerbation, severe aortic stenosis Elevated D-dimer Elevated Troponin Diabetes mellitus with hyperglycemia Smoker PAD 2018 echocardiogram shows EF 35-40% with hypokinetic wall motion, moderate to severe aortic stenosis. BNP 2870 with chest x-ray concerning for decompensated heart failure. Plans: Start Lasix 40 mg IV 3 times a day. Strict intake and output take. Daily weights. Telemetry monitoring. Follow-up echocardiogram. Restart metoprolol and Aldactone. Patient would likely benefit from MARTHA inhibitor. Follow-up cardiology consultation. Follow pro-calcitonin. D-dimer 4.13. CTA chest ruled out PE. CRP elevated. LDH normal. Liver enzymes normal. Plans: Repeat coronavirus testing. Continue heparin drip pending cardiology evaluation. Troponin 0.112, EKG showing normal sinus rhythm with T-wave abnormalities. Pl ans: Trend troponin/EKG to rule out ACS. Started on heparin drip from the ED. Continue aspirin, Lipitor and Plavix. Continue beta prasad. Jslib-fe-ulig glucose 171. Plans: Insulin sliding scale. Regular Accu-Cheks. Hypoglycemic precautions. Plans: Nicotine patch. Previous stenting by Dr. Ni. Plans: Continue aspirin, Lipitor and Plavix. Continue beta prasad. Follow PT recommendations. DVT prophylaxis: [Heparin] Discussed with: [Patient] Anticipated discharge: [2-3 days] Anticipated discharge place: [Home] A total of [45] minutes was spent on the care of this complex patient more than 50% of the time was spent in counseling and care coordination. Patient would like to be full code. He names his sons decision maker if he can't make decisions for himself.
[2019-10-05] MEDS ORDERED: ACETAMINOPHEN TAB 325 MG TAB PO PRN (17:32)
[2019-10-05] MEDS ORDERED: NALOXONE 0.4 MG/ML 1 ML VIAL IV PRN (17:32)
[2019-10-05] MEDS: HYDROcodone/APAP 5-325MG 1 EACH TAB PO PRN (20:18)
[2019-10-05] MEDS: NICOTINE 14MG/24HR PATCH TRANSDERM SCH (20:19)
[2019-10-05 21:15] LABS: Glucose,Whole Blood 456 mg/dL (75-99)
[2019-10-05] MEDS: INSULIN ASPART (NovoLOG) 100 UNIT/ML VIAL SQ SCH (21:20)
[2019-10-06 03:02] LABS: Basophils % (A) 0 %; Eosinophils % (A) 0 %; HCT 42.1 % (39.0-53.0); HGB 13.2 gm/dL (13.0-17.5); Hypochromasia Marked; Lymphocytes # (A) 0.7 k/uL (1.0-4.8); Lymphocytes % (A) 9 %; MCHC 31.4 g/dL (31.0-37.0); MCV 92.4 fL (80.0-100.0); Mean Platelet Volume 9.1; Monocytes # (A) 0.2 k/uL (0-1.0); Monocytes % (A) 3 %; Neutrophils % (A) 87 %; Platelet Count 190 k/uL (150-450); RBC 4.56 m/uL (4.30-5.90); RDW 15.3 % (11.5-15.5); WBC 8.1 k/uL (3.8-10.6)
[2019-10-06 03:22] LABS: ALT 15 U/L (4-49); AST 17 U/L (17-59); African American GFR (CKD) >90 (>60 ml/min/1.73 sqM); Albumin 3.6 g/dL (3.5-5.0); Alkaline Phosphatase 106 U/L (38-126); Anion Gap 10 mmol/L; Blood Urea Nitrogen 34 mg/dL (9-20); Calcium 8.9 mg/dL (8.4-10.2); Carbon Dioxide 32 mmol/L (22-30); Chloride 93 mmol/L (98-107); Cholesterol 145 mg/dL (<200); Glucose 318 mg/dL (74-99); HDL Cholesterol 39 mg/dL (40-60); LDL Cholesterol,Calculated 88 mg/dL (0-99); Magnesium 2.2 mg/dL (1.6-2.3); Non-African American GFR(CKD) >90 (>60 ml/min/1.73 sqM); Potassium 5.7 mmol/L (3.5-5.1); Sodium 135 mmol/L (137-145); Total Bilirubin 0.4 mg/dL (0.2-1.3); Total Protein 6.4 g/dL (6.3-8.2); Triglycerides 92 mg/dL (<150)
[2019-10-06 06:09] LABS: Glucose,Whole Blood 288 mg/dL (75-99)
[2019-10-06] MEDS: INSULIN ASPART (NovoLOG) 100 UNIT/ML VIAL SQ SCH ×4 (06:11→20:52)
[2019-10-06] MEDS: FUROSEMIDE 10 MG/ML 4 ML VIAL IV SCH ×2 (06:11→16:10)
[2019-10-06] MEDS: ATORVASTATIN 20 MG TAB PO SCH (08:16)
[2019-10-06] MEDS: CLOPIDOGREL 75 MG TAB PO SCH (08:17)
--- NOTE | 2019-10-06 08:21 | XR ---
EXAMINATION TYPE: XR chest 1V portable DATE OF EXAM: 10/06/2019 COMPARISON: 10/05/2019 HISTORY: Congestive heart failure TECHNIQUE: Single frontal view of the chest is obtained. FINDINGS: Cardiomediastinal silhouette is enlarged with post CABG change. Small left and trace right pleural effusions are seen with associated bibasilar airspace disease. There is diffuse osseous janis neralization. Very mild pulmonary vascular congestion. IMPRESSION: Similar cardiogenic fluid overload with small left and trace right pleural effusions and bibasilar probable atelectasis as well as mild pulmonary vascular congestion.
[2019-10-06] MEDS ORDERED: SPIRONOLACTONE 25 MG TAB PO SCH (09:00)
[2019-10-06] MEDS ORDERED: ASPIRIN 325 MG TAB PO SCH ×2 (09:00→12:23)
[2019-10-06] MEDS: NITROGLYCERIN OINT 1 INCH/GM PACKET TOPICAL SCH ×4 (10:27→19:40)
[2019-10-06] MEDS: SODIUM CHLORIDE 0.9% 250 ML IV SCH ×3 (10:33→10:35)
[2019-10-06] MEDS ORDERED: INSULIN REGULAR 100 UNIT/ML VIAL IV ONE (10:43)
--- NOTE | 2019-10-06 10:53 | ECHOF ---
Referral Reason:SOB, CHF MEASUREMENTS -------- HEIGHT: 167.6 cm WEIGHT: 67.1 kg BP: 95/61 RVIDd: 3.9 cm (< 3.3) IVSd: 1.2 cm (0.6 - 1.1) LVIDd: 5.0 cm (3.9 - 5.3) LVPWd: 1.3 cm (0.6 - 1.1) IVSs: 1.7 cm LVIDs: 4.6 cm LVPWs: 1.3 cm LAESV Index (A-L): 48.59 ml/m Ao Diam: 3.0 cm (2.0 - 3.7) AV Cusp: 1.1 cm (1.5 - 2.6) MV EXCURSION: 12.907 mm (> 18.000) MV EF SLOPE: 27 mm/s (70 - 150) AV maxP.43 mmHg AV meanP.64 mmHg RAP: 20.00 mmHg RVSP: 73.36 mmHg FINDINGS -------- Undetermined rhythm. This was a technically difficult study with suboptimal apical views. The left ventricular size is normal. There is mild concentric left ventricular hypertrophy. Overa ll left ventricular systolic function is severely impaired with, an EF between 20 - 25 %. Mitral Do ppler inflow pattern suggests diastolic filling abnormality {E/E'}. Global hypokinesis The right ventricle is mild to moderately enlarged. LA is severely dilated >40 ml/m2 The right atrium is mildly enlarged. 5.0mg of Lumason was utilized for enhancement of images Interatrial and interventricular septum intact. There is ufxdcikk-zf-xrjdds aortic stenosis present. Peak/mean gradient across the Aortic Valve is 34.43mmHg / 19.64mmHg. Anezvylb-rg-ygvfik mitral regurgitation is present. Moderate to severe tricuspid regurgitation present. There is severe pulmonary hypertension. The r ight ventricular systolic pressure, as measured by Doppler, is 73.36mmHg. There is no pulmonic regurgitation present. The aortic root size is normal. The inferior vena cava is dilated with poor inspiratory collapse which is consistent with estimated r ight atrial pressure of 20 mmHg. There is no pericardial effusion. CONCLUSIONS -------- 1. Undetermined rhythm. 2. This was a technically difficult study with suboptimal apical views. 3. The left ventricular size is normal. 4. There is mild concentric left ventricular hypertrophy. 5. Overall left ventricular systolic function is severely impaired with, an EF between 20 - 25 %. 6. Mitral Doppler inflow pattern suggest diastolic filling abnormality {E/E'}. 7. Global hypokinesis 8. The right ventricle is mild to moderately enlarged. 9. LA is severely dilated >40 ml/m2 10. The right atrium is mildly enlarged. 11. 5.0mg of Lumason was utilized for enhancement of images 12. Interatrial and interventricular septum intact. 13. There is pppnnwmw-vd-dixchl aortic stenosis present. 14. Peak/mean gradient across the Aortic Valve is 34.43mmHg / 19.64mmHg. 15. Pjueeijh-ik-wucopl mitral regurgitation is present. 16. Moderate to severe tricuspid regurgitation present. 17. There is severe pulmonary hypertension. 18. The right ventricular systolic pressure, as measured by Doppler, is 73.36mmHg. 19. There is no pulmonic regurgitation present. 20. The aortic root size is normal. 21. The inferior vena cava is dilated with poor inspiratory collapse which is consistent with estimat ed right atrial pressure of 20 mmHg. 22. There is no pericardial effusion. WEAPONS SPECIALIST: Olivia Perez RDCS
[2019-10-06 11:10] LABS: Glucose,Whole Blood 256 mg/dL (75-99)
--- NOTE | 2019-10-06 11:10 | P.CRDCN ---
History of Present Illness Consult date: 10/06/19 Consult reason: congestive heart failure Chief complaint: Shortness of breath, orthopnea History of present illness: This is a 68-year-old gentleman who follows with Dr. Ni in the office. He has a known history of coronary artery disease with prior bypass surgery, in May 2018 patient underwent a cardiac catheterization which revealed a patent GARCIA to the LAD, critical stenosis in the OM with stent placement at that time, TILE MOLDER of the RCA. Patient also has history of PAD, PVD, AAA with stent graft, hypertension, hyperlipidemia, nicotine dependence, COPD, diabetes, left carotid endarterectomy. He had an echocardiogram with Doppler study performed in January 2019 which revealed an ejection fraction of 35-40%, moderate to severe aortic stenosis with moderate mitral regurgitation. Subsequent to that he underwent a transesophageal echocardiographic study at the same time, which revealed an ejection fraction of 40%, moderate aortic stenosis and moderate mitral regurgitation. He presents to the hospital with symptoms of progressively worsening shortness of breath with orthopnea. Chest x-ray did felicia w evidence of congestive heart failure, CTA of the chest did not reveal any evidence for pulmonary embolism, it did show small bilateral pleural effusions. EKG showed normal sinus rhythm with no acute changes. Blood pressure 90/50 with a heart rate of 80, respirations 18, afebrile, 95% on 3 L of oxygen. White blood cell count 8.1, hemoglobin 15.2, platelet count 190, sodium 135, potassium 5.7, BUN 34, creatinine 0.8 slightly up from yesterday. Magnesium 2.2, troponin 0.11, 0.09, 0.07. BNP level 2870, pro calcitonin 0.07 and mattson virus not detected. Patient was seen in consultation by Dr. Enamorado, he had a lengthy discussion with the patient regarding the consideration for implantation of an AICD for which the patient agrees. At this point in time we will continue to diurese the patient, decrease the IV Lasix to daily 12 hourly, decrease his aspirin to 81 mg daily, continue metoprolol, discontinue Aldactone at this time because of the elevated potassium and obtain an echocardiogram with Doppler study. We will also make sure there are no EKG patches on the left pectoral area and this has been communicated with nursing staff and telemetry room staff. Past Medical History Past Medical History: Coronary Artery Disease (CAD), Chest Pain / Angina, COPD, Diabetes Mellitus, Hyperlipidemia, Hypertension, Myocardial Infarction ([place]), Osteoarthritis (OA), Vascular Disorder Additional Past Medical History / Comment(s): steroids October 2018,KIDNEY STONES. hx aneurysm abdominal Last Myocardial Infarction Date:: 2005? History of Any Multi-Drug Resistant Organisms: None Reported Past Surgical History: Coronary Bypass/CABG, Heart Catheterization, Heart Catheterization With Stent, Orthopedic Surgery Additional Past Surgical History / Comment(s): RT ROTATOR CUFF REPAIR. CABG (2005 & 2007) BYPASS X2. STENTS X2 IN PAST, ABD ANEURYSM REPAIR WITH STENT, LT CAROTID ENDARTERECTOMY. lithotripsy. STATES STENT TO LEFT LEG, Cardiac cath 2018. stents to right SFA november 2018 Past Anesthesia/Blood Transfusion Reactions: No Reported Reaction Date of Last Stent Placement:: 2018 Past Psychological History: No Psychological Hx Reported Smoking Status: Current every day smoker Past Alcohol Use History: None Reported Additional Past Alcohol Use History / Comment(s): Current pack a day smoker Past Drug Use History: None Reported - Past Family History Father Family Medical History: Deep Vein Thrombosis (DVT), Myocardial Infarction ([place]) Medications and Allergies Home Medications Medication Instructions Recorded Confirmed Type Furosemide [Lasix] 40 mg PO BID 06/27/18 10/05/19 History Clopidogrel [Plavix] 75 mg PO DAILY #30 tab 06/29/18 10/05/19 Rx Nitroglycerin Sl Tabs [Nitrostat] 0.4 mg SUBLINGUAL Q5M PRN #25 tab 06/29/18 10/05/19 Rx Metoprolol Succinate (ER) [Toprol 12.5 mg PO DAILY 10/05/19 10/05/19 History Xl] Simvastatin [Zocor] 40 mg PO DAILY 10/05/19 10/05/19 History Spironolactone 12.5 mg PO DAILY 10/05/19 10/05/19 History Allergies Allergy/AdvReac Type Severity Reaction Status Date / Time No Known Allergies Allergy Verified 10/05/19 12:54 Physical Exam Vitals: Vital Signs Temp Pulse Pulse Resp BP BP Pulse Ox 10/06/19 08:00 97.6 F 85 18 89/56 95 10/06/19 03:28 97.6 F 79 17 95/61 99 10/05/19 23:50 97.6 F 97 17 103/61 96 10/05/19 20:00 97.6 F 100 17 100/63 97 10/05/19 16:00 97.8 F 89 16 85/54 93 L 10/05/19 13:30 91/59 10/05/19 12:39 97.7 F 79 92 16 84/60 94/55 94 L 10/05/19 11:30 93 23 114/81 10/05/19 11:00 90 19 101/78 Intake and Output 10/05/19 10/06/19 10/06/19 22:59 06:59 14:59 Intake Total 282.286 74.686 Output Total 550 400 Balance -267.714 -325.314 Intake: Intake, IV Titration 60.286 74.686 Amount Heparin Sod,Pork in 0.45% 60.286 74.686 NaCl 25,000 unit In 0.45 % NaCl 1 250ml.bag @ 12 UNITS/KG/HR 8.056 mls/hr IV .Q24H [facility] Rx#: [id number] Oral 222 Output: Urine 550 400 Other: Voiding Method Urinal Urinal Urinal PHYSICAL EXAMINATION: GENERAL: 68-year-old gentleman in no acute distress at the time of examination HEENT: Head is atraumatic, normocephalic. Pupils equal, round. Sclera anicteric. Conjunctiva are clear. Mucous membranes of the mouth are moist. Neck is supple. There is no elevated jugular venous pressure. No carotid bruit is heard. Positive hepatojugular reflux HEART EXAMINATION: Heart S1, S2 a systolic murmur is heard . CHEST EXAMINATION: Lungs reveal diminished air entry to the bases bilaterally ABDOMEN: Soft, nontender. Bowel sounds are heard. No organomegaly noted. EXTREMITIES: 2+ peripheral pulses with evidence of peripheral edema and no calf tenderness noted. NEUROLOGIC patient is awake, alert and oriented 3 . . Results 10/06/19 02:27 10/06/19 02:27 Cardiac Enzymes 10/05/19 10/05/19 10/05/19 Range/Units 09:45 16:01 22:00 AST (17-59) U/L Troponin I 0.112 H* 0.097 H* 0.074 H* (0.000-0.034) ng/mL 10/06/19 Range/Units 02:27 AST 17 (17-59) U/L Troponin I (0.000-0.034) ng/mL Coagulation 10/05/19 10/06/19 10/06/19 Range/Units 18:57 02:27 10:11 APTT 30.0 30.4 H 39.8 H (22.0-30.0) sec Lipids 10/06/19 Range/Units 02:27 Triglycerides 92 (<150) mg/dL Cholesterol 145 (<200) mg/dL HDL Cholesterol 39 L (40-60) mg/dL CBC 10/06/19 Range/Units 02:27 WBC 8.1 (3.8-10.6) k/uL RBC 4.56 (4.30-5.90) m/uL Hgb 13.2 (13.0-17.5) gm/dL Hct 42.1 (39.0-53.0) % Plt Count 190 (150-450) k/uL Comprehensive Metabolic Panel 10/06/19 Range/Units 02:27 Sodium 135 L (137-145) mmol/L Potassium 5.7 H (3.5-5.1) mmol/L Chloride 93 L (98-107) mmol/L Carbon Dioxide 32 H (22-30) mmol/L BUN 34 H (9-20) mg/dL Creatinine 0.85 (0.66-1.25) mg/dL Glucose 318 H (74-99) mg/dL Calcium 8.9 (8.4-10.2) mg/dL AST 17 (17-59) U/L ALT 15 (4-49) U/L Alkaline Phosphatase 106 (38-126) U/L Total Protein 6.4 (6.3-8.2) g/dL Albumin 3.6 (3.5-5.0) g/dL Current Medications Generic Name Dose Route Start Last Admin Trade Name Freq PRN Reason Stop Dose Admin Acetaminophen 650 mg 10/05/19 17:32 Tylenol Tab PO Q6HR PRN Mild Pain or Fever > 100.5 Hydrocodone Bitart/Acetaminophen 1 each 10/05/19 17:32 10/05/19 20:18 Effie 5-325 PO 1 each Q4HR PRN Administration Moderate Pain Aspirin 81 mg 10/07/19 09:00 Aspirin PO DAILY MELONIE Atorvastatin Calcium 20 mg 10/06/19 09:00 10/06/19 08:16 Lipitor PO 20 mg DAILY MELONIE Administration Clopidogrel Bisulfate 75 mg 10/06/19 09:00 10/06/19 08:17 Plavix PO 75 mg DAILY MELONIE Administration Furosemide 40 mg 10/05/19 14:00 10/06/19 06:11 Lasix IV 40 mg Q8H MELONIE Administration Heparin Sodium (Porcine) 0 unit 10/05/19 12:06 Heparin IV PER PROTOCOL PRN Low PTT Protocol Insulin Aspart 0 unit 10/05/19 21:00 10/06/19 06:11 Novolog SQ 5 unit ACHS MELONIE Administration Protocol Metoprolol Succinate 12.5 mg 10/06/19 09:00 Toprol Xl PO DAILY MELONIE Naloxone HCl 0.2 mg 10/05/19 17:32 Narcan IV Q2M PRN Opioid Reversal Nicotine 1 patch 10/05/19 17:45 10/05/19 20:19 Habitrol 14mg/24hr Patch TRANSDERM 1 patch DAILY MELONIE Administration Nitroglycerin 0.4 mg 10/05/19 12:20 Nitrostat SUBLINGUAL Q5M PRN Chest Pain Nitroglycerin 0.5 inch 10/05/19 13:00 10/06/19 10:39 Nitro-Bid Oint TOPICAL Not Given QID MELONIE Intake and Output 10/05/19 10/06/19 10/06/19 22:59 06:59 14:59 Intake Total 282.286 74.686 Output Total 550 400 Balance -267.714 -325.314 Intake: Intake, IV Titration 60.286 74.686 Amount Heparin Sod,Pork in 0.45% 60.286 74.686 NaCl 25,000 unit In 0.45 % NaCl 1 250ml.bag @ 12 UNITS/KG/HR 8.056 mls/hr IV .Q24H [facility] Rx#: [id number] Oral 222 Output: Urine 550 400 Other: Voiding Method Urinal Urinal Urinal 10/06/19 02:27 10/06/19 02:27 EKG Interpretations (text) EKG shows normal sinus rhythm with no acute changes. 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 Discontinue the Aldactone because of the potassium of 5.7. Decrease aspirin to 81 mg daily. Continue diuresis, decreasing the dose of Lasix to 40 mg every [address] Enamorado did have a lengthy discussion with the patient regarding consideration for implantation of an AICD for which the patient agrees. EKG patches will be removed on the left pectoral area, this was communicated to the nursing staff and the staff in the telemetry room. We will continue to monitor the patient's intake and output along with daily weights and daily lytes BUN and creatinine. DNP note has been reviewed, I agree with a documented findings and plan of care. Patient was seen and examined.
[2019-10-06] MEDS ORDERED: DEXTROSE 50% SYRINGE 50 ML IVP STA (11:12)
[2019-10-06] MEDS: METOPROLOL SUCCINATE (ER) 25 MG TAB.ER.24H PO SCH (11:14)
[2019-10-06] MEDS: NICOTINE 14MG/24HR PATCH TRANSDERM SCH (11:25)
--- NOTE | 2019-10-06 11:59 | P.PN ---
Subjective Progress Note Date: 10/06/19 Principal diagnosis: CHF exacerbation Patient was seen and examined. No acute events overnight. Patient reports improvement in his breathing since admission. States that he is not quite back to baseline. He denies any chest pain or palpitations. No nausea or vomiting. No fever or chills. Chest x-ray this morning showing similar findings of cardiogenic fluid overload. Objective - Vital Signs Vital signs: Vital Signs Temp 97.6 F 10/06/19 08:00 Pulse 85 10/06/19 08:00 Resp 18 10/06/19 08:00 BP 89/56 10/06/19 08:00 Pulse Ox 95 10/06/19 08:00 Intake & Output 10/05/19 10/06/19 10/06/19 18:59 06:59 18:59 Intake Total 222 134.972 Output Total 950 Balance 222 -815.028 Weight 67.132 kg Intake: Intake, IV Titration 134.972 Amount Heparin Sod,Pork in 0.45% 134.972 NaCl 25,000 unit In 0.45 % NaCl 1 250ml.bag @ 12 UNITS/KG/HR 8.056 mls/hr IV .Q24H [facility] Rx#: [id number] Oral 222 Output: Urine 950 Other: Voiding Method Urinal Urinal - Exam General: [non toxic], [no distress on 3 L NC], [appears at stated age] Derm: [warm], [dry] Head: [atraumatic], [normocephalic], [symmetric] Eyes: [EOMI], [no lid lag], [anicteric sclera] Mouth: [no lip lesion], [mucus membranes moist] Cardiovascular: [S1S2 reg], [systolic murmur] Lungs: [Decreased breath sounds bilateral], [no rhonchi, no rales] , [no accessory muscle use] Abdominal: [soft], [ nontender to palpation], [no guarding], [no appreciable organomegaly] Ext: [no gross muscle atrophy], [1+ pitting lower extremity edema], [no contractures] Neuro: [no focal neuro deficits] Psych: [Alert], [oriented], [appropriate affect] - Labs CBC & Chem 7: 10/06/19 02:27 10/06/19 02:27 Labs: Abnormal Lab Results - Last 24 Hours (Table) 10/05/19 10/05/19 10/05/19 Range/Units 16:01 21:14 22:00 Lymphocytes # (1.0-4.8) k/uL APTT (22.0-30.0) sec Sodium (137-145) mmol/L Potassium (3.5-5.1) mmol/L Chloride (98-107) mmol/L Carbon Dioxide (22-30) mmol/L BUN (9-20) mg/dL Glucose (74-99) mg/dL POC Glucose (mg/dL) 456 H (75-99) mg/dL Troponin I 0.097 H* 0.074 H* (0.000-0.034) ng/mL HDL Cholesterol (40-60) mg/dL 10/06/19 10/06/19 10/06/19 Range/Units 02:27 02:27 02:27 Lymphocytes # 0.7 L (1.0-4.8) k/uL APTT 30.4 H (22.0-30.0) sec Sodium 135 L (137-145) mmol/L Potassium 5.7 H (3.5-5.1) mmol/L Chloride 93 L (98-107) mmol/L Carbon Dioxide 32 H (22-30) mmol/L BUN 34 H (9-20) mg/dL Glucose 318 H (74-99) mg/dL POC Glucose (mg/dL) (75-99) mg/dL Troponin I (0.000-0.034) ng/mL HDL Cholesterol 39 L (40-60) mg/dL 10/06/19 10/06/19 10/06/19 Range/Units 06:01 10:11 11:08 Lymphocytes # (1.0-4.8) k/uL APTT 39.8 H (22.0-30.0) sec Sodium (137-145) mmol/L Potassium (3.5-5.1) mmol/L Chloride (98-107) mmol/L Carbon Dioxide (22-30) mmol/L BUN (9-20) mg/dL Glucose (74-99) mg/dL POC Glucose (mg/dL) 288 H 256 H (75-99) mg/dL Troponin I (0.000-0.034) ng/mL HDL Cholesterol (40-60) mg/dL Assessment and Plan Assessment: Shortness of breath, likely related to systolic CHF exacerbation, severe aortic stenosis Hyperkalemia Elevated D-dimer Elevated Troponin Diabetes mellitus with hyperglycemia Smoker PAD 2018 echocardiogram shows EF 35-40% with hypokinetic wall motion, moderate to severe aortic stenosis. BNP 2870 with chest x-ray concerning for decompensated heart failure. Repeat echocardiogram shows EF 20-25% with mild concentric LVH with moderate to severe aortic stenosis. Pro-calcitonin negative. Plans: Lasix dosing decreased from 40 mg 3 times a day to twice a day IV. Strict intake and output take. Daily weights. Telemetry monitoring. Restart metoprolol and discontinue Aldactone due to hyperkalemia. Patient would likely benefit from MARTHA inhibitor. Follow-up cardiology consultation, plans for AICD placement. Potassium 5.7. Plans: D50 with 10 units of IV insulin. Discontinue Aldactone. Repeat potassium this afternoon. Telemetry monitoring. D-dimer 4.13. CTA chest ruled out PE. CRP elevated. LDH normal. Liver enzymes normal. Plans: Repeat coronavirus testing. Heparin drip discontinued. Troponin 0.112, 0.097, 0.074 EKG showing normal sinus rhythm with T-wave abnormalities. Plans: ACS ruled out. DC heparin drip. Continue aspirin, Lipitor and Plavix. Continue beta prasad. [id number] glucose 171. Plans: Insulin sliding scale. Regular Accu-Cheks. Hypoglycemic precautions. Plans: Nicotine patch. Previous stenting by Dr. Ni. Plans: Continue aspirin, Lipitor and Plavix. Continue beta prasad. Follow PT recommendations. [Patient currently being diuresed. Symptoms improving. Plans for AICD placement by cardiology. He is pending clinical improvement. Likely DC in 2-3 days.]
[2019-10-06 13:21] VITALS: BMI 23.8
[2019-10-06 14:13] LABS: Hemoglobin A1C 7.9 % (4.0-6.0)
[2019-10-06 16:11] LABS: Glucose,Whole Blood 279 mg/dL (75-99)
[2019-10-06 20:46] LABS: Glucose,Whole Blood 320 mg/dL (75-99)
[2019-10-07 01:58] LABS: Glucose,Whole Blood 157 mg/dL (75-99)
[2019-10-07] MEDS: HYDROcodone/APAP 5-325MG 1 EACH TAB PO PRN ×4 (05:23→20:30)
[2019-10-07] MEDS: FUROSEMIDE 10 MG/ML 4 ML VIAL IV SCH ×3 (05:23→23:34)
[2019-10-07 06:08] LABS: Glucose,Whole Blood 196 mg/dL (75-99)
[2019-10-07] MEDS: INSULIN ASPART (NovoLOG) 100 UNIT/ML VIAL SQ SCH ×4 (06:26→20:28)
[2019-10-07 07:08] LABS: Basophils % (A) 0 %; Eosinophils # (A) 0.1 k/uL (0-0.7); Eosinophils % (A) 1 %; HCT 44.2 % (39.0-53.0); HGB 13.6 gm/dL (13.0-17.5); Hypochromasia Marked; Lymphocytes # (A) 1.4 k/uL (1.0-4.8); Lymphocytes % (A) 11 %; MCH 28.4 pg (25.0-35.0); MCHC 30.8 g/dL (31.0-37.0); MCV 92.5 fL (80.0-100.0); Mean Platelet Volume 9.1; Monocytes # (A) 0.7 k/uL (0-1.0); Monocytes % (A) 5 %; Neutrophils # (A) 10.8 k/uL (1.3-7.7); Neutrophils % (A) 82 %; Platelet Count 215 k/uL (150-450); RBC 4.78 m/uL (4.30-5.90); RDW 15.5 % (11.5-15.5); WBC 13.3 k/uL (3.8-10.6)
[2019-10-07 07:22] LABS: African American GFR (CKD) >90 (>60 ml/min/1.73 sqM); Anion Gap 11 mmol/L; Blood Urea Nitrogen 42 mg/dL (9-20); Calcium 9.1 mg/dL (8.4-10.2); Carbon Dioxide 31 mmol/L (22-30); Chloride 95 mmol/L (98-107); Glucose 175 mg/dL (74-99); Non-African American GFR(CKD) >90 (>60 ml/min/1.73 sqM); Potassium 5.4 mmol/L (3.5-5.1); Sodium 137 mmol/L (137-145)
--- NOTE | 2019-10-07 08:28 | XR ---
EXAMINATION TYPE: XR chest 1V DATE OF EXAM: 10/07/2019 HISTORY: diuresis follow up. REFERENCE: Previous study dated 10/06/2019. FINDINGS: There has been a midline sternotomy. There are bilateral effusions. There is bibasilar airspace disease. Heart size is obscured. Pulmonary vasculature has improved. IMPRESSION: IMPROVING CHANGES OF CONGESTIVE HEART FAILURE.
[2019-10-07] MEDS ORDERED: FUROSEMIDE 10 MG/ML 4 ML VIAL IV STA (08:54)
[2019-10-07] MEDS ORDERED: FUROSEMIDE 10 MG/ML 4 ML VIAL IV SCH (09:00)
--- NOTE | 2019-10-07 09:41 | P.PN ---
Subjective This is a pleasant 68-year-old male past medical history significant for coronary artery disease status post bypass grafting and subsequent PCI most recently in May 2018, peripheral vascular disease, abdominal aortic aneurysm status post stent graft placement, hypertension, dyslipidemia, diabetes mellitus, COPD and chronic nicotine dependence. He follows my office with Dr. Malcolm. He presented to the hospital with symptoms of worsening shortness of breath and has been diagnosed with acute heart failure. He is currently receiving IV Lasix however he states his breathing is actually worsening since admission. He is sitting up on the edge of the bed mildly tachypnea. Lungs are overall clear but extremely diminished. He denies chest pain, dizziness or palpitations. Blood pressure 99/66 heart rate 96 afebrile maintaining oxygen saturation on nasal cannula. Laboratory data reviewed, WBC 13.3, hemoglobin 13.6, platelets 215, sodium 137, potassium 5.4, creatinine 0.72. Intake and output documentation indicates he is maintaining a negative fluid balance with 1600 mL's of urine output in the previous 24 hours. Echocardiogram obtained revealed severely impaired LV systolic function with ejection fraction 20-25%, global hypokinesia, moderate to severe aortic stenosis with a mean gradient of 19 mmHg, moderate to severe mitral regurgitation, moderate to severe tricuspid regurgitation and severe pulmonary hypertension with an RVSP of 73 mmHg. Currently maintained on Lasix 40 mg IV twice a day, aspirin 81 mg daily, atorvastatin 20 mg daily, Plavix 75 mg daily, Toprol 12.5 mg daily. GENERAL: Well-appearing, well-nourished and in no acute distress. NECK: Supple without JVD or thyromegaly. LUNGS: Breath sounds clear to auscultation bilaterally. Respiration equal and unlabored. No wheezes, rales or rhonchi. HEART: Regular rate and rhythm with systolic ejection murmur at the base, no rubs or gallops. S1 and S2 heard. EXTREMITIES: Normal range of motion, no edema. No clubbing or cyanosis. Peripheral pulses intact. ASSESSMENT Acute on chronic systolic heart failure Hyperkalemia Ischemic cardiomyopathy Valvular heart disease, aortic stenosis and mitral/tricuspid regurgitation Pulmonary hypertension Peripheral vascular disease, status post carotid endarterectomy and lower extremity intervention Abdominal aortic aneurysm status post stent graft placement Hypertension Dyslipidemia COPD Diabetes mellitus PLAN Repeat chest x-ray now. Obtain pulmonary evaluation. Increase lasix to TID dosing. Repeat BMP in the morning. Nurse Practitioner note has been reviewed, I agree with a documented findings and plan of care. Patient was seen and examined. Objective - Vital Signs Vital signs: Vital Signs Temp 97.5 F L 10/07/19 08:45 Pulse 96 10/07/19 08:45 Resp 30 H 10/07/19 08:45 BP 99/66 10/07/19 08:45 Pulse Ox 97 10/07/19 08:45 Intake & Output 10/06/19 10/07/19 10/07/19 18:59 06:59 18:59 Intake Total 444 60 Output Total 1600 Balance 444 -1600 60 Weight 67.132 kg Intake: Oral 444 60 Output: Urine 1600 Other: Voiding Method Urinal Urinal # Voids 4 0 # Bowel Movements 0 0 - Labs CBC & Chem 7: 10/07/19 05:52 10/07/19 05:52 Labs: Abnormal Lab Results - Last 24 Hours (Table) 10/06/19 10/06/19 10/06/19 Range/Units 02:27 10:11 11:08 WBC (3.8-10.6) k/uL MCHC (31.0-37.0) g/dL Neutrophils # (1.3-7.7) k/uL APTT 39.8 H (22.0-30.0) sec Potassium (3.5-5.1) mmol/L Chloride (98-107) mmol/L Carbon Dioxide (22-30) mmol/L BUN (9-20) mg/dL Glucose (74-99) mg/dL POC Glucose (mg/dL) 256 H (75-99) mg/dL Hemoglobin A1c 7.9 H (4.0-6.0) % 10/06/19 10/06/19 10/06/19 Range/Units 15:09 16:09 20:40 WBC (3.8-10.6) k/uL MCHC (31.0-37.0) g/dL Neutrophils # (1.3-7.7) k/uL APTT (22.0-30.0) sec Potassium 5.2 H (3.5-5.1) mmol/L Chloride (98-107) mmol/L Carbon Dioxide (22-30) mmol/L BUN (9-20) mg/dL Glucose (74-99) mg/dL POC Glucose (mg/dL) 279 H 320 H (75-99) mg/dL Hemoglobin A1c (4.0-6.0) % 10/07/19 10/07/19 10/07/19 Range/Units 01:56 05:52 05:52 WBC 13.3 H (3.8-10.6) k/uL MCHC 30.8 L (31.0-37.0) g/dL Neutrophils # 10.8 H (1.3-7.7) k/uL APTT (22.0-30.0) sec Potassium 5.4 H (3.5-5.1) mmol/L Chloride 95 L (98-107) mmol/L Carbon Dioxide 31 H (22-30) mmol/L BUN 42 H (9-20) mg/dL Glucose 175 H (74-99) mg/dL POC Glucose (mg/dL) 157 H (75-99) mg/dL Hemoglobin A1c (4.0-6.0) % 10/07/19 Range/Units 06:06 WBC (3.8-10.6) k/uL MCHC (31.0-37.0) g/dL Neutrophils # (1.3-7.7) k/uL APTT (22.0-30.0) sec Potassium (3.5-5.1) mmol/L Chloride (98-107) mmol/L Carbon Dioxide (22-30) mmol/L BUN (9-20) mg/dL Glucose (74-99) mg/dL POC Glucose (mg/dL) 196 H (75-99) mg/dL Hemoglobin A1c (4.0-6.0) % Microbiology - Last 24 Hours (Table) 10/05/19 09:45 Blood Culture - Preliminary Blood No Growth after 24 hours
[2019-10-07] MEDS: METOPROLOL SUCCINATE (ER) 25 MG TAB.ER.24H PO SCH (10:11)
[2019-10-07] MEDS: CLOPIDOGREL 75 MG TAB PO SCH (10:11)
[2019-10-07] MEDS: ASPIRIN 81 MG PO SCH (10:11)
[2019-10-07] MEDS: NICOTINE 14MG/24HR PATCH TRANSDERM SCH (10:12)
[2019-10-07] MEDS: ATORVASTATIN 20 MG TAB PO SCH (10:12)
[2019-10-07] MEDS ORDERED: IPRATROPIUM-ALBUTEROL 3 ML NEB INHALATION PRN (10:18)
[2019-10-07] MEDS: predniSONE 20 MG TAB PO SCH (11:30)
[2019-10-07] MEDS: IPRATROPIUM-ALBUTEROL 3 ML NEB INHALATION SCH ×3 (11:49→19:20)
[2019-10-07 12:05] LABS: Glucose,Whole Blood 187 mg/dL (75-99)
--- NOTE | 2019-10-07 13:17 | CONS ---
CONSULTATION PULMONARY/CRITICAL CARE CONSULTATION: DATE OF SERVICE: 10/07/2019 REASON FOR CONSULTATION: Shortness of breath. This is a 68-year-old male with a history of underlying CAD, CHF, and COPD. Heavy smoker for more than 50 years. Quit maybe 3 days ago. He came into the emergency room on October 04 with complaints of increasing shortness of breath which had been progressive for 3 days prior to admission. In addition, the patient had a cough productive cough for about a week or so. No fevers. He apparently denied any exposure to COVID positive contacts. There was no chest pain or chest discomfort. He denied any nausea, vomiting, diarrhea, or abdominal pain. He also denied any genitourinary complaints. He apparently was seen in the ER and admitted with a diagnosis of COPD exacerbation and CHF exacerbation. Interestingly, he was not placed on any breathing medications. Currently, the patient complains of shortness of breath, worse when he lays flat. He also does admit to a congested wet cough but produces very little phlegm. No fever or chills. No chest pain or chest discomfort. Reviewing his home medications, he is on Lasix, aspirin, Plavix, nitroglycerin, albuterol inhaler, Lipitor, Symbicort. ALLERGIES: Denied. MEDICAL HISTORY: CAD, angina, COPD, diabetes, hyperlipidemia, hypertension, myocardial infarction, osteoarthritis, and abdominal aneurysm. He also apparently has a history of kidney stones. SURGICAL HISTORY: Includes bypass grafting, heart catheterization with stent placement, right rotator cuff repair, abdominal aneurysm repair with stent, left carotid endarterectomy, lithotripsy, stents in his left leg, as well as some other peripheral procedures. SOCIAL HISTORY: Positive for ongoing tobacco use up until 3 days ago. Heavy smoker for more than 50 years. Denies any alcohol use or illicit drug use. FAMILY HISTORY: Positive for father with DVT and myocardial infarction. REVIEW OF SYSTEMS: CONSTITUTIONAL: Negative. NEUROLOGIC: Negative. HEENT: Negative. CARDIOVASCULAR: Negative. PULMONARY: Shortness of breath, chest tightness, wheezing, cough, minimal phlegm production, chest congestion. GI: Negative. : Negative. RHEUMATOLOGIC: Negative. IMMUNOLOGIC: Negative. ENDOCRINOLOGIC: Negative. DERMATOLOGIC: Negative. PHYSICAL EXAMINATION: Current vital signs are reviewed. His temperature is 97.5, heart rate 96, respiratory rate 30, blood pressure 99/66, mean 77, and 4 L saturations 97%. Appears in no acute distress. HEENT: Examination is grossly unremarkable. NECK: Supple. Full range of motion. No adenopathy or thyromegaly. Neck veins are flat. CARDIOVASCULAR: Examination reveals regular rhythm rate. S1, S2 normal. No S3, S4, or murmur. Heart sounds are distant. LUNGS: Reveal bibasilar crackles. There is diminished breath sounds at both bases. No wheezes. ABDOMEN: Soft. Bowel sounds are heard. EXTREMITIES: Reveal some edema. No cyanosis or clubbing. SKIN: Without rash. NEUROLOGIC: Examination is brief but nonfocal. LABS: Reviewed. White count 13.3, hemoglobin 13.6, hematocrit 44.2, platelet count 315,000, sodium 137, potassium 5.4, chloride 95, CO2 is 31, anion gap is 11. BUN and creatinine were 42 and 0.72. Calcium 9.1. He had a previous troponin of 0.074 and an N terminal proBNP which is 2870. His COVID- 19 test was negative. D-dimer is 4.13. Chest x-ray showed evidence of congestive heart failure. A CT angiogram was done on October 04 and showed no evidence of pulmonary embolism. There is bibasilar pleural effusions and compressive atelectasis. A repeat chest x-ray on October 05 still shows evidence of fluid overload and congestive heart failure as does the chest x-ray on October 06. Microbiology is pending or negative. Medications are reviewed. We added Pulmicort, formoterol, updrafts and oral prednisone. The patient's Lasix was recently increased. The rest of medications appear to be appropriate. ASSESSMENT: 1. Shortness of breath, likely multifactorial in part related to underlying fluid overload/congestive heart failure as well as chronic obstructive pulmonary disease exacerbation, possibly complicated by purulent tracheobronchitis. 2. Previous history of heavy tobacco use with recent cessation, 3 days ago. 3. History of coronary artery disease with previous bypass grafting. 4. Angina pectoris. 5. Diabetes mellitus. 6. Hyperlipidemia. 7. Hypertension. 8. History of myocardial infarction. 9. Degenerative joint disease. 10.Peripheral vascular occlusive disease. 11.Kidney stones. 12.Abdominal aortic aneurysm. PLAN: The patient's medications have now been adjusted. We have added short-acting beta agonists and short-acting muscarinic antagonist as well as long-acting beta agonist and inhaled corticosteroids. We also added some oral prednisone. The patient should improved from the COPD standpoint. We will continue to follow. Prognosis is guarded. No additional recommendations are made. MMODL / IJN: [id number] /
--- NOTE | 2019-10-07 15:12 | P.PN ---
Subjective Progress Note Date: 10/07/19 Principal diagnosis: sob Patient still having significant shortness of breath. He is sitting up on the edge of the bed struggling to breathe. No chest pain, no fevers or chills. Objective - Vital Signs Vital signs: Vital Signs Temp 97.5 F L 10/07/19 08:45 Pulse 86 10/07/19 11:58 Resp 18 10/07/19 11:25 BP 92/59 10/07/19 11:25 Pulse Ox 99 10/07/19 11:25 Intake & Output 10/06/19 10/07/19 10/07/19 18:59 06:59 18:59 Intake Total 444 300 Output Total 1600 800 Balance 444 1600 500 Weight 67.132 kg Intake: Oral 444 300 Output: Urine 1600 800 Other: Voiding Method Urinal Urinal Urinal # Voids 4 0 # Bowel Movements 0 0 - Exam Constitutional: No acute distress, conversant, pleasant Eyes:Anicteric sclerae, moist conjunctiva, no lid-lag, PERRLA, ENMT: Oropharynx clear, no erythema, exudates Neck: Supple, FROM, no masses, or JVD, No carotid bruits, No thyromegaly Lungs: Diminished breath sounds bilaterally, faint wheezes , Clear to percussion, increased respiratory effort, mild use of accessory muscle use Cardiovascular: Heart regular in rate and rhythm, No murmurs, gallops, or rubs, No peripheral edema Abdominal: Soft, Nontender, no guarding, rebound or rigidity, Normoactive bowel sounds, No hepatomegaly, No splenomegaly, No palpable mass Skin: Normal temperature, tone, texture, turgor, no induration, No subcutaneous nodules, No rash, lesions, No ulcers Extremities: No digital cyanosis, No clubbing, Pedal pulses intact and symmetrical, Radial pulses intact and symmetrical, No calf tenderness Psychiatric: Alert and oriented to person, place and time, appropriate affect, intact judgement Neuro: Muscles Strength 5/5 in all 4 extremities, Sensation to light touch grossly present throughout, Cranial nerves II-XII grossly intact, no focal sensory deficits - Labs CBC & Chem 7: 10/07/19 05:52 10/07/19 05:52 Labs: Abnormal Lab Results - Last 24 Hours (Table) 10/06/19 10/06/19 10/06/19 Range/Units 15:09 16:09 20:40 WBC (3.8-10.6) k/uL MCHC (31.0-37.0) g/dL Neutrophils # (1.3-7.7) k/uL Potassium 5.2 H (3.5-5.1) mmol/L Chloride (98-107) mmol/L Carbon Dioxide (22-30) mmol/L BUN (9-20) mg/dL Glucose (74-99) mg/dL POC Glucose (mg/dL) 279 H 320 H (75-99) mg/dL 10/07/19 10/07/19 10/07/19 Range/Units 01:56 05:52 05:52 WBC 13.3 H (3.8-10.6) k/uL MCHC 30.8 L (31.0-37.0) g/dL Neutrophils # 10.8 H (1.3-7.7) k/uL Potassium 5.4 H (3.5-5.1) mmol/L Chloride 95 L (98-107) mmol/L Carbon Dioxide 31 H (22-30) mmol/L BUN 42 H (9-20) mg/dL Glucose 175 H (74-99) mg/dL POC Glucose (mg/dL) 157 H (75-99) mg/dL 10/07/19 10/07/19 Range/Units 06:06 11:57 WBC (3.8-10.6) k/uL MCHC (31.0-37.0) g/dL Neutrophils # (1.3-7.7) k/uL Potassium (3.5-5.1) mmol/L Chloride (98-107) mmol/L Carbon Dioxide (22-30) mmol/L BUN (9-20) mg/dL Glucose (74-99) mg/dL POC Glucose (mg/dL) 196 H 187 H (75-99) mg/dL Microbiology - Last 24 Hours (Table) 10/05/19 09:45 Blood Culture - Preliminary Blood No Growth after 48 hours Assessment and Plan Plan: Shortness of breath, likely related to systolic CHF exacerbation, severe aortic stenosis Hyperkalemia CAD s/p stenting Elevated D-dimer Elevated Troponin Diabetes mellitus with hyperglycemia Smoker PAD 2018 echocardiogram shows EF 35-40% with hypokinetic wall motion, moderate to severe aortic stenosis. BNP 2870 with chest x-ray concerning for decompensated heart failure. Repeat echocardiogram shows EF 20-25% with mild concentric LVH with moderate to severe aortic stenosis. Lasix 40 mg IV 3 times a day Continue metoprolol and discontinue Aldactone due to hyperkalemia. Continue aspirin, Lipitor and Plavix Pro-calcitonin negative--no antibiotics Seen by pulmonary, DuoNeb's and steroids added. Daily weights. Telemetry monitoring. Plans for AICD placement. Insulin sliding scale. Regular Accu-Cheks. Hypoglycemic precautions.
[2019-10-07 16:57] LABS: Glucose,Whole Blood 319 mg/dL (75-99)
[2019-10-07] MEDS: BUDESONIDE 1 MG/2 ML NEBU INHALATION SCH (19:20)
[2019-10-07] MEDS: FORMOTEROL FUMARATE 20 MCG/2 ML NEBU INHALATION SCH (19:20)
[2019-10-07 20:21] LABS: Glucose,Whole Blood 389 mg/dL (75-99)
[2019-10-08] MEDS: HYDROcodone/APAP 5-325MG 1 EACH TAB PO PRN ×3 (00:33→20:44)
[2019-10-08 02:00] LABS: Glucose,Whole Blood 292 mg/dL (75-99)
[2019-10-08 06:26] LABS: Glucose,Whole Blood 241 mg/dL (75-99)
[2019-10-08] MEDS: INSULIN ASPART (NovoLOG) 100 UNIT/ML VIAL SQ SCH ×4 (06:37→20:44)
[2019-10-08 07:06] LABS: Basophils % (A) 0 %; Eosinophils # (A) 0.1 k/uL (0-0.7); Eosinophils % (A) 1 %; HCT 40.1 % (39.0-53.0); HGB 12.4 gm/dL (13.0-17.5); Hypochromasia Marked; Lymphocytes # (A) 1.1 k/uL (1.0-4.8); Lymphocytes % (A) 11 %; MCH 28.5 pg (25.0-35.0); MCV 91.9 fL (80.0-100.0); Mean Platelet Volume 8.8; Monocytes # (A) 0.6 k/uL (0-1.0); Monocytes % (A) 6 %; Neutrophils # (A) 7.8 k/uL (1.3-7.7); Neutrophils % (A) 81 %; Platelet Count 197 k/uL (150-450); RBC 4.36 m/uL (4.30-5.90); RDW 15.6 % (11.5-15.5); WBC 9.6 k/uL (3.8-10.6)
[2019-10-08 07:18] LABS: African American GFR (CKD) >90 (>60 ml/min/1.73 sqM); Anion Gap 9 mmol/L; Blood Urea Nitrogen 32 mg/dL (9-20); Calcium 8.9 mg/dL (8.4-10.2); Carbon Dioxide 33 mmol/L (22-30); Chloride 93 mmol/L (98-107); Glucose 234 mg/dL (74-99); Non-African American GFR(CKD) >90 (>60 ml/min/1.73 sqM); Potassium 4.4 mmol/L (3.5-5.1); Sodium 135 mmol/L (137-145)
[2019-10-08] MEDS: BUDESONIDE 1 MG/2 ML NEBU INHALATION SCH ×2 (07:42→20:15)
[2019-10-08] MEDS: FORMOTEROL FUMARATE 20 MCG/2 ML NEBU INHALATION SCH ×2 (07:42→20:15)
[2019-10-08] MEDS: IPRATROPIUM-ALBUTEROL 3 ML NEB INHALATION SCH ×4 (07:42→20:15)
--- NOTE | 2019-10-08 09:19 | P.PN ---
Subjective This is a pleasant 68-year-old male past medical history significant for coronary artery disease status post bypass grafting and subsequent PCI most recently in May 2018, peripheral vascular disease, abdominal aortic aneurysm status post stent graft placement, hypertension, dyslipidemia, diabetes mellitus, COPD and chronic nicotine dependence. He follows my office with Dr. Malcolm. He is seen and examined laying flat in bed in no acute distress. He was seen by pulmonary medicine yesterday and medications adjusted. He states overall he is feeling much better from yesterday. Blood pressure 103/61 heart rate 75 afebrile and maintaining oxygen saturation on nasal cannula. Laboratory data reviewed, WBC 9.6, hemoglobin 12.4, platelets 196, sodium 135, potassium 4.4, creatinine 0.63. Currently maintained on aspirin 81 mg daily, atorvastatin 20 mg daily, Plavix 75 mg daily, Lasix 40 mg IV 3 times a day, metoprolol succinate 2.5 mg daily. GENERAL: Well-appearing, well-nourished and in no acute distress. NECK: Supple without JVD or thyromegaly. LUNGS: Breath sounds clear to auscultation bilaterally. Respiration equal and unlabored. No wheezes, rales or rhonchi. Diminished bilaterally. HEART: Regular rate and rhythm with systolic ejection murmur at the base, no rubs or gallops. S1 and S2 heard. EXTREMITIES: Normal range of motion, no edema. No clubbing or cyanosis. Peripheral pulses intact. ASSESSMENT Acute on chronic systolic heart failure Hyperkalemia Ischemic cardiomyopathy Valvular heart disease, aortic stenosis and mitral/tricuspid regurgitation Pulmonary hypertension Peripheral vascular disease, status post carotid endarterectomy and lower extremity intervention Abdominal aortic aneurysm status post stent graft placement Hypertension Dyslipidemia COPD Diabetes mellitus PLAN Decrease lasix to BID dosing. Repeat chest xray in the morning to assess pleural effusion. Follow renal function and electrolytes in the morning. Nurse Practitioner note has been reviewed, I agree with a documented findings and plan of care. Patient was seen and examined. Objective - Vital Signs Vital signs: Vital Signs Temp 98.0 F 10/08/19 04:00 Pulse 84 10/08/19 08:09 Resp 17 10/08/19 04:00 BP 103/61 10/08/19 04:00 Pulse Ox 93 L 10/08/19 04:00 Intake & Output 10/07/19 10/08/19 10/08/19 18:59 06:59 18:59 Intake Total 540 240 Output Total 1450 1425 Balance -910 -1425 240 Intake: Oral 540 240 Output: Urine 1450 1425 Other: Voiding Method Urinal Urinal # Voids 0 # Bowel Movements 0 - Labs CBC & Chem 7: 10/08/19 06:05 10/08/19 06:05 Labs: Abnormal Lab Results - Last 24 Hours (Table) 10/07/19 10/07/19 10/07/19 Range/Units 11:57 16:54 20:20 Hgb (13.0-17.5) gm/dL RDW (11.5-15.5) % Neutrophils # (1.3-7.7) k/uL Sodium (137-145) mmol/L Chloride (98-107) mmol/L Carbon Dioxide (22-30) mmol/L BUN (9-20) mg/dL Creatinine (0.66-1.25) mg/dL Glucose (74-99) mg/dL POC Glucose (mg/dL) 187 H 319 H 389 H (75-99) mg/dL 10/08/19 10/08/19 10/08/19 Range/Units 01:58 06:05 06:05 Hgb 12.4 L (13.0-17.5) gm/dL RDW 15.6 H (11.5-15.5) % Neutrophils # 7.8 H (1.3-7.7) k/uL Sodium 135 L (137-145) mmol/L Chloride 93 L (98-107) mmol/L Carbon Dioxide 33 H (22-30) mmol/L BUN 32 H (9-20) mg/dL Creatinine 0.63 L (0.66-1.25) mg/dL Glucose 234 H (74-99) mg/dL POC Glucose (mg/dL) 292 H (75-99) mg/dL 10/08/19 Range/Units 06:24 Hgb (13.0-17.5) gm/dL RDW (11.5-15.5) % Neutrophils # (1.3-7.7) k/uL Sodium (137-145) mmol/L Chloride (98-107) mmol/L Carbon Dioxide (22-30) mmol/L BUN (9-20) mg/dL Creatinine (0.66-1.25) mg/dL Glucose (74-99) mg/dL POC Glucose (mg/dL) 241 H (75-99) mg/dL Microbiology - Last 24 Hours (Table) 10/05/19 09:45 Blood Culture - Preliminary Blood No Growth after 48 hours
[2019-10-08] MEDS: CLOPIDOGREL 75 MG TAB PO SCH (09:46)
[2019-10-08] MEDS: METOPROLOL SUCCINATE (ER) 25 MG TAB.ER.24H PO SCH (09:46)
[2019-10-08] MEDS: predniSONE 20 MG TAB PO SCH (09:46)
[2019-10-08] MEDS: ATORVASTATIN 20 MG TAB PO SCH (09:46)
[2019-10-08] MEDS: FUROSEMIDE 10 MG/ML 4 ML VIAL IV SCH ×2 (09:46→20:44)
[2019-10-08] MEDS: NICOTINE 14MG/24HR PATCH TRANSDERM SCH (09:47)
[2019-10-08] MEDS: ASPIRIN 81 MG PO SCH (09:47)
[2019-10-08 11:34] LABS: Glucose,Whole Blood 302 mg/dL (75-99)
--- NOTE | 2019-10-08 12:10 | P.PN ---
Subjective Progress Note Date: 10/08/19 Principal diagnosis: sob Patient is feeling much better compared to yesterday. No significant shortness of breath. No pain. No fevers or chills. No overnight events. Objective - Vital Signs Vital signs: Vital Signs Temp 98 F 10/08/19 08:10 Pulse 84 10/08/19 11:21 Resp 18 10/08/19 08:10 BP 110/57 10/08/19 08:10 Pulse Ox 95 10/08/19 08:10 Intake & Output 10/07/19 10/08/19 10/08/19 18:59 06:59 18:59 Intake Total 540 240 Output Total 1450 1425 500 Balance -444 -8098 -751 Intake: Oral 540 240 Output: Urine 1450 1425 500 Other: Voiding Method Urinal Urinal # Voids 0 1 # Bowel Movements 0 - Exam Constitutional: No acute distress, conversant, pleasant Eyes:Anicteric sclerae, moist conjunctiva, no lid-lag, PERRLA, ENMT: Oropharynx clear, no erythema, exudates Neck: Supple, FROM, no masses, or JVD, No carotid bruits, No thyromegaly Lungs: Diminished breath sounds bilaterally, faint wheezes , Clear to percussion, increased respiratory effort, mild use of accessory muscle use Cardiovascular: Heart regular in rate and rhythm, No murmurs, gallops, or rubs, No peripheral edema Abdominal: Soft, Nontender, no guarding, rebound or rigidity, Normoactive bowel sounds, No hepatomegaly, No splenomegaly, No palpable mass Skin: Normal temperature, tone, texture, turgor, no induration, No subcutaneous nodules, No rash, lesions, No ulcers Extremities: No digital cyanosis, No clubbing, Pedal pulses intact and symmetrical, Radial pulses intact and symmetrical, No calf tenderness Psychiatric: Alert and oriented to person, place and time, appropriate affect, intact judgement Neuro: Muscles Strength 5/5 in all 4 extremities, Sensation to light touch grossly present throughout, Cranial nerves II-XII grossly intact, no focal sensory deficits - Labs CBC & Chem 7: 10/08/19 06:05 10/08/19 06:05 Labs: Abnormal Lab Results - Last 24 Hours (Table) 10/07/19 10/07/19 10/08/19 Range/Units 16:54 20:20 01:58 Hgb (13.0-17.5) gm/dL RDW (11.5-15.5) % Neutrophils # (1.3-7.7) k/uL Sodium (137-145) mmol/L Chloride (98-107) mmol/L Carbon Dioxide (22-30) mmol/L BUN (9-20) mg/dL Creatinine (0.66-1.25) mg/dL Glucose (74-99) mg/dL POC Glucose (mg/dL) 319 H 389 H 292 H (75-99) mg/dL 10/08/19 10/08/19 10/08/19 Range/Units 06:05 06:05 06:24 Hgb 12.4 L (13.0-17.5) gm/dL RDW 15.6 H (11.5-15.5) % Neutrophils # 7.8 H (1.3-7.7) k/uL Sodium 135 L (137-145) mmol/L Chloride 93 L (98-107) mmol/L Carbon Dioxide 33 H (22-30) mmol/L BUN 32 H (9-20) mg/dL Creatinine 0.63 L (0.66-1.25) mg/dL Glucose 234 H (74-99) mg/dL POC Glucose (mg/dL) 241 H (75-99) mg/dL 10/08/19 Range/Units 11:33 Hgb (13.0-17.5) gm/dL RDW (11.5-15.5) % Neutrophils # (1.3-7.7) k/uL Sodium (137-145) mmol/L Chloride (98-107) mmol/L Carbon Dioxide (22-30) mmol/L BUN (9-20) mg/dL Creatinine (0.66-1.25) mg/dL Glucose (74-99) mg/dL POC Glucose (mg/dL) 302 H (75-99) mg/dL Microbiology - Last 24 Hours (Table) 10/05/19 09:45 Blood Culture - Preliminary Blood No Growth after 72 hours Assessment and Plan Plan: Shortness of breath, likely related to systolic CHF exacerbation, severe aortic stenosis Hyperkalemia CAD s/p stenting Elevated D-dimer Elevated Troponin Diabetes mellitus with hyperglycemia Smoker PAD 2018 echocardiogram shows EF 35-40% with hypokinetic wall motion, moderate to severe aortic stenosis. BNP 2870 with chest x-ray concerning for decompensated h eart failure. Repeat echocardiogram shows EF 20-25% with mild concentric LVH with moderate to severe aortic stenosis. Decrease Lasix 40 mg IV from 3 times a day to twice a day dosing Continue metoprolol and discontinue Aldactone due to hyperkalemia. Continue aspirin, Lipitor and Plavix Pro-calcitonin negative--no antibiotics Cardiology following Seen by pulmonary, Heidi's and steroids added. Daily weights. Telemetry monitoring. Plans for AICD placement. Insulin sliding scale. Regular Accu-Cheks. Hypoglycemic precautions.
--- NOTE | 2019-10-08 15:17 | PN ---
PROGRESS NOTE PULMONARY/CRITICAL CARE PROGRESS NOTE: DATE OF SERVICE: 10/08/2019 This is a 68-year-old male that we saw in consultation yesterday. He has a history of CAD, CHF, and COPD. He has been smoking heavily for more than 50 years. He quit about 3 days ago. He came to the emergency room on October 04 with increasing shortness of breath which had been progressive for about 3 days prior to admission. He also complained of productive cough for about a week or so. There was no fevers. There was no exposure to COVID-19 contacts. The patient was seen in consultation and we felt that his shortness of breath was multifactorial in part related to underlying fluid overload/CHF as well as COPD exacerbation and purulent tracheobronchitis. Currently, the patient is sitting at the side of the bed. He is on a couple L of nasal O2. He admits to feeling much better today. PHYSICAL EXAMINATION: Current vital signs are reviewed. Temperature is 98, heart rate 84, respiratory rate 18, blood pressure 110/57, mean 74 and 3 L saturation 95%. Appears in no acute distress. HEENT: Examination is grossly unremarkable. Mucous membranes are moist. NECK: Supple full range of motion. No adenopathy or thyromegaly. Neck veins are flat. CARDIOVASCULAR: Examination reveals regular rhythm rate. Heart rate 84 beats per minute. Heart sounds are distant. No murmur. LUNGS: Reveal some bibasilar crackles. There is some expiratory rhonchi and wheezes. Breath sounds are diminished bilaterally. Breath sounds are improved, though. ABDOMEN: Soft. Bowel sounds are heard. EXTREMITIES are intact. Slight edema noted. No cyanosis or clubbing. SKIN: Without rash. NEUROLOGIC: Examination is nonfocal. White count 9.6, hemoglobin 12.4, hematocrit 40.1, platelet count 197,000. Sodium 135, potassium 4.4, chloride 93, CO2 is 33, anion gap is 9. BUN and creatinine were 32 and 0.63. Microbiology including blood cultures are currently negative. Chest x-ray from October 06 was reviewed. Medications were adjusted yesterday. ASSESSMENT: 1. Shortness of breath, multifactorial, in part related to underlying fluid overload/congestive heart failure as well as chronic obstructive pulmonary disease exacerbation complicated by purulent tracheobronchitis. 2. Previous history of heavy tobacco use with recent cessation, 3 days ago. 3. History of coronary artery disease with previous bypass grafting. 4. Angina pectoris. 5. Diabetes mellitus. 6. Hyperlipidemia. 7. Hypertension. 8. History of myocardial infarction. 9. Degenerative joint disease. 10.Peripheral vascular occlusive disease. 11.Kidney stones. 12.Aortic abdominal aortic aneurysm. PLAN: The patient is currently on appropriate medications including short-acting beta agonists and short-acting muscarinic antagonist. As well, the patient is on a long- acting beta agonist and inhaled corticosteroids as well as some oral prednisone. The patient is improved from the COPD standpoint. We will continue to follow. He is feeling generally better today. He states that his lower extremity swelling is improved as well. MMODL / IJN: [id number] /
[2019-10-08 16:34] LABS: Glucose,Whole Blood 392 mg/dL (75-99)
[2019-10-08] MEDS: POLYETHYLENE GLYCOL 3350 17 GM POWD.PACK PO SCH (17:34)
[2019-10-08 20:11] LABS: Glucose,Whole Blood 415 mg/dL (75-99)
[2019-10-08] MEDS: INSULIN DETEMIR (LEVEMIR) 100 UNIT/ML SYR SQ SCH (20:44)
[2019-10-08] MEDS ORDERED: FUROSEMIDE 10 MG/ML 4 ML VIAL IV SCH (21:00)
[2019-10-09 02:07] LABS: Glucose,Whole Blood 248 mg/dL (75-99)
[2019-10-09] MEDS: HYDROcodone/APAP 5-325MG 1 EACH TAB PO PRN ×2 (04:00→23:02)
[2019-10-09 06:10] LABS: Glucose,Whole Blood 182 mg/dL (75-99)
[2019-10-09] MEDS: INSULIN ASPART (NovoLOG) 100 UNIT/ML VIAL SQ SCH ×4 (06:24→20:55)
[2019-10-09] MEDS: FORMOTEROL FUMARATE 20 MCG/2 ML NEBU INHALATION SCH ×2 (06:59→20:18)
[2019-10-09] MEDS: IPRATROPIUM-ALBUTEROL 3 ML NEB INHALATION SCH ×4 (06:59→20:19)
[2019-10-09] MEDS: BUDESONIDE 1 MG/2 ML NEBU INHALATION SCH ×2 (07:00→20:19)
--- NOTE | 2019-10-09 07:25 | XR ---
EXAMINATION TYPE: XR chest 2V DATE OF EXAM: 10/09/2019 COMPARISON: 10/07/2019 HISTORY: Shortness of breath TECHNIQUE: Frontal and lateral views of the chest are obtained. FINDINGS: Scattered senescent parenchymal changes noted. Hyperinflation compatible with COPD. Persistent basilar opacities which may reflect a combination of effusion, atelectasis and/or infiltra te. Heart size is stable. Mediastinal structures are stable and grossly unremarkable. No evidence for hilar prominence. Degenerative changes dorsal spine. IMPRESSION: 1. Persistent basilar opacities which may reflect a combination of effusion, atelectasis and/or infil trate.
[2019-10-09 07:35] LABS: African American GFR (CKD) >90 (>60 ml/min/1.73 sqM); Anion Gap 7 mmol/L; Blood Urea Nitrogen 30 mg/dL (9-20); Calcium 8.8 mg/dL (8.4-10.2); Carbon Dioxide 38 mmol/L (22-30); Chloride 94 mmol/L (98-107); Glucose 140 mg/dL (74-99); Non-African American GFR(CKD) >90 (>60 ml/min/1.73 sqM); Potassium 4.4 mmol/L (3.5-5.1); Sodium 139 mmol/L (137-145)
--- NOTE | 2019-10-09 10:36 | US ---
EXAMINATION TYPE: US chest DATE OF EXAM: 10/09/2019 COMPARISON: NONE CLINICAL HISTORY: Markings for thoracentesis by pulmonary staff. TECHNIQUE: Targeted ultrasound of the posterior lower bilateral hemithoraces EXAM MEASUREMENTS: Right Pleural Effusion pocket size: 9.6 cm Right skin surface to fluid distance: 2.5 cm Left Pleural Effusion pocket size: 6.2 cm Left skin surface to fluid distance: 2.8 cm Right side marked for possible thoracentesis outside the dept. Left side marked for possible thoracentesis outside the dept. Pulmonologists are able to review the images in the patient?s EMR. IMPRESSIONS: As above
[2019-10-09 11:34] LABS: Glucose,Whole Blood 126 mg/dL (75-99)
--- NOTE | 2019-10-09 12:05 | P.PN ---
Subjective Progress Note Date: 10/09/19 Principal diagnosis: Bilateral pleural effusions, acute exacerbation of CHF On 10/09/2019 patient seen in follow-up on selective care unit. He is awake and alert, in no acute distress he is on 2 L of oxygen his pulse ox of 95%, denies any fever or chills, continues with exertional dyspnea, no significant distress at rest. Remains on IV diuretics with Lasix 40 mg twice daily, he is in negative fluid balance, ultrasound of the chest was obtained showing right pleural effusion pocket of 9.6 cm, and left pleural effusion pocket of 6.2 cm. Possibly we will proceed with right-sided thoracentesis today, for diagnostic purposes Objective - Vital Signs Vital signs: Vital Signs Temp 98.2 F 10/09/19 03:57 Pulse 76 10/09/19 11:08 Resp 16 10/09/19 11:06 BP 92/56 10/09/19 08:00 Pulse Ox 95 10/09/19 08:00 Intake & Output 10/08/19 10/09/19 10/09/19 18:59 06:59 18:59 Intake Total 1340 Output Total 1250 650 150 Balance 90 -650 -150 Intake: Oral 1340 Output: Urine 1250 650 150 Other: Voiding Method Urinal Urinal Urinal # Voids 1 1 1 - Exam GENERAL EXAM: Alert, very pleasant, 68-year-old white male, on 2 L of oxygen with a pulse ox of 95% comfortable in no apparent distress. HEAD: Normocephalic/atraumatic. EYES: Normal reaction of pupils, equal size. Conjunctiva pink, sclera white. NOSE: Clear with pink turbinates. THROAT: No erythema or exudates. NECK: No masses, no JVD, no thyroid enlargement, no adenopathy. CHEST: No chest wall deformity. Symmetrical expansion. LUNGS: Equal air entry with no crackles, wheeze, rhonchi or dullness. CVS: Regular rate and rhythm, normal S1 and S2, no gallops, no murmurs, no rubs ABDOMEN: Soft, nontender. No hepatosplenomegaly, normal bowel sounds, no guar ding or rigidity. EXTREMITIES: No clubbing, no edema, no cyanosis, 2+ pulses and upper and lower extremities. MUSCULOSKELETAL: Muscle strength and tone normal. SPINE: No scoliosis or deformity SKIN: No rashes CENTRAL NERVOUS SYSTEM: Alert and oriented -3. No focal deficits, tone is normal in all 4 extremities. PSYCHIATRIC: Alert and oriented -3. Appropriate affect. Intact judgment and insight. - Labs CBC & Chem 7: 10/08/19 06:05 10/09/19 06:36 Labs: Abnormal Lab Results - Last 24 Hours (Table) 10/08/19 10/08/19 10/09/19 Range/Units 16:33 20:07 02:06 Chloride (98-107) mmol/L Carbon Dioxide (22-30) mmol/L BUN (9-20) mg/dL Glucose (74-99) mg/dL POC Glucose (mg/dL) 392 H 415 H 248 H (75-99) mg/dL 10/09/19 10/09/19 10/09/19 Range/Units 06:09 06:36 11:33 Chloride 94 L (98-107) mmol/L Carbon Dioxide 38 H (22-30) mmol/L BUN 30 H (9-20) mg/dL Glucose 140 H (74-99) mg/dL POC Glucose (mg/dL) 182 H 126 H (75-99) mg/dL Microbiology - Last 24 Hours (Table) 10/08/19 16:39 Gram Stain - Preliminary Sputum Sputum Culture - Preliminary 10/05/19 09:45 Blood Culture - Preliminary Blood No Growth after 72 hours Assessment and Plan Plan: Assessment: #1.Acute on chronic dyspnea related to acute exacerbation of systolic CHF, with documented ejection fraction of 20-25% #2. Severe pulmonary hypertension likely related to valvular heart disease, with right-sided pressures of 73.3 mmHg #3. Moderate to severe aortic stenosis #4. Moderate to severe mitral regurgitation #5. And moderate to severe tricuspid regurgitation #6. Elevated troponin #7. Ischemic cardiomyopathy #8. Coronary artery disease with previous stenting #9. Peripheral vascular occlusive disease #10. Abdominal aortic aneurysm #11. Previous history of myocardial infarction #12. Hypertension Plan: Ultrasound of the chest has been reviewed, chest x-rays all reviewed by Dr. Keenan, pleural effusions appear somewhat loculated, we'll likely proceed with right-sided thoracentesis for diagnostic purposes, in the fluid will be sent for analysis. Otherwise continue with the same medical treatment. I performed a history & physical examination of the patient and discussed their management with my nurse practitioner, Vicenta Lamb. I reviewed the nurse pra ctitioner's note and agree with the documented findings and plan of care. Lung sounds are positive for diminished breath sounds throughout the lung long. The findings and the impression was discussed with the patient. I attest to the documentation by the nurse practitioner. Time with Patient: Less than 30
--- NOTE | 2019-10-09 12:10 | P.PN ---
Subjective Progress Note Date: 10/09/19 This is a pleasant 68-year-old gentleman with history of coronary artery disease and prior bypass surgery with subsequent PCI, most recently in May of this year, peripheral vascular disease, abdominal aortic aneurysm status post stent graft placement, hypertension, diabetes, hyperlipidemia, COPD with chronic nicotine dependence. Ischemic cardiomyopathy. He follows with Dr. Ni in the office. He presented to the hospital with symptoms of progressively worsening shortness of breath. Patient was initiated on IV Lasix and overall he's been diuresing well. Chest x-ray was performed today which showed persistent bibasilar opaque cities, continues to be on IV Lasix at this time. At time of examination today he does state that he feels well and is breathing is significantly improved overall. His blood pressure this morning 92/50 with a heart rate 70s to 80s, 95% on 2 L of oxygen. Sodium 139, potassium 4.4, BUN 30, creatinine 0.7. We will continue current dose of IV Lasix, patient is undergoing an ultrasound of the chest today to assess his pleural effusions. Objective - Vital Signs Vital signs: Vital Signs Temp 98.2 F 10/09/19 03:57 Pulse 76 10/09/19 11:08 Resp 16 10/09/19 11:06 BP 92/56 10/09/19 08:00 Pulse Ox 95 10/09/19 08:00 Intake & Output 10/08/19 10/09/19 10/09/19 18:59 06:59 18:59 Intake Total 1340 Output Total 1250 650 150 Balance 90 -650 -150 Intake: Oral 1340 Output: Urine 1250 650 150 Other: Voiding Method Urinal Urinal Urinal # Voids 1 1 1 - Exam 68-year-old gentleman in no acute distress at the time of my examination GENERAL: Well-appearing, well-nourished and in no acute distress. NECK: Supple without JVD or thyromegaly. LUNGS: Breath sounds clear to with diminished air entry bilaterally to the bases. HEART: Regular rate and rhythm with systolic ejection murmur at the base, no rubs or gallops. S1 and S2 heard. EXTREMITIES: Normal range of motion, trace edema. No clubbing or cyanosis. Peripheral pulses intact. - Labs CBC & Chem 7: 10/08/19 06:05 10/09/19 06:36 Labs: Abnormal Lab Results - Last 24 Hours (Table) 10/08/19 10/08/19 10/09/19 Range/Units 16:33 20:07 02:06 Chloride (98-107) mmol/L Carbon Dioxide (22-30) mmol/L BUN (9-20) mg/dL Glucose (74-99) mg/dL POC Glucose (mg/dL) 392 H 415 H 248 H (75-99) mg/dL 10/09/19 10/09/19 10/09/19 Range/Units 06:09 06:36 11:33 Chloride 94 L (98-107) mmol/L Carbon Dioxide 38 H (22-30) mmol/L BUN 30 H (9-20) mg/dL Glucose 140 H (74-99) mg/dL POC Glucose (mg/dL) 182 H 126 H (75-99) mg/dL Microbiology - Last 24 Hours (Table) 10/08/19 16:39 Gram Stain - Preliminary Sputum Sputum Culture - Preliminary 10/05/19 09:45 Blood Culture - Preliminary Blood No Growth after 72 hours Assessment and Plan Plan: Assessment and plan #1 systolic congestive heart failure acute on chronic #2 ischemic cardio myopathy with documented ejection fraction of 35-40% by echo performed in January 2019 #3 moderate to severe aortic stenosis and moderate to severe nature regurgitati on, TONO was performed in January 2019 #4 PAD and PVD #5 AAA with stent graft #6 hypertension #7 hyperlipidemia #8 nicotine dependence #9 COPD #10 diabetes #11 status post left carotid endarterectomy #12 hyperkalemia Repeat echocardiogram with Doppler study was done during this admission which revealed an ejection fraction of 20-25%, moderate to severe mitral regurg, moderate to severe tricuspid regurg and severe pulmonary hypertension. We will continue current dose of IV Lasix, and ultrasound of the chest has also been ordered to assess the pleural effusions. Patient is not currently on an MARTHA inhibitor or Aldactone because of hypotension. DNP note has been reviewed, I agree with a documented findings and plan of care. Patient was seen and examined.
[2019-10-09] MEDS: FUROSEMIDE 10 MG/ML 4 ML VIAL IV SCH ×3 (12:11→23:04)
[2019-10-09] MEDS: METOPROLOL SUCCINATE (ER) 25 MG TAB.ER.24H PO SCH (12:11)
[2019-10-09] MEDS: CLOPIDOGREL 75 MG TAB PO SCH (12:12)
[2019-10-09] MEDS: ATORVASTATIN 20 MG TAB PO SCH (12:12)
[2019-10-09] MEDS: ASPIRIN 81 MG PO SCH (12:12)
[2019-10-09] MEDS: NICOTINE 14MG/24HR PATCH TRANSDERM SCH (12:12)
[2019-10-09] MEDS: predniSONE 20 MG TAB PO SCH (12:12)
[2019-10-09] MEDS: POLYETHYLENE GLYCOL 3350 17 GM POWD.PACK PO SCH (12:13)
--- NOTE | 2019-10-09 13:57 | P.PN ---
Subjective Progress Note Date: 10/09/19 Principal diagnosis: sob Patient is feeling better today. Breathing has improved significantly. Has no pain. No fevers or chills. No overnight events. Objective - Vital Signs Vital signs: Vital Signs Temp 98.2 F 10/09/19 03:57 Pulse 78 10/09/19 12:00 Resp 16 10/09/19 12:00 BP 115/81 10/09/19 12:00 Pulse Ox 96 10/09/19 12:00 Intake & Output 10/08/19 10/09/19 10/09/19 18:59 06:59 18:59 Intake Total 1340 480 Output Total 1250 650 150 Balance 90 -650 330 Intake: Oral 1340 480 Output: Urine 1250 650 150 Other: Voiding Method Urinal Urinal Urinal # Voids 1 1 1 - Exam Constitutional: No acute distress, conversant, pleasant Eyes:Anicteric sclerae, moist conjunctiva, no lid-lag, PERRLA, ENMT: Oropharynx clear, no erythema, exudates Neck: Supple, FROM, no masses, or JVD, No carotid bruits, No thyromegaly Lungs: Diminished breath sounds bilaterally, faint wheezes , Clear to percussion, increased respiratory effort, mild use of accessory muscle use Cardiovascular: Heart regular in rate and rhythm, No murmurs, gallops, or rubs, No peripheral edema Abdominal: Soft, Nontender, no guarding, rebound or rigidity, Normoactive bowel sounds, No hepatomegaly, No splenomegaly, No palpable mass Skin: Normal temperature, tone, texture, turgor, no induration, No subcutaneous nodules, No rash, lesions, No ulcers Extremities: No digital cyanosis, No clubbing, Pedal pulses intact and symmetrical, Radial pulses intact and symmetrical, No calf tenderness Psychiatric: Alert and oriented to person, place and time, appropriate affect, intact judgement Neuro: Muscles Strength 5/5 in all 4 extremities, Sensation to light touch grossly present throughout, Cranial nerves II-XII grossly intact, no focal se nsory deficits - Labs CBC & Chem 7: 10/08/19 06:05 10/09/19 06:36 Labs: Abnormal Lab Results - Last 24 Hours (Table) 10/08/19 10/08/19 10/09/19 Range/Units 16:33 20:07 02:06 Chloride (98-107) mmol/L Carbon Dioxide (22-30) mmol/L BUN (9-20) mg/dL Glucose (74-99) mg/dL POC Glucose (mg/dL) 392 H 415 H 248 H (75-99) mg/dL 10/09/19 10/09/19 10/09/19 Range/Units 06:09 06:36 11:33 Chloride 94 L (98-107) mmol/L Carbon Dioxide 38 H (22-30) mmol/L BUN 30 H (9-20) mg/dL Glucose 140 H (74-99) mg/dL POC Glucose (mg/dL) 182 H 126 H (75-99) mg/dL Microbiology - Last 24 Hours (Table) 10/05/19 09:45 Blood Culture - Preliminary Blood No Growth after 96 hours 10/08/19 16:39 Gram Stain - Preliminary Sputum Sputum Culture - Preliminary Assessment and Plan Plan: Shortness of breath, likely related to systolic CHF exacerbation, with documented ejection fraction of 20-25% Bilateral pleural effusions right more than left likely secondary to above Ischemic cardiomyopathy CAD s/p stenting Severe pulmonary hypertension likely related to valvular heart disease, with right-sided pressures of 73.3 mmHg Severe aortic stenosis Moderate to severe aortic stenosis Moderate to severe mitral regurgitation Moderate to severe tricuspid regurgitation Hyperkalemia Elevated Troponin Diabetes mellitus with hyperglycemia Smoker Peripheral vascular occlusive disease 2018 echocardiogram shows EF 35-40% with hypokinetic wall motion, moderate to severe aortic stenosis. BNP 2870 with chest x-ray concerning for decompensated heart failure. Repeat echocardiogram shows EF 20-25% with mild concentric LVH with moderate to severe aortic stenosis. Continue Lasix 40 mg IV twice a day dosing DuoNeb's and steroids, added by pulmonary Chest ultrasound done, plan for bilateral thoracentesis for diagnostic and therapeutic purposes Continue metoprolol Aldactone discontinued due to hyperkalemia. Continue aspirin, Lipitor and Plavix Not a candidate for MARTHA inhibitor due to hypotension Pro-calcitonin negative--no antibiotics Cardiology and pulmonary following Daily weights. Telemetry monitoring. Plans for AICD placement. Insulin sliding scale. Regular Accu-Cheks. Hypoglycemic precautions.
--- NOTE | 2019-10-09 14:10 | XR ---
EXAMINATION TYPE: XR chest 1V portable DATE OF EXAM: 10/09/2019 COMPARISON: 10/09/2019 INDICATION: Post right thoracentesis TECHNIQUE: Single frontal view of the chest is obtained. FINDINGS: The heart size is mildly prominent. The pulmonary vasculature is normal. Small bilateral pleural effusions are present. No pneumothorax is evident. Surgical prior CABG are ev ident. IMPRESSION: 1. No pneumothorax postthoracentesis. Small bilateral pleural effusions
[2019-10-09 15:03] LABS: Appearance,BF Bloody; Color,BF Red
[2019-10-09 15:04] LABS: Nucleated Cells, Body Fluid 90 /uL; RBC, Body Fluid 23050 /uL
[2019-10-09 15:12] LABS: Mononuclear WBC,Body Fluid 45 %; Polynuclear WBC,Body Fluid 55 %; Total Cells Counted,Body Fluid 100
--- NOTE | 2019-10-09 15:52 | PCN ---
PROCEDURE NOTE PROCEDURE: Thoracentesis. PREOPERATIVE DIAGNOSIS: Right-sided pleural effusion. POSTOPERATIVE DIAGNOSIS: Right-sided pleural effusion. DESCRIPTION OF PROCEDURE: A time-out was completed verifying correct patient, procedure, site, positioning , and implant (s) or special equipment if applicable. Ultrasound guidance was used. Ultrasound markings were obtained. Appropriate fluid pocket was identified and marked. Patient was positioned, prepped and draped in usual sterile fashion. Lidocaine was used to anesthetize the area. A thoracentesis catheter was introduced into the pleural space and fluid was removed. Blood loss was none. A chest x-ray was ordered to evaluate for pneumothorax. Total Fluid Removed: One liter. Color of Fluid: Dark, turbid, red, yellowish. Patient tolerated the procedure well and there were no bedside complications. Chest x- ray is to follow. MMODL / IJN: [id number] /
[2019-10-09 16:36] LABS: Glucose,Whole Blood 359 mg/dL (75-99)
[2019-10-09 19:11] LABS: Glucose, BF Source Pleural Fluid; Glucose, Body Fluid 179 mg/dL; LDH, Body Fluid Source Pleural Fluid; Total Protein, Body Fluid 1726 mg/dL
[2019-10-09 20:45] LABS: Glucose,Whole Blood 365 mg/dL (75-99)
[2019-10-09] MEDS: INSULIN DETEMIR (LEVEMIR) 100 UNIT/ML SYR SQ SCH (20:55)
[2019-10-10 01:54] LABS: Glucose,Whole Blood 219 mg/dL (75-99)
[2019-10-10 06:10] LABS: Glucose,Whole Blood 156 mg/dL (75-99)
[2019-10-10] MEDS: INSULIN ASPART (NovoLOG) 100 UNIT/ML VIAL SQ SCH ×3 (06:21→17:16)
[2019-10-10 06:46] VITALS: TEMP 97.2
[2019-10-10] MEDS: BUDESONIDE 1 MG/2 ML NEBU INHALATION SCH (07:03)
[2019-10-10] MEDS: IPRATROPIUM-ALBUTEROL 3 ML NEB INHALATION SCH ×3 (07:03→16:22)
[2019-10-10] MEDS: FORMOTEROL FUMARATE 20 MCG/2 ML NEBU INHALATION SCH (07:03)
[2019-10-10] MEDS: NICOTINE 14MG/24HR PATCH TRANSDERM SCH (08:58)
[2019-10-10] MEDS: POLYETHYLENE GLYCOL 3350 17 GM POWD.PACK PO SCH (08:58)
[2019-10-10] MEDS: FUROSEMIDE 10 MG/ML 4 ML VIAL IV SCH (08:59)
[2019-10-10] MEDS: METOPROLOL SUCCINATE (ER) 25 MG TAB.ER.24H PO SCH (08:59)
[2019-10-10] MEDS: CLOPIDOGREL 75 MG TAB PO SCH (09:00)
[2019-10-10] MEDS: predniSONE 20 MG TAB PO SCH (09:00)
[2019-10-10] MEDS: ASPIRIN 81 MG PO SCH (09:00)
[2019-10-10] MEDS: ATORVASTATIN 20 MG TAB PO SCH (09:00)
[2019-10-10 09:06] VITALS: RESP 16
[2019-10-10 11:32] LABS: Glucose,Whole Blood 192 mg/dL (75-99)
[2019-10-10 12:27] VITALS: BP 102/70
[2019-10-10] MEDS ORDERED: AMOXIC-POT CLAV 875-125MG 1 EACH TAB PO SCH (13:00)
--- NOTE | 2019-10-10 14:03 | P.PN ---
Subjective Progress Note Date: 10/10/19 Principal diagnosis: CHF exacerbation Patient was seen and examined. No acute events overnight. Patient reports significant improvement in his breathing since admission. States that his breathing is back to baseline. Patient reports bilateral lower extremity pain that is being continued since admission. Patient states that he is an exercise tolerance of 25 feet. He complains of burning sensation in his feet bilaterally along with cold sensation. Patient states that this started 2 weeks ago, sudden onset and has persisted since. Objective - Vital Signs Vital signs: Vital Signs Temp 97.2 F L 10/10/19 04:00 Pulse 79 10/10/19 12:00 Resp 16 10/10/19 12:00 BP 102/70 10/10/19 12:00 Pulse Ox 94 L 10/10/19 12:00 Intake & Output 10/09/19 10/10/19 10/10/19 18:59 06:59 18:59 Intake Total 538 694 2946 Output Total 150 1250 Balance 690 -1138 1020 Intake: Oral 680 916 1672 Output: Urine 150 1250 Other: Voiding Method Urinal Urinal Urinal # Voids 1 1 # Bowel Movements 0 0 - Exam General: [non toxic], [no distress on room air], [appears at stated age] Derm: [warm], [dry] Head: [atraumatic], [normocephalic], [symmetric] Eyes: [EOMI], [no lid lag], [anicteric sclera] Mouth: [no lip lesion], [mucus membranes moist] Cardiovascular: [S1S2 reg], [systolic murmur] Lungs: [Decreased breath sounds bilateral], [no rhonchi, no rales] , [no accessory muscle use] Abdominal: [soft], [ nontender to palpation], [no guarding], [no appreciable organomegaly] Ext: [no gross muscle atrophy], [no edema], [no contractures] Neuro: [no focal neuro deficits] Psych: [Alert], [oriented], [appropriate affect] - Labs CBC & Chem 7: 10/08/19 06:05 10/09/19 06:36 Labs: Abnormal Lab Results - Last 24 Hours (Table) 10/09/19 10/09/19 10/10/19 Range/Units 16:35 20:43 01:53 POC Glucose (mg/dL) 359 H 365 H 219 H (75-99) mg/dL 10/10/19 10/10/19 Range/Units 06:09 11:31 POC Glucose (mg/dL) 156 H 192 H (75-99) mg/dL Microbiology - Last 24 Hours (Table) 10/05/19 09:45 Blood Culture - Preliminary Blood No Growth after 120 hours 10/09/19 13:00 Gram Stain - Preliminary Pleural Fluid Body Fluid Culture - Preliminary 10/08/19 16:39 Gram Stain - Preliminary Sputum Sputum Culture - Preliminary Streptococcus pneumoniae Assessment and Plan Assessment: Shortness of breath, likely related to systolic CHF exacerbation, severe aortic stenosis, moderate to severe mitral and tricuspid regurgitation Pleural effusion Elevated D-dimer Elevated Troponin Diabetes mellitus with hyperglycemia Smoker PAD 2018 echocardiogram shows EF 35-40% with hypokinetic wall motion, moderate to severe aortic stenosis. BNP 2870 with chest x-ray concerning for decompensated heart failure. Repeat echocardiogram shows EF 20-25% with mild concentric LVH with moderate to severe aortic stenosis. Pro-calcitonin negative but sputum culture positive for strep pneumo. Plans: Transitioned to Lasix by mouth. Strict intake and output take. Daily weights. Telemetry monitoring. Restart m etoprolol and Aldactone and lisinopril held due to hyperkalemia and hypotension. Follow-up cardiology consultation, plans for AICD placement. Complete 7 days of Augmentin for strep pneumo seen in sputum culture. Post thoracentesis bilaterally. Plans: Follow pleural fluid analysis and culture. Follow pulmonology recommendations. D-dimer 4.13. CTA chest ruled out PE. CRP elevated. LDH normal. Liver enzymes normal. Plans: PE ruled out. Troponin 0.112, 0.097, 0.074 EKG showing normal sinus rhythm with T-wave abnormalities. Plans: ACS ruled out. Continue aspirin, Lipitor and Plavix. Continue beta prasad. Budmg-ae-lxip glucose 192. Plans: Insulin sliding scale. Regular Accu-Cheks. Hypoglycemic precautions. Plans: Nicotine patch. Previous stenting by Dr. Ni. Discussed with vascular surgery Dr. Albright, will defer to cardiology for management of PAD. Plans: Continue aspirin, Lipitor and Plavix. Continue beta prasad. Follow PT recommendations. [Patient admitted for CHF exacerbation, now improved, Lasix transitioned to oral. Plans for AICD placement by cardiology. Continues to complain of pain related to PAD. He is pending clinical improvement. Likely DC based on cardiology recommendations.]
--- NOTE | 2019-10-10 14:13 | PN ---
PROGRESS NOTE Pratik is a 68-year-old gentleman who is admitted to hospital with congestive heart failure. The patient had large bilateral pleural effusions, had been treated with IV diuretics and underwent thoracentesis yesterday. He had acute on chronic systolic heart failure. Feeling much better and ready to go home. PHYSICAL EXAM: Heart rate is 76, blood pressure is 98/58, respiratory ate is 16, O2 saturation is 95% on room air. Chest exam reveals diminished air entry at the bases. Heart exam reveals first and second heart sounds. No gallop. Exam of extremities did not reveal any edema. Peripheral pulses are felt. LABS: I do not have any labs from today. ASSESSMENT: 1. Acute exacerbation of chronic systolic heart failure. 2. Pleural effusion, status post thoracentesis. PLAN: Patient is stable for discharge. Continue aspirin, Lipitor, Plavix, oral Lasix, Toprol. MMODL / IJN: [id number] /
--- NOTE | 2019-10-10 14:26 | P.PN ---
Subjective Progress Note Date: 10/10/19 Principal diagnosis: Bilateral pleural effusions, acute exacerbation of CHF On 10/09/2019 patient seen in follow-up on selective care unit. He is awake and alert, in no acute distress he is on 2 L of oxygen his pulse ox of 95%, denies any fever or chills, continues with exertional dyspnea, no significant distress at rest. Remains on IV diuretics with Lasix 40 mg twice daily, he is in negative fluid balance, ultrasound of the chest was obtained showing right pleural effusion pocket of 9.6 cm, and left pleural effusion pocket of 6.2 cm. Possibly we will proceed with right-sided thoracentesis today, for diagnostic purposes On 10/10/2019 patient seen in follow-up on selective care unit, he status post right-sided thoracentesis on 10/09/2019 for diagnostic purposes, and pleural fluid analysis showed transudate of fluid, pleural fluid cultures are pending, and cytology is still pending. Sputum cultures positive for strep pneumonia, and we will add Augmentin. Otherwise no acute events overnight, patient is doing well, no altered mentation, no worsening dyspnea. pulse ox is 94% on room air Objective - Vital Signs Vital signs: Vital Signs Temp 97.2 F L 10/10/19 04:00 Pulse 79 10/10/19 12:00 Resp 16 10/10/19 12:00 BP 102/70 10/10/19 12:00 Pulse Ox 94 L 10/10/19 12:00 Intake & Output 10/09/19 10/10/19 10/10/19 18:59 06:59 18:59 Intake Total 058 955 2129 Output Total 150 1250 Balance 690 -1138 1200 Intake: Oral 614 143 6651 Output: Urine 150 1250 Other: Voiding Method Urinal Urinal Urinal # Voids 1 1 # Bowel Movements 0 0 - Exam GENERAL EXAM: Alert, very pleasant, 68-year-old white male, on room air of oxygen with a pulse ox of 94% comfortable in no apparent distress. HEAD: Normocephalic/atraumatic. EYES: Normal reaction of pupils, equal size. Conjunctiva pink, sclera white. NOSE: Clear with pink turbinates. THROAT: No erythema or exudates. NECK: No masses, no JVD, no thyroid enlargement, no adenopathy. CHEST: No chest wall deformity. Symmetrical expansion. LUNGS: Equal air entry with no crackles, wheeze, rhonchi or dullness. CVS: Regular rate and rhythm, normal S1 and S2, no gallops, no murmurs, no rubs ABDOMEN: Soft, nontender. No hepatosplenomegaly, normal bowel sounds, no guarding or rigidity. EXTREMITIES: No clubbing, no edema, no cyanosis, 2+ pulses and upper and lower extremities. MUSCULOSKELETAL: Muscle strength and tone normal. SPINE: No scoliosis or deformity SKIN: No rashes CENTRAL NERVOUS SYSTEM: Alert and oriented -3. No focal deficits, tone is normal in all 4 extremities. PSYCHIATRIC: Alert and oriented -3. Appropriate affect. Intact judgment and insight. - Labs CBC & Chem 7: 10/08/19 06:05 10/09/19 06:36 Labs: Abnormal Lab Results - Last 24 Hours (Table) 10/09/19 10/09/19 10/10/19 Range/Units 16:35 20:43 01:53 POC Glucose (mg/dL) 359 H 365 H 219 H (75-99) mg/dL 10/10/19 10/10/19 Range/Units 06:09 11:31 POC Glucose (mg/dL) 156 H 192 H (75-99) mg/dL Microbiology - Last 24 Hours (Table) 10/05/19 09:45 Blood Culture - Preliminary Blood No Growth after 120 hours 10/09/19 13:00 Gram Stain - Preliminary Pleural Fluid Body Fluid Culture - Preliminary 10/08/19 16:39 Gram Stain - Preliminary Sputum Sputum Culture - Preliminary Streptococcus pneumoniae Assessment and Plan Plan: Assessment: #1.Acute on chronic dyspnea related to acute exacerbation of systolic CHF, with documented ejection fraction of 20-25% #2. Severe pulmonary hypertension likely related to valvular heart disease, with right-sided pressures of 73.3 mmHg #3. Moderate to severe aortic stenosis #4. Moderate to severe mitral regurgitation #5. And moderate to severe tricuspid regurgitation #6. Elevated troponin #7. Ischemic cardiomyopathy #8. Coronary artery disease with previous stenting #9. Peripheral vascular occlusive disease #10. Abdominal aortic aneurysm #11. Previous history of myocardial infarction #12. Hypertension #13. Bilateral pleural effusions, status post right-sided thoracentesis on 10/09/2019 and pleural fluid analysis showed transudative fluid Plan: We will add Augmentin for sputum cultures positive for Streptococcus pneumonia, clinically patient is stable, pleural fluid analysis showed transudative fluid, she is on room air, no worsening dyspnea, breathing is comfortable, he can be considered for discharge home today, with outpatient follow-up with Dr. Keenan in the office in 7-10 days. I performed a history & physical examination of the patient and discussed their management with my nurse practitioner, Vicenta Lamb. I reviewed the nurse practitioner's note and agree with the documented findings and plan of care. Lung sounds are positive for diminished breath sounds throughout the lung field s. The findings and the impression was discussed with the patient. I attest to the documentation by the nurse practitioner. Time with Patient: Less than 30
--- NOTE | 2019-10-10 15:01 | P.DS ---
Providers Date of admission: 10/05/19 12:15 Expected date of discharge: 10/10/19 Attending physician: Macho Esteves MD Consults: 10/05/19 12:20 Consult Physician Stat Consulting Provider: Mor Malcolm Consult Reason/Comments: CHF, NSTEMI Do you want consulting provider notified?: Yes 10/07/19 08:55 Consult Physician Routine Consulting Provider: Lindy Keenan Consult Reason/Comments: shortness of breath, smoker not improving with diuresis Do you want consulting provider notified?: Yes 10/10/19 10:53 Consult Physician Stat Consulting Provider: Charo Albright Consult Reason/Comments: PAD h/o stent placement, worsening exertional pain Do you want consulting provider notified?: Yes Primary care physician: Stated None Hospital Course: 68-year-old male with PMH of diabetes, CHF, PAD, COPD presents the ED for shortness of breath. Patient reports worsening shortness of breath over the past week. Breathing is worsened with exertion. He also complains of a wet cough, unable to bring up sputum. A short reports severe orthopnea and states that he sleeps in a chair. He also reports some lower extremity edema. Patient reports smoking one half pack of cigarettes daily for a number of years. He denies any changes in diet or salt intake. He denies any headache, nausea or vomiting, fever or chills, chest pain, palpitations, changes in urination or michael wel habits. No changes in appetite or weight. He denies any dizziness, numbness/weakness/tingling of the extremities. In the ED, his vital signs were stable with pulse of 102. CBC showed no leukoc ytosis or anemia. INR was negative. D-dimer was elevated at 4.13. CMP showed sodium 135, chloride 95, BUN 23, glucose 171. Lactic acid was negative. Troponin was 0.112, EKG showing normal sinus rhythm with T-wave abnormalities. CRP was 49.7. BNP was 2870. Coronavirus testing was negative. Chest x-ray showed findings of congestive heart failure. CTA chest was negative for PE but showed small moderate bilateral pleural effusion with atelectasis or infiltrates. Patient is admitted for anticipated greater than 48 hours admission for shortness of breath, probable CHF exacerbation, troponin elevation, possible pneumonia. He had an echocardiogram in 2019 which showed an EF of 35-40% with hypokinetic wall motion and moderate to severe aortic stenosis. He was started on Lasix 40 mg IV 3 times a day which is decreased to twice a day dosing. Lasix was eventually transitioned to oral for discharge. He was restarted on metoprolol. Aldactone and MARTHA inhibitor was held due to hypotension. Repeat echocardiogram showed EF of 20-25% with mild concentric LVH and moderate to severe aortic stenosis. His sputum culture was positive for strep pneumo. He was started on Augmentin to complete a total of 7 days by mouth. Due to the pleural effusion that was seen on CTA chest, pulmonology was consulted for thoracentesis. Bilateral thoracentesis was performed and cultures were pending at the time of discharge. Lights criteria showed that this was a transudate and possibly related to CHF but many mesothelial cells were seen and the thoracentesis was bloody. Patient was advised to follow-up with PCP for further workup. With regard to his troponins, they were trended to 0.112, 0.097 and 0.074 with EKG showing normal sinus rhythm with T-wave abnormalities. Acute coronary syndrome was ruled out. Vascular surgery was consulted for symptomatic PAD. The case was discussed with vascular surgery, which advised that Dr. Malcolm was following the patient and there be no need for the consult. Discharge diagnosis: Shortness of breath, likely related to systolic CHF exacerbation, severe aortic stenosis, moderate to severe mitral and tricuspid regurgitation Pleural effusion Elevated D-dimer Elevated Troponin Diabetes mellitus with hyperglycemia Smoker PAD This complex discharge took about 35 minutes to complete. Pertinent Studies: Chest x-ray, chest CTA, echocardiogram, chest ultrasound Procedures: Thoracentesis bilateral Patient Condition at Discharge: Good Plan - Discharge Summary Discharge Rx Participant: Yes New Discharge Prescriptions: New Aspirin 81 mg PO DAILY #90 chew Amoxic-Pot Clav 875-125Mg [Augmentin 875-125] 1 each PO Q12HR #14 tab predniSONE [Deltasone] 40 mg PO DAILY #1 tab HYDROcodone/APAP 5-325MG [Liguori 5-325] 1 each PO Q4HR PRN #18 tab PRN Reason: Moderate Pain Acetaminophen Tab [Tylenol] 650 mg PO Q6HR PRN tab PRN Reason: Mild Pain Or Fever > 100.5 Budesonide-Formot 160-4.5 Mcg [Symbicort 160-4.5 Mcg Inhaler] 2 puff INHALATION BID #1 inhaler Albuterol Inhaler [Ventolin Hfa Inhaler] 1 puff INHALATION RT-TID PRN #1 inhaler PRN Reason: Shortness Of Breath Continue Clopidogrel [Plavix] 75 mg PO DAILY #30 tab Nitroglycerin Sl Tabs [Nitrostat] 0.4 mg SUBLINGUAL Q5M PRN #25 tab PRN Reason: Chest Pain Simvastatin [Zocor] 40 mg PO DAILY Metoprolol Succinate (ER) [Toprol XL] 12.5 mg PO DAILY Furosemide [Lasix] 40 mg PO BID #60 tab Discontinued Spironolactone 12.5 mg PO DAILY Discharge Medication List Clopidogrel [Plavix] 75 mg PO DAILY #30 tab 06/29/18 [Rx] Nitroglycerin Sl Tabs [Nitrostat] 0.4 mg SUBLINGUAL Q5M PRN #25 tab 06/29/18 [Rx] Metoprolol Succinate (ER) [Toprol XL] 12.5 mg PO DAILY 10/05/19 [History] Simvastatin [Zocor] 40 mg PO DAILY 10/05/19 [History] Acetaminophen Tab [Tylenol] 650 mg PO Q6HR PRN tab 10/10/19 [Rx] Albuterol Inhaler [Ventolin Hfa Inhaler] 1 puff INHALATION RT-TID PRN #1 inhaler 10/10/19 [Rx] Amoxic-Pot Clav 875-125Mg [Augmentin 875-125] 1 each PO Q12HR #14 tab 10/10/19 [Rx] Aspirin 81 mg PO DAILY #90 chew 10/10/19 [Rx] Budesonide-Formot 160-4.5 Mcg [Symbicort 160-4.5 Mcg Inhaler] 2 puff INHALATION BID #1 inhaler 10/10/19 [Rx] Furosemide [Lasix] 40 mg PO BID #60 tab 10/10/19 [Rx] HYDROcodone/APAP 5-325MG [Liguori 5-325] 1 each PO Q4HR PRN #18 tab 10/10/19 [Rx] predniSONE [Deltasone] 40 mg PO DAILY #1 tab 10/10/19 [Rx] Follow up Appointment(s)/Referral(s): Mor Malcolm MD [STAFF PHYSICIAN] - 1 Week (Device clinic follow up in 5 days: Follow up with Dr. Malcolm in 1 week.) [facility] [NON-STAFF] - As Needed None,Stated [Primary Care Provider] - 1-2 days Lindy Keenan MD [STAFF PHYSICIAN] - 10 Days Patient Instructions/Handouts: Implantable Cardioverter Defibrillator (DC) Activity/Diet/Wound Care/Special Instructions: Contact CM at ct regarding indigent funds Follow-up PCP within 3 days of discharge. Follow-up with cardiology within 1 week of discharge. Take all medications as advised. Come back to the ED or call 911 for worsening chest pain, shortness of breath, palpitations or dizziness. Discharge Disposition: HOME SELF-CARE
--- NOTE | 2019-10-10 15:13 | P.CRDCN ---
History of Present Illness Consult date: 10/10/19 Chief complaint: Bilateral lower extremities discomfort History of present illness: This is a 68-year-old male with extensive past cardiac history including CAD s/p CABG 2 and stenting, peripheral vascular disease s/p stenting, AAA s/p stent g raft, hypertension, and dyslipidemia. We are asked to see the patient in consult regarding peripheral arterial disease. In 2019 he underwent heart catheterization and that revealed severe triple-vessel CAD with patent GARCIA to LAD and critical disease involving the LCx and chronic total occlusion of RCA. At that point he underwent successful stenting of the LCx. Also in 2019 he underwent an aortogram with runoff which revealed patent aortic stent graft with occluded right SFA and severe disease involving the left SFA. He underwent percutaneous peripheral intervention on bilateral SFA. Also in 2019 was admitted to the hospital with heart failure and underwent an echocardiogram which revealed impaired LV function was EF of 40% was evidence of moderate aortic stenosis and moderate mitral regurgitation. Unfortunately he continues to smoke. This time, the patient presented to the hospital with increasing shortness of breath and he was diagnosed with congestive heart failure exacerbation. Beside that he also was diagnosed with left large pleural effusion and he underwent yesterday a left pleurocentesis.He is going to be discharged home later on today. He is complaining off bilateral lower extremity discomfort seems to be typical for intermittent claudication.He describes Fontain class IIA symptoms without any evidence of critical limb ischemia. On physical examination he does have diminished bilateral pedal pulses and diminished bilateral popliteal pulses. The left femoral pulse appeared to be also diminished as well with good right femoral pulse. Giving the ongoing severe cardiovascular comorbidity at this time, and giving the fact the patient is going to be discharged home today, and in the light of any absence of acute limp ischemia I would recommend that the patient can be discharged on dual antiplatelet and statin and I will follow-up with in the office as outpatient Past Medical History Past Medical History: Coronary Artery Disease (CAD), Chest Pain / Angina, COPD, Diabetes Mellitus, Hyperlipidemia, Hypertension, Myocardial Infarction ([place]), Osteoarthritis (OA), Vascular Disorder Additional Past Medical History / Comment(s): steroids October 2018,KIDNEY STONES. hx aneurysm abdominal Last Myocardial Infarction Date:: 2005? History of Any Multi-Drug Resistant Organisms: None Reported Past Surgical History: Coronary Bypass/CABG, Heart Catheterization, Heart Catheterization With Stent, Orthopedic Surgery Additional Past Surgical History / Comment(s): RT ROTATOR CUFF REPAIR. CABG (2005 & 2007) BYPASS X2. STENTS X2 IN PAST, ABD ANEURYSM REPAIR WITH STENT, LT CAROTID ENDARTERECTOMY. lithotripsy. STATES STENT TO LEFT LEG, Cardiac cath 2018. stents to right SFA november 2018 Past Anesthesia/Blood Transfusion Reactions: No Reported Reaction Date of Last Stent Placement:: 2018 Past Psychological History: No Psychological Hx Reported Smoking Status: Current every day smoker Past Alcohol Use History: None Reported Additional Past Alcohol Use History / Comment(s): Current pack a day smoker Past Drug Use History: None Reported - Past Family History Father Family Medical History: Deep Vein Thrombosis (DVT), Myocardial Infarction (NC) Medications and Allergies Home Medications Medication Instructions Recorded Confirmed Type Clopidogrel [Plavix] 75 mg PO DAILY #30 tab 06/29/18 10/05/19 Rx Nitroglycerin Sl Tabs [Nitrostat] 0.4 mg SUBLINGUAL Q5M PRN #25 tab 06/29/18 10/05/19 Rx Metoprolol Succinate (ER) [Toprol 12.5 mg PO DAILY 10/05/19 10/05/19 History XL] Simvastatin [Zocor] 40 mg PO DAILY 10/05/19 10/05/19 History Acetaminophen Tab [Tylenol] 650 mg PO Q6HR PRN tab 10/10/19 Rx Albuterol Inhaler [Ventolin Hfa 1 puff INHALATION RT-TID PRN #1 10/10/19 Rx Inhaler] inhaler Amoxic-Pot Clav 875-125Mg 1 each PO Q12HR #14 tab 10/10/19 Rx [Augmentin 875-125] Aspirin 81 mg PO DAILY #90 chew 10/10/19 Rx Budesonide-Formot 160-4.5 Mcg 2 puff INHALATION BID #1 inhaler 10/10/19 Rx [Symbicort 160-4.5 Mcg Inhaler] Furosemide [Lasix] 40 mg PO BID #60 tab 10/10/19 Rx HYDROcodone/APAP 5-325MG [Salters 1 each PO Q4HR PRN #18 tab 10/10/19 Rx 5-325] predniSONE [Deltasone] 40 mg PO DAILY #1 tab 10/10/19 Rx Allergies Allergy/AdvReac Type Severity Reaction Status Date / Time No Known Allergies Allergy Verified 10/05/19 12:54 Physical Exam Vitals: Vital Signs Temp Pulse Pulse Resp BP BP Pulse Ox 10/10/19 12:00 79 16 102/70 94 L 10/10/19 11:28 16 10/10/19 11:20 76 10/10/19 11:11 72 10/10/19 08:00 102 H 16 98/58 95 10/10/19 07:24 72 10/10/19 07:14 76 10/10/19 07:13 76 10/10/19 07:03 76 10/10/19 04:00 97.2 F L 71 18 90/42 96 10/10/19 00:00 98.3 F 97 18 101/60 93 L 10/09/19 20:45 72 10/09/19 20:36 72 10/09/19 20:35 72 10/09/19 20:19 72 10/09/19 20:00 98 F 84 18 104/67 95 10/09/19 16:00 75 16 102/55 94 L 10/09/19 15:59 78 10/09/19 15:49 74 10/09/19 15:31 16 Intake and Output 10/10/19 10/10/19 10/10/19 06:59 14:59 22:59 Intake Total 1200 Output Total 1100 Balance -1100 1200 Intake: Oral 1200 Output: Urine 1100 Other: Voiding Method Urinal Urinal # Voids 1 # Bowel Movements 0 - Constitutional General appearance: no acute distress - Respiratory Respiratory: left: diminished - Cardiovascular Rhythm: regular Heart sounds: normal: S1 Abnormal Heart Sounds: systolic murmur Results 10/08/19 06:05 10/09/19 06:36 Current Medications Generic Name Dose Route Start Last Admin Trade Name Freq PRN Reason Stop Dose Admin Acetaminophen 650 mg 10/05/19 17:32 Tylenol Tab PO Q6HR PRN Mild Pain or Fever > 100.5 Hydrocodone Bitart/Acetaminophen 1 each 10/05/19 17:32 10/09/19 23:02 Salters 5-325 PO 1 each Q4HR PRN Administration Moderate Pain Albuterol/Ipratropium 3 ml 10/07/19 10:18 Duoneb 0.5 Mg-3 Mg/3 Ml Soln INHALATION RT-QID PRN Shortness Of Breath Or Wheezing Albuterol/Ipratropium 3 ml 10/07/19 12:00 10/10/19 11:11 Duoneb 0.5 Mg-3 Mg/3 Ml Soln INHALATION 3 ml RT-QID MELONIE Administration Amoxicillin/Clavulanate Potassium 1 each 10/10/19 13:00 Augmentin 875-125 PO Q12HR MELONIE Aspirin 81 mg 10/07/19 09:00 10/10/19 09:00 Aspirin PO 81 mg DAILY MELONIE Administration Atorvastatin Calcium 20 mg 10/06/19 09:00 10/10/19 09:00 Lipitor PO 20 mg DAILY [facility] Administration Budesonide 1 mg 10/07/19 20:00 10/10/19 07:03 Pulmicort INHALATION 1 mg RT-BID MELONIE Administration Clopidogrel Bisulfate 75 mg 10/06/19 09:00 10/10/19 09:00 Plavix PO 75 mg DAILY [facility] Administration Formoterol Fumarate 20 mcg 10/07/19 20:00 10/10/19 07:03 Perforomist INHALATION 20 mcg RT-BID MELONIE Administration Furosemide 40 mg 10/10/19 16:00 Lasix PO BID@0900,1600 [facility] Heparin Sodium (Porcine) 0 unit 10/05/19 12:06 Heparin IV PER PROTOCOL PRN Low PTT Protocol Insulin Aspart 0 unit 10/05/19 21:00 10/10/19 12:24 Novolog SQ 2 unit ACHS [facility] Administration Protocol Insulin Detemir 10 unit 10/08/19 21:00 10/09/19 20:55 Levemir SQ 10 unit HS [facility] Administration Metoprolol Succinate 12.5 mg 10/06/19 09:00 10/10/19 08:59 Toprol Xl PO 12.5 mg DAILY [facility] Administration Naloxone HCl 0.2 mg 10/05/19 17:32 Narcan IV Q2M PRN Opioid Reversal Nicotine 1 patch 10/05/19 17:45 10/10/19 08:58 Habitrol 14mg/24hr Patch TRANSDERM 1 patch DAILY [facility] Administration Nitroglycerin 0.4 mg 10/05/19 12:20 Nitrostat SUBLINGUAL Q5M PRN Chest Pain Polyethylene Glycol 17 gm 10/08/19 17:00 10/10/19 08:58 Miralax PO 17 gm DAILY [facility] Administration Prednisone 40 mg 10/07/19 10:30 10/10/19 09:00 PO 40 mg DAILY [facility] Administration Intake and Output 10/10/19 10/10/1910/09/20 06:59 14:59 22:59 Intake Total 1200 Output Total 1100 Balance -1100 1200 Intake: Oral 1200 Output: Urine 1100 Other: Voiding Method Urinal Urinal # Voids 1 # Bowel Movements 0 10/08/19 06:05 10/09/19 06:36 Assessment and Plan Assessment: Assessment Severe peripheral arterial disease Bilateral lower extremities intermittent claudication Status post bilateral lower extremity angioplasty and stenting Significant history of smoking Coronary artery disease Severe cardiomyopathy Aortic stenosis Multiple comorbid conditions Plan Continue the current medical regimen Continue dual antiplatelet therapy along with statin The patient can be discharged home Follow up with the patient as an outpatient
[2019-10-10] MEDS ORDERED: FUROSEMIDE 40 MG TAB PO SCH (16:00)
[2019-10-10 16:34] VITALS: PULSE 75
[2019-10-10 16:56] LABS: Glucose,Whole Blood 503 mg/dL (75-99)
[2019-10-10 16:56] LABS: Glucose,Whole Blood 460 mg/dL (75-99)
--- NOTE | 2019-10-12 01:23 | CDI ---
Documentation Clarification Form Date: 10/12/2019 From: Derrick Reed Phone: If you have a question about this query, please contact Diane Frazier Quality Improvement Consultant at [phone] between 8am and 5pm. Admit Date: 10/05/2019 Discharge Date: 10/10/2019 Patient Name: Pratik Nicholson Visit Number: [id number] ATTENTION: The Clinical Documentation Specialists (CDI) and [facility] Coding Staff appreciate your assistance in clarifying documentation. Please respond to the clarification below the line at the bottom and electronically sign. The CDI & [facility] Coding staff will review the response and follow-up if needed. Please note: Queries are made part of the Legal Health Record. If you have any questions, please contact the author of this message via ITS. Dear Dr Danielito Pritchard., Pneumonia was documented in discharge note "Patient is admitted for anticipated greater than 48 hours admission for shortness of breath, probable CHF exacerbation, troponin elevation, possible pneumonia". History/Risk Factors: CAD, Hyperlipidemia, CHF, DM, COPD Vital signs:Temperature 97.6 F Pulse Rate 102 H 89 86 Respiratory 20 24 22 Rate Blood Pressure 112/79 112/76 97/71 O2 Sat by Pulse 98 WBC/Left shift: 9.0 X-ray:.Persistent basilar opacities which may reflect a combination of effusion, atelectasis and/or infiltrate. Treatment:We will add Augmentin for sputum cultures positive for Streptococcus pneumonia, Antibiotics : Augmentin Sputum culture :Streptococcus pneumoniae. In order to capture the severity of condition, please clarify if the condition signifies and you are treating for: Pneumonia, specify causal organism (if known) Streptococcus pneumoniae Other, please specify Unable to determine s. pneumoniae MTDD
== END 2019-10-10 17:41 | disposition home or self-care (01) | DRG 291 ==
LOC: EC 09:21 → 3SCARD 12:15
PROVIDERS: ADMIT Family Medicine; ATTEND Family Medicine
PROC: 0W993ZZ Drainage of Right Pleural Cavity, Percutaneous Approach (ICD-10-PCS; principal; 2019-10-09)
DX: I11.0 Hypertensive heart disease with heart failure (principal); J13 Pneumonia due to Streptococcus pneumoniae; J44.1 Chronic obstructive pulmonary disease with (acute) exacerbation; J44.0 Chronic obstructive pulmonary disease with (acute) lower respiratory infection; E78.5 Hyperlipidemia, unspecified; I25.5 Ischemic cardiomyopathy; E11.51 Type 2 diabetes mellitus with diabetic peripheral angiopathy without gangrene; I08.3 Combined rheumatic disorders of mitral, aortic and tricuspid valves; I27.20 Pulmonary hypertension, unspecified; M19.90 Unspecified osteoarthritis, unspecified site; I50.23 Acute on chronic systolic (congestive) heart failure; E87.5 Hyperkalemia; E11.65 Type 2 diabetes mellitus with hyperglycemia; I25.82 Chronic total occlusion of coronary artery; Z20.828 Contact with and (suspected) exposure to other viral communicable diseases; J40 Bronchitis, not specified as acute or chronic; I71.4 Abdominal aortic aneurysm, without rupture; I95.9 Hypotension, unspecified; F17.210 Nicotine dependence, cigarettes, uncomplicated; I25.119 Atherosclerotic heart disease of native coronary artery with unspecified angina pectoris; Z95.5 Presence of coronary angioplasty implant and graft; Z79.899 Other long term (current) drug therapy; Z79.82 Long term (current) use of aspirin; Z79.51 Long term (current) use of inhaled steroids; Z79.02 Long term (current) use of antithrombotics/antiplatelets; I25.2 Old myocardial infarction; Z87.442 Personal history of urinary calculi; Z95.1 Presence of aortocoronary bypass graft; Z98.890 Other specified postprocedural states; Z82.49 Family history of ischemic heart disease and other diseases of the circulatory system
CPT/HCPCS: 36415; 71045; 71046; 71275; 76604; 80048; 80053; 80061; 82728; 82945; 83036; 83605; 83615; 83735; 83880; 84132; 84145; 84157; 84484; 85025; 85379; 85610; 85730; 86140; 87040; 87070; 87077; 87186; 87205; 87635; 88108; 88305; 89050; 93005; 93306; 94640; 94760; 96365; 96375; 96376; 99285

== ENCOUNTER 2019-10-18 11:22 | Inpatient (IN) | payer MEDICARE ==
[2019-10-18] MEDS ORDERED: ALBUTEROL HFA INHALER INHALATION STA (11:46)
[2019-10-18 12:20] LABS: Basophils % (A) 0 %; Eosinophils # (A) 0.1 k/uL (0-0.7); Eosinophils % (A) 1 %; HCT 41.9 % (39.0-53.0); HGB 12.6 gm/dL (13.0-17.5); Hypochromasia Moderate; Lymphocytes % (A) 9 %; MCH 27.7 pg (25.0-35.0); MCV 92.5 fL (80.0-100.0); Mean Platelet Volume 9.3; Monocytes # (A) 0.6 k/uL (0-1.0); Monocytes % (A) 5 %; Neutrophils # (A) 8.7 k/uL (1.3-7.7); Neutrophils % (A) 83 %; Platelet Count 155 k/uL (150-450); RBC 4.53 m/uL (4.30-5.90); RDW 15.9 % (11.5-15.5); WBC 10.5 k/uL (3.8-10.6)
--- NOTE | 2019-10-18 12:23 | XR ---
EXAMINATION TYPE: XR chest 2V DATE OF EXAM: 10/18/2019 COMPARISON: 10/09/2019 HISTORY: Shortness of breath TECHNIQUE: Frontal and lateral views of the chest are obtained. FINDINGS: Small left and trace right pleural effusions remain with associated bibasilar airspace dis ease. Cardiomediastinal silhouette is enlarged with post CABG change. There is mild diffuse osseous d emineralization. Abdominal aortic stent graft is partially visualized. IMPRESSION: Stable trace right and small left pleural effusions with associated airspace disease, li luz marina atelectasis
[2019-10-18 12:29] LABS: INR 1.1 (<1.2); Partial Thromboplastin Time 24.4 sec (22.0-30.0)
[2019-10-18] MEDS ORDERED: methylPREDNISolone SOD SUCCI 125 MG/2 ML VIAL IV STA (12:33)
[2019-10-18 12:37] LABS: ALT 19 U/L (4-49); African American GFR (CKD) >90 (>60 ml/min/1.73 sqM); Albumin 3.6 g/dL (3.5-5.0); Anion Gap 11 mmol/L; Blood Urea Nitrogen 21 mg/dL (9-20); Calcium 8.4 mg/dL (8.4-10.2); Carbon Dioxide 25 mmol/L (22-30); Chloride 101 mmol/L (98-107); Glucose 236 mg/dL (74-99); Non-African American GFR(CKD) >90 (>60 ml/min/1.73 sqM); Sodium 137 mmol/L (137-145); Total Bilirubin 1.1 mg/dL (0.2-1.3); Total Protein 6.4 g/dL (6.3-8.2)
[2019-10-18 12:41] LABS: Magnesium 1.9 mg/dL (1.6-2.3); Potassium 5.1 mmol/L (3.5-5.1)
[2019-10-18 12:42] LABS: AST 28 U/L (17-59); Alkaline Phosphatase 94 U/L (38-126)
--- NOTE | 2019-10-18 12:45 | ED ---
General Adult HPI - General Chief complaint: Shortness of Breath Stated complaint: PINA Time Seen by Provider: 10/18/19 11:34 Source: patient, RN notes reviewed, old records reviewed Mode of arrival: ambulatory Limitations: no limitations - History of Present Illness Initial comments: Patient is a 58-year-old male who presents emergency department today with chief complaint of worsening shortness of breath since she was discharged last week from the hospital.. Patient reports that he was discharged from the hospital he did not receive the prescriptions have antibiotics and steroids when he was recently discharged. Patient relates that he had a follow-up appointment today with his PCP and was sent to the hospital to chart picker his prescriptions. Patient states that when he was came to the hospital to chart picker his prescriptions he felt the patient's could not tolerate having a hard time breathing anymore and felt he needed to be seen in the emergency department. Patient denies any specific chest pain. He reports that he's had a slight cough but reports that is nonproductive. Denies any recent fevers or chills. He denies any nausea or vomiting. He denies lower extremity swelling. Patient reports worsening dyspnea with laying down and with exertion. - Related Data Home Medications Medication Instructions Recorded Confirmed Metoprolol Succinate (ER) [Toprol 12.5 mg PO DAILY 10/05/19 10/18/19 XL] Simvastatin [Zocor] 40 mg PO HS 10/05/19 10/18/19 Budesonide-Formot 160-4.5 Mcg 2 puff INHALATION RT-BID 10/18/19 10/18/19 [Symbicort 160-4.5 Mcg Inhaler] Previous Rx's Medication Instructions Recorded Clopidogrel [Plavix] 75 mg PO DAILY #30 tab 06/29/18 Nitroglycerin Sl Tabs [Nitrostat] 0.4 mg SUBLINGUAL Q5M PRN #25 tab 06/29/18 Acetaminophen Tab [Tylenol] 650 mg PO Q6HR PRN tab 10/10/19 Albuterol Inhaler [Ventolin Hfa 1 puff INHALATION RT-TID PRN #1 10/10/19 Inhaler] inhaler Aspirin 81 mg PO DAILY #90 chew 10/10/19 Furosemide [Lasix] 40 mg PO BID #60 tab 10/10/19 Allergies Allergy/AdvReac Type Severity Reaction Status Date / Time No Known Allergies Allergy Verified 10/18/19 12:20 Review of Systems ROS Statement: Those systems with pertinent positive or pertinent negative responses have been documented in the HPI. ROS Other: All systems not noted in ROS Statement are negative. Past Medical History Past Medical History: Coronary Artery Disease (CAD), Chest Pain / Angina, COPD, Diabetes Mellitus, Hyperlipidemia, Hypertension, Myocardial Infarction ([place]), Osteoarthritis (OA), Vascular Disorder Additional Past Medical History / Comment(s): steroids October 2018,KIDNEY STONES. hx aneurysm abdominal Last Myocardial Infarction Date:: 2005? History of Any Multi-Drug Resistant Organisms: None Reported Past Surgical History: Coronary Bypass/CABG, Heart Catheterization, Heart Cathet erization With Stent, Orthopedic Surgery Additional Past Surgical History / Comment(s): RT ROTATOR CUFF REPAIR. CABG (2005 & 2007) BYPASS X2. STENTS X2 IN PAST, ABD ANEURYSM REPAIR WITH STENT, LT CAROTID ENDARTERECTOMY. lithotripsy. STATES STENT TO LEFT LEG, Cardiac cath 2018. stents to right SFA november 2018 Past Anesthesia/Blood Transfusion Reactions: No Reported Reaction Date of Last Stent Placement:: 2018 Past Psychological History: No Psychological Hx Reported Smoking Status: Current every day smoker Past Alcohol Use History: None Reported Past Drug Use History: None Reported - Past Family History Father Family Medical History: Deep Vein Thrombosis (DVT), Myocardial Infarction (PR) General Exam - General Exam Comments Initial Comments: 8-year-old male. Alert and oriented. Patient is not significant distress at this time. Limitations: no limitations General appearance: alert, in no apparent distress Head exam: Present: atraumatic, normocephalic, normal inspection Eye exam: Present: normal appearance, PERRL, EOMI. Absent: scleral icterus, conjunctival injection, periorbital swelling ENT exam: Present: normal exam, mucous membranes moist Neck exam: Present: normal inspection. Absent: tenderness, meningismus, lymphadenopathy Respiratory exam: Present: decreased breath sounds. Absent: normal lung sounds bilaterally, respiratory distress, wheezes, rales, rhonchi, stridor Cardiovascular Exam: Present: regular rate, normal rhythm, normal heart sounds. Absent: systolic murmur, diastolic murmur, rubs, gallop, clicks GI/Abdominal exam: Present: soft, normal bowel sounds. Absent: distended, tenderness, guarding, rebound, rigid Extremities exam: Present: normal inspection, full ROM, normal capillary refill. Absent: tenderness, pedal edema, joint swelling, calf tenderness Back exam: Present: normal inspection Neurological exam: Present: alert, oriented X3, CN II-XII intact Psychiatric exam: Present: normal affect, normal mood Skin exam: Present: warm, dry, intact, normal color. Absent: rash Course Vital Signs 10/18/19 10/18/19 11:25 13:00 Temperature 97.4 F L Pulse Rate 103 H 91 Respiratory 18 18 Rate Blood Pressure 99/66 97/70 O2 Sat by Pulse 96 99 Oximetry EKG Findings - EKG Comments: EKG Findings:: EKG performed at 11:43 AM shows sinus rhythm with occasional and consecutive PVCs. SCM normality consider inferior lateral ischemia. Prolonged QT. Ventricular rate of 95 bpm. Intervals 150 ms. She adventist is 80 ms. QT QTc is 32/48 ms. Medical Decision Making - Medical Decision Making 68-year-old male presents emergency room today with complaints of shortness of breath, and never had the full antibiotics and steroids that he was discharged on his last admission. He denies any specific chest pain this time. He arrives to emergency department with no wheezing. He does report dyspnea is worse with lying down. Chest x-ray shows some trace pleural effusions. No focal pneumonia. Patient's CBC is unremarkable. BNP is 3000. He does have an elevated troponin 0.086. Patient's EKG does show some changes from his last admission with some concern for inferior lateral ischemia with worsening ST dep ression V5 V6. I discussed the case with Dr. ARITA and agreed to admit the Patient for repeat troponins. Patient goals isn't agreeable to this. He does report that his shortness of breath did improve somewhat after a dose of an albuterol inhaler, and after is placed on oxygen. He does report that he has an appointment tomorrow with his business services vice president Dr. Ni for his history of peripheral arterial disease. I initially called patient's PCP Dr. Mulligan for admission however they are not taking inpatient Patient at this time.It was recently discharged from [facility] I discussed the case with them as he was discharged within the past week. Discussed with Dr. Cooper and will agree to admitt. - Lab Data Result diagrams: 10/18/19 11:55 10/18/19 11:55 Lab Results 10/18/19 10/18/19 10/18/19 Range/Units 11:55 11:55 11:55 WBC 10.5 (3.8-10.6) k/uL RBC 4.53 (4.30-5.90) m/uL Hgb 12.6 L (13.0-17.5) gm/dL Hct 41.9 (39.0-53.0) % MCV 92.5 (80.0-100.0) fL MCH 27.7 (25.0-35.0) pg MCHC 30.0 L (31.0-37.0) g/dL RDW 15.9 H (11.5-15.5) % Plt Count 155 (150-450) k/uL Neutrophils % 83 % Lymphocytes % 9 % Monocytes % 5 % Eosinophils % 1 % Basophils % 0 % Neutrophils # 8.7 H (1.3-7.7) k/uL Lymphocytes # 1.0 (1.0-4.8) k/uL Monocytes # 0.6 (0-1.0) k/uL Eosinophils # 0.1 (0-0.7) k/uL Basophils # 0.0 (0-0.2) k/uL Hypochromasia Moderate PT 11.0 (9.0-12.0) sec INR 1.1 (<1.2) APTT 24.4 (22.0-30.0) sec Sodium 137 (137-145) mmol/L Potassium 5.1 (3.5-5.1) mmol/L Chloride 101 (98-107) mmol/L Carbon Dioxide 25 (22-30) mmol/L Anion Gap 11 mmol/L BUN 21 H (9-20) mg/dL Creatinine 0.74 (0.66-1.25) mg/dL Est GFR (CKD-EPI)AfAm >90 (>60 ml/min/1.73 sqM) Est GFR (CKD-EPI)NonAf >90 (>60 ml/min/1.73 sqM) Glucose 236 H (74-99) mg/dL Calcium 8.4 (8.4-10.2) mg/dL Magnesium 1.9 (1.6-2.3) mg/dL Total Bilirubin 1.1 (0.2-1.3) mg/dL AST 28 (17-59) U/L ALT 19 (4-49) U/L Alkaline Phosphatase 94 (38-126) U/L Troponin I (0.000-0.034) ng/mL NT-Pro-B Natriuret Pep pg/mL Total Protein 6.4 (6.3-8.2) g/dL Albumin 3.6 (3.5-5.0) g/dL 10/18/19 10/18/19 Range/Units 11:55 11:55 WBC (3.8-10.6) k/uL RBC (4.30-5.90) m/uL Hgb (13.0-17.5) gm/dL Hct (39.0-53.0) % MCV (80.0-100.0) fL MCH (25.0-35.0) pg MCHC (31.0-37.0) g/dL RDW (11.5-15.5) % Plt Count (150-450) k/uL Neutrophils % % Lymphocytes % % Monocytes % % Eosinophils % % Basophils % % Neutrophils # (1.3-7.7) k/uL Lymphocytes # (1.0-4.8) k/uL Monocytes # (0-1.0) k/uL Eosinophils # (0-0.7) k/uL Basophils # (0-0.2) k/uL Hypochromasia PT (9.0-12.0) sec INR (<1.2) APTT (22.0-30.0) sec Sodium (137-145) mmol/L Potassium (3.5-5.1) mmol/L Chloride (98-107) mmol/L Carbon Dioxide (22-30) mmol/L Anion Gap mmol/L BUN (9-20) mg/dL Creatinine (0.66-1.25) mg/dL Est GFR (CKD-EPI)AfAm (>60 ml/min/1.73 sqM) Est GFR (CKD-EPI)NonAf (>60 ml/min/1.73 sqM) Glucose (74-99) mg/dL Calcium (8.4-10.2) mg/dL Magnesium (1.6-2.3) mg/dL Total Bilirubin (0.2-1.3) mg/dL AST (17-59) U/L ALT (4-49) U/L Alkaline Phosphatase (38-126) U/L Troponin I 0.086 H* (0.000-0.034) ng/mL NT-Pro-B Natriuret Pep 3450 pg/mL Total Protein (6.3-8.2) g/dL Albumin (3.5-5.0) g/dL - Radiology Data Radiology results: report reviewed Chest x-ray shows stable trace right and small left pleural effusions with airspace disease likely atelectasis. Disposition Clinical Impression: NSTEMI (non-ST elevated myocardial infarction), Dyspnea Disposition: ADMITTED IP TO THIS HOSP Condition: Stable Is patient prescribed a controlled substance at d/c from ED?: No Referrals: eJffry Mulligan MD [Primary Care Provider] - 1-2 days Time of Disposition: 13:46
[2019-10-18] MEDS ORDERED: ASPIRIN 325 MG TAB PO STA (13:32)
[2019-10-18] MEDS ORDERED: SODIUM CHLORIDE 0.9% 1,000 ML IV SCH (13:45)
[2019-10-18] MEDS ORDERED: NITROGLYCERIN SL TABS 0.4 MG TAB SUBLINGUAL PRN (13:46)
[2019-10-18] MEDS ORDERED: HEPARIN SODIUM,PORCINE 5,000 UNIT/ML 1 ML VIAL IV ONE (13:46)
[2019-10-18] MEDS ORDERED: HEPARIN SOD,PORK IN 0.45% NACL 25,000 UNIT in 0.45% NACL 1 250ML.BAG IV SCH (14:00)
[2019-10-18] MEDS ORDERED: IPRATROPIUM-ALBUTEROL 3 ML NEB INHALATION PRN (18:19)
--- NOTE | 2019-10-18 18:34 | P.HPIM ---
History of Present Illness H&P Date: 10/18/19 Chief Complaint: Shortness of breath 68-year-old male with PMH of diabetes mellitus, CHF, PAD, COPD presents the ED for shortness of breath. Patient was recently discharged after being treated for CHF exacerbation along with COPD. Coronavirus testing was negative at that time. Patient states that after he got discharged on October 09, he was feeling generally well. 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 His breathing progressively got worse which prompted his admission today. He continues to complain of bilateral lower extremity pain related to his PAD. He follows Dr. Malcolm and has had stents placed in his bilateral lower extremities in the past. Patient states that he is unable to walk more than 15 feet. Patient reports a 53 year history of smoking but has cut down from a pack of cigarettes daily to 6 cigarettes. He also complains of cough productive of pham and brown sputum. He denies any headache, lower extremity edema, nausea or vomiting, fever or chills, cough, chest pain, palpitations, changes in urination or bowel habits. No changes in appetite or weight. He denies any dizziness, numbness/weakness/tingling of the extremities. In the ED, vital signs were stable except for pulse of 103 and borderline hypotension with SBP in the 90s. CBC was relatively unremarkable except for neutrophilia. Coagulation panel was negative. CMP showed BUN of 21, glucose 236. Troponin was 0.086, EKG showing sinus rhythm with T-wave abnormalities. BNP was 3450, chest x-ray showing stable trace right and small left pleural effusions. Patient is admitted for anticipated greater than 48 hour admission for CHF exacerbation and troponin elevation with cardiology consultation. Review of Systems Pertinent positives and negatives as discussed in HPI, a complete review of s ystems was performed and all other systems are negative. Past Medical History Past Medical History: Coronary Artery Disease (CAD), Chest Pain / Angina, COPD, Diabetes Mellitus, Hyperlipidemia, Hypertension, Myocardial Infarction ([place]), Osteoarthritis (OA), Vascular Disorder Additional Past Medical History / Comment(s): steroids October 2018,KIDNEY STONES. hx aneurysm abdominal Last Myocardial Infarction Date:: 2005? History of Any Multi-Drug Resistant Organisms: None Reported Past Surgical History: Coronary Bypass/CABG, Heart Catheterization, Heart Catheterization With Stent, Orthopedic Surgery Additional Past Surgical History / Comment(s): RT ROTATOR CUFF REPAIR. CABG (2005 & 2007) BYPASS X2. STENTS X2 IN PAST, ABD ANEURYSM REPAIR WITH STENT, LT CAROTID ENDARTERECTOMY. lithotripsy. STATES STENT TO LEFT LEG, Cardiac cath 2018. stents to right SFA november 2018 Past Anesthesia/Blood Transfusion Reactions: No Reported Reaction Date of Last Stent Placement:: 2018 Past Psychological History: No Psychological Hx Reported Smoking Status: Current every day smoker Past Alcohol Use History: None Reported Past Drug Use History: None Reported - Past Family History Father Family Medical History: Deep Vein Thrombosis (DVT), Myocardial Infarction ([place]) Medications and Allergies Home Medications Medication Instructions Recorded Confirmed Type Clopidogrel [Plavix] 75 mg PO DAILY #30 tab 06/29/18 10/18/19 Rx Nitroglycerin Sl Tabs [Nitrostat] 0.4 mg SUBLINGUAL Q5M PRN #25 tab 06/29/18 10/18/19 Rx Metoprolol Succinate (ER) [Toprol 12.5 mg PO DAILY 10/05/19 10/18/19 History XL] Simvastatin [Zocor] 40 mg PO HS 10/05/19 10/18/19 History Acetaminophen Tab [Tylenol] 650 mg PO Q6HR PRN tab 10/10/19 10/18/19 Rx Albuterol Inhaler [Ventolin Hfa 1 puff INHALATION RT-TID PRN #1 10/10/19 10/18/19 Rx Inhaler] inhaler Aspirin 81 mg PO DAILY #90 chew 10/10/19 10/18/19 Rx Furosemide [Lasix] 40 mg PO BID #60 tab 10/10/19 10/18/19 Rx Budesonide-Formot 160-4.5 Mcg 2 puff INHALATION RT-BID 10/18/19 10/18/19 History [Symbicort 160-4.5 Mcg Inhaler] Allergies Allergy/AdvReac Type Severity Reaction Status Date / Time No Known Allergies Allergy Verified 10/18/19 12:20 Physical Exam Vitals: Vital Signs Temp Pulse Resp BP Pulse Ox 10/18/19 17:59 97.2 F L 89 20 98/61 97 10/18/19 17:00 94 26 H 97/72 98 10/18/19 16:00 82 17 100/69 98 10/18/19 15:30 87 13 101/72 98 10/18/19 14:30 92 20 102/72 98 10/18/19 14:00 73 16 98/69 98 10/18/19 13:30 92 22 103/74 98 10/18/19 13:00 91 18 97/70 99 10/18/19 11:25 97.4 F L 103 H 18 99/66 96 Intake and Output 10/18/19 10/18/19 10/18/19 06:59 14:59 22:59 Other: Weight 67.132 kg General: [non toxic], [no distress], [appears at stated age] Derm: [warm], [dry] Head: [atraumatic], [normocephalic], [symmetric] Eyes: [EOMI], [no lid lag], [anicteric sclera] Mouth: [no lip lesion], [mucus membranes moist] Cardiovascular: [S1S2 reg], [no murmur], [unable to palpate DP or PT pulses bilaterally], Lungs: [Decreased breath sounds bilateral], [no rhonchi, no rales] , [no accessory muscle use] Abdominal: [soft], [ nontender to palpation], [no guarding], [no appreciable organomegaly] Ext: [no gross muscle atrophy], [no edema], [no contractures] Neuro: [ CN II-XI grossly intact], [no focal neuro deficits] Psych: [Alert], [oriented], [appropriate affect] Results CBC & Chem 7: 10/18/19 11:55 10/18/19 11:55 Labs: Abnormal Lab Results - Last 24 Hours (Table) 10/18/19 10/18/19 10/18/19 Range/Units 11:55 11:55 11:55 Hgb 12.6 L (13.0-17.5) gm/dL MCHC 30.0 L (31.0-37.0) g/dL RDW 15.9 H (11.5-15.5) % Neutrophils # 8.7 H (1.3-7.7) k/uL BUN 21 H (9-20) mg/dL Glucose 236 H (74-99) mg/dL Troponin I 0.086 H* (0.000-0.034) ng/mL Assessment and Plan Assessment: Shortness of breath, likely related to systolic CHF exacerbation, severe aortic stenosis, moderate to severe mitral and tricuspid regurgitation and COPD exacerbation Pleural effusion Elevated Troponin Diabetes mellitus with hyperglycemia Smoker PAD BNP 3450 with chest x-ray concerning for decompensated heart failure. Repeat echocardiogram shows EF 20-25% with mild concentric LVH with moderate to severe aortic stenosis. Plans: Start Lasix 40 mg IV twice a day. Strict intake and output take. Daily weights. Telemetry monitoring. Restart metoprolol. Follow- up cardiology consultation, plans for AICD placement during previous admission. Start DuoNebs, Pulmicort, Solumedrol to optimize COPD medications. As seen on chest xray. Post thoracentesis bilaterally during his previous admission. Plans: Likely sequelae of CHF. Management as above. Troponin 0.086 EKG showing normal sinus rhythm with T-wave abnormalities. Plans: Appears at baseline. Trend troponin/EKG to rule out ACS. Continue aspirin, Lipitor and Plavix. Continue beta prasad. Discontinue heparin drip from ED. [id number] glucose 236. Plans: Insulin sliding scale. Regular Accu-Cheks. Hypoglycemic precautions. Plans: Nicotine patch. Previous stenting by Dr. Ni. Plans: Continue aspirin, Lipitor and Plavix. Continue beta prasad. Follow Cardiology recommendations. DVT prophylaxis: [SCD] Discussed with: [patient] Anticipated discharge: [2-3 days] Anticipated discharge place: [home] A total of [45] minutes was spent on the care of this complex patient more than 50% of the time was spent in counseling and care coordination. Patient names his sister decision maker if he can't make decisions for himself. Patient would like to be FULL CODE. [Patient admitted for CHF/COPD exacerbation, started on Lasix. Continues to complain of pain related to PAD. Troponins elevated, plans to r/o ACS, Cardiology on board. He is pending clinical improvement. Likely DC in 2-3 days.]
[2019-10-18] MEDS: ATORVASTATIN 20 MG TAB PO SCH (19:48)
[2019-10-18] MEDS: methylPREDNISolone SOD SUCCI 125 MG/2 ML VIAL IV SCH ×2 (19:49→23:19)
[2019-10-18] MEDS: FUROSEMIDE 10 MG/ML 4 ML VIAL IV SCH (19:49)
[2019-10-18] MEDS ORDERED: SYMBICORT 160-4.5 MCG INHALER INHALATION SCH (20:00)
[2019-10-18 20:36] LABS: Glucose,Whole Blood 405 mg/dL (75-99)
[2019-10-18] MEDS: BUDESONIDE 0.5 MG/2 ML NEBU INHALATION SCH (20:37)
[2019-10-18] MEDS: IPRATROPIUM-ALBUTEROL 3 ML NEB INHALATION SCH (20:37)
[2019-10-18] MEDS: INSULIN ASPART (NovoLOG) 100 UNIT/ML VIAL SQ SCH (21:10)
[2019-10-18] MEDS ORDERED: MORPHINE SULFATE 2 MG/ML SYRINGE IVP STA (23:07)
[2019-10-19 02:15] LABS: Glucose,Whole Blood 357 mg/dL (75-99)
[2019-10-19 04:16] LABS: Cholesterol 124 mg/dL (<200); HDL Cholesterol 29 mg/dL (40-60); LDL Cholesterol,Calculated 72 mg/dL (0-99); Triglycerides 114 mg/dL (<150)
[2019-10-19 06:15] LABS: Glucose,Whole Blood 322 mg/dL (75-99)
[2019-10-19] MEDS: INSULIN ASPART (NovoLOG) 100 UNIT/ML VIAL SQ SCH ×4 (06:30→20:32)
[2019-10-19] MEDS: methylPREDNISolone SOD SUCCI 125 MG/2 ML VIAL IV SCH ×4 (06:30→23:33)
[2019-10-19] MEDS ORDERED: INSULIN ASPART (NovoLOG) 100 UNIT/ML VIAL SQ SCH (07:30)
[2019-10-19] MEDS: BUDESONIDE 0.5 MG/2 ML NEBU INHALATION SCH ×2 (08:26→20:27)
[2019-10-19] MEDS: IPRATROPIUM-ALBUTEROL 3 ML NEB INHALATION SCH ×4 (08:26→20:27)
[2019-10-19] MEDS: NICOTINE 21MG/24HR PATCH TRANSDERM SCH (08:46)
[2019-10-19] MEDS: CLOPIDOGREL 75 MG TAB PO SCH (08:46)
[2019-10-19] MEDS: FUROSEMIDE 10 MG/ML 4 ML VIAL IV SCH ×2 (08:46→20:32)
[2019-10-19] MEDS: ASPIRIN 81 MG PO SCH (08:46)
[2019-10-19] MEDS: METOPROLOL SUCCINATE (ER) 25 MG TAB.ER.24H PO SCH (08:47)
[2019-10-19] MEDS ORDERED: ASPIRIN 325 MG TAB PO SCH (09:00)
--- NOTE | 2019-10-19 09:59 | P.CRDCN ---
History of Present Illness Consult date: 10/19/19 Requesting physician: Macho Esteves Consult reason: shortness of breath Chief complaint: shortness of breath History of present illness: Is a 68-year-old gentleman who follows regularly with Dr. Ni in the office. He has a known history of coronary artery disease with prior bypass surgery. In May 2018 patient underwent a cardiac catheterization which revealed a patent GARCIA to the LAD, critical stenosis in the OM with stent placement at that time, CT of the RCA. Patient also has a known history of PAD, PVD, AAA with stent graft, hypertension, hyperlipidemia, nicotine dependence, COPD, diabetes, left carotid endarterectomy. Most recent echocardiogram with Doppler study was pe rformed in September of this year which revealed an ejection fraction of 20-25%, moderate to severe mitral regurgitation moderate to severe tricuspid regurgitation. Moderate to severe aortic stenosis. Patient's last TONO was performed in April 2019 which revealed an impaired LV function with around 40 % global hypokinesia at that time, severe biatrial enlargement, no evidence of any shunt, no evidence of any thrombus in the atrial appendage. Moderate aortic stenosis moderate mitral regurg. Patient had a recent hospital admission with systolic congestive heart failure, he was home for 2 days and return back to the hospital with symptoms of shortness of breath. I'll he was in the hospital on t his recent admission, he did see Dr. Gomez in consultation and discussion was made regarding implantation of AICD. It was not performed during that admission, patient did have a pleural effusion with subsequent thoracentesis. His chest x-ray on this admission showed stable trace right and small left pleural effusions. EKG on presentation here showed a normal sinus rhythm with T wave inversion noted in the inferior lateral leads. Occasional PVCs. Blood pressure 100/80 with a heart rate in the 80s, 97% on 2 L of oxygen. White blood cell count 10.5, hemoglobin 12.6, platelet count 155. Sodium 137, potassium 5.1, BUN 21, creatinine 0.7. BNP level 3450. Ferreira virus not detected. Tr oponin 0.086, 0.080, 0.064. On review of the patient's recent hospitalization, he was also noted to have abnormality in troponins in that range. He denies any chest discomfort. Patient is not currently on an MARTHA inhibitor or Aldactone because of elevated potassium and hypotension. Past Medical History Past Medical History: Coronary Artery Disease (CAD), Chest Pain / Angina, COPD, Diabetes Mellitus, Hyperlipidemia, Hypertension, Myocardial Infarction ([place]), Osteoarthritis (OA), Vascular Disorder Additional Past Medical History / Comment(s): steroids October 2018,KIDNEY STONES. hx aneurysm abdominal Last Myocardial Infarction Date:: 2005? History of Any Multi-Drug Resistant Organisms: None Reported Past Surgical History: Coronary Bypass/CABG, Heart Catheterization, Heart Catheterization With Stent, Orthopedic Surgery Additional Past Surgical History / Comment(s): RT ROTATOR CUFF REPAIR. CABG (2005 & 2007) BYPASS X2. STENTS X2 IN PAST, ABD ANEURYSM REPAIR WITH STENT, LT CAROTID ENDARTERECTOMY. lithotripsy. STATES STENT TO LEFT LEG, Cardiac cath 2018. stents to right SFA november 2018 Past Anesthesia/Blood Transfusion Reactions: No Reported Reaction Date of Last Stent Placement:: 2018 Past Psychological History: No Psychological Hx Reported Smoking Status: Current every day smoker Past Alcohol Use History: None Reported Additional Past Alcohol Use History / Comment(s): Current pack a day smoker Past Drug Use History: None Reported - Past Family History Father Family Medical History: Deep Vein Thrombosis (DVT), Myocardial Infarction ([place]) Medications and Allergies Home Medications Medication Instructions Recorded Confirmed Type Clopidogrel [Plavix] 75 mg PO DAILY #30 tab 06/29/18 10/18/19 Rx Nitroglycerin Sl Tabs [Nitrostat] 0.4 mg SUBLINGUAL Q5M PRN #25 tab 06/29/18 10/18/19 Rx Metoprolol Succinate (ER) [Toprol 12.5 mg PO DAILY 10/05/19 10/18/19 History XL] Simvastatin [Zocor] 40 mg PO HS 10/05/19 10/18/19 History Acetaminophen Tab [Tylenol] 650 mg PO Q6HR PRN tab 10/10/19 10/18/19 Rx Albuterol Inhaler [Ventolin Hfa 1 puff INHALATION RT-TID PRN #1 10/10/19 10/18/19 Rx Inhaler] inhaler Aspirin 81 mg PO DAILY #90 chew 10/10/19 10/18/19 Rx Furosemide [Lasix] 40 mg PO BID #60 tab 10/10/19 10/18/19 Rx Budesonide-Formot 160-4.5 Mcg 2 puff INHALATION RT-BID 10/18/19 10/18/19 History [Symbicort 160-4.5 Mcg Inhaler] Allergies Allergy/AdvReac Type Severity Reaction Status Date / Time No Known Allergies Allergy Verified 10/18/19 12:20 Physical Exam Vitals: Vital Signs Temp Pulse Pulse Resp BP BP Pulse Ox 10/19/19 08:42 82 10/19/19 08:29 80 10/19/19 04:00 97.9 F 82 18 101/87 97 10/18/19 23:30 97.9 F 77 20 97/55 100 10/18/19 20:50 83 10/18/19 20:37 83 98 10/18/19 19:56 98.1 F 81 18 92/59 100 10/18/19 19:01 97.6 F 76 16 91/55 97 10/18/19 17:59 97.2 F L 89 20 98/61 97 10/18/19 17:00 94 26 H 97/72 98 10/18/19 16:00 82 17 100/69 98 10/18/19 15:30 87 13 101/72 98 10/18/19 14:30 92 20 102/72 98 10/18/19 14:00 73 16 98/69 98 10/18/19 13:30 92 22 103/74 98 10/18/19 13:00 91 18 97/70 99 10/18/19 11:25 97.4 F L 103 H 18 99/66 96 Intake and Output 10/18/19 10/19/19 10/19/19 22:59 06:59 14:59 Intake Total 44.039 Output Total 1425 Balance 44.039 -1425 Intake: Intake, IV Titration 44.039 Amount Heparin Sod,Pork in 0.45% 44.039 NaCl 25,000 unit In 0.45 % NaCl 1 250ml.bag @ 12 UNITS/KG/HR 8.056 mls/hr IV .Q24H [facility] Rx#: [id number] Output: Urine 1425 Other: Voiding Method Urinal Urinal Weight 66.3 kg 68-year-old gentleman in no acute distress at the time of my examination GENERAL: Well-appearing, well-nourished and in no acute distress. NECK: Supple without JVD or thyromegaly. LUNGS: Breath sounds clear to with diminished air entry bilaterally to the bases. HEART: Regular rate and rhythm with systolic ejection murmur at the base, no rubs or gallops. S1 and S2 heard. EXTREMITIES: Normal range of motion, trace edema. No clubbing or cyanosis. Peripheral pulses intact. One plus Results 10/18/19 11:55 10/18/19 11:55 Cardiac Enzymes 10/18/19 10/18/19 10/18/19 Range/Units 11:55 11:55 17:35 AST 28 (17-59) U/L Troponin I 0.086 H* 0.080 H* (0.000-0.034) ng/mL 10/19/19 Range/Units 00:02 AST (17-59) U/L Troponin I 0.064 H* (0.000-0.034) ng/mL Coagulation 10/18/19 10/18/19 Range/Units 11:55 19:28 PT 11.0 (9.0-12.0) sec APTT 24.4 31.0 H (22.0-30.0) sec Lipids 10/18/19 Range/Units 11:55 Triglycerides 114 (<150) mg/dL Cholesterol 124 (<200) mg/dL HDL Cholesterol 29 L (40-60) mg/dL CBC 10/18/19 Range/Units 11:55 WBC 10.5 (3.8-10.6) k/uL RBC 4.53 (4.30-5.90) m/uL Hgb 12.6 L (13.0-17.5) gm/dL Hct 41.9 (39.0-53.0) % Plt Count 155 (150-450) k/uL Comprehensive Metabolic Panel 10/18/19 Range/Units 11:55 Sodium 137 (137-145) mmol/L Potassium 5.1 (3.5-5.1) mmol/L Chloride 101 (98-107) mmol/L Carbon Dioxide 25 (22-30) mmol/L BUN 21 H (9-20) mg/dL Creatinine 0.74 (0.66-1.25) mg/dL Glucose 236 H (74-99) mg/dL Calcium 8.4 (8.4-10.2) mg/dL AST 28 (17-59) U/L ALT 19 (4-49) U/L Alkaline Phosphatase 94 (38-126) U/L Total Protein 6.4 (6.3-8.2) g/dL Albumin 3.6 (3.5-5.0) g/dL Current Medications Generic Name Dose Route Start Last Admin Trade Name Freq PRN Reason Stop Dose Admin Albuterol/Ipratropium 3 ml 10/18/19 18:19 Duoneb 0.5 Mg-3 Mg/3 Ml Soln INHALATION RT-Q4H PRN Shortness Of Breath Or Wheezing Albuterol/Ipratropium 3 ml 10/18/19 20:00 10/19/19 08:26 Duoneb 0.5 Mg-3 Mg/3 Ml Soln INHALATION 3 ml RT-QID MELONIE Administration Aspirin 81 mg 10/19/19 09:00 10/19/19 08:46 Aspirin PO 81 mg DAILY MELONIE Administration Atorvastatin Calcium 20 mg 10/18/19 21:00 10/18/19 19:48 Lipitor PO 20 mg HS MELONIE Administration Budesonide 0.5 mg 10/18/19 20:00 10/19/19 08:26 Pulmicort INHALATION 0.5 mg RT-BID MELONIE Administration Clopidogrel Bisulfate 75 mg 10/19/19 09:00 10/19/19 08:46 Plavix PO 75 mg DAILY MELONIE Administration Furosemide 40 mg 10/18/19 21:00 10/19/19 08:46 Lasix IV 40 mg Q12HR MELONIE Administration Insulin Aspart 0 unit 10/18/19 21:06 10/19/19 06:30 Novolog SQ 4 unit ACHS MELONIE Administration Protocol Methylprednisolone Sodium Succinate 60 mg 10/18/19 18:30 10/19/19 06:30 Solu-Medrol IV 60 mg Q6HR MELONIE Administration Metoprolol Succinate 12.5 mg 10/19/19 09:00 10/19/19 08:47 Toprol Xl PO 12.5 mg DAILY MELONIE Administration Nicotine 1 patch 10/19/19 09:00 10/19/19 08:46 Habitrol 21mg/24hr Patch TRANSDERM 1 patch DAILY MELONIE Administration Nitroglycerin 0.4 mg 10/18/19 13:46 Nitrostat SUBLINGUAL Q5M PRN Chest Pain Intake and Output 10/18/19 10/19/19 10/19/19 22:59 06:59 14:59 Intake Total 44.039 Output Total 1425 Balance 44.039 -1425 Intake: Intake, IV Titration 44.039 Amount Heparin Sod,Pork in 0.45% 44.039 NaCl 25,000 unit In 0.45 % NaCl 1 250ml.bag @ 12 UNITS/KG/HR 8.056 mls/hr IV .Q24H [facility] Rx#: [id number] Output: Urine 1425 Other: Voiding Method Urinal Urinal Weight 66.3 kg 10/18/19 11:55 10/18/19 11:55 EKG Interpretations (text) EKG shows a normal sinus rhythm with inferior lateral T-wave inversion and occasional PVCs. Assessment and Plan Plan: Assessment and plan: #1.Acute on chronic dyspnea related to acute exacerbation of systolic CHF, with documented ejection fraction of 20-25% #2. Severe pulmonary hypertension likely related to valvular heart disease, with right-sided pressures of 73.3 mmHg #3. Moderate to severe aortic stenosis #4. Moderate to severe mitral regurgitation #5. Moderate to severe tricuspid regurgitation #6. Elevated troponin, does not appear to be in acute coronary syndrome, similar troponin abnormality on recent admission. No significant rise and fall pattern. #7. Ischemic cardiomyopathy #8. Coronary artery disease with previous stenting, most recent cardiac catheterization was performed in May 2018 at which time patient underwent stenting of the OM #9. Peripheral vascular occlusive disease, PAD, AAA with stent graft #10. Abdominal aortic aneurysm #11. Previous history of myocardial infarction #12. Hypertension #13 hyperlipidemia #14 nicotine dependence #15 COPD #16 diabetes Plan We will continue the patient on current dose of IV Lasix. He is not currently on an MARTHA inhibitor or Aldactone secondary to elevated potassium and hypo tension. Further recommendations to follow. DNP note has been reviewed, I agree with a documented findings and plan of care. Patient was seen and examined.
[2019-10-19 12:13] LABS: Glucose,Whole Blood 321 mg/dL (75-99)
--- NOTE | 2019-10-19 16:43 | P.PN ---
Subjective Progress Note Date: 10/19/19 events overnight reviewed feels less SOB Objective - Vital Signs Vital signs: Vital Signs Temp 97.9 F 10/19/19 12:00 Pulse 80 10/19/19 16:08 Resp 16 10/19/19 12:00 BP 92/55 10/19/19 12:00 Pulse Ox 97 10/19/19 12:00 Intake & Output 10/18/19 10/19/19 10/19/19 18:59 06:59 18:59 Intake Total 44.039 Output Total 1425 1050 Balance -1380.961 -1050 Weight 67.132 kg 66.3 kg Intake: Intake, IV Titration 44.039 Amount Heparin Sod,Pork in 0.45% 44.039 NaCl 25,000 unit In 0.45 % NaCl 1 250ml.bag @ 12 UNITS/KG/HR 8.056 mls/hr IV .Q24H [facility] Rx#: [id number] Output: Urine 1425 1050 Other: Voiding Method Urinal Urinal - Constitutional General appearance: Present: mild distress - EENT Eyes: Present: PERRLA - Respiratory Respiratory: bilateral: diminished, rales - Cardiovascular Rhythm: regular Abnormal Heart Sounds: Present: systolic murmur - Gastrointestinal General gastrointestinal: Present: normal bowel sounds - Psychiatric Psychiatric: Present: appropriate affect - Labs CBC & Chem 7: 10/18/19 11:55 10/18/19 11:55 Labs: Abnormal Lab Results - Last 24 Hours (Table) 10/18/19 10/18/19 10/18/19 Range/Units 11:55 17:35 19:28 APTT 31.0 H (22.0-30.0) sec POC Glucose (mg/dL) (75-99) mg/dL Troponin I 0.080 H* (0.000-0.034) ng/mL HDL Cholesterol 29 L (40-60) mg/dL 10/18/19 10/19/19 10/19/19 Range/Units 20:34 00:02 02:03 APTT (22.0-30.0) sec POC Glucose (mg/dL) 405 H 357 H (75-99) mg/dL Troponin I 0.064 H* (0.000-0.034) ng/mL HDL Cholesterol (40-60) mg/dL 10/19/19 10/19/19 Range/Units 06:13 12:12 APTT (22.0-30.0) sec POC Glucose (mg/dL) 322 H 321 H (75-99) mg/dL Troponin I (0.000-0.034) ng/mL HDL Cholesterol (40-60) mg/dL Assessment and Plan (1) Acute systolic (congestive) heart failure Narrative/Plan: Continue diureses appreciate cardiology input , monitor blood pressure in the 90s Current Visit: No Status: Acute Code(s): I50.21 - ACUTE SYSTOLIC (CONGESTIVE) HEART FAILURE SNOMED Code(s): 265797271 (2) DM type 2 (diabetes mellitus, type 2) Narrative/Plan: continue monitor with use of steroids Current Visit: No Status: Acute Code(s): E11.9 - TYPE 2 DIABETES MELLITUS WITHOUT COMPLICATIONS SNOMED Code(s): 98538675 (3) Elevated troponin Narrative/Plan: Patient history of elevated troponin, no acute coronary syndrome Current Visit: No Status: Acute Code(s): R74.8 - ABNORMAL LEVELS OF OTHER SERUM ENZYMES SNOMED Code(s): 099859266 (4) COPD (chronic obstructive pulmonary disease) Narrative/Plan: Continue steroids, nebs changed to oral steroids and I am Current Visit: No Status: Acute Code(s): J44.9 - CHRONIC OBSTRUCTIVE PULMONARY DISEASE, UNSPECIFIED SNOMED Code(s): 14523398
[2019-10-19 17:16] LABS: Glucose,Whole Blood 406 mg/dL (75-99)
[2019-10-19 20:07] LABS: Glucose,Whole Blood 453 mg/dL (75-99)
[2019-10-19] MEDS: ATORVASTATIN 20 MG TAB PO SCH (20:32)
[2019-10-19] MEDS ORDERED: MORPHINE SULFATE 2 MG/ML SYRINGE IVP STA (23:09)
[2019-10-20 00:09] VITALS: RESP 18
[2019-10-20] MEDS ORDERED: INSULIN ASPART (NovoLOG) 100 UNIT/ML VIAL SQ ONE ×4 (02:27→16:18)
[2019-10-20 02:39] LABS: Glucose,Whole Blood 423 mg/dL (75-99)
[2019-10-20 06:11] LABS: Glucose,Whole Blood 327 mg/dL (75-99)
[2019-10-20] MEDS: INSULIN ASPART (NovoLOG) 100 UNIT/ML VIAL SQ SCH ×3 (06:23→17:24)
[2019-10-20] MEDS: methylPREDNISolone SOD SUCCI 125 MG/2 ML VIAL IV SCH ×3 (06:23→14:16)
[2019-10-20] MEDS: IPRATROPIUM-ALBUTEROL 3 ML NEB INHALATION SCH ×3 (08:07→16:15)
[2019-10-20] MEDS: BUDESONIDE 0.5 MG/2 ML NEBU INHALATION SCH (08:07)
[2019-10-20 08:22] LABS: African American GFR (CKD) >90 (>60 ml/min/1.73 sqM); Anion Gap 10 mmol/L; Blood Urea Nitrogen 31 mg/dL (9-20); Calcium 9.2 mg/dL (8.4-10.2); Carbon Dioxide 31 mmol/L (22-30); Chloride 97 mmol/L (98-107); Glucose 146 mg/dL (74-99); Non-African American GFR(CKD) >90 (>60 ml/min/1.73 sqM); Potassium 3.9 mmol/L (3.5-5.1); Sodium 138 mmol/L (137-145)
[2019-10-20] MEDS: NICOTINE 21MG/24HR PATCH TRANSDERM SCH (09:09)
[2019-10-20] MEDS: CLOPIDOGREL 75 MG TAB PO SCH (09:09)
[2019-10-20] MEDS: FUROSEMIDE 10 MG/ML 4 ML VIAL IV SCH (09:09)
[2019-10-20] MEDS: METOPROLOL SUCCINATE (ER) 25 MG TAB.ER.24H PO SCH (09:09)
[2019-10-20] MEDS: ASPIRIN 81 MG PO SCH (09:09)
[2019-10-20 10:28] VITALS: TEMP 97.9
[2019-10-20 11:47] LABS: Glucose,Whole Blood 384 mg/dL (75-99)
--- NOTE | 2019-10-20 14:06 | P.DS ---
Providers Date of admission: 10/18/19 13:47 Expected date of discharge: 10/20/19 Attending physician: Macho Esteves MD Consults: 10/18/19 13:47 Consult Physician Urgent Consulting Provider: Mor Malcolm Consult Reason/Comments: NSTEMI, dyspnea Do you want consulting provider notified?: Yes Primary care physician: Jeffry Mulligan [facility] Course: 68-year-old male with PMH of diabetes mellitus, CHF, PAD, COPD presents the ED for shortness of breath. Patient was recently discharged after being treated for CHF exacerbation along with COPD. Coronavirus testing was negative at that time. Patient states that after he got discharged on October 09, he was feeling generally well. 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 His breathing progressively got worse which prompted his admission today. He continues to complain of bilateral lower extremity pain related to his PAD. He follows Dr. Malcolm and has had stents placed in his bilateral lower extremities in the past. Patient states that he is unable to walk more than 15 feet. Patient reports a 53 year history of smoking but has cut down from a pack of cigarettes daily to 6 cigarettes. He also complains of cough productive of pham and brown sputum. He denies any headache, lower extremity edema, nausea or vomiting, fever or chills, cough, chest pain, palpitations, changes in urination or bowel habits. No changes in appetite or weight. He denies any dizziness, numbness/weakness/tingling of the extremities. In the ED, vital signs were stable except for pulse of 103 and borderline hypotension with SBP in the 90s. CBC was relatively unremarkable except for neutrophilia. Coagulation panel was negative. CMP showed BUN of 21, glucose 236. Troponin was 0.086, EKG showing s inus rhythm with T-wave abnormalities. BNP was 3450, chest x-ray showing stable trace right and small left pleural effusions. Patient is admitted for anticipated greater than 48 hour admission for CHF exacerbation and troponin elevation with cardiology consultation. Patient was initially started on Lasix 40 mg IV twice a day. Echocardiogram from previous admission showed EF 20-25% with mild concentric LVH with moderate to severe aortic stenosis. He was restarted on his home medication of metoprolol. Cardiology was consulted. Otherwise, his COPD medications were optimized and he was continued on duo nebs, Pulmicort and Solu-Medrol. He did have elevated troponins of 0.086, 0.080, 0.064 which is thought to be troponin leak from CHF. He was initially started on a heparin drip from the ED which was discontinued and he was continued on aspirin, Lipitor and Plavix along with his metoprolol. He did have elevated blood glucose thought to be related to diabetes mellitus but worsened with steroids. This was treated with insulin sliding scale. Patient was seen and examined this morning. No acute events overnight. Patient reports slight discomfort and pressure-like sensation in his chest. He does report a significant improvement in his breathing. He denies any shortness of breath or palpitations. No nausea or vomiting. No fever or chills. Wanting to go home today. General: [non toxic], [no distress], [appears at stated age] Derm: [warm], [dry] Head: [atraumatic], [normocephalic], [symmetric] Eyes: [EOMI], [no lid lag], [anicteric sclera] Mouth: [no lip lesion], [mucus membranes moist] Cardiovascular: [S1S2 reg], [no murmur], [unable to palpate DP or PT pulses bilaterally], Lungs: [Decreased breath sounds bilateral], [no rhonchi, no rales] , [no accessory muscle use] Abdominal: [soft], [ nontender to palpation], [no guarding], [no appreciable organomegaly] Ext: [no gross muscle atrophy], [no edema], [no contractures] Neuro: [no focal neuro deficits] Psych: [Alert], [oriented], [appropriate affect] Shortness of breath, likely related to systolic CHF exacerbation, severe aortic stenosis, moderate to severe mitral and tricuspid regurgitation and COPD exacerbation Chest pain with elevated Troponin Pleural effusion Diabetes mellitus with hyperglycemia Smoker PAD BNP 3450 with chest x-ray concerning for decompensated heart failure. Repeat echocardiogram shows EF 20-25% with mild concentric LVH with moderate to severe aortic stenosis. Plans: Transitioned to Lasix by mouth. Strict intake and output take. Daily weights. Telemetry monitoring. Restart metoprolol. Follow- up cardiology consultation, plans for AICD placement during previous admission. Continue DuoNebs, Pulmicort, with plans to transition Solu-Medrol to complete a total of 5 days of prednisone. Patient states possibly related to cough. Plans: Discussed with nursing, obtain Trop/EKG. Continue aspirin, Lipitor and Plavix. Continue beta prasad. As seen on chest xray. Post thoracentesis bilaterally during his previous admission. Plans: Likely sequelae of CHF. Management as above. Bmfyn-sm-cnih glucose 384. Plans: Insulin sliding scale. Regular Accu-Cheks. Hypoglycemic precautions. Plans: Nicotine patch. Previous stenting by Dr. Ni. Plans: Continue aspirin, Lipitor and Plavix. Continue beta prasad. Follow Cardiology recommendations. [Cardiology has cleared the patient for discharge. Will obtain troponin and EKG for pressure-like chest pain this morning. Anticipate DC home today or tomorrow if his symptoms resolve and workup is benign. He will need to follow- up with cardiology for AICD placement. Continue Lasix by mouth at home. Will need medications to bedside prior to discharge. This complex discharge took about 35 minutes to complete.] Pertinent Studies: Chest x-ray Patient Condition at Discharge: Stable Plan - Discharge Summary New Discharge Prescriptions: New predniSONE 50 mg PO DAILY #3 tab Continue Clopidogrel [Plavix] 75 mg PO DAILY #30 tab Nitroglycerin Sl Tabs [Nitrostat] 0.4 mg SUBLINGUAL Q5M PRN #25 tab PRN Reason: Chest Pain Simvastatin [Zocor] 40 mg PO HS Metoprolol Succinate (ER) [Toprol XL] 12.5 mg PO DAILY Aspirin 81 mg PO DAILY #90 chew Acetaminophen Tab [Tylenol] 650 mg PO Q6HR PRN tab PRN Reason: Mild Pain Or Fever > 100.5 Albuterol Inhaler [Ventolin Hfa Inhaler] 1 puff INHALATION RT-TID PRN #1 inhaler PRN Reason: Shortness Of Breath Budesonide-Formot 160-4.5 Mcg [Symbicort 160-4.5 Mcg Inhaler] 2 puff INHALATION RT-BID Furosemide [Lasix] 40 mg PO BID #60 tab Discharge Medication List Clopidogrel [Plavix] 75 mg PO DAILY #30 tab 06/29/18 [Rx] Nitroglycerin Sl Tabs [Nitrostat] 0.4 mg SUBLINGUAL Q5M PRN #25 tab 06/29/18 [Rx] Metoprolol Succinate (ER) [Toprol XL] 12.5 mg PO DAILY 10/05/19 [History] Simvastatin [Zocor] 40 mg PO HS 10/05/19 [History] Acetaminophen Tab [Tylenol] 650 mg PO Q6HR PRN tab 10/10/19 [Rx] Albuterol Inhaler [Ventolin Hfa Inhaler] 1 puff INHALATION RT-TID PRN #1 inhaler 10/10/19 [Rx] Aspirin 81 mg PO DAILY #90 chew 10/10/19 [Rx] Budesonide-Formot 160-4.5 Mcg [Symbicort 160-4.5 Mcg Inhaler] 2 puff INHALATION RT-BID 10/18/19 [History] Furosemide [Lasix] 40 mg PO BID #60 tab 10/20/19 [Rx] predniSONE 50 mg PO DAILY #3 tab 10/20/19 [Rx] Follow up Appointment(s)/Referral(s): Jeffry Mulligan MD [Primary Care Provider] - 1-2 days Mor Malcolm MD [STAFF PHYSICIAN] - 1 Week Activity/Diet/Wound Care/Special Instructions: Diet: Low-salt Follow-up PCP within 3 days of discharge. Follow-up with cardiology within 1 week of discharge. Take 2 more days of prednisone. Take Lasix 40 mg by mouth twice a day, extra tablet if necessary for shortness of breath. Come back to the ED or call 911 for worsening chest pain, shortness of breath, palpitations, dizziness.
[2019-10-20 14:20] VITALS: BP 85/49
[2019-10-20 14:49] LABS: Glucose,Whole Blood 419 mg/dL (75-99)
--- NOTE | 2019-10-20 15:20 | PN ---
PROGRESS NOTE Pratik is a 68-year-old gentleman who was admitted to the hospital with acute exacerbation of chronic systolic heart failure, secondary to noncompliance with therapy. Patient has severe pulmonary hypertension, moderate to severe aortic stenosis, moderate to severe mitral regurgitation. This morning, he is feeling much better. He is currently on DuoNeb, aspirin, Lipitor, Pulmicort, Lasix, Plavix, insulin, Toprol. PHYSICAL EXAM: Heart rate is 80 beats per minute. Blood pressure is 107/65, respiratory rate is 18. Chest exam reveals good air entry bilaterally. Heart exam reveals first and second heart sounds, systolic murmur at the apex and an ejection systolic murmur in the aortic area. Abdomen is soft. Exam of extremities did not reveal any edema. Peripheral pulses are felt. ASSESSMENT: Acute exacerbation of chronic systolic heart failure. PLAN: Patient is doing well. Will switch his Lasix to p.o. and he will be discharged home, hopefully tomorrow. MMMAEGANL / JOSEPHN: [id number] /
[2019-10-20 16:11] LABS: Glucose,Whole Blood 329 mg/dL (75-99)
[2019-10-20 18:24] VITALS: PULSE 100
[2019-10-20] MEDS ORDERED: oxyCODONE ER 20 MG TAB.ER.12H PO SCH (21:00)
== END 2019-10-20 18:55 | disposition home or self-care (01) | DRG 292 ==
LOC: EC 11:22 → 3SCARD 13:47
PROVIDERS: ADMIT Family Medicine; ATTEND Family Medicine
DX: I11.0 Hypertensive heart disease with heart failure (principal); J44.1 Chronic obstructive pulmonary disease with (acute) exacerbation; I25.10 Atherosclerotic heart disease of native coronary artery without angina pectoris; I08.3 Combined rheumatic disorders of mitral, aortic and tricuspid valves; I50.23 Acute on chronic systolic (congestive) heart failure; F17.200 Nicotine dependence, unspecified, uncomplicated; E78.5 Hyperlipidemia, unspecified; E11.65 Type 2 diabetes mellitus with hyperglycemia; E11.51 Type 2 diabetes mellitus with diabetic peripheral angiopathy without gangrene; I25.5 Ischemic cardiomyopathy; I27.20 Pulmonary hypertension, unspecified; I71.4 Abdominal aortic aneurysm, without rupture; M19.90 Unspecified osteoarthritis, unspecified site; Z20.828 Contact with and (suspected) exposure to other viral communicable diseases; Z79.899 Other long term (current) drug therapy; I25.2 Old myocardial infarction; Z79.82 Long term (current) use of aspirin; Z79.51 Long term (current) use of inhaled steroids; Z79.02 Long term (current) use of antithrombotics/antiplatelets; Z82.49 Family history of ischemic heart disease and other diseases of the circulatory system; Z87.442 Personal history of urinary calculi; Z91.19 Patient's noncompliance with other medical treatment and regimen; Z95.1 Presence of aortocoronary bypass graft; Z95.5 Presence of coronary angioplasty implant and graft
CPT/HCPCS: 36415; 71046; 80048; 80053; 80061; 83735; 83880; 84484; 85025; 85610; 85730; 87635; 93005; 94640; 96365; 96366; 96375; 96376; 99285

== ENCOUNTER 2019-11-17 07:46 | Day surgery (SDC) | payer MEDICARE ==
[2019-11-16 13:46] VITALS: BMI 22.6
[~2019-11-17 07:46] MED LIST changes: +ALPRAZolam 0.25 MG TAB PO PRN; +ALPRAZolam 0.5 MG TAB PO PRN; -ASPIRIN 325 MG TAB ONE; +ASPIRIN 325 MG TAB PO STA; +ATORVASTATIN 80 MG TAB PO STA; +NITROGLYCERIN SL TABS 0.4 MG TAB SUBLINGUAL PRN
[2019-11-17 08:28] LABS: Glucose,Whole Blood 443 mg/dL (75-99)
[2019-11-17] MEDS ORDERED: INSULIN ASPART (NovoLOG) 100 UNIT/ML VIAL SQ ONE (08:30)
[2019-11-17] MEDS ORDERED: SODIUM CHLORIDE 0.9% 1,000 ML IV ONE (08:31)
[2019-11-17 08:34] VITALS: TEMP 97.7
[2019-11-17] MEDS ORDERED: BENZOCAINE SPRAY 1 CAN MUCOUS MEM ONE (08:40)
[2019-11-17] MEDS: MIDAZOLAM 2 MG/2 ML VIAL IV ONE ×2 (08:51→09:04)
[2019-11-17] MEDS: fentaNYL (PF) 50 MCG/ML 2 ML AMP IV ONE ×2 (08:51→09:01)
[2019-11-17] MEDS ORDERED: fentaNYL (PF) 50 MCG/ML 2 ML AMP IV ONE (08:51)
[2019-11-17 09:02] VITALS: RESP 16
--- NOTE | 2019-11-17 09:38 | P.PCN ---
Date of Procedure: 11/17/19 Operative Findings: TRANSESOPHAGEAL ECHOCARDIOGRAM POSITION CLERK: NAN MURRAY MD, RPVI INDICATION: This is a 69-year-old gentleman who was diagnosed recently was cardiomyopathy. He was found to have moderate to severe mitral regurgitation as well as [id number] aortic stenosis. He was brought today to undergo a TONO for further evaluation of the mitral and aortic valve. SEDATION: Conscious sedation with sedation length of 20 minutes COMPLICATION: None PROCEDURE DESCRIPTION: After obtaining an informed consent, the patient was brought to transesophageal echocardiogram room. Pulse oximetry and heart monitors were attached to the patient. The patient throat was sprayed using lidocaine. The patient was turned into left lateral position. After that a bite guard was placed. After an appropriate conscious sedation was initiated, the transesophageal echocardiogram was advanced through a bite guard into the mid esophagus. A 2-D echocardiogram images, color Doppler images, continuous wave images, pulse-wave images, of various cardiac structure were performed. After that the transesophageal echocardiogram probe was advanced into the stomach and fixed to obtain transgastric view was. The probe was brought into the mid esophagus. Inter-atrial septum was interrogated using 2D images, color Doppler images. After that transesophageal echocardiogram was withdrawn out and upon withdrawing the descending thoracic aorta all the way up to the arch was evaluated. FINDING: The left ventricle is dilated. The left ventricular systolic function is impaired with an ejection fraction of 25-30% and global hypokinesia. The right ventricle appeared to be dilated as well. The left atrium and right atrium are dilated. The left atrium appendage appeared to be intact. The interatrial septum appears to be intact. We did not interrogate the septum using contrast study. Aortic valve is extremely thickened and calcified and not opening well. We could not get a gradient across aortic valve. There was mild aortic insufficiency. The mitral valve also is very thickened with thickening of the anterior and posterior mitral leaflet and evidence of severe mitral regurgitation by color flow Doppler and moderate to severe mitral regurgitation by quantitative measurements. The effective regurgitant orifice area was measured 0.39 centimeters square. There is moderate to severe tricuspid regurgitation. There is mild pulmonic insufficiency. CONCLUSION: 1. Impaired LV function with EF between 30-35% and global hypokinesia 2. Mildly dilated right ventricle with impaired function 3. Thickened anterior and posterior mitral leaflets with severe mitral regurgitation by color flow Doppler. There is reversal of flow in the pulmonary vein 4. Extremely thickened aortic valve leaflets with restriction to opening. The gradient was not measured. 5. Moderate to severe tricuspid regurgitation 6. Intact left atrium appendage
[2019-11-17 10:26] VITALS: BP 107/73; PULSE 86
== END 2019-11-17 10:45 | disposition home or self-care (01) ==
LOC: CATHCVL 07:46
PROVIDERS: ATTEND Internal Medicine Interventional Cardiology
DX: I08.3 Combined rheumatic disorders of mitral, aortic and tricuspid valves (principal); I42.9 Cardiomyopathy, unspecified; I25.10 Atherosclerotic heart disease of native coronary artery without angina pectoris; I25.82 Chronic total occlusion of coronary artery; I11.0 Hypertensive heart disease with heart failure; I50.9 Heart failure, unspecified; I27.20 Pulmonary hypertension, unspecified; I73.9 Peripheral vascular disease, unspecified; I77.9 Disorder of arteries and arterioles, unspecified; E78.5 Hyperlipidemia, unspecified; J44.9 Chronic obstructive pulmonary disease, unspecified; F17.210 Nicotine dependence, cigarettes, uncomplicated; Z79.82 Long term (current) use of aspirin; Z79.02 Long term (current) use of antithrombotics/antiplatelets; Z79.84 Long term (current) use of oral hypoglycemic drugs; Z79.899 Other long term (current) drug therapy; Z95.1 Presence of aortocoronary bypass graft; Z95.5 Presence of coronary angioplasty implant and graft
CPT/HCPCS: 93312; 93320; 93325; J2250; J3010

== ENCOUNTER 2019-12-01 13:12 | Inpatient (IN) | payer MEDICARE ==
--- NOTE | 2019-12-01 13:27 | ED ---
SOB HPI - General Chief Complaint: Shortness of Breath Stated Complaint: SOB/swollen legs Time Seen by Provider: 12/01/19 13:26 Source: patient, family, RN notes reviewed, old records reviewed Mode of arrival: wheelchair Limitations: no limitations - History of Present Illness Initial Comments: This is a 69-year-old male DF for evaluation of weakness shortness of breath dehydration not feeling well. Patient does get like this very often for family family is at bedside recently saw 3 days ago patient called EMS today for weakness and inability to ambulate MD Complaint: shortness of breath, cough -: days(s) Severity: moderate Severity scale (1-10): 3 Quality: dull Consistency: constant Improves With: nothing Worsens With: nothing Known History Of: COPD, asthma, diabetes Context: recent URI Associated Symptoms: chest pain, pain with inspiration Treatments Prior to Arrival: none - Related Data Home Medications Medication Instructions Recorded Confirmed Metoprolol Succinate (ER) [Toprol 12.5 mg PO DAILY 10/05/19 12/01/19 XL] Simvastatin [Zocor] 40 mg PO HS 10/05/19 12/01/19 Budesonide-Formot 160-4.5 Mcg 2 puff INHALATION RT-BID 10/18/19 12/01/19 [Symbicort 160-4.5 Mcg Inhaler] Spironolactone [Aldactone] 12.5 mg PO DAILY 11/16/19 12/01/19 Albuterol Sulfate [Ventolin HFA] 1 puff INHALATION RT-TID PRN 12/01/19 12/01/19 metFORMIN HCL [Glucophage] 500 mg PO BID 12/01/19 12/01/19 Previous Rx's Medication Instructions Recorded Clopidogrel [Plavix] 75 mg PO DAILY #30 tab 06/29/18 Nitroglycerin Sl Tabs [Nitrostat] 0.4 mg SUBLINGUAL Q5M PRN #25 tab 06/29/18 Furosemide [Lasix] 40 mg PO BID #60 tab 10/20/19 Allergies Allergy/AdvReac Type Severity Reaction Status Date / Time No Known Allergies Allergy Verified 12/01/19 15:08 Review of Systems ROS Statement: Those systems with pertinent positive or pertinent negative responses have been documented in the HPI. ROS Other: All systems not noted in ROS Statement are negative. Past Medical History Past Medical History: Coronary Artery Disease (CAD), Chest Pain / Angina, COPD, Diabetes Mellitus, Hyperlipidemia, Hypertension, Myocardial Infarction (PA), Osteoarthritis (OA), Vascular Disorder Additional Past Medical History / Comment(s): steroids October 2018,KIDNEY STONES. hx aneurysm abdominal Last Myocardial Infarction Date:: 2005? History of Any Multi-Drug Resistant Organisms: None Reported Past Surgical History: Coronary Bypass/CABG, Heart Catheterization With Stent, Orthopedic Surgery Additional Past Surgical History / Comment(s): RT ROTATOR CUFF REPAIR. CABG (2005 & 2007) BYPASS X2. STENTS X2 IN PAST, ABD ANEURYSM REPAIR WITH STENT, LT CAROTID ENDARTERECTOMY. lithotripsy. STATES STENT TO LEFT LEG, Cardiac cath 2018. stents to right SFA november 2018 Past Anesthesia/Blood Transfusion Reactions: No Reported Reaction Date of Last Stent Placement:: 2018 Past Psychological History: No Psychological Hx Reported Smoking Status: Current every day smoker Past Alcohol Use History: None Reported Past Drug Use History: None Reported - Past Family History Father Family Medical History: Deep Vein Thrombosis (DVT), Myocardial Infarction (PA) General Exam Limitations: no limitations Course Vital Signs 12/01/19 12/01/19 12/01/19 13:20 13:24 14:09 Temperature 97.4 F L Pulse Rate 92 104 H Respiratory 20 16 Rate Blood Pressure O2 Sat by Pulse 96 Oximetry 12/01/19 12/01/19 14:20 14:24 Temperature Pulse Rate 111 H 107 H Respiratory 18 Rate Blood Pressure 94/82 O2 Sat by Pulse 96 Oximetry - Reevaluation(s) Reevaluation #1: 12/01/19 14:25 Medical records reviewed Reevaluation #2: 12/01/19 15:43 A she is feeling mildly improved with hydration Medical Decision Making - Medical Decision Making 69 male DF for evaluation for significant dehydration weakness decreased appetite. Lactic acidosis probably secondary to malnutrition and dehydration [place] for fluid resuscitation - Lab Data Result diagrams: 12/01/19 13:41 12/01/19 13:41 Lab Results 12/01/19 12/01/19 12/01/19 Range/Units 13:41 13:41 13:41 WBC 8.8 (3.8-10.6) k/uL RBC 4.44 (4.30-5.90) m/uL Hgb 12.4 L (13.0-17.5) gm/dL Hct 41.0 (39.0-53.0) % MCV 92.4 (80.0-100.0) fL MCH 27.9 (25.0-35.0) pg MCHC 30.2 L (31.0-37.0) g/dL RDW 16.0 H (11.5-15.5) % Plt Count 148 L (150-450) k/uL Neutrophils % 77 % Lymphocytes % 14 % Monocytes % 7 % Eosinophils % 0 % Basophils % 0 % Neutrophils # 6.7 (1.3-7.7) k/uL Lymphocytes # 1.2 (1.0-4.8) k/uL Monocytes # 0.7 (0-1.0) k/uL Eosinophils # 0.0 (0-0.7) k/uL Basophils # 0.0 (0-0.2) k/uL Hypochromasia Moderate Anisocytosis Slight PT 12.4 H (9.0-12.0) sec INR 1.2 H (<1.2) APTT 21.8 L (22.0-30.0) sec Sodium 132 L (137-145) mmol/L Potassium 5.1 (3.5-5.1) mmol/L Chloride 93 L (98-107) mmol/L Carbon Dioxide 26 (22-30) mmol/L Anion Gap 13 mmol/L BUN 40 H (9-20) mg/dL Creatinine 0.84 (0.66-1.25) mg/dL Est GFR (CKD-EPI)AfAm >90 (>60 ml/min/1.73 sqM) Est GFR (CKD-EPI)NonAf >90 (>60 ml/min/1.73 sqM) Glucose 428 H (74-99) mg/dL Plasma Lactic Acid Eduin (0.7-2.0) mmol/L Calcium 9.4 (8.4-10.2) mg/dL Phosphorus 5.8 H (2.5-4.5) mg/dL Magnesium 1.9 (1.6-2.3) mg/dL Total Bilirubin 0.7 (0.2-1.3) mg/dL AST 24 (17-59) U/L ALT 24 (4-49) U/L Alkaline Phosphatase 136 H (38-126) U/L Creatine Kinase 31 L (55-170) U/L Troponin I (0.000-0.034) ng/mL NT-Pro-B Natriuret Pep pg/mL Total Protein 5.9 L (6.3-8.2) g/dL Albumin 3.7 (3.5-5.0) g/dL 12/01/19 12/01/19 12/01/19 Range/Units 13:41 13:41 13:41 WBC (3.8-10.6) k/uL RBC (4.30-5.90) m/uL Hgb (13.0-17.5) gm/dL Hct (39.0-53.0) % MCV (80.0-100.0) fL MCH (25.0-35.0) pg MCHC (31.0-37.0) g/dL RDW (11.5-15.5) % Plt Count (150-450) k/uL Neutrophils % % Lymphocytes % % Monocytes % % Eosinophils % % Basophils % % Neutrophils # (1.3-7.7) k/uL Lymphocytes # (1.0-4.8) k/uL Monocytes # (0-1.0) k/uL Eosinophils # (0-0.7) k/uL Basophils # (0-0.2) k/uL Hypochromasia Anisocytosis PT (9.0-12.0) sec INR (<1.2) APTT (22.0-30.0) sec Sodium (137-145) mmol/L Potassium (3.5-5.1) mmol/L Chloride (98-107) mmol/L Carbon Dioxide (22-30) mmol/L Anion Gap mmol/L BUN (9-20) mg/dL Creatinine (0.66-1.25) mg/dL Est GFR (CKD-EPI)AfAm (>60 ml/min/1.73 sqM) Est GFR (CKD-EPI)NonAf (>60 ml/min/1.73 sqM) Glucose (74-99) mg/dL Plasma Lactic Acid Eduin 4.3 H* (0.7-2.0) mmol/L Calcium (8.4-10.2) mg/dL Phosphorus (2.5-4.5) mg/dL Magnesium (1.6-2.3) mg/dL Total Bilirubin (0.2-1.3) mg/dL AST (17-59) U/L ALT (4-49) U/L Alkaline Phosphatase (38-126) U/L Creatine Kinase (55-170) U/L Troponin I 0.030 (0.000-0.034) ng/mL NT-Pro-B Natriuret Pep 9000 pg/mL Total Protein (6.3-8.2) g/dL Albumin (3.5-5.0) g/dL - EKG Data -: EKG Interpreted by Me (EKG shows sinus tach rate of 109 MN 150 QRS 90 QTC 479) - Radiology Data Radiology results: report reviewed (Chest x-ray is negative for acute disease), image reviewed Disposition Clinical Impression: Dehydration, Lactic acidosis, Weakness Disposition: ADMITTED IP TO THIS HOSP Condition: Fair Is patient prescribed a controlled substance at d/c from ED?: No Referrals: Jeffry Mulligan MD [Primary Care Provider] - 1-2 days
[2019-12-01] MEDS ORDERED: SODIUM CHLORIDE 0.9% 500 ML 500 ML IV STA (13:36)
[2019-12-01] MEDS ORDERED: methylPREDNISolone SOD SUCCI 125 MG/2 ML VIAL IV STA (13:36)
[2019-12-01] MEDS ORDERED: SODIUM CHLORIDE 0.9% 1,000 ML IV STA ×3 (13:36→14:38)
[2019-12-01] MEDS ORDERED: IPRATROPIUM-ALBUTEROL 3 ML NEB INHALATION STA (13:36)
[2019-12-01 13:52] LABS: Anisocytosis Slight; Basophils % (A) 0 %; Eosinophils % (A) 0 %; HGB 12.4 gm/dL (13.0-17.5); Hypochromasia Moderate; Lymphocytes # (A) 1.2 k/uL (1.0-4.8); Lymphocytes % (A) 14 %; MCH 27.9 pg (25.0-35.0); MCHC 30.2 g/dL (31.0-37.0); MCV 92.4 fL (80.0-100.0); Monocytes # (A) 0.7 k/uL (0-1.0); Monocytes % (A) 7 %; Neutrophils # (A) 6.7 k/uL (1.3-7.7); Neutrophils % (A) 77 %; Platelet Count 148 k/uL (150-450); RBC 4.44 m/uL (4.30-5.90); WBC 8.8 k/uL (3.8-10.6)
[2019-12-01 14:12] LABS: ALT 24 U/L (4-49); AST 24 U/L (17-59); African American GFR (CKD) >90 (>60 ml/min/1.73 sqM); Albumin 3.7 g/dL (3.5-5.0); Alkaline Phosphatase 136 U/L (38-126); Anion Gap 13 mmol/L; Blood Urea Nitrogen 40 mg/dL (9-20); Calcium 9.4 mg/dL (8.4-10.2); Carbon Dioxide 26 mmol/L (22-30); Chloride 93 mmol/L (98-107); Creatine Kinase 31 U/L (55-170); Glucose 428 mg/dL (74-99); Magnesium 1.9 mg/dL (1.6-2.3); Non-African American GFR(CKD) >90 (>60 ml/min/1.73 sqM); Phosphorus 5.8 mg/dL (2.5-4.5); Potassium 5.1 mmol/L (3.5-5.1); Sodium 132 mmol/L (137-145); Total Bilirubin 0.7 mg/dL (0.2-1.3); Total Protein 5.9 g/dL (6.3-8.2)
--- NOTE | 2019-12-01 14:19 | XR ---
EXAMINATION TYPE: XR chest 2V DATE OF EXAM: 12/01/2019 COMPARISON: Prior chest x-ray 10/18/2019 and 2019 HISTORY: Difficulty breathing TECHNIQUE: Frontal and lateral views of the chest are obtained. FINDINGS: Patient is post median sternotomy. Coronary artery stent is noted. Epicardial pacing leads are in place, aortic stent graft is noted. Bibasilar increased density persists, there is blunting t he costophrenic angles. No evident pneumothorax. There are overlying cardiac leads, artifacts. Arthro london noted in the shoulders. The heart is enlarged. Subsegmental basilar atelectatic changes have pr ogressed on the right. IMPRESSION: Basilar atelectasis and associated effusions. Cardiomegaly.
[2019-12-01 14:22] LABS: INR 1.2 (<1.2); Prothrombin Time 12.4 sec (9.0-12.0)
[2019-12-01 14:40] LABS: Partial Thromboplastin Time 21.8 sec (22.0-30.0)
[2019-12-01] MEDS ORDERED: THIAMINE 100 MG/ML 2 ML VIAL IM STA (15:42)
[2019-12-01] MEDS ORDERED: LORazepam 2 MG/ML INJ IV PRN ×3 (15:42)
[2019-12-01 16:59] LABS: Glucose,Whole Blood 361 mg/dL (75-99)
[2019-12-01 17:42] VITALS: RESP 22
[2019-12-01 19:53] VITALS: BP 135/90; PULSE 130; TEMP 97.8
[2019-12-01 19:58] LABS: Glucose,Whole Blood 491 mg/dL (75-99)
[2019-12-01] MEDS ORDERED: NITROGLYCERIN SL TABS 0.4 MG TAB SUBLINGUAL PRN (20:03)
[2019-12-01] MEDS ORDERED: ALBUTEROL NEBULIZED 2.5 MG/3 ML INHALATION PRN (20:03)
[2019-12-01] MEDS ORDERED: METOPROLOL SUCCINATE (ER) 25 MG TAB.ER.24H PO SCH (20:15)
[2019-12-01] MEDS ORDERED: ATORVASTATIN 20 MG TAB PO SCH (21:00)
[2019-12-01] MEDS ORDERED: INSULIN ASPART (NovoLOG) 100 UNIT/ML VIAL SQ SCH (21:00)
[2019-12-01] MEDS ORDERED: HYDROcodone/APAP 5-325MG 1 EACH TAB PO PRN (21:11)
[2019-12-01] MEDS ORDERED: IPRATROPIUM-ALBUTEROL 3 ML NEB INHALATION PRN (21:11)
[2019-12-01] MEDS ORDERED: AZITHROMYCIN 500 MG in SODIUM CHLORIDE 0.9% 250 ML IVPB SCH (21:15)
--- NOTE | 2019-12-01 22:27 | HP ---
HISTORY AND PHYSICAL CHIEF COMPLAINT: Dehydration as well as cough and sputum and as well as shortness of breath. HISTORY OF PRESENT ILLNESS: This 69-year-old gentleman with a past medical history of CAD, history of COPD, diabetes type 2, hypertension, hyperlipidemia, myocardial infarction, history of steroids, CAD, CABG stent being followed by Dr. Jeffry Mulligan in the outpatient setting was not feeling well over the past several days. Patient had shortness of breath and not feeling well. The patient also has some cough and sputum and the chest x-ray showed evidence of bilateral pneumonia, right more the left. The patient admitted to the hospital for further evaluation and treatment. The plasma lactic acid elevated up to 2.9 indicating sepsis. Sodium was 132, glucose was 491 with CO2 ketones was not checked. Sugars were still elevated. PAST MEDICAL HISTORY: History of CAD, history of COPD, diabetes type 2, hypertension, hyperlipidemia, myocardial infarction, history of kidney stones. MEDICATIONS: Home medications are metformin 500 mg b.i.d. Aldactone 12.5 mg, Zocor, Nitrostat, Toprol-XL. Lasix. Plavix. Symbicort. Albuterol. ALLERGIES: None. FAMILY HISTORY: History of DVT and myocardial infarction in the family. SOCIAL HISTORY: History of smoking, continued ongoing. No history of alcohol intake. REVIEW OF SYSTEMS: ENT: Diminished vision. Diminished hearing. CARDIOVASCULAR system as mentioned earlier. RESPIRATORY: As mentioned earlier. GI no nausea, vomiting. no dysuria. Nervous System: As mentioned earlier. Allergy/Immunology: No asthma or hayfever. Musculoskeletal as mentioned earlier. Hematology/Oncology: No history of anemia. Endocrine as mentioned earlier. CONSTITUTIONAL: As mentioned earlier. DERMATOLOGY: Negative. RHEUMATOLOGY negative. PSYCHIATRY as mentioned. PHYSICAL EXAMINATION: Alert and oriented x2. Pulse is 130, blood pressure 139/52, respirations 22, temperature 97.8. Pulse ox 100 percent on 3 L. HEENT: Conjunctivae normal. Oral mucosa moist. NECK is no jugular venous distention. No carotid bruit. No lymph node enlargement. CARDIOVASCULAR: S1, S2 muffled. No S3, no S4. RESPIRATORY: Breath sounds diminished in the bases. A few scattered rhonchi and crackles. ABDOMEN: Soft, nontender. No mass palpable. LEGS: No edema. No swelling. NERVOUS SYSTEM: Higher functions as mentioned earlier. Moves all four limbs. No focal motor or sensory deficits. Lymphatics: No lymph nodes palpable in the neck, axillae or groin. SKIN: No ulcer, no rashes and no bleeding. JOINTS: No active deforming arthropathy. LABS: WBC 8.2, hemoglobin 12.4, and sodium is 132, potassium 5.1. Plasma lactic acid 4.3. Otherwise cultures negative. Sugars are noted. EKG shows sinus tachycardia. The chest x-ray personally reviewed by me. ASSESSMENT: 1. Acute bilateral pneumonia, right more the left with possible sepsis present on admission. 2. Chronic obstructive pulmonary disease acute exacerbation. 3. Hyponatremia. 4. Mild thrombocytopenia. 5. Diabetes mellitus type 2 uncontrolled with hyperglycemia with no evidence of ketosis. 6. Elevated lactic acid, possibly secondary to sepsis and dehydration. 7. History of coronary artery disease. 8. History of diabetes type 2. 9. Hypertension. 10.Hyperlipidemia. 11.Myocardial infarction. 12.History of degenerative joint disease. 13.History of vascular disorder. 14.History of coronary artery disease, CABG stent. 15.Continued ongoing nicotine dependence. 16.NO CODE, NO CPR, NO VENT. RECOMMENDATIONS AND DISCUSSION: In this 69-year-old gentleman who presented with multiple complex medical issues, we will monitor the patient closely. Continue the current medications. At this time, we will initiate broad-spectrum IV antibiotics, steroids. Pulmonary consultation. Resume the home medications. CT scan of chest is ordered. We will also do the workup for Covid 19, which is pending at this time. Overall prognosis extremely guarded because of multiple complex medical issues and the patient does not have any contact with any sick individuals at this time. However, we will order the basic labs including sed rate and D-dimer and other labs as well. A copy of this dictation is being forwarded to Dr. Jeffry Mulligan who is the primary physician. MMODL / IJN: [id number] /
[2019-12-01] MEDS ORDERED: FUROSEMIDE 10 MG/ML 4 ML VIAL ONE (22:30)
[2019-12-01 22:56] LABS: HCT 47.2 % (39.0-53.0); Hypochromasia Marked; MCH 27.5 pg (25.0-35.0); MCHC 27.6 g/dL (31.0-37.0); Macrocytosis Slight; Mean Platelet Volume 8.9; Platelet Count 163 k/uL (150-450); RBC 4.73 m/uL (4.30-5.90); RDW 15.9 % (11.5-15.5); WBC 11.7 k/uL (3.8-10.6)
[2019-12-01 23:06] LABS: MCV 99.7 fL (80.0-100.0)
[2019-12-01 23:10] LABS: Calcium 8.6 mg/dL (8.4-10.2); Magnesium 2.1 mg/dL (1.6-2.3); Potassium 4.6 mmol/L (3.5-5.1)
[2019-12-01 23:33] LABS: Lymphocytes # (M) 2.57 k/uL (1.0-4.8); Monocytes # (M) 0.59 k/uL (0-1.0); Neutrophils # (M) 8.54 k/uL (1.3-7.7); Neutrophils % (M) 73 %; Nucleated Red Blood Cells 0 /100 WBC (0-0); Polychromasia Present; Total Cells Counted 100
[2019-12-02] MEDS ORDERED: methylPREDNISolone SOD SUCCI 125 MG/2 ML VIAL IV SCH
[2019-12-02] MEDS ORDERED: THIAMINE 100 MG TAB PO SCH (07:30)
[2019-12-02] MEDS ORDERED: PANTOPRAZOLE 40 MG TABLET PO SCH (07:30)
[2019-12-02] MEDS ORDERED: FORMOTEROL FUMARATE 20 MCG/2 ML NEBU INHALATION SCH (08:00)
[2019-12-02] MEDS ORDERED: BUDESONIDE 1 MG/2 ML NEBU INHALATION SCH (08:00)
[2019-12-02] MEDS ORDERED: IPRATROPIUM-ALBUTEROL 3 ML NEB INHALATION SCH (08:00)
[2019-12-02] MEDS ORDERED: SYMBICORT 160-4.5 MCG INHALER INHALATION SCH (08:00)
[2019-12-02] MEDS ORDERED: FUROSEMIDE 40 MG TAB PO SCH (09:00)
[2019-12-02] MEDS ORDERED: NICOTINE 14MG/24HR PATCH TRANSDERM SCH (09:00)
[2019-12-02] MEDS ORDERED: CLOPIDOGREL 75 MG TAB PO SCH (09:00)
[2019-12-02] MEDS ORDERED: SPIRONOLACTONE 25 MG TAB PO SCH (09:00)
[2019-12-02] MEDS ORDERED: HEPARIN SODIUM,PORCINE 5,000 UNIT/ML 1 ML VIAL SQ SCH (09:00)
--- NOTE | 2019-12-03 09:07 | DS ---
DISCHARGE SUMMARY DIAGNOSES: 1. The primary case of is acute bilateral pneumonia, possibly gram-negative, possibly COVID-19. 2. Possible sepsis with acute hypoxic respiratory. 3. Chronic obstructive pulmonary disease acute exacerbation. 4. Hyponatremia. 5. Mild thrombocytopenia. 6. Diabetes mellitus type 2 uncontrolled with hyperglycemia with no evidence of ketosis. 7. Elevated lactic acid possibly secondary to sepsis. 8. History of coronary artery disease. 9. History of diabetes type 2. 10.Hypertension. 11.Hyperlipidemia. 12.Myocardial infarction. 13.History of degenerative joint disease. 14.History of vascular disorder. 15.History of coronary artery disease, coronary artery bypass grafting. 16.Continued ongoing nicotine dependence. 17.NO CODE, NO CPR, NO VENT. HISTORY OF PRESENT ILLNESS: This is a 69-year-old gentleman with past medical history of multiple medical problems, being followed by Dr. Jeffry Mulligan in the outpatient setting, was admitted with acute bilateral pneumonia with multiple complications, as described above. The patient was also suspected to have COVID-19, however the testing is pending at this time. The patient was started on broad-spectrum IV antibiotics and bronchodilators, but the patient rapidly deteriorated and the patient became hypoxic and the patient succumbed to his above-mentioned illness. The patient was NO CODE, NO CPR, NO VENT at the time of admission, per patient's wishes, so aggressive measures were not pursued. Please refer to the history and physical and multiple consultations and progress notes and staff notes for further details. The prognosis remained extremely guarded throughout the hospital stay. MMFERNY / IJN: [id number] /
--- NOTE | 2019-12-07 08:11 | CDI ---
Documentation Clarification Form Date: 12/07/2019 07:44:35 AM From: Mary Villarreal RN, CCDS Admit Date: 12/01/2019 03:42:00 PM Patient Name: Pratik Nicholson Visit Number: [id number] Discharge Date: 12/02/2019 02:24:00 AM ATTENTION: The Clinical Documentation Specialists (CDI) and [facility] Coding Staff appreciate your assistance in clarifying documentation. Please respond to the clarification below the line at the bottom and electronically sign. The CDI & [facility] Coding staff will review the response and follow-up if needed. Please note: Queries are made part of the Legal Health Record. If you have any questions, please contact the author of this message via ITS. Dr. Mae Perez "The primary case of is acute bilateral pneumonia, possibly gram- negative, possibly COVID-19." is documented in the D/C Summary. Covid-19 cannot be recorded as "Suspected" or "Possible" per coding guidelines. Please provide definitive diagnosis if able. Patient history/risk factors: Smoker, CAD, COPD, DM2 Clinical Indicators: Patient presented with SOB, weakness, dehydration, and generally not feeling well. 11/30 CXR: "Basilar atelectasis and associated effusions. Cardiomegaly." 11/30 Labs: WBC 8.8/11.7, Neutrophils 6.7/8.54, Lactic Acid 4.3/4/3.5 11/30 2345 Coronavirus PCR Not Detected LDH, Ferritin, CRP not ordered ABGs: not done 11/30 1424 Vital Signs: Temp 97.4, HR 107, RR 18, B/P 94/82, Spo2 96% 2L NC Treatment: Zithromax 500 mg IVP Q 24 hrs Ceftriaxone 1gm IVPB Q 24 hrs Solumedrol 125mg IVP X 1 Updrafts 11/30 2.5L 0.9% NS IVF Bolus In order to capture the severity of condition, please clarify if the above treatment/clinical indicators signify: COVID-19 False Negative Test (please provide clinical indicators supporting clinical Covid diagnosis) COVID-19 ruled out COVID-19 confirmed Other, please specify (Last Form Revision: July 2019) COVID-19 False Negative Test see chart MTDD
== END 2019-12-02 02:24 | disposition expired | DRG 871 ==
LOC: EC 13:12 → 3SCARD 15:42
PROVIDERS: ADMIT Hospitalist; ATTEND Hospitalist
DX: A41.59 Other Gram-negative sepsis (principal); U07.1 COVID-19; J15.6 Pneumonia due to other Gram-negative bacteria; J96.01 Acute respiratory failure with hypoxia; J12.89 Other viral pneumonia; E87.2 Acidosis; E46 Unspecified protein-calorie malnutrition; J44.0 Chronic obstructive pulmonary disease with (acute) lower respiratory infection; J44.1 Chronic obstructive pulmonary disease with (acute) exacerbation; E87.1 Hypo-osmolality and hyponatremia; I25.10 Atherosclerotic heart disease of native coronary artery without angina pectoris; Z66 Do not resuscitate; M19.90 Unspecified osteoarthritis, unspecified site; I10 Essential (primary) hypertension; F17.200 Nicotine dependence, unspecified, uncomplicated; E86.0 Dehydration; D69.6 Thrombocytopenia, unspecified; E11.65 Type 2 diabetes mellitus with hyperglycemia; E78.5 Hyperlipidemia, unspecified; R00.0 Tachycardia, unspecified; Z79.51 Long term (current) use of inhaled steroids; Z79.02 Long term (current) use of antithrombotics/antiplatelets; Z79.899 Other long term (current) drug therapy; Z79.84 Long term (current) use of oral hypoglycemic drugs; I25.2 Old myocardial infarction; Z87.442 Personal history of urinary calculi; Z95.5 Presence of coronary angioplasty implant and graft; Z95.1 Presence of aortocoronary bypass graft; Z98.890 Other specified postprocedural states; Z82.49 Family history of ischemic heart disease and other diseases of the circulatory system
CPT/HCPCS: 36415; 71046; 80048; 80053; 82550; 83605; 83735; 83880; 84100; 84484; 85025; 85610; 85730; 93005; 94640; 96361; 96374; 99285